=== PATIENT | male | born 1950 | race Caucasian/White ===

== ENCOUNTER 2017-10-11 09:52 | Inpatient (IN) | payer MEDICARE, OTHER ==
[2017-10-11] MEDS ORDERED: methylPREDNISolone SOD SUCCI 125 MG/2 ML VIAL IV STA (10:01)
[2017-10-11] MEDS: ALBUTEROL NEBULIZED 7.5 MG, IPRATROPIUM NEBULIZED 0.5 MG, SODIUM CHLORIDE 0.9% NEBULIZ ... INHALATION ONE ×6 (10:26→10:27)
--- NOTE | 2017-10-11 10:28 | ED ---
General Adult HPI - General Stated complaint: Weakness Time Seen by Provider: 10/11/17 09:55 Source: patient, RN notes reviewed Mode of arrival: EMS - History of Present Illness Initial comments: This is a 67-year-old male who presents emergency Department complaining that he 's been short of breath week and a little dizzy over the last couple of days. Patient states he has a Woodward catheter in place because he's had blood in his urine and he has an appointment to follow-up with Dr. Rowland in 2 days. Patient denies any chest pain or palpitations. Patient denies any fever chills or cough. Patient denies any abdominal pain patient denies any nausea vomiting diarrhea. Patient states he has COPD he does continue to smoke. Patient states he took a treatment before he came in. Patient states on 2 L of oxygen normally. Patient did not receive anything in the ambulance on the way in - Related Data Home Medications Medication Instructions Recorded Confirmed Albuterol Inhaler [Ventolin Hfa 2 puff INHALATION RT-Q6H PRN 10/11/17 10/11/17 Inhaler] Aspirin EC [Ecotrin Low Dose] 81 mg PO DAILY 10/11/17 10/11/17 Carvedilol [Coreg] 12.5 mg PO BID 10/11/17 10/11/17 Insulin Aspart [NovoLOG Flexpen] 5 units SQ AC-BRKFST 10/11/17 10/11/17 Insulin Aspart [NovoLOG Flexpen] 5 units SQ AC-LUNCH 10/11/17 10/11/17 Insulin Aspart [NovoLOG Flexpen] 8 units SQ AC-SUPPER 10/11/17 10/11/17 Insulin Detemir [Levemir Flextouch] 65 units SQ HS 10/11/17 10/11/17 Ipratropium-Albuterol Nebulize 3 ml INHALATION RT-QID 10/11/17 10/11/17 [Duoneb 0.5 mg-3 mg/3 ml Soln] Lisinopril 40 mg PO DAILY 10/11/17 10/11/17 Pravastatin Sodium [Pravachol] 20 mg PO HS 10/11/17 10/11/17 Sulfamethox-Tmp 800-160Mg [Bactrim 1 tab PO Q12HR 10/11/17 10/11/17 DS 800-160 mg] Theophylline 12 Hour [Gilberto-Dur] 300 mg PO BID 10/11/17 10/11/17 amLODIPine [Norvasc] 10 mg PO DAILY 10/11/17 10/11/17 Allergies Allergy/AdvReac Type Severity Reaction Status Date / Time No Known Allergies Allergy Unverified 10/11/17 10:08 Review of Systems ROS Statement: Those systems with pertinent positive or pertinent negative responses have been documented in the HPI. ROS Other: All systems not noted in ROS Statement are negative. Past Medical History Past Medical History: Heart Failure, COPD, Diabetes Mellitus History of Any Multi-Drug Resistant Organisms: None Reported Past Surgical History: Appendectomy, Cholecystectomy, Heart Catheterization Past Psychological History: No Psychological Hx Reported Smoking Status: Current some day smoker Past Alcohol Use History: None Reported Past Drug Use History: None Reported General Exam - General Exam Comments Initial Comments: GENERAL: Patient is well-developed and well-nourished. Patient is nontoxic and well- hydrated and is in mild distress. ENT: Neck is soft and supple. No significant lymphadenopathy is noted. Oropharynx is clear. Moist mucous membranes. Neck has full range of motion without eliciting any pain. EYES: The sclera were anicteric and conjunctiva were pink and moist. Extraocular movements were intact and pupils were equal round and reactive to light. Eyelids were unremarkable. PULMONARY: Patient has expiratory wheezing diffusely CARDIOVASCULAR: There is a regular rate and rhythm without any murmurs gallops or rubs. ABDOMEN: Patient has a nontender abdomen SKIN: Skin is clear with no lesions or rashes and otherwise unremarkable. NEUROLOGIC: Patient is alert and oriented x3. Cranial nerves II through XII are grossly intact. Motor and sensory are also intact. Normal speech, volume and content. Symmetrical smile. MUSCULOSKELETAL: Normal extremities with adequate strength and full range of motion. 1+ edema LYMPHATICS: No significant lymphadenopathy is noted PSYCHIATRIC: Normal psychiatric evaluation. Course Vital Signs 10/11/17 10/11/17 10/11/17 10:05 10:31 10:45 Temperature 97.8 F Pulse Rate 77 75 77 Respiratory 18 Rate Blood Pressure 122/57 O2 Sat by Pulse 99 Oximetry 10/11/17 10/11/17 11:04 11:30 Temperature Pulse Rate 76 77 Respiratory 18 Rate Blood Pressure 99/54 O2 Sat by Pulse 97 Oximetry Medical Decision Making - Medical Decision Making EKG shows a normal sinus rhythm at 73 bpm GA interval is 206 QRS is 88 QT interval 374 QTC is 412. Patient's EKG shows no ST segment elevation or depression or T wave abnormalities are noted. Chest x-ray shows no acute abnormality. I went back in to reevaluate the patient he states he still feels short of breath and when he gets up he still very lightheaded. Patient denies any chest pain. Patient states he feels unsafe going home. - Lab Data Result diagrams: 10/11/17 10:22 10/11/17 10:22 Lab Results 10/11/17 10/11/17 10/11/17 Range/Units 10:22 10:22 10:22 WBC 10.4 (3.8-10.6) k/uL RBC 3.16 L (4.30-5.90) m/uL Hgb 9.6 L (13.0-17.5) gm/dL Hct 29.4 L (39.0-53.0) % MCV 93.2 (80.0-100.0) fL MCH 30.4 (25.0-35.0) pg MCHC 32.6 (31.0-37.0) g/dL RDW 13.5 (11.5-15.5) % Plt Count 292 (150-450) k/uL Neutrophils % 75 % Lymphocytes % 14 % Monocytes % 7 % Eosinophils % 2 % Basophils % 0 % Neutrophils # 7.8 H (1.3-7.7) k/uL Lymphocytes # 1.4 (1.0-4.8) k/uL Monocytes # 0.8 (0-1.0) k/uL Eosinophils # 0.2 (0-0.7) k/uL Basophils # 0.1 (0-0.2) k/uL Hypochromasia Slight Poikilocytosis Slight PT (9.0-12.0) sec INR (<1.2) APTT (22.0-30.0) sec Sodium 137 (137-145) mmol/L Potassium 5.0 (3.5-5.1) mmol/L Chloride 100 (98-107) mmol/L Carbon Dioxide 28 (22-30) mmol/L Anion Gap 9 mmol/L BUN 13 (9-20) mg/dL Creatinine 1.25 (0.66-1.25) mg/dL Est GFR (CKD-EPI)AfAm 69 (>60 ml/min/1.73 sqM) Est GFR (CKD-EPI)NonAf 60 (>60 ml/min/1.73 sqM) Glucose 112 H (74-99) mg/dL Plasma Lactic Acid Keshawn (0.7-2.0) mmol/L Calcium 8.8 (8.4-10.2) mg/dL Magnesium 2.0 (1.6-2.3) mg/dL Total Bilirubin 0.2 (0.2-1.3) mg/dL AST 22 (17-59) U/L ALT 39 (21-72) U/L Alkaline Phosphatase 78 (38-126) U/L Total Creatine Kinase 142 (55-170) U/L CK-MB (CK-2) 1.4 (0.0-2.4) ng/mL CK-MB (CK-2) Rel Index 1.0 Troponin I <0.012 (0.000-0.034) ng/mL NT-Pro-B Natriuret Pep pg/mL Total Protein 5.6 L (6.3-8.2) g/dL Albumin 3.4 L (3.5-5.0) g/dL Urine Color Urine Appearance (Clear) Urine pH (5.0-8.0) Ur Specific [place] (1.001-1.035) Urine Protein (Negative) Urine Glucose (UA) (Negative) Urine Ketones (Negative) Urine Blood (Negative) Urine Nitrite (Negative) Urine Bilirubin (Negative) Urine Urobilinogen (<2.0) mg/dL Ur Leukocyte Esterase (Negative) Urine RBC (0-5) /hpf Ur Squamous Epith Cells (0-4) /hpf Urine Bacteria (None) /hpf Hyaline Casts (0-2) /lpf Urine Mucus (None) /hpf 10/11/17 10/11/17 10/11/17 Range/Units 10:22 10:22 10:22 WBC (3.8-10.6) k/uL RBC (4.30-5.90) m/uL Hgb (13.0-17.5) gm/dL Hct (39.0-53.0) % MCV (80.0-100.0) fL MCH (25.0-35.0) pg MCHC (31.0-37.0) g/dL RDW (11.5-15.5) % Plt Count (150-450) k/uL Neutrophils % % Lymphocytes % % Monocytes % % Eosinophils % % Basophils % % Neutrophils # (1.3-7.7) k/uL Lymphocytes # (1.0-4.8) k/uL Monocytes # (0-1.0) k/uL Eosinophils # (0-0.7) k/uL Basophils # (0-0.2) k/uL Hypochromasia Poikilocytosis PT 10.5 (9.0-12.0) sec INR 1.1 (<1.2) APTT 22.3 (22.0-30.0) sec Sodium (137-145) mmol/L Potassium (3.5-5.1) mmol/L Chloride (98-107) mmol/L Carbon Dioxide (22-30) mmol/L Anion Gap mmol/L BUN (9-20) mg/dL Creatinine (0.66-1.25) mg/dL Est GFR (CKD-EPI)AfAm (>60 ml/min/1.73 sqM) Est GFR (CKD-EPI)NonAf (>60 ml/min/1.73 sqM) Glucose (74-99) mg/dL Plasma Lactic Acid K[place]wn 1.1 (0.7-2.0) mmol/L Calcium (8.4-10.2) mg/dL Magnesium (1.6-2.3) mg/dL Total Bilirubin (0.2-1.3) mg/dL AST (17-59) U/L ALT (21-72) U/L Alkaline Phosphatase (38-126) U/L Total Creatine Kinase (55-170) U/L CK-MB (CK-2) (0.0-2.4) ng/mL CK-MB (CK-2) Rel Index Troponin I (0.000-0.034) ng/mL NT-Pro-B Natriuret Pep 45 pg/mL Total Protein (6.3-8.2) g/dL Albumin (3.5-5.0) g/dL Urine Color Urine Appearance (Clear) Urine pH (5.0-8.0) Ur Specific [place] (1.001-1.035) Urine Protein (Negative) Urine Glucose (UA) (Negative) Urine Ketones (Negative) Urine Blood (Negative) Urine Nitrite (Negative) Urine Bilirubin (Negative) Urine Urobilinogen (<2.0) mg/dL Ur Leukocyte Esterase (Negative) Urine RBC (0-5) /hpf Ur Squamous Epith Cells (0-4) /hpf Urine Bacteria (None) /hpf Hyaline Casts (0-2) /lpf Urine Mucus (None) /hpf 10/11/17 Range/Units 10:22 WBC (3.8-10.6) k/uL RBC (4.30-5.90) m/uL Hgb (13.0-17.5) gm/dL Hct (39.0-53.0) % MCV (80.0-100.0) fL MCH (25.0-35.0) pg MCHC (31.0-37.0) g/dL RDW (11.5-15.5) % Plt Count (150-450) k/uL Neutrophils % % Lymphocytes % % Monocytes % % Eosinophils % % Basophils % % Neutrophils # (1.3-7.7) k/uL Lymphocytes # (1.0-4.8) k/uL Monocytes # (0-1.0) k/uL Eosinophils # (0-0.7) k/uL Basophils # (0-0.2) k/uL Hypochromasia Poikilocytosis PT (9.0-12.0) sec INR (<1.2) APTT (22.0-30.0) sec Sodium (137-145) mmol/L Potassium (3.5-5.1) mmol/L Chloride (98-107) mmol/L Carbon Dioxide (22-30) mmol/L Anion Gap mmol/L BUN (9-20) mg/dL Creatinine (0.66-1.25) mg/dL Est GFR (CKD-EPI)AfAm (>60 ml/min/1.73 sqM) Est GFR (CKD-EPI)NonAf (>60 ml/min/1.73 sqM) Glucose (74-99) mg/dL Plasma Lactic Acid K[place]wn (0.7-2.0) mmol/L Calcium (8.4-10.2) mg/dL Magnesium (1.6-2.3) mg/dL Total Bilirubin (0.2-1.3) mg/dL AST (17-59) U/L ALT (21-72) U/L Alkaline Phosphatase (38-126) U/L Total Creatine Kinase (55-170) U/L CK-MB (CK-2) (0.0-2.4) ng/mL CK-MB (CK-2) Rel Index Troponin I (0.000-0.034) ng/mL NT-Pro-B Natriuret Pep pg/mL Total Protein (6.3-8.2) g/dL Albumin (3.5-5.0) g/dL Urine Color Red Urine Appearance Cloudy (Clear) Urine pH 5.5 (5.0-8.0) Ur Specific [place] 1.009 (1.001-1.035) Urine Protein 2+ H (Negative) Urine Glucose (UA) Negative (Negative) Urine Ketones Negative (Negative) Urine Blood Large H (Negative) Urine Nitrite Negative (Negative) Urine Bilirubin Negative (Negative) Urine Urobilinogen <2.0 (<2.0) mg/dL Ur Leukocyte Esterase Trace H (Negative) Urine RBC >182 H (0-5) /hpf Ur Squamous Epith Cells 1 (0-4) /hpf Urine Bacteria Rare H (None) /hpf Hyaline Casts 14 H (0-2) /lpf Urine Mucus Rare H (None) /hpf Disposition Clinical Impression: COPD exacerbation, Dizziness, Anemia Disposition: ADMITTED IP TO THIS HOSP Referrals: Khadijah Helm MD [Primary Care Provider] - 1-2 days Time of Disposition: 12:45
[2017-10-11 10:39] LABS: Basophils # (A) 0.1 k/uL (0-0.2); Basophils % (A) 0 %; Eosinophils # (A) 0.2 k/uL (0-0.7); Eosinophils % (A) 2 %; HCT 29.4 % (39.0-53.0); HGB 9.6 gm/dL (13.0-17.5); Hypochromasia Slight; Lymphocytes # (A) 1.4 k/uL (1.0-4.8); Lymphocytes % (A) 14 %; MCH 30.4 pg (25.0-35.0); MCHC 32.6 g/dL (31.0-37.0); MCV 93.2 fL (80.0-100.0); Monocytes # (A) 0.8 k/uL (0-1.0); Monocytes % (A) 7 %; Neutrophils # (A) 7.8 k/uL (1.3-7.7); Neutrophils % (A) 75 %; Platelet Count 292 k/uL (150-450); Poikilocytosis Slight; RBC 3.16 m/uL (4.30-5.90); RDW 13.5 % (11.5-15.5); WBC 10.4 k/uL (3.8-10.6)
[2017-10-11 10:43] LABS: INR 1.1 (<1.2); Partial Thromboplastin Time 22.3 sec (22.0-30.0); Prothrombin Time 10.5 sec (9.0-12.0)
[2017-10-11 10:47] LABS: Albumin 3.4 g/dL (3.5-5.0); Calcium 8.8 mg/dL (8.4-10.2); Total Bilirubin 0.2 mg/dL (0.2-1.3); Total Protein 5.6 g/dL (6.3-8.2)
[2017-10-11 10:57] LABS: Creatine Kinase 142 U/L (55-170)
[2017-10-11 11:10] LABS: Creatine Kinase MB 1.4 ng/mL (0.0-2.4); Troponin I <0.012 ng/mL (0.000-0.034)
--- NOTE | 2017-10-11 11:26 | XR ---
EXAMINATION TYPE: XR chest 2V DATE OF EXAM: 10/11/2017 COMPARISON: 12/24/2016 HISTORY: Weakness and dizziness TECHNIQUE: Frontal and lateral views of the chest are obtained. FINDINGS: There is no focal air space opacity, pleural effusion, or pneumothorax seen. The cardiac silhouette size is within normal limits. The osseous structures are intact. Moderate hiatal hernia is incidentally noted. Moderate multilevel degenerative changes of the thoracic spine are also seen. Pulmonary hyperinflation again may relate to underlying emphysema or degree of inspiration. IMPRESSION: No acute cardiopulmonary process.
[2017-10-11 12:02] LABS: Appearance,Urine Cloudy (Clear); Bacteria,Urine Rare /hpf; Bilirubin,Urine Negative (Negative); Blood,Urine Large (Negative); Color,Urine Red; Glucose,Urine (UA) Negative (Negative); Hyaline Casts,Urine 14 /lpf (0-2); Ketones,Urine Negative (Negative); Leukocyte Esterase,Urine Trace (Negative); Mucus,Urine Rare /hpf; Nitrite,Urine Negative (Negative); PH, Urine 5.5 (5.0-8.0); Protein,Urine 2+ (Negative); RBC,Urine >182 /hpf (0-5); Specific Gravity,Urine 1.009 (1.001-1.035); Squamous Epithelial Cell,Urine 1 /hpf (0-4); Urobilinogen,Urine <2.0 mg/dL (<2.0)
[2017-10-11] MEDS ORDERED: IPRATROPIUM-ALBUTEROL 3 ML NEB INHALATION PRN (12:45)
[2017-10-11 13:43] LABS: Glucose,Whole Blood 148 mg/dL (75-99)
--- NOTE | 2017-10-11 15:07 | P.HPIM ---
History of Present Illness Patient is a 67-year-old man with known history of advanced COPD used to smoke 40 cigarettes a day came in with comments of shortness of breath started about couple days ago. Patient was comparing of cough unable to bring up anything. Patient denied any fever chills or 6 did not show any pneumonic process. Patient is on Bactrim for chronic bronchitis although his kidney function is borderline at 1.2 and potassium is borderline at 5 because of which Bactrim was discontinued all the lisinopril is being continued patient was comparing of lightheadedness and bilateral pedal edema probably secondary to amlodipine which is being Discontinued patient had positive orthostatic vitals here the hospital. Patient denied any nausea vomiting diarrhea. Patient normally uses 2 L of oxygen patient does have significantly limited air entry into bilateral lung torres with expiratory wheezing patient is on systemic steroids, albuterol and ipratropium inhalational treatments which are being continued, I'm expecting patient will need hospitalization more than one night because of which patient will be made inpatient rather than observation. His pavilion cutter was consulted. Patient has a Woodward catheter, appears to have BPH symptoms patient was started on Flomax patient is supposed to follow with urology day after tomorrow. Patient has some RBCs in the urine although doesn' t appear to be infected. Patient received this Woodward catheter after his recent hospitalization in [facility] Review of Systems REVIEW OF SYSTEMS: CONSTITUTIONAL: No fever, no malaise, no fatigue. HEENT: No recent visual problems or hearing problems. Denied any sore throat. CARDIOVASCULAR: No chest pain, orthopnea, PND, no palpitations, no syncope. PULMONARY: As mentioned in HPI GASTROINTESTINAL: No diarrhea, no nausea, no vomiting, no abdominal pain. Normoactive bowel sounds. NEUROLOGICAL: No headaches, no weakness, no numbness. HEMATOLOGICAL: Denies any bleeding or petechiae. GENITOURINARY: Denies any burning micturition, frequency, or urgency. MUSCULOSKELETAL/RHEUMATOLOGICAL: Denies any joint pain, swelling, or any muscle pain. ENDOCRINE: Denies any polyuria or polydipsia. The rest of the 14-point review of systems is negative. Past Medical History Past Medical History: Heart Failure, COPD, Diabetes Mellitus, Hyperlipidemia, Hypertension Additional Past Medical History / Comment(s): Current IDC d/t hematuria unknown cause-was to f/u with Dr. Rowland in 2 days, home O2 at 2L/NC at HS and prn, IDDM type II, peripheral neuropathy bilateral hands and feet, lately constipated- last BM today but states he still feels he needs to go more. History of Any Multi-Drug Resistant Organisms: None Reported Past Surgical History: Heart Catheterization Additional Past Surgical History / Comment(s): Pt states about 1.5 years ago he had a cardiac atherectomy done at [facility] in [place]-he denies stenting. Smoking Status: Current every day smoker - Past Family History Father Family Medical History: Hypertension, Myocardial Infarction (SC) Additional Family Medical History / Comment(s): Father of a SC in his late 70's or early 80's. Mother Family Medical History: Cancer Additional Family Medical History / Comment(s): Mother of brain cancer. Medications and Allergies Home Medications Medication Instructions Recorded Confirmed Type Albuterol Inhaler [Ventolin Hfa 2 puff INHALATION RT-Q6H PRN 10/11/17 10/11/17 History Inhaler] Aspirin EC [Ecotrin Low Dose] 81 mg PO DAILY 10/11/17 10/11/17 History Carvedilol [Coreg] 12.5 mg PO BID 10/11/17 10/11/17 History Insulin Aspart [NovoLOG Flexpen] 5 units SQ AC-BRKFST 10/11/17 10/11/17 History Insulin Aspart [NovoLOG Flexpen] 5 units SQ AC-LUNCH 10/11/17 10/11/17 History Insulin Aspart [NovoLOG Flexpen] 8 units SQ AC-SUPPER 10/11/17 10/11/17 History Insulin Detemir [Levemir Flextouch] 65 units SQ HS 10/11/17 10/11/17 History Ipratropium-Albuterol Nebulize 3 ml INHALATION RT-QID 10/11/17 10/11/17 History [Duoneb 0.5 mg-3 mg/3 ml Soln] Lisinopril 40 mg PO DAILY 10/11/17 10/11/17 History Pravastatin Sodium [Pravachol] 20 mg PO HS 10/11/17 10/11/17 History Sulfamethox-Tmp 800-160Mg [Bactrim 1 tab PO Q12HR 10/11/17 10/11/17 History DS 800-160 mg] Theophylline 12 Hour [Gilberto-Dur] 300 mg PO BID 10/11/17 10/11/17 History amLODIPine [Norvasc] 10 mg PO DAILY 10/11/17 10/11/17 History Allergies Allergy/AdvReac Type Severity Reaction Status Date / Time No Known Allergies Allergy Unverified 10/11/17 10:08 Physical Exam Vitals: Vital Signs Temp Pulse Pulse Resp BP BP Pulse Ox 10/11/17 13:35 97.9 F 81 18 120/59 92 L 10/11/17 12:58 98.7 F 74 18 109/60 98 10/11/17 11:30 77 18 99/54 97 10/11/17 11:04 76 10/11/17 10:45 77 10/11/17 10:31 75 10/11/17 10:05 97.8 F 77 18 122/57 99 Intake and Output 10/11/17 10/11/17 10/11/17 06:59 14:59 22:59 Intake Total 200 Balance 200 Intake: Oral 200 Other: Voiding Method Indwelling Catheter Weight 96.3 kg PHYSICAL EXAMINATION: GENERAL: The patient is alert and oriented x3, not in any acute distress. Well developed, well nourished. HEENT: Pupils are round and equally reacting to light. EOMI. No scleral icterus. No conjunctival pallor. Normocephalic, atraumatic. No pharyngeal erythema. No thyromegaly. CARDIOVASCULAR: S1 and S2 present. No murmurs, rubs, or gallops. PULMONARY: Significant expiratory wheezing was appreciated decreased air entry into bilateral lung torres ABDOMEN: Soft, nontender, nondistended, normoactive bowel sounds. No palpable organomegaly. MUSCULOSKELETAL: No joint swelling or deformity. EXTREMITIES: No cyanosis, clubbing, mild pedal edema in bilateral lower extremities was appreciated NEUROLOGICAL: Gross neurological examination did not reveal any focal deficits. SKIN: No rashes. Results CBC & Chem 7: 10/11/17 10:22 10/11/17 10:22 Labs: Abnormal Lab Results - Last 24 Hours (Table) 10/11/17 10/11/17 10/11/17 Range/Units 10:22 10:22 10:22 RBC 3.16 L (4.30-5.90) m/uL Hgb 9.6 L (13.0-17.5) gm/dL Hct 29.4 L (39.0-53.0) % Neutrophils # 7.8 H (1.3-7.7) k/uL Glucose 112 H (74-99) mg/dL POC Glucose (mg/dL) (75-99) mg/dL Total Protein 5.6 L (6.3-8.2) g/dL Albumin 3.4 L (3.5-5.0) g/dL Urine Protein 2+ H (Negative) Urine Blood Large H (Negative) Ur Leukocyte Esterase Trace H (Negative) Urine RBC >182 H (0-5) /hpf Urine Bacteria Rare H (None) /hpf Hyaline Casts 14 H (0-2) /lpf Urine Mucus Rare H (None) /hpf 10/11/17 Range/Units 13:41 RBC (4.30-5.90) m/uL Hgb (13.0-17.5) gm/dL Hct (39.0-53.0) % Neutrophils # (1.3-7.7) k/uL Glucose (74-99) mg/dL POC Glucose (mg/dL) 148 H (75-99) mg/dL Total Protein (6.3-8.2) g/dL Albumin (3.5-5.0) g/dL Urine Protein (Negative) Urine Blood (Negative) Ur Leukocyte Esterase (Negative) Urine RBC (0-5) /hpf Urine Bacteria (None) /hpf Hyaline Casts (0-2) /lpf Urine Mucus (None) /hpf Thrombosis Risk Factor Assmnt - Choose All That Apply Any of the Below Risk Factors Present?: Yes Each Factor Represents 1 point: Abnormal pulmonary function (COPD), Obesity ( BMI >25), Serious lung disease incl. pneumonia (< 1month), Swollen legs (current ) Other Risk Factors: Yes Each Risk Factor Represents 2 Points: Age 61-74 years Other congenital or acquired thrombophilia - If yes, enter type in comment: No Thrombosis Risk Factor Assessment Total Risk Factor Score: 6 Thrombosis Risk Factor Assessment Level: High Risk Assessment and Plan Plan: -Acute on chronic hypercapnic respiratory failure: Secondary to COPD exacerbation, continue with the IV steroids inhalational treatments. Patient will be started on Doxil cycle and discontinue Bactrim for above-mentioned reasons. -Possible acute renal dysfunction: Secondary to Bactrim which was discontinued. -Hypertension patient is dizzy probably because of blood pressure medications amlodipine will be discontinued. -Bilateral pedal edema mostly ankle edema related to vasodilation from amlodipine -Type 2 diabetes mellitus with diabetic neuropathy and possibility of diabetic nephropathy with chronic kidney disease stage II: Patient will be continued on his home regimen along with sliding scale for systemic steroids. -Tracheobronchitis -Hyperlipidemia: Continue with the atorvastatin
[2017-10-11] MEDS: IPRATROPIUM-ALBUTEROL 3 ML NEB INHALATION SCH ×2 (16:40→21:14)
[2017-10-11 17:22] LABS: Glucose,Whole Blood 306 mg/dL (75-99)
[2017-10-11] MEDS: CARVEDILOL 12.5 MG TAB PO SCH (17:24)
[2017-10-11] MEDS: TAMSULOSIN 0.4 MG CAP.ER.24H PO SCH (17:36)
[2017-10-11] MEDS: INSULIN ASPART 100 UNIT/ML 1 ML 10 ML VIAL SQ SCH ×3 (17:36→20:58)
[2017-10-11] MEDS: methylPREDNISolone SOD SUCCI 125 MG/2 ML VIAL IV SCH ×2 (17:57→23:07)
[2017-10-11 20:54] LABS: Glucose,Whole Blood 315 mg/dL (75-99)
[2017-10-11] MEDS: FAMOTIDINE 20 MG TAB PO SCH (20:58)
[2017-10-11] MEDS: DOXYCYCLINE 50 MG CAP PO SCH (20:58)
[2017-10-11] MEDS: INSULIN DETEMIR 100 UNIT/ML 10 ML VIAL SQ SCH (20:58)
[2017-10-11] MEDS: PRAVASTATIN SODIUM 20 MG TAB PO SCH (20:58)
[2017-10-11 22:46] LABS: Hemoglobin A1C 6.9 % (4.0-6.0)
[2017-10-12] MEDS: methylPREDNISolone SOD SUCCI 125 MG/2 ML VIAL IV SCH ×4 (05:58→22:13)
[2017-10-12 06:56] LABS: Glucose,Whole Blood 198 mg/dL (75-99)
[2017-10-12] MEDS: IPRATROPIUM-ALBUTEROL 3 ML NEB INHALATION SCH ×4 (07:44→18:58)
[2017-10-12] MEDS: FAMOTIDINE 20 MG TAB PO SCH ×2 (08:09→22:12)
[2017-10-12] MEDS: THEOPHYLLINE 24 HOUR 300 MG CAP.ER.24H PO SCH (08:09)
[2017-10-12] MEDS: DOXYCYCLINE 50 MG CAP PO SCH ×2 (08:09→22:12)
[2017-10-12] MEDS: LISINOPRIL 20 MG TAB PO SCH (08:10)
[2017-10-12] MEDS: INSULIN ASPART 100 UNIT/ML 1 ML 10 ML VIAL SQ SCH ×7 (08:10→22:13)
[2017-10-12] MEDS: CARVEDILOL 12.5 MG TAB PO SCH ×2 (08:10→17:52)
[2017-10-12] MEDS: ASPIRIN 81 MG PO SCH (08:12)
[2017-10-12 12:17] LABS: Glucose,Whole Blood 170 mg/dL (75-99)
--- NOTE | 2017-10-12 12:49 | P.PN ---
Subjective 67-year-old gentleman was admitted for COPD exacerbation and dizziness dizziness improved patient is still wheezing significantly and he says it is his baseline. Patient all the saturating well on 3 L will cut on Augmentin to 2 L today. Patient may need 1 more day of monitoring. Patient still has a Woodward catheter. Patient's Woodward catheter will be discontinued and will be monitored for any urinary retention. Patient was started on Flomax as today. Constitutional: Denied any fatigue denied any fever. Cardio vascular: denied any chest pain, palpitations Gastrointestinal denied any nausea vomiting Pulmonary: As mentioned in interval history Neurologic denied any new focal deficits Objective - Vital Signs Vital signs: Vital Signs Temp 98 F 10/12/17 12:20 Pulse 82 10/12/17 12:20 Resp 20 10/12/17 12:20 BP 134/60 10/12/17 12:20 Pulse Ox 97 10/12/17 12:20 Intake & Output 10/11/17 10/12/17 10/12/17 18:59 06:59 18:59 Intake Total 200 370 240 Output Total 300 700 Balance 200 70 -460 Weight 96.3 kg Intake: IV 10 0.9 10 Oral 200 360 240 Output: Urine 300 700 Other: Voiding Method Indwelling Catheter Indwelling Catheter Indwelling Catheter - Exam GENERAL: The patient is alert and oriented x3, not in any acute distress. Well developed, well nourished. HEENT: Pupils are round and equally reacting to light. EOMI. No scleral icterus. No conjunctival pallor. Normocephalic, atraumatic. No pharyngeal erythema. No thyromegaly. CARDIOVASCULAR: S1 and S2 present. No murmurs, rubs, or gallops. PULMONARY: Significant expiratory wheezing was appreciated decreased air entry into bilateral lung torres, wheezing did improve compared to yesterday. ABDOMEN: Soft, nontender, nondistended, normoactive bowel sounds. No palpable organomegaly. MUSCULOSKELETAL: No joint swelling or deformity. EXTREMITIES: No cyanosis, clubbing, mild pedal edema in bilateral lower extremities was appreciated NEUROLOGICAL: Gross neurological examination did not reveal any focal deficits. SKIN: No rashes. - Labs CBC & Chem 7: 10/11/17 10:22 10/11/17 10:22 Labs: Abnormal Lab Results - Last 24 Hours (Table) 10/11/17 10/11/17 10/11/17 Range/Units 10:22 13:41 17:16 POC Glucose (mg/dL) 148 H 306 H (75-99) mg/dL Hemoglobin A1c 6.9 H (4.0-6.0) % 10/11/17 10/12/17 10/12/17 Range/Units 20:42 06:53 12:14 POC Glucose (mg/dL) 315 H 198 H 170 H (75-99) mg/dL Hemoglobin A1c (4.0-6.0) % Assessment and Plan Plan: -Acute on chronic hypercapnic respiratory failure: Secondary to COPD exacerbation, continue with the IV steroids inhalational treatments. Patient is on Doxy cycle and discontinued Bactrim due to poor renal function -Possible acute renal dysfunction: Secondary to Bactrim which was discontinued. -Hypertension patient is dizzy probably because of blood pressure medications amlodipine will be discontinued. His dizziness didn't improve -Bilateral pedal edema mostly ankle edema related to vasodilation from amlodipine -Type 2 diabetes mellitus with diabetic neuropathy and possibility of diabetic nephropathy with chronic kidney disease stage II: Patient will be continued on his home regimen along with sliding scale for systemic steroids. -Tracheobronchitis -Hyperlipidemia: Continue with the atorvastatin
--- NOTE | 2017-10-12 13:40 | P.CNPUL ---
History of Present Illness Consult date: 10/12/17 Requesting physician: Gio Kwan Reason for consult: dyspnea, cough, COPD, hypoxemia, other Chief complaint: Dyspnea, dizziness, cough with sputum production History of present illness: Alberto is a 67-year-old white male patient sees Dr. Staples for his history of severe COPD with chronic hypoxic respiratory failure, related to the emergency department on 10/11/2017 at 0952 with complaints of increasing shortness of breath, dizziness, cough with production of yellow sputum. He was recently hospitalized a few days ago at [facility] overnight for what he describes as urinary retention, hematuria. He had a Woodward catheter placed, and he has an appointment to follow up with Dr. Rowland this week. Patient denied any fever, or chills. He is a chronic smoker, down to 2-3 cigarettes a day, but carries 52 year smoking history of 2 packs a day. He is on a combination of Advair, Ventolin, and nebulizer treatments at home. He wears 2 L of oxygen at home. His chest x-ray showed no evidence of acute cardiopulmonary process. EKG showed normal sinus rhythm, with no acute ST or T- wave abnormality. Lab work showed WBC of 10.4, hemoglobin of 9.6, INR 1.1, electrolytes were within normal limits, BUN is 13, creatinine is 1.25. Troponin was negative 1, proBNP was 45. Urinalysis showed 2+ protein, large amount of blood, trace leuks, rare bacteria and mucus. Patient was started on antibiotics in the form of doxycycline, IV steroids, nebulized treatments, and admitted for further management. Review of Systems All systems: negative Constitutional: Denies chills, Denies fever Eyes: denies blurred vision, denies pain Ears, nose, mouth and throat: Denies headache, Denies sore throat Cardiovascular: Denies chest pain, Denies shortness of breath Respiratory: Reports congestion, Reports cough with sputum, Reports dyspnea, Reports home oxygen, Reports respiratory infections, Denies cough Gastrointestinal: Denies abdominal pain, Denies diarrhea, Denies nausea, Denies vomiting Musculoskeletal: Denies myalgias Integumentary: Denies pruritus, Denies rash Neurological: Denies numbness, Denies weakness Psychiatric: Denies anxiety, Denies depression Endocrine: Denies fatigue, Denies weight change Past Medical History Past Medical History: Heart Failure, COPD, Diabetes Mellitus, Hyperlipidemia, Hypertension Additional Past Medical History / Comment(s): Current IDC d/t hematuria unknown cause-was to f/u with Dr. Rowland in 2 days, home O2 at 2L/NC at HS and prn, IDDM type II, peripheral neuropathy bilateral hands and feet, lately constipated- last BM today but states he still feels he needs to go more. History of Any Multi-Drug Resistant Organisms: None Reported Past Surgical History: Heart Catheterization Additional Past Surgical History / Comment(s): Pt states about 1.5 years ago he had a cardiac atherectomy done at [facility] in [place]-he denies stenting. Smoking Status: Current every day smoker - Past Family History Father Family Medical History: Hypertension, Myocardial Infarction ([place]) Additional Family Medical History / Comment(s): Father of a IN in his late 70's or early 80's. Mother Family Medical History: Cancer Additional Family Medical History / Comment(s): Mother of brain cancer. Medications and Allergies Home Medications Medication Instructions Recorded Confirmed Type Albuterol Inhaler [Ventolin Hfa 2 puff INHALATION RT-Q6H PRN 10/11/17 10/11/17 History Inhaler] Aspirin EC [Ecotrin Low Dose] 81 mg PO DAILY 10/11/17 10/11/17 History Carvedilol [Coreg] 12.5 mg PO BID 10/11/17 10/11/17 History Insulin Aspart [NovoLOG Flexpen] 5 units SQ AC-BRKFST 10/11/17 10/11/17 History Insulin Aspart [NovoLOG Flexpen] 5 units SQ AC-LUNCH 10/11/17 10/11/17 History Insulin Aspart [NovoLOG Flexpen] 8 units SQ AC-SUPPER 10/11/17 10/11/17 History Insulin Detemir [Levemir Flextouch] 65 units SQ HS 10/11/17 10/11/17 History Ipratropium-Albuterol Nebulize 3 ml INHALATION RT-QID 10/11/17 10/11/17 History [Duoneb 0.5 mg-3 mg/3 ml Soln] Lisinopril 40 mg PO DAILY 10/11/17 10/11/17 History Pravastatin Sodium [Pravachol] 20 mg PO HS 10/11/17 10/11/17 History Sulfamethox-Tmp 800-160Mg [Bactrim 1 tab PO Q12HR 10/11/17 10/11/17 History DS 800-160 mg] Theophylline 12 Hour [Gilberto-Dur] 300 mg PO BID 10/11/17 10/11/17 History amLODIPine [Norvasc] 10 mg PO DAILY 10/11/17 10/11/17 History Allergies Allergy/AdvReac Type Severity Reaction Status Date / Time No Known Allergies Allergy Unverified 10/11/17 10:08 Physical Exam Vitals: Vital Signs Temp Pulse Pulse Resp BP Pulse Ox 10/12/17 12:20 98 F 82 20 134/60 97 10/12/17 12:00 82 20 10/12/17 11:34 78 10/12/17 11:25 74 10/12/17 08:00 98.3 F 71 18 110/58 93 L 10/12/17 07:58 80 10/12/17 07:46 76 95 10/12/17 04:00 82 16 10/12/17 00:00 82 16 10/11/17 23:36 98.2 F 82 16 125/56 94 L 10/11/17 21:30 76 10/11/17 21:16 76 97 10/11/17 20:00 82 18 10/11/17 16:50 84 10/11/17 16:40 84 10/11/17 15:52 98.3 F 82 18 97/57 97 10/11/17 13:35 97.9 F 81 18 120/59 92 L Intake and Output 10/11/17 10/12/17 10/12/17 22:59 06:59 14:59 Intake Total 360 10 240 Output Total 300 700 Balance 60 10 -460 Intake: IV 10 0.9 10 Oral 360 240 Output: Urine 300 700 Other: Voiding Method Indwelling Catheter Indwelling Catheter Indwelling Catheter GENERAL EXAM: Alert, 67-year-old white male, comfortable in no apparent distress. HEAD: Normocephalic/atraumatic. EYES: Normal reaction of pupils, equal size. Conjunctiva pink, sclera white. NOSE: Clear with pink turbinates. THROAT: No erythema or exudates. NECK: No masses, no JVD, no thyroid enlargement, no adenopathy. CHEST: No chest wall deformity. Symmetrical expansion. LUNGS: Equal air entry with diffuse wheezes, and bibasilar crackles CVS: Regular rate and rhythm, normal S1 and S2, no gallops, no murmurs, no rubs ABDOMEN: Soft, nontender. No hepatosplenomegaly, normal bowel sounds, no guarding or rigidity. EXTREMITIES: No clubbing, no edema, no cyanosis, 2+ pulses and upper and lower extremities. MUSCULOSKELETAL: Muscle strength and tone normal. SPINE: No scoliosis or deformity SKIN: No rashes CENTRAL NERVOUS SYSTEM: Alert and oriented -3. No focal deficits, tone is normal in all 4 extremities. PSYCHIATRIC: Alert and oriented -3. Appropriate affect. Intact judgment and insight. Results - Laboratory Findings CBC and BMP: 10/11/17 10:22 10/11/17 10:22 PT/INR, D-dimer PT 10.5 sec (9.0-12.0) 10/11/17 10:22 INR 1.1 (<1.2) 10/11/17 10:22 Abnormal lab findings: Abnormal Labs 10/11/17 10/11/17 10/11/17 10:22 10:22 10:22 RBC 3.16 L Hgb 9.6 L Hct 29.4 L Neutrophils # 7.8 H Glucose 112 H POC Glucose (mg/dL) Hemoglobin A1c Total Protein 5.6 L Albumin 3.4 L Urine Protein 2+ H Urine Blood Large H Ur Leukocyte Esterase Trace H Urine RBC >182 H Urine Bacteria Rare H Hyaline Casts 14 H Urine Mucus Rare H 10/11/17 10/11/17 10/11/17 10:22 13:41 17:16 RBC Hgb Hct Neutrophils # Glucose POC Glucose (mg/dL) 148 H 306 H Hemoglobin A1c 6.9 H Total Protein Albumin Urine Protein Urine Blood Ur Leukocyte Esterase Urine RBC Urine Bacteria Hyaline Casts Urine Mucus 10/11/17 10/12/17 10/12/17 20:42 06:53 12:14 RBC Hgb Hct Neutrophils # Glucose POC Glucose (mg/dL) 315 H 198 H 170 H Hemoglobin A1c Total Protein Albumin Urine Protein Urine Blood Ur Leukocyte Esterase Urine RBC Urine Bacteria Hyaline Casts Urine Mucus - Diagnostic Findings Chest x-ray: report reviewed Additional studies: Twelve-lead EKG reviewed Assessment and Plan Plan: Assessment: #1. Acute COPD exacerbation with tracheobronchitis #2. Chronic hypoxemic respiratory failure, secondary to severe COPD, with a baseline FEV1 of 40% of predicted, Gold stage III #3. Normocytic, normochromic anemia #4. Diabetes mellitus type 2 #5. Essential hypertension #6. Nicotine dependence, ongoing. Currently down to 2-3 cigarettes a day, carries 52 year smoking history of 2 packs a day #7. Urinary retention and hematuria, requiring placement of indwelling catheter. Patient is supposed to see urology in consultation this week #8. Hyperlipidemia #9. Peripheral neuropathy Plan: Continue doxycycline, continue DuoNeb, we will add Symbicort. Continue IV Solu- Medrol, will add Mucinex. We'll continue to follow. I performed a history & physical examination of the patient and discussed their management with my nurse practitioner, Erica Urbina. I reviewed the nurse practitioner's note and agree with the documented findings and plan of care. Lung sounds are positive for diffuse wheezes and bibasilar crackles at the lung bases. The findings and the impression was discussed with the patient. I attest to the documentation by the nurse practitioner. Time with Patient: Greater than 30
[2017-10-12 17:20] LABS: Glucose,Whole Blood 189 mg/dL (75-99)
[2017-10-12] MEDS: TAMSULOSIN 0.4 MG CAP.ER.24H PO SCH (18:00)
[2017-10-12] MEDS: SYMBICORT 160-4.5 MCG INHALER INHALATION SCH (18:58)
[2017-10-12 20:04] LABS: Glucose,Whole Blood 239 mg/dL (75-99)
[2017-10-12] MEDS: PRAVASTATIN SODIUM 20 MG TAB PO SCH (22:12)
[2017-10-12] MEDS: DOCUSATE 100 MG CAP PO SCH (22:12)
[2017-10-12] MEDS: INSULIN DETEMIR 100 UNIT/ML 10 ML VIAL SQ SCH (22:14)
[2017-10-13] MEDS: methylPREDNISolone SOD SUCCI 125 MG/2 ML VIAL IV SCH ×2 (05:56→12:30)
[2017-10-13 07:10] LABS: HCT 27.9 % (39.0-53.0); HGB 8.8 gm/dL (13.0-17.5); Hypochromasia Slight; MCH 29.7 pg (25.0-35.0); MCHC 31.5 g/dL (31.0-37.0); MCV 94.3 fL (80.0-100.0); Platelet Count 265 k/uL (150-450); Poikilocytosis Slight; RBC 2.96 m/uL (4.30-5.90); RDW 13.4 % (11.5-15.5); WBC 16.8 k/uL (3.8-10.6)
[2017-10-13 07:13] LABS: Glucose,Whole Blood 171 mg/dL (75-99)
[2017-10-13 07:21] LABS: Calcium 9.4 mg/dL (8.4-10.2); Potassium 5.2 mmol/L (3.5-5.1)
[2017-10-13] MEDS: INSULIN ASPART 100 UNIT/ML 1 ML 10 ML VIAL SQ SCH ×4 (07:36→12:31)
[2017-10-13] MEDS: CARVEDILOL 12.5 MG TAB PO SCH (07:38)
[2017-10-13] MEDS: FAMOTIDINE 20 MG TAB PO SCH (07:38)
[2017-10-13] MEDS: DOCUSATE 100 MG CAP PO SCH (07:38)
[2017-10-13] MEDS: ASPIRIN 81 MG PO SCH (07:38)
[2017-10-13] MEDS: DOXYCYCLINE 50 MG CAP PO SCH (07:38)
[2017-10-13] MEDS: LISINOPRIL 20 MG TAB PO SCH (07:39)
[2017-10-13] MEDS: THEOPHYLLINE 24 HOUR 300 MG CAP.ER.24H PO SCH (07:39)
[2017-10-13 07:40] VITALS: BP 111/67; RESP 20; TEMP 97.9
[2017-10-13] MEDS: IPRATROPIUM-ALBUTEROL 3 ML NEB INHALATION SCH ×2 (08:17→11:51)
[2017-10-13] MEDS: SYMBICORT 160-4.5 MCG INHALER INHALATION SCH (08:17)
[2017-10-13 11:11] LABS: Glucose,Whole Blood 176 mg/dL (75-99)
--- NOTE | 2017-10-13 11:30 | P.PN ---
Subjective Progress Note Date: 10/13/17 Principal diagnosis: Acute COPD exacerbation with tracheobronchitis Alberto is a 67-year-old white male patient sees Dr. Staples for his history of severe COPD with chronic hypoxic respiratory failure, related to the emergency department on 10/11/2017 at 0952 with complaints of increasing shortness of breath, dizziness, cough with production of yellow sputum. He was recently hospitalized a few days ago at [facility] overnight for what he describes as urinary retention, hematuria. He had a Woodward catheter placed, and he has an appointment to follow up with Dr. Rowland this week. Patient denied any fever, or chills. He is a chronic smoker, down to 2-3 cigarettes a day, but carries 52 year smoking history of 2 packs a day. He is on a combination of Advair, Ventolin, and nebulizer treatments at home. He wears 2 L of oxygen at home. His chest x-ray showed no evidence of acute cardiopulmonary process. EKG showed normal sinus rhythm, with no acute ST or T- wave abnormality. Lab work showed WBC of 10.4, hemoglobin of 9.6, INR 1.1, electrolytes were within normal limits, BUN is 13, creatinine is 1.25. Troponin was negative 1, proBNP was 45. Urinalysis showed 2+ protein, large amount of blood, trace leuks, rare bacteria and mucus. Patient was started on antibiotics in the form of doxycycline, IV steroids, nebulized treatments, and admitted for further management. On 10/13/2017 patient seen in follow-up on medical surgical floor. He reports feeling much better today, his breathing is easier, occasional coughing, no wheezing. Denies any dizziness today, denies any fever or chills. Lung sounds are positive for a few scattered rhonchi, no wheezes appreciated. Patient has been afebrile, currently on 3 L per nasal cannula with O2 sat at 94%. He has been ambulating around the room, tolerating it well. Today's lab work shows WBC of 16.8, hemoglobin is 8.8, sodium is 134, potassium is 5.2, BUN is 23, creatinine is 1.10. Patient's Woodward catheter has been discontinued, patient has been voiding. Is currently on Flomax or urinary retention. Patient has been treated with IV steroids, oral doxycycline, Symbicort, and DuoNeb. Objective - Vital Signs Vital signs: Vital Signs Temp 97.9 F 10/13/17 07:00 Pulse 80 10/13/17 08:34 Resp 20 10/13/17 07:00 BP 111/67 10/13/17 07:00 Pulse Ox 94 L 10/13/17 08:20 Intake & Output 10/12/17 10/13/17 10/13/17 18:59 06:59 18:59 Intake Total 240 Output Total 950 Balance -710 Weight 166.5 kg Intake: Oral 240 Output: Urine 950 Other: Voiding Method Toilet Toilet # Voids 2 - Exam GENERAL EXAM: Alert, 67-year-old white male, comfortable in no apparent distress. HEAD: Normocephalic/atraumatic. EYES: Normal reaction of pupils, equal size. Conjunctiva pink, sclera white. NOSE: Clear with pink turbinates. THROAT: No erythema or exudates. NECK: No masses, no JVD, no thyroid enlargement, no adenopathy. CHEST: No chest wall deformity. Symmetrical expansion. LUNGS: Equal air entry with with a few scattered rhonchi, no wheezes, no rales auscultated CVS: Regular rate and rhythm, normal S1 and S2, no gallops, no murmurs, no rubs ABDOMEN: Soft, nontender. No hepatosplenomegaly, normal bowel sounds, no guarding or rigidity. EXTREMITIES: No clubbing, no edema, no cyanosis, 2+ pulses and upper and lower extremities. MUSCULOSKELETAL: Muscle strength and tone normal. SPINE: No scoliosis or deformity SKIN: No rashes CENTRAL NERVOUS SYSTEM: Alert and oriented -3. No focal deficits, tone is normal in all 4 extremities. PSYCHIATRIC: Alert and oriented -3. Appropriate affect. Intact judgment and insight. - Labs CBC & Chem 7: 10/13/17 06:44 10/13/17 06:44 Labs: Abnormal Lab Results - Last 24 Hours (Table) 10/12/17 10/12/17 10/12/17 Range/Units 12:14 17:17 20:02 WBC (3.8-10.6) k/uL RBC (4.30-5.90) m/uL Hgb (13.0-17.5) gm/dL Hct (39.0-53.0) % Sodium (137-145) mmol/L Potassium (3.5-5.1) mmol/L BUN (9-20) mg/dL Glucose (74-99) mg/dL POC Glucose (mg/dL) 170 H 189 H 239 H (75-99) mg/dL 10/13/17 10/13/17 10/13/17 Range/Units 06:44 06:44 07:12 WBC 16.8 H (3.8-10.6) k/uL RBC 2.96 L (4.30-5.90) m/uL Hgb 8.8 L (13.0-17.5) gm/dL Hct 27.9 L (39.0-53.0) % Sodium 134 L (137-145) mmol/L Potassium 5.2 H (3.5-5.1) mmol/L BUN 23 H (9-20) mg/dL Glucose 148 H (74-99) mg/dL POC Glucose (mg/dL) 171 H (75-99) mg/dL 10/13/17 Range/Units 11:10 WBC (3.8-10.6) k/uL RBC (4.30-5.90) m/uL Hgb (13.0-17.5) gm/dL Hct (39.0-53.0) % Sodium (137-145) mmol/L Potassium (3.5-5.1) mmol/L BUN (9-20) mg/dL Glucose (74-99) mg/dL POC Glucose (mg/dL) 176 H (75-99) mg/dL Assessment and Plan Plan: Assessment: #1. Acute COPD exacerbation with tracheobronchitis #2. Chronic hypoxemic respiratory failure, secondary to severe COPD, with a baseline FEV1 of 40% of predicted, Gold stage III #3. Normocytic, normochromic anemia #4. Diabetes mellitus type 2 #5. Essential hypertension #6. Nicotine dependence, ongoing. Currently down to 2-3 cigarettes a day, carries 52 year smoking history of 2 packs a day #7. Urinary retention and hematuria, requiring placement of indwelling catheter. Patient is supposed to see urology in consultation this week #8. Hyperlipidemia #9. Peripheral neuropathy Plan: Patient reports significant improvement in terms of his dyspnea. Denies any fever or chills, denies any dizziness, lung sounds were negative for wheezing, there was some scattered rhonchi, has been ambulating about the room, tolerating activity well. From pulmonary standpoint patient is stable for discharge home today, he can finish 5 day course of doxycycline 100 mg twice daily, prednisone taper, Symbicort, and DuoNeb. Follow-up with Dr. Glover in the office in one week I performed a history & physical examination of the patient and discussed their management with my nurse practitioner, Erica Urbina. I reviewed the nurse practitioner's note and agree with the documented findings and plan of care. Lung sounds are positive for diffuse wheezes and bibasilar crackles at the lung bases. The findings and the impression was discussed with the patient. I attest to the documentation by the nurse practitioner. Time with Patient: Less than 30
[2017-10-13 12:06] VITALS: PULSE 78
--- NOTE | 2017-10-13 13:28 | P.DS ---
Providers Date of admission: 10/11/17 14:39 Attending physician: Nick Lance Consults: 10/11/17 14:35 Consult Physician Routine Consulting Provider: Michael Lehman Consult Reason/Comments: COPD exacerbation Do you want consulting provider notified?: Yes Primary care physician: Khadijah Helm [facility] Course: 67-year-old gentleman was admitted for COPD exacerbation and dizziness dizziness improved patient is still wheezing significantly and he says it is his baseline. Patient all the saturating well on 3 L will cut on Augmentin to 2 L today. Patient may need 1 more day of monitoring. Patient still has a Woodward catheter. Patient's Woodward catheter will be discontinued and will be monitored for any urinary retention. Patient was started on Flomax as today. 10/13/2017 Patient's respiratory status significantly improved patient doesn't have any wheezing today patient wanted to be discharged. His dizziness improved unfortunately his the potassium is 5.2 because of which I and cutting down his lisinopril to 20 mg and patient's blood pressure is on the low normal side. Asked to stop his lisinopril tomorrow. Patient will be given prescription for Flomax and patient will continue antibiotics for bronchitis Bactrim was discontinued because of poor renal function which improved and hyperkalemia.. Patient also takes Lasix at home which was not ordered here and once he starts taking Lasix it may help his hyperkalemia. PHYSICAL EXAMINATION: GENERAL: The patient is alert and oriented x3, not in any acute distress. Well developed, well nourished. HEENT: Pupils are round and equally reacting to light. EOMI. No scleral icterus. No conjunctival pallor. Normocephalic, atraumatic. No pharyngeal erythema. No thyromegaly. CARDIOVASCULAR: S1 and S2 present. No murmurs, rubs, or gallops. PULMONARY: Chest is clear to auscultation, no wheezing or crackles. ABDOMEN: Soft, nontender, nondistended, normoactive bowel sounds. No palpable organomegaly. MUSCULOSKELETAL: No joint swelling or deformity. EXTREMITIES: No cyanosis, clubbing, or pedal edema. NEUROLOGICAL: Gross neurological examination did not reveal any focal deficits. SKIN: No rashes. Assessment and Plan Plan: -Acute on chronic hypercapnic respiratory failure: Secondary to COPD exacerbation, -Possible acute renal dysfunction: Secondary to Bactrim which was discontinued. Improved now -Hypertension patient is dizzy probably because of blood pressure medications amlodipine will be discontinued. Lisinopril as mentioned above. -Bilateral pedal edema mostly ankle edema related to vasodilation from amlodipine -Type 2 diabetes mellitus with diabetic neuropathy and possibility of diabetic nephropathy with chronic kidney disease stage II: Patient will be continued on his home regimen along with sliding scale for systemic steroids. -Tracheobronchitis -Hyperlipidemia: Continue with the atorvastatin Plan - Discharge Summary Discharge Rx Participant: Yes New Discharge Prescriptions: New Budesonide-Formot 160-4.5 Mcg [Symbicort 160-4.5 Mcg Inhaler] 2 puff INHALATION BID 30 Days #1 inhaler Doxycycline [Vibramycin] 100 mg PO Q12HR 5 Days #10 capsule predniSONE 10 mg PO DAILY 9 Days #27 tab Tamsulosin [Flomax] 0.4 mg PO PC-SUPPER #30 cap.er.24h Continue Insulin Detemir [Levemir Flextouch] 65 units SQ HS Insulin Aspart [NovoLOG Flexpen] 5 units SQ AC-BRKFST Insulin Aspart [NovoLOG Flexpen] 5 units SQ AC-LUNCH Insulin Aspart [NovoLOG Flexpen] 8 units SQ AC-SUPPER Albuterol Inhaler [Ventolin Hfa Inhaler] 2 puff INHALATION RT-Q6H PRN PRN Reason: Shortness Of Breath Theophylline 12 Hour [Gilberto-Dur] 300 mg PO BID Pravastatin Sodium [Pravachol] 20 mg PO HS Carvedilol [Coreg] 12.5 mg PO BID Aspirin EC [Ecotrin Low Dose] 81 mg PO DAILY Ipratropium-Albuterol Nebulize [Duoneb 0.5 mg-3 mg/3 ml Soln] 3 ml INHALATION RT-QID Furosemide [Lasix] 1 tab PO DAILY Changed Lisinopril 20 mg PO DAILY #0 Discontinued amLODIPine [Norvasc] 10 mg PO DAILY Sulfamethox-Tmp 800-160Mg [Bactrim DS 800-160 mg] 1 tab PO Q12HR Discharge Medication List Albuterol Inhaler [Ventolin Hfa Inhaler] 2 puff INHALATION RT-Q6H PRN 10/11/17 [ History] Aspirin EC [Ecotrin Low Dose] 81 mg PO DAILY 10/11/17 [History] Carvedilol [Coreg] 12.5 mg PO BID 10/11/17 [History] Insulin Aspart [NovoLOG Flexpen] 5 units SQ AC-BRKFST 10/11/17 [History] Insulin Aspart [NovoLOG Flexpen] 5 units SQ AC-LUNCH 10/11/17 [History] Insulin Aspart [NovoLOG Flexpen] 8 units SQ AC-SUPPER 10/11/17 [History] Insulin Detemir [Levemir Flextouch] 65 units SQ HS 10/11/17 [History] Ipratropium-Albuterol Nebulize [Duoneb 0.5 mg-3 mg/3 ml Soln] 3 ml INHALATION RT -QID 10/11/17 [History] Pravastatin Sodium [Pravachol] 20 mg PO HS 10/11/17 [History] Theophylline 12 Hour [Gilberto-Dur] 300 mg PO BID 10/11/17 [History] Budesonide-Formot 160-4.5 Mcg [Symbicort 160-4.5 Mcg Inhaler] 2 puff INHALATION BID 30 Days #1 inhaler 10/13/17 [Rx] Doxycycline [Vibramycin] 100 mg PO Q12HR 5 Days #10 capsule 10/13/17 [Rx] Furosemide [Lasix] 1 tab PO DAILY 10/13/17 [History] Lisinopril 20 mg PO DAILY #0 10/13/17 [Rx] Tamsulosin [Flomax] 0.4 mg PO PC-SUPPER #30 cap.er.24h 10/13/17 [Rx] predniSONE 10 mg PO DAILY 9 Days #27 tab 10/13/17 [Rx] Follow up Appointment(s)/Referral(s): Pebbles Staples MD [STAFF PHYSICIAN] - 10/20/17 2:45 pm Thierry Rowland MD [STAFF PHYSICIAN] - 10/19/17 9:20 am Khadijah Helm MD [Primary Care Provider] - 1-2 days (Dr. Helm's office will contact you with follow-up date and time. ) [facility] Visiting Nurse, [NON-STAFF] - Ambulatory/Diagnostic Orders: Basic Metabolic Panel [LAB.AMB] Location: Determined By Patient Patient Instructions/Handouts: Doxycycline (By mouth), Prednisone (By mouth), Tamsulosin (By mouth), Budesonide/Formoterol (By breathing), Vertigo (DC), COPD (Chronic Obstructive Pulmonary Disease) (DC), Anemia (DC) Discharge Disposition: HOME WITH HOME HEALTH SERVICES
--- NOTE | 2017-10-13 13:39 | P.DS ---
Providers Date of admission: 10/11/17 14:39 Attending physician: Nick Lance Consults: 10/11/17 14:35 Consult Physician Routine Consulting Provider: Michael Lehman Consult Reason/Comments: COPD exacerbation Do you want consulting provider notified?: Yes Primary care physician: Khadijah Helm Hospital Course: Patient was admitted for Therapeutic paracentesis patient underwent paracentesis with removal of around 18 L of peritoneal fluid. Suspicion is low for peptic peritonitis but continued minimal tenderness in the abdomen because of which I'm going give her antibiotics for 5 days in the form of Ceftin 500 twice a day in spite of no clear-cut evidence of peritonitis unfortunately the peritoneal fluid was not sent for analysis. Patient is presently complaining of for minimal lightheadedness which I'm expecting to improve will be discharged later in the day and improves. Please refer to my dictation of H&P for further details of hospitalization and other medical problems and management Plan - Discharge Summary Discharge Rx Participant: Yes New Discharge Prescriptions: New Budesonide-Formot 160-4.5 Mcg [Symbicort 160-4.5 Mcg Inhaler] 2 puff INHALATION BID 30 Days #1 inhaler Doxycycline [Vibramycin] 100 mg PO Q12HR 5 Days #10 capsule predniSONE 10 mg PO DAILY 9 Days #27 tab Tamsulosin [Flomax] 0.4 mg PO PC-SUPPER #30 cap.er.24h Continue Insulin Detemir [Levemir Flextouch] 65 units SQ HS Insulin Aspart [NovoLOG Flexpen] 5 units SQ AC-BRKFST Insulin Aspart [NovoLOG Flexpen] 5 units SQ AC-LUNCH Insulin Aspart [NovoLOG Flexpen] 8 units SQ AC-SUPPER Albuterol Inhaler [Ventolin Hfa Inhaler] 2 puff INHALATION RT-Q6H PRN PRN Reason: Shortness Of Breath Theophylline 12 Hour [Gilberto-Dur] 300 mg PO BID Pravastatin Sodium [Pravachol] 20 mg PO HS Carvedilol [Coreg] 12.5 mg PO BID Aspirin EC [Ecotrin Low Dose] 81 mg PO DAILY Ipratropium-Albuterol Nebulize [Duoneb 0.5 mg-3 mg/3 ml Soln] 3 ml INHALATION RT-QID Furosemide [Lasix] 1 tab PO DAILY Changed Lisinopril 20 mg PO DAILY #0 Discontinued amLODIPine [Norvasc] 10 mg PO DAILY Sulfamethox-Tmp 800-160Mg [Bactrim DS 800-160 mg] 1 tab PO Q12HR Discharge Medication List Albuterol Inhaler [Ventolin Hfa Inhaler] 2 puff INHALATION RT-Q6H PRN 10/11/17 [ History] Aspirin EC [Ecotrin Low Dose] 81 mg PO DAILY 10/11/17 [History] Carvedilol [Coreg] 12.5 mg PO BID 10/11/17 [History] Insulin Aspart [NovoLOG Flexpen] 5 units SQ AC-BRKFST 10/11/17 [History] Insulin Aspart [NovoLOG Flexpen] 5 units SQ AC-LUNCH 10/11/17 [History] Insulin Aspart [NovoLOG Flexpen] 8 units SQ AC-SUPPER 10/11/17 [History] Insulin Detemir [Levemir Flextouch] 65 units SQ HS 10/11/17 [History] Ipratropium-Albuterol Nebulize [Duoneb 0.5 mg-3 mg/3 ml Soln] 3 ml INHALATION RT -QID 10/11/17 [History] Pravastatin Sodium [Pravachol] 20 mg PO HS 10/11/17 [History] Theophylline 12 Hour [Gilberto-Dur] 300 mg PO BID 10/11/17 [History] Budesonide-Formot 160-4.5 Mcg [Symbicort 160-4.5 Mcg Inhaler] 2 puff INHALATION BID 30 Days #1 inhaler 10/13/17 [Rx] Doxycycline [Vibramycin] 100 mg PO Q12HR 5 Days #10 capsule 10/13/17 [Rx] Furosemide [Lasix] 1 tab PO DAILY 10/13/17 [History] Lisinopril 20 mg PO DAILY #0 10/13/17 [Rx] Tamsulosin [Flomax] 0.4 mg PO PC-SUPPER #30 cap.er.24h 10/13/17 [Rx] predniSONE 10 mg PO DAILY 9 Days #27 tab 10/13/17 [Rx] Follow up Appointment(s)/Referral(s): Pebbles Staples MD [STAFF PHYSICIAN] - 10/20/17 2:45 pm Thierry Rowland MD [STAFF PHYSICIAN] - 10/19/17 9:20 am Khadijah Helm MD [Primary Care Provider] - 1-2 days (Dr. Helm's office will contact you with follow-up date and time. ) [facility] Visiting Nurse, [NON-STAFF] - Ambulatory/Diagnostic Orders: Basic Metabolic Panel [LAB.AMB] Location: Determined By Patient Patient Instructions/Handouts: Doxycycline (By mouth), Prednisone (By mouth), Tamsulosin (By mouth), Budesonide/Formoterol (By breathing), Vertigo (DC), COPD (Chronic Obstructive Pulmonary Disease) (DC), Anemia (DC) Discharge Disposition: HOME WITH HOME HEALTH SERVICES
== END 2017-10-13 14:40 | disposition home health service (06) | DRG 190 ==
LOC: EC 09:52 → 5MS5E 12:45 → 3OBS 13:03 → OBSVTOIN 14:39 → 5MS5E 10-12 11:55
PROVIDERS: ADMIT Hospitalist; ATTEND Hospitalist
PROC: 0W9G3ZZ Drainage of Peritoneal Cavity, Percutaneous Approach (ICD-10-PCS; principal; 2017-10-13)
DX: J44.1 Chronic obstructive pulmonary disease with (acute) exacerbation (principal); J96.22 Acute and chronic respiratory failure with hypercapnia; J96.21 Acute and chronic respiratory failure with hypoxia; E11.21 Type 2 diabetes mellitus with diabetic nephropathy; I13.0 Hypertensive heart and chronic kidney disease with heart failure and stage 1 through stage 4 chronic kidney disease, or unspecified chronic kidney disease; E11.22 Type 2 diabetes mellitus with diabetic chronic kidney disease; N18.2 Chronic kidney disease, stage 2 (mild); E78.5 Hyperlipidemia, unspecified; I50.9 Heart failure, unspecified; N40.1 Benign prostatic hyperplasia with lower urinary tract symptoms; R33.8 Other retention of urine; E87.5 Hyperkalemia; F17.210 Nicotine dependence, cigarettes, uncomplicated; E11.42 Type 2 diabetes mellitus with diabetic polyneuropathy; D64.9 Anemia, unspecified; R31.9 Hematuria, unspecified; Z90.49 Acquired absence of other specified parts of digestive tract; Z79.899 Other long term (current) drug therapy; Z79.4 Long term (current) use of insulin; Z99.81 Dependence on supplemental oxygen; Z79.82 Long term (current) use of aspirin; Z80.8 Family history of malignant neoplasm of other organs or systems; Z82.49 Family history of ischemic heart disease and other diseases of the circulatory system; Z90.89 Acquired absence of other organs
CPT/HCPCS: 36415; 71046; 80048; 80053; 81001; 82550; 82553; 83036; 83605; 83735; 83880; 84484; 85025; 85027; 85610; 85730; 93005; 94640; 94644; 94760; 96374; 99285

== ENCOUNTER → 2017-11-03 | Outpatient (CLI) | payer MEDICARE, OTHER ==
[2017-11-03 11:08] LABS: Basophils % (A) 1 %; Eosinophils # (A) 0.1 k/uL (0-0.7); Eosinophils % (A) 2 %; HCT 34.8 % (39.0-53.0); HGB 10.9 gm/dL (13.0-17.5); Hypochromasia Marked; Lymphocytes # (A) 2.2 k/uL (1.0-4.8); Lymphocytes % (A) 25 %; MCH 28.9 pg (25.0-35.0); MCHC 31.4 g/dL (31.0-37.0); MCV 92.2 fL (80.0-100.0); Mean Platelet Volume 7.7; Monocytes # (A) 0.6 k/uL (0-1.0); Monocytes % (A) 7 %; Neutrophils # (A) 5.6 k/uL (1.3-7.7); Neutrophils % (A) 64 %; Platelet Count 255 k/uL (150-450); Poikilocytosis Slight; RBC 3.78 m/uL (4.30-5.90); RDW 13.5 % (11.5-15.5); WBC 8.8 k/uL (3.8-10.6)
[2017-11-03 11:23] LABS: Anion Gap 11 mmol/L; Blood Urea Nitrogen 17 mg/dL (9-20); Calcium 9.4 mg/dL (8.4-10.2); Carbon Dioxide 30 mmol/L (22-30); Chloride 101 mmol/L (98-107); Glucose 108 mg/dL (74-99); Potassium 4.5 mmol/L (3.5-5.1); Sodium 142 mmol/L (137-145)
== END | disposition home or self-care (01) ==
LOC: LABPAT 10:11
PROVIDERS: ATTEND Urology
DX: Z01.812 Encounter for preprocedural laboratory examination (principal); C67.1 Malignant neoplasm of dome of bladder; E11.9 Type 2 diabetes mellitus without complications; I10 Essential (primary) hypertension
CPT/HCPCS: 36415; 80048; 85025

== ENCOUNTER 2017-11-07 10:00 | Day surgery (SDC) | payer MEDICARE, OTHER ==
[~2017-11-07 10:00] MED LIST: DEXAMETHASONE SOD PHOSPHATE 10 MG/ML 1 ML VIAL IV ONE; LACTATED RINGERS 1,000 ML IV SCH; LIDOCAINE 1% 20 ML VIAL (10MG/ML) FOR IV START INTRADERMA PRN; MORPHINE SULFATE 2 MG/ML SYRINGE IV PRN; ONDANSETRON 4 MG/2 ML VIAL IVP ONE; Pre Op ABX Message 1 EACH MISC MISCELLANE ONE
[2017-11-07] MEDS ORDERED: LIDOCAINE 1% 20 ML VIAL (10MG/ML) FOR IV START INTRADERMA ONE (11:39)
[2017-11-07] MEDS ORDERED: HYDROCORTISONE SUCCINATE 100 MG/2 ML VIAL IV ONE (11:56)
[2017-11-07 12:05] LABS: Glucose,Whole Blood 134 mg/dL (75-99)
[2017-11-07] MEDS ORDERED: MIDAZOLAM 2 MG/2 ML VIAL ONE (14:26)
[2017-11-07] MEDS ORDERED: PHENYLEPHRINE-0.9% NACL SYG 1 MG/10 ML SYRINGE ONE (14:26)
[2017-11-07] MEDS ORDERED: fentaNYL (PF) 50 MCG/ML 2 ML AMP ONE (14:26)
--- NOTE | 2017-11-07 15:35 | P.OP ---
Date of Procedure: 11/07/17 Preoperative Diagnosis: Bladder cancer Postoperative Diagnosis: Bladder cancer Procedure(s) Performed: Transurethral resection of bladder tumor Anesthesia: spinal Surgeon: Thierry Rowland Estimated Blood Loss (ml): 20 Pathology: other (#1 tumor dome of bladder #2 base of tumor) Condition: stable Disposition: PACU Indications for Procedure: The patient is a 67-year-old male with a history of gross hematuria who was discovered to have a 2.5 cm papillary tumor on the dome of the bladder consistent with transitional cell carcinoma via cystoscopy last week. Transurethral resection of the tumor is planned. Description of Procedure: The patient was taken the operating suite where adequate spinal anesthesia was instituted. The patient was placed in the dorsal lithotomy position with his legs suspended from padded Juan C stirrups. Sequential pneumatic stockings were applied to the lower legs. The penis and genitalia were prepped with Betadine soap, painted with Betadine solution and draped in sterile fashion. The 25- Canadian resectoscope sheath with obturator was passed through the urethra and into the bladder. The bladder was examined using the 30 lens. Both ureteral orifice ease were normal location and configuration and effluxed clear urine. On the dome of the bladder was a 2.5 cm papillary growth consistent with transitional cell carcinoma. The base of the tumor appeared to be no more than 1-1.5 cm in diameter. The tumor was resected down to the bladder wall using the continuous-flow Dudley resectoscope and loop cutting electrode. The tumor fragments were removed from the bladder using the helical evacuator and submitted as one specimen. Pneumatic Tube Fitter areas from the base of the tumor were then resected and submitted as a separate specimen. The base of the tumor was then thoroughly cauterized and at completion procedure hemostasis appeared excellent. The resectoscope was withdrawn. An 18-Canadian Woodward catheter was inserted and left to gravity drainage. The patient tolerated procedure well and left the operative room awake and in satisfactory condition. Blood loss was less than 20 mL. The patient will be discharged with his catheter which will remain in place for 48-72 hours. Further recommendations are dependent on the tissue analysis.
[2017-11-07 15:39] LABS: Glucose,Whole Blood 154 mg/dL (75-99)
[2017-11-07] MEDS ORDERED: INSULIN ASPART 100 UNIT/ML 1 ML 10 ML VIAL SQ SCH (17:30)
[2017-11-07] MEDS ORDERED: TAMSULOSIN 0.4 MG CAP.ER.24H PO SCH (18:30)
[2017-11-07] MEDS ORDERED: LACTATED RINGERS 1,000 ML IV SCH (18:30)
[2017-11-07 18:34] LABS: Glucose,Whole Blood 267 mg/dL (75-99)
[2017-11-07] MEDS ORDERED: INSULIN ASPART 100 UNIT/ML 1 ML 10 ML VIAL SQ ONE (18:50)
[2017-11-07] MEDS: IPRATROPIUM-ALBUTEROL 3 ML NEB INHALATION SCH ×2 (19:42→20:06)
[2017-11-07] MEDS: SYMBICORT 160-4.5 MCG INHALER INHALATION SCH (20:07)
[2017-11-07] MEDS ORDERED: PRAVASTATIN SODIUM 20 MG TAB PO SCH (21:00)
[2017-11-07] MEDS ORDERED: INSULIN DETEMIR 100 UNIT/ML 10 ML VIAL SQ SCH (21:00)
[2017-11-07] MEDS: CARVEDILOL 12.5 MG TAB PO SCH (22:41)
[2017-11-07] MEDS: DOXYCYCLINE 50 MG CAP PO SCH (22:41)
[2017-11-07] MEDS: THEOPHYLLINE 24 HOUR 300 MG CAP.ER.24H PO SCH (22:42)
[2017-11-07 23:11] VITALS: BMI 33.4
[2017-11-08 03:24] VITALS: RESP 16
[2017-11-08 07:22] VITALS: BP 132/63; PULSE 70; TEMP 97.4
[2017-11-08 07:25] LABS: Glucose,Whole Blood 136 mg/dL (75-99)
[2017-11-08] MEDS ORDERED: INSULIN ASPART 100 UNIT/ML 1 ML 10 ML VIAL SQ SCH ×2 (07:30→12:30)
[2017-11-08] MEDS: THEOPHYLLINE 24 HOUR 300 MG CAP.ER.24H PO SCH (07:37)
[2017-11-08] MEDS: DOXYCYCLINE 50 MG CAP PO SCH (07:37)
[2017-11-08] MEDS: CARVEDILOL 12.5 MG TAB PO SCH (07:37)
[2017-11-08] MEDS ORDERED: FUROSEMIDE 20 MG TAB PO SCH (09:00)
[2017-11-08] MEDS ORDERED: NON-FORMULARY DRUG (Fluticasone/Vilanterol [Breo Ellipta 200-25 Mcg Inh] 1 PUFF) INHALATION SCH (09:00)
[2017-11-08] MEDS ORDERED: LISINOPRIL 20 MG TAB PO SCH (09:00)
[2017-11-08] MEDS ORDERED: predniSONE 10 MG TAB PO SCH (09:00)
[2017-11-08] MEDS: SYMBICORT 160-4.5 MCG INHALER INHALATION SCH (10:01)
[2017-11-08] MEDS: IPRATROPIUM-ALBUTEROL 3 ML NEB INHALATION SCH (10:01)
== END 2017-11-08 10:18 | disposition home or self-care (01) ==
LOC: OR 10:00 → 3SUR 15:11 → OR 11-08 10:18
PROVIDERS: ATTEND Urology
DX: C67.1 Malignant neoplasm of dome of bladder (principal); J44.9 Chronic obstructive pulmonary disease, unspecified; E66.9 Obesity, unspecified; Z68.33 Body mass index [BMI] 33.0-33.9, adult; E11.9 Type 2 diabetes mellitus without complications; I11.0 Hypertensive heart disease with heart failure; I50.9 Heart failure, unspecified; E78.00 Pure hypercholesterolemia, unspecified; F17.210 Nicotine dependence, cigarettes, uncomplicated; Z79.2 Long term (current) use of antibiotics; Z79.82 Long term (current) use of aspirin; Z79.4 Long term (current) use of insulin; Z79.51 Long term (current) use of inhaled steroids; Z79.52 Long term (current) use of systemic steroids; Z79.899 Other long term (current) drug therapy; Z99.81 Dependence on supplemental oxygen
CPT/HCPCS: 94640; 88307; 52235; C2627; J2250; J1100; J1720; J2405; J3010; J2370; J7512

== ENCOUNTER → 2019-05-09 | Outpatient (CLI) | payer MEDICARE, OTHER ==
[2019-05-09 16:47] LABS: Basophils % (A) 0 %; Eosinophils # (A) 0.1 k/uL (0-0.7); Eosinophils % (A) 1 %; HCT 43.9 % (39.0-53.0); HGB 14.2 gm/dL (13.0-17.5); Lymphocytes # (A) 1.8 k/uL (1.0-4.8); Lymphocytes % (A) 19 %; MCH 32.4 pg (25.0-35.0); MCHC 32.3 g/dL (31.0-37.0); MCV 100.3 fL (80.0-100.0); Mean Platelet Volume 8.4; Monocytes # (A) 0.5 k/uL (0-1.0); Monocytes % (A) 6 %; Neutrophils # (A) 6.4 k/uL (1.3-7.7); Neutrophils % (A) 71 %; Platelet Count 157 k/uL (150-450); RBC 4.38 m/uL (4.30-5.90); RDW 13.3 % (11.5-15.5)
[2019-05-10 00:29] LABS: African American GFR (CKD) 89.2 (60.0-200.0); Anion Gap 8.1 mmol/L (4.00-12.00); Calcium 9.1 mg/dL (8.7-10.3); Carbon Dioxide 34.9 mmol/L (21.6-31.8); Potassium 4.2 mmol/L (3.5-5.5)
== END | disposition home or self-care (01) ==
LOC: LABWHC1 15:08
PROVIDERS: ATTEND Urology
DX: Z01.818 Encounter for other preprocedural examination (principal); I10 Essential (primary) hypertension; C67.9 Malignant neoplasm of bladder, unspecified; Z01.812 Encounter for preprocedural laboratory examination
CPT/HCPCS: 36415; 80048; 85025; 93005

== ENCOUNTER 2019-05-16 08:12 | Day surgery (SDC) | payer MEDICARE, OTHER ==
[2019-05-14 11:37] VITALS: BMI 34.2
--- NOTE | 2019-05-15 17:40 | P.GSHP ---
History of Present Illness H&P Date: 05/15/19 Chief Complaint: Bladder cancer The patient is a 68-year-old male who was originally diagnosed with bladder cancer in 10/2017 following an evaluation for hematuria. The tumor was grade 1 stage TI. He did not return for follow-up cystoscopy. He developed gross hematuria in early 04/2019. I performed cystoscopy on 05/09/2019 and at that time a 1.5-2 cm tumor was noted in the region of the left trigone. A 5 mm tumor was also noted on the right lateral wall. He is admitted at this time for the purpose of transurethral resection of bladder tumors. - Constitutional Constitutional: Reports fatigue, Denies weight loss - Cardiovascular Cardiovascular: Reports decreased exercise tolerance, Reports dyspnea on exertion, Reports high blood pressure, Reports shortness of breath, Denies chest pain, Denies palpitations, Denies syncope - Respiratory Respiratory: Reports wheezing, Denies congestion - Gastrointestinal Gastrointestinal: Denies abdominal pain - Genitourinary (Male) Genitourinary: Reports as per HPI Past Medical History Past Medical History: Asthma, COPD, Diabetes Mellitus, Hyperlipidemia, Hypertension, Pneumonia Additional Past Medical History / Comment(s): home O2 at 3 L/NC continuous, peripheral neuropathy bilateral hands and feet, irregular heart beat, blood in urine, dry skin on feet History of Any Multi-Drug Resistant Organisms: None Reported Past Surgical History: Heart Catheterization Additional Past Surgical History / Comment(s): raman cataracts, TUR bladder tumor 10/2017 Past Anesthesia/Blood Transfusion Reactions: No Reported Reaction Smoking Status: Current every day smoker - Past Family History Father Family Medical History: Hypertension, Myocardial Infarction ([place]) Additional Family Medical History / Comment(s): Father of a [place] in his late 70's or early 80's. Mother Family Medical History: Cancer Additional Family Medical History / Comment(s): . Medications and Allergies Home Medications Medication Instructions Recorded Confirmed Type Aspirin EC [Ecotrin Low Dose] 81 mg PO DAILY 10/11/17 05/14/19 History Carvedilol [Coreg] 12.5 mg PO BID 10/11/17 05/14/19 History Insulin Aspart [NovoLOG Flexpen] 5 units SQ AC-BRKFST 10/11/17 05/14/19 History Insulin Aspart [NovoLOG Flexpen] 5 units SQ AC-LUNCH 10/11/17 05/14/19 History Insulin Aspart [NovoLOG Flexpen] 8 units SQ AC-SUPPER 10/11/17 05/14/19 History Insulin Detemir [Levemir Flextouch] 65 units SQ HS 10/11/17 05/14/19 History Ipratropium-Albuterol Nebulize 3 ml INHALATION QID 10/11/17 05/14/19 History [Duoneb 0.5 mg-3 mg/3 ml Soln] Pravastatin Sodium [Pravachol] 20 mg PO HS 10/11/17 05/14/19 History Theophylline 12 Hour [Gilberto-Dur] 300 mg PO BID 10/11/17 05/14/19 History Budesonide-Formot 160-4.5 Mcg 2 puff INHALATION BID 30 Days #1 10/13/17 05/14/19 Rx [Symbicort 160-4.5 Mcg Inhaler] inhaler Furosemide [Lasix] 20 mg PO QAM 10/13/17 05/14/19 History Fluticasone/Vilanterol [Breo 1 inhalation INHALATION HS 05/14/19 05/14/19 History Ellipta 200-25 Mcg INH] Lisinopril 40 mg PO DAILY 05/14/19 05/14/19 History Multivitamins, Thera [Multivitamin 1 tab PO DAILY 05/14/19 05/14/19 History (formulary)] Tamsulosin [Flomax] 0.4 mg PO HS 05/14/19 05/14/19 History Allergies Allergy/AdvReac Type Severity Reaction Status Date / Time No Known Allergies Allergy Unverified 05/14/19 11:15 Surgical - Exam - General well developed, well nourished, chronically ill, obese - ENT no hearing loss - Neck no masses, no lymphadectomy - Respiratory normal expansion, other (Scattered wheezing) - Cardiovascular Rhythm: regular Abnormal Heart Sounds: no systolic murmur, no diastolic murmur - Abdomen Abdomen: soft, non tender, no organomegaly - Genitourinary normal penis with no external lesions, testicles non-tender - Psychiatric oriented to time, speech is normal, memory intact Assessment and Plan (1) Bladder cancer Narrative/Plan: The patient will undergo transurethral resection of his bladder tumors under either general or spinal anesthesia. He is aware of his increased risk for anesthesia due to his severe COPD. He is also or the risks which include bleeding, infection and recurrence of his bladder cancer. Status: Acute Code(s): C67.9 - MALIGNANT NEOPLASM OF BLADDER, UNSPECIFIED SNOMED Code(s): 874261614
[~2019-05-16 08:12] MED LIST changes: +HYDROmorphone 0.5 MG/0.5 ML SYRINGE IVP PRN; +MIDAZOLAM 2 MG/2 ML VIAL IV PRN; -MORPHINE SULFATE 2 MG/ML SYRINGE IV PRN; -Pre Op ABX Message 1 EACH MISC MISCELLANE ONE; +SCOPOLAMINE 1.5MG/72HR PATCH TRANSDERM ONE
[2019-05-16] MEDS ORDERED: LACTATED RINGERS 1,000 ML IV ONE (08:41)
[2019-05-16 08:51] LABS: Glucose,Whole Blood 140 mg/dL (75-99)
[2019-05-16] MEDS ORDERED: diphenhydrAMINE 50 MG/ML 1 ML VIAL ONE (10:08)
[2019-05-16] MEDS ORDERED: MIDAZOLAM 2 MG/2 ML VIAL ONE (10:08)
--- NOTE | 2019-05-16 12:00 | P.OP ---
Date of Procedure: 05/16/19 Preoperative Diagnosis: Recurrent bladder cancer Postoperative Diagnosis: Recurrent bladder cancer Procedure(s) Performed: Transurethral resection of bladder tumors Anesthesia: spinal Surgeon: Thierry Rowland Estimated Blood Loss (ml): 60 Pathology: other (Fragments of bladder tumor) Condition: stable Disposition: PACU Indications for Procedure: The patient is a 68-year-old male who was discovered to have bladder cancer one year ago. He did not return for follow-up cystoscopy until he began experiencing gross hematuria approximately one month ago. Cystoscopy identified several bladder tumor recurrences. Transurethral resection of the tumors is planned. Description of Procedure: The patient was taken to the operating suite where adequate spinal anesthesia was instituted. He was placed in the dorsal lithotomy position with his legs suspended from padded Juan C stirrups. Pneumatic compression stockings were applied to the lower legs. The genitalia was prepped with Betadine solution and draped in a sterile fashion. The penile and prostatic urethra traversed under direct vision using the 25-Chinese resectoscope sheath, visual obturator and 30 lens. The anterior urethra was unremarkable. The prostatic urethra showed evidence of elongation and effacement secondary to BPH but there was no evidence of urothelial tumor present. The bladder was examined. Ureteral orifices were normal location and configuration and effluxed clear urine. On the right posterior bladder wall was a 1 cm papillary growth. On the dome and posterior wall was a group of confluent tumors measuring approximately 2.5 x 6 cm in size. The tumors were resected down to the underlying muscle using the continuous- flow Dudley resectoscope and loop cutting electrode. All visible tumors were removed. Tumor fragments were removed from the bladder using the Michael evacuator. After ensuring adequate hemostasis the resectoscope was withdrawn. An 18-Chinese Woodward catheter was inserted and left to gravity drainage. The patient tolerated the procedure well and left the operative room awake and in satisfactory condition. Blood loss was less than 60 mL. Patient's catheter will remain in place for 5 or 6 days prior to removal.
[2019-05-16 12:08] VITALS: TEMP 97.5
[2019-05-16 12:15] LABS: Glucose,Whole Blood 179 mg/dL (75-99)
[2019-05-16 14:09] VITALS: RESP 20
[2019-05-16 15:41] VITALS: BP 136/80; PULSE 77
== END 2019-05-16 15:51 | disposition home or self-care (01) ==
LOC: OR 08:12
PROVIDERS: ATTEND Urology
DX: C67.4 Malignant neoplasm of posterior wall of bladder (principal); C67.1 Malignant neoplasm of dome of bladder; N40.0 Benign prostatic hyperplasia without lower urinary tract symptoms; J44.9 Chronic obstructive pulmonary disease, unspecified; E78.5 Hyperlipidemia, unspecified; I10 Essential (primary) hypertension; I49.9 Cardiac arrhythmia, unspecified; L98.8 Other specified disorders of the skin and subcutaneous tissue; E11.42 Type 2 diabetes mellitus with diabetic polyneuropathy; F17.210 Nicotine dependence, cigarettes, uncomplicated; Z87.01 Personal history of pneumonia (recurrent); Z99.81 Dependence on supplemental oxygen; Z79.82 Long term (current) use of aspirin; Z79.4 Long term (current) use of insulin; Z79.899 Other long term (current) drug therapy; Z79.51 Long term (current) use of inhaled steroids; Z98.42 Cataract extraction status, left eye; Z98.41 Cataract extraction status, right eye; Z98.890 Other specified postprocedural states; Z82.49 Family history of ischemic heart disease and other diseases of the circulatory system; Z80.9 Family history of malignant neoplasm, unspecified
CPT/HCPCS: 52240; 88307; J2250; J1200; J1100; J0690; J2405

== ENCOUNTER → 2020-09-10 | Outpatient (CLI) | payer MEDICARE, OTHER ==
[2020-09-10 12:02] LABS: Basophils % (A) 1 %; Eosinophils # (A) 0.2 k/uL (0-0.7); Eosinophils % (A) 2 %; HCT 35.1 % (39.0-53.0); HGB 10.8 gm/dL (13.0-17.5); Hypochromasia Slight; Lymphocytes % (A) 26 %; MCH 29.2 pg (25.0-35.0); MCHC 30.8 g/dL (31.0-37.0); MCV 94.9 fL (80.0-100.0); Mean Platelet Volume 8.6; Monocytes # (A) 0.6 k/uL (0-1.0); Monocytes % (A) 8 %; Neutrophils # (A) 4.6 k/uL (1.3-7.7); Neutrophils % (A) 61 %; Platelet Count 229 k/uL (150-450); RDW 14.9 % (11.5-15.5); WBC 7.6 k/uL (3.8-10.6)
== END | disposition home or self-care (01) ==
LOC: LABPAT 10:52
PROVIDERS: ATTEND Urology
DX: Z01.818 Encounter for other preprocedural examination (principal); C67.9 Malignant neoplasm of bladder, unspecified; E11.9 Type 2 diabetes mellitus without complications
CPT/HCPCS: 36415; 80048; 85025

== ENCOUNTER 2020-09-18 13:07 | Day surgery (SDC) | payer MEDICARE, OTHER ==
[2020-09-12 10:38] VITALS: BMI 34.2
[~2020-09-18 13:07] MED LIST changes: -DEXAMETHASONE SOD PHOSPHATE 10 MG/ML 1 ML VIAL IV ONE; +DEXAMETHASONE SOD PHOSPHATE 4 MG/ML 1 ML VIAL IV ONE; -LACTATED RINGERS 1,000 ML IV SCH; +LIDOCAINE 1% (10MG/ML) FOR IV START INTRADERMA PRN; -LIDOCAINE 1% 20 ML VIAL (10MG/ML) FOR IV START INTRADERMA PRN; -MIDAZOLAM 2 MG/2 ML VIAL IV PRN; -SCOPOLAMINE 1.5MG/72HR PATCH TRANSDERM ONE
[2020-09-18] MEDS: LACTATED RINGERS 1,000 ML IV SCH (13:52)
[2020-09-18 13:54] LABS: Glucose,Whole Blood 86 mg/dL (75-99)
--- NOTE | 2020-09-18 14:59 | P.HPIHPCON ---
History of Present Illness H&P Date: 09/18/20 Chief Complaint: bladder cancer 70 -year-old male with history of T1 high-grade bladder cancer. Status post TURBT. He also underwent induction BCG. Surveillance cystoscopy post BCG showed evidence of recurrence. I discussed with him given the bladder cancer recurrence I recommend we proceed with the TURBT. Discussed with him also will evaluate the upper tract via retrograde pyelogram. Discussed with him the risks which include includes but not limited to bleeding, infection, bladder perforation. I also discussed with him given his multiple comorbidities he is at increased risk of complication. He understood all the risk and agreed to proceed with TURBT, and bilateral retrograde pyelogram Consent for Procedure: I have explained the operation/procedure to the patient, including the risks, benefits, side effects, alternative therapies (including not receiving the proposed treatment or service), the likelihood of the patient achieving his/her goals, and potential recuperation problems for the procedure/sedation/analgesia, as well as any blood products, if indicated. I also explained to the patient the risks, benefits and side effects of the alternatives, as well as the risks related to not receiving the proposed procedure, care, treatment, or services. Past Medical History Past Medical History: Asthma, COPD, Diabetes Mellitus, Hyperlipidemia, Hypertension, Osteoarthritis (OA), Pneumonia Additional Past Medical History / Comment(s): home O2 at 3 L/NC continuous, peripheral neuropathy bilateral hands and feet, irregular heart beat, blood in urine, History of Any Multi-Drug Resistant Organisms: None Reported Past Surgical History: Heart Catheterization Additional Past Surgical History / Comment(s): raman cataracts, TUR bladder tumor 10/2017 Past Anesthesia/Blood Transfusion Reactions: No Reported Reaction Smoking Status: Former smoker - Past Family History Father Family Medical History: Hypertension, Myocardial Infarction ([place]) Additional Family Medical History / Comment(s): Father of a [place] in his late 70's or early 80's. Mother Family Medical History: Cancer Additional Family Medical History / Comment(s): . Medications and Allergies Home Medications Medication Instructions Recorded Confirmed Type Aspirin EC [Ecotrin Low Dose] 81 mg PO DAILY 10/11/17 09/18/20 History Carvedilol [Coreg] 12.5 mg PO BID 10/11/17 09/18/20 History Insulin Aspart [NovoLOG Flexpen] 5 units SQ AC-BRKFST 10/11/17 09/18/20 History Insulin Aspart [NovoLOG Flexpen] 8 units SQ AC-LUNCH 10/11/17 09/18/20 History Insulin Aspart [NovoLOG Flexpen] 8 units SQ AC-SUPPER 10/11/17 09/18/20 History Insulin Detemir [Levemir Flextouch] 65 units SQ HS 10/11/17 09/18/20 History Ipratropium-Albuterol Nebulize 3 ml INHALATION QID 10/11/17 09/18/20 History [Duoneb 0.5 mg-3 mg/3 ml Soln] Pravastatin Sodium [Pravachol] 20 mg PO HS 10/11/17 09/18/20 History Theophylline 12 Hour [Gilberto-Dur] 300 mg PO BID 10/11/17 09/18/20 History Budesonide-Formot 160-4.5 Mcg 2 puff INHALATION BID 30 Days #1 10/13/17 09/18/20 Rx [Symbicort 160-4.5 Mcg Inhaler] inhaler Furosemide [Lasix] 20 mg PO QAM 10/13/17 09/18/20 History Fluticasone/Vilanterol [Breo 1 inhalation INHALATION DAILY 05/14/19 09/18/20 History Ellipta 200-25 Mcg INH] Multivitamins, Thera [Multivitamin 1 tab PO DAILY 05/14/19 09/18/20 History (formulary)] Tamsulosin [Flomax] 0.4 mg PO HS 05/14/19 09/18/20 History lisinopriL 40 mg PO DAILY 05/14/19 09/18/20 History Albuterol Sulfate [Albuterol 2 puff PO Q6H PRN 09/12/20 09/18/20 History Sulfate Hfa] Potassium Chloride [Klor-Con 10] 10 meq PO DAILY 09/12/20 09/18/20 History Allergies Allergy/AdvReac Type Severity Reaction Status Date / Time No Known Allergies Allergy Unverified 09/18/20 13:47 Surgical - Exam Vital Signs Temp Pulse Resp BP Pulse Ox 97.6 F 80 18 150/67 97 09/18/20 13:45 09/18/20 13:45 09/18/20 13:45 09/18/20 13:45 09/18/20 13:45
[2020-09-18] MEDS ORDERED: Acetaminophen-Codeine 300-30mg TAB PO PRN (16:28)
[2020-09-18] MEDS ORDERED: ALBUTEROL HFA INHALER INHALATION PRN (16:30)
[2020-09-18] MEDS ORDERED: SODIUM CHLORIDE 0.9% 1,000 ML IV SCH (16:30)
[2020-09-18] MEDS ORDERED: LIDOCAINE 1% INJ 10MG/ML (20 ML MDV) ONE (16:35)
[2020-09-18] MEDS ORDERED: MORPHINE SULFATE (PF) 0.3 MG/0.3 ML SYR ONE (16:35)
[2020-09-18] MEDS ORDERED: PROPOFOL 10 MG/ML 20 ML VIAL IV ONE (16:35)
[2020-09-18] MEDS ORDERED: IOHEXOL 350 MG/ML 50 ML in EMPTY BAG 1 BAG IRRIGATION ONE (17:04)
--- NOTE | 2020-09-18 17:55 | P.OP ---
Date of Procedure: 09/18/20 Preoperative Diagnosis: Bladder tumor Postoperative Diagnosis: Same Procedure(s) Performed: Cystoscopy, TURBT (medium), bilateral retrograde pyelograms Implants: None Anesthesia: spinal Surgeon: Adalberto Andres Estimated Blood Loss (ml): 10 Pathology: other (bladder tumor) Condition: stable Disposition: PACU Indications for Procedure: 70 -year-old male with history of T1 high-grade bladder cancer. Status post TURBT. He also underwent induction BCG. Surveillance cystoscopy post BCG showed evidence of recurrence. I discussed with him given the bladder cancer recurrence I recommend we proceed with the TURBT. Discussed with him also will evaluate the upper tract via retrograde pyelogram. Discussed with him the risks which include includes but not limited to bleeding, infection, bladder perforation. I also discussed with him given his multiple comorbidities he is at increased risk of complication. He understood all the risk and agreed to proceed with TURBT, and bilateral retrograde pyelogram Operative Findings: Recurrence along the posterior bladder wall measured 3 cm, additional satellite lesion a long the right lateral wall measured approximately 1 cm, and additional lesion at the dome measured approximately 1 cm. Description of Procedure: Patient was brought to the operating room, spinal anesthesia was induced. He was prepped and draped in sterile fashion a placed in dorsal lithotomy position. Cystoscopy fitted with a 22-Dominican sheath was inserted per urethra, the right ureteral orifice was visualized noted to be patulous. I Was able to intubate the right ureteral orifice with an open-ended catheter, but of note there was J hooking of the ureter. A wire was advanced through the catheter and the catheter was advanced over the wire. Retrograde pyelogram showed dilation along the distal ureter but the remaining ureter was normal caliber, there was no evidence of hydronephrosis. Additionally there was no filling defect appreciated along the course of the ureter or the collecting system. Of note the proximal ureter was also torturous. Delayed images was obtained which showed adequate drainage of contrast on the right. Attention was then carried to the left side which was intubated with a open-ended catheter, there was also J hooking along the left side thus a sensor wire was advanced through the catheter to allow the catheter to be advanced over the area of J hooking, retrograde Polygram was performed which showed dilation of the distal ureter but the remaining of the ureter was of normal caliber. Of note there was mild left- sided hydronephrosis, but no filling defects was appreciated. Delayed images were obtained which showed adequate drainage of contrast on the left. At this time the cystoscope was withdrawn and a resectoscope fitted with a 25-Dominican sheath was inserted per urethra, there was 3 tumors visualized, one along the posterior bladder wall that measured approximately 3 cm that was resected down to muscle. An additional satellite lesions along the right lateral wall and the dome that was also resected down, the area of resection was thoroughly fulgurated. Tumor specimen was removed. Repeat cystoscopy showed no additional tumors or evidence of bleeding. The cystoscope was withdrawn and a 20-Dominican catheter was inserted per urethra with return of clear urine. The patient tolerated the procedure well was taken to PACU in stable condition
[2020-09-18] MEDS ORDERED: ALBUTEROL NEBULIZED 2.5 MG/3 ML INHALATION PRN (18:46)
[2020-09-18] MEDS: IPRATROPIUM-ALBUTEROL 3 ML NEB INHALATION SCH ×2 (19:50)
[2020-09-18] MEDS: SYMBICORT 160-4.5 MCG INHALER INHALATION SCH (19:56)
[2020-09-18] MEDS: carvediloL 12.5 MG TAB PO SCH (20:58)
[2020-09-18] MEDS: THEOPHYLLINE 24 HOUR 300 MG CAP.ER.24H PO SCH (20:58)
[2020-09-18] MEDS ORDERED: PRAVASTATIN SODIUM 20 MG TAB PO SCH (21:00)
[2020-09-18] MEDS ORDERED: TAMSULOSIN 0.4 MG CAP.ER.24H PO SCH (21:00)
[2020-09-18] MEDS ORDERED: INSULIN DETEMIR (LEVEMIR) 100 UNIT/ML SYR SQ SCH (21:00)
[2020-09-18 21:06] LABS: Glucose,Whole Blood 243 mg/dL (75-99)
[2020-09-19] MEDS: HEPARIN SODIUM,PORCINE 5,000 UNIT/ML 1 ML VIAL SQ SCH ×2 (00:37→07:36)
[2020-09-19] MEDS: LACTATED RINGERS 1,000 ML IV SCH (06:27)
[2020-09-19 06:59] LABS: Glucose,Whole Blood 155 mg/dL (75-99)
--- NOTE | 2020-09-19 07:18 | FL ---
Fluoroscopy History: Cystoscopy Cysto with Dr. Andres. 1 min 26 sec fluoro time. 1 image scanned.
[2020-09-19] MEDS ORDERED: INSULIN ASPART (NovoLOG) 100 UNIT/ML VIAL SQ SCH (07:30)
[2020-09-19] MEDS: carvediloL 12.5 MG TAB PO SCH (07:37)
[2020-09-19] MEDS: THEOPHYLLINE 24 HOUR 300 MG CAP.ER.24H PO SCH (07:37)
[2020-09-19 07:49] VITALS: BP 139/64; RESP 18; TEMP 98
[2020-09-19] MEDS: IPRATROPIUM-ALBUTEROL 3 ML NEB INHALATION SCH (08:13)
[2020-09-19] MEDS: SYMBICORT 160-4.5 MCG INHALER INHALATION SCH (08:14)
[2020-09-19 08:16] VITALS: PULSE 78
[2020-09-19] MEDS ORDERED: lisinopriL 20 MG TAB PO SCH (09:00)
[2020-09-19] MEDS ORDERED: POTASSIUM CHLORIDE ER 10 MEQ TAB.ER.PRT PO SCH (09:00)
[2020-09-19] MEDS ORDERED: [UNRECOGNIZED DRUG - OTHER] INHALATION SCH (09:00)
[2020-09-19] MEDS ORDERED: FUROSEMIDE 20 MG TAB PO SCH (09:00)
== END 2020-09-19 10:26 ==
LOC: OR 13:07 → 4SSUR 17:57 → OR 09-19 10:26
PROVIDERS: ATTEND Urology
DX: C67.4 Malignant neoplasm of posterior wall of bladder (principal); N30.20 Other chronic cystitis without hematuria; J44.9 Chronic obstructive pulmonary disease, unspecified; E78.5 Hyperlipidemia, unspecified; I10 Essential (primary) hypertension; E11.42 Type 2 diabetes mellitus with diabetic polyneuropathy; M19.90 Unspecified osteoarthritis, unspecified site; Z87.01 Personal history of pneumonia (recurrent); Z87.898 Personal history of other specified conditions; Z99.81 Dependence on supplemental oxygen; Z98.890 Other specified postprocedural states; Z98.42 Cataract extraction status, left eye; Z98.41 Cataract extraction status, right eye; Z87.891 Personal history of nicotine dependence; Z85.51 Personal history of malignant neoplasm of bladder; Z82.49 Family history of ischemic heart disease and other diseases of the circulatory system; Z80.9 Family history of malignant neoplasm, unspecified; Z79.82 Long term (current) use of aspirin; Z79.4 Long term (current) use of insulin; Z79.51 Long term (current) use of inhaled steroids; Z79.899 Other long term (current) drug therapy
CPT/HCPCS: 52235; 94640 ×4; 93005; 88307; C1758; C1769; J1644; J1100; J0690 ×2; J2405; J2001; J2274; J2704; Q9967

== ENCOUNTER → 2021-06-29 | Outpatient (CLI) | payer MEDICARE, OTHER ==
[2021-06-29 12:10] LABS: Basophils # (A) 0.1 k/uL (0-0.2); Basophils % (A) 1 %; Eosinophils # (A) 0.3 k/uL (0-0.7); Eosinophils % (A) 3 %; HGB 13.5 gm/dL (13.0-17.5); Lymphocytes # (A) 2.3 k/uL (1.0-4.8); Lymphocytes % (A) 20 %; MCH 31.9 pg (25.0-35.0); MCHC 32.1 g/dL (31.0-37.0); MCV 99.4 fL (80.0-100.0); Mean Platelet Volume 9.2; Monocytes # (A) 0.6 k/uL (0-1.0); Monocytes % (A) 6 %; Neutrophils # (A) 7.7 k/uL (1.3-7.7); Neutrophils % (A) 69 %; Platelet Count 200 k/uL (150-450); RBC 4.23 m/uL (4.30-5.90); RDW 13.7 % (11.5-15.5); WBC 11.2 k/uL (3.8-10.6)
[2021-06-29 12:20] LABS: Calcium 9.1 mg/dL (8.4-10.2); Potassium 4.3 mmol/L (3.5-5.1)
[2021-06-29 13:17] LABS: Appearance,Urine Cloudy (Clear); Bilirubin,Urine Negative (Negative); Blood,Urine Large (Negative); Color,Urine Yellow; Glucose,Urine (UA) Negative (Negative); Ketones,Urine Negative (Negative); Leukocyte Esterase,Urine Moderate (Negative); Nitrite,Urine Negative (Negative); Protein,Urine 2+ (Negative); RBC,Urine >182 /hpf (0-5); Specific Gravity,Urine 1.017 (1.001-1.035); Squamous Epithelial Cell,Urine <1 /hpf (0-4); Urobilinogen,Urine <2.0 mg/dL (<2.0); WBC,Urine 176 /hpf (0-5)
== END | disposition home or self-care (01) ==
LOC: LABPAT 10:16
PROVIDERS: ATTEND Urology
DX: Z01.812 Encounter for preprocedural laboratory examination (principal); C67.9 Malignant neoplasm of bladder, unspecified
CPT/HCPCS: 36415; 80048; 81001; 85025; 87086

== ENCOUNTER 2021-07-06 06:05 | Day surgery (SDC) | payer MEDICARE, OTHER ==
--- NOTE | 2021-07-01 08:47 | P.HPIHPCON ---
History of Present Illness H&P Date: 07/01/21 70 -year-old male with history of T1 high-grade bladder cancer. Status post TURBT. Has developed multiple recurrence. He also underwent induction BCGX2. Surveillance cystoscopy showed recurrence along the bladder dome. He is poor surgical candidate for cystectomy. I discussed with him given the bladder cancer recurrence I recommend we proceeding with the TURBT. . Discussed with him the risks which include includes but not limited to bleeding, infection, bladder perforation. I also discussed with him given his multiple comorbidities he is at increased risk of complication. He understood all the risk and agreed to proceed with TURBT Consent for Procedure: I have explained the operation/procedure to the patient, including the risks, benefits, side effects, alternative therapies (including not receiving the proposed treatment or service), the likelihood of the patient achieving his/her goals, and potential recuperation problems for the procedure/sedation/analgesia, as well as any blood products, if indicated. I also explained to the patient the risks, benefits and side effects of the alternatives, as well as the risks related to not receiving the proposed procedure, care, treatment, or services. Past Medical History Past Medical History: Asthma, COPD, Diabetes Mellitus, Hyperlipidemia, Hypertension, Pneumonia Additional Past Medical History / Comment(s): home O2 at 3 L/NC continuous, peripheral neuropathy bilateral hands and feet, irregular heart beat, blood in urine, dry skin on feet History of Any Multi-Drug Resistant Organisms: None Reported Past Surgical History: Heart Catheterization Additional Past Surgical History / Comment(s): raman cataracts, TUR bladder tumor 10/2017 Past Anesthesia/Blood Transfusion Reactions: No Reported Reaction Past Alcohol Use History: None Reported Additional Past Alcohol Use History / Comment(s): Pt started smoking age 18, 1/2 ppd smoker. - Past Family History Mother Family Medical History: Cancer Additional Family Medical History / Comment(s): . Medications and Allergies Home Medications Medication Instructions Recorded Confirmed Type Aspirin EC [Ecotrin Low Dose] 81 mg PO DAILY 10/11/17 09/18/20 History Carvedilol [Coreg] 12.5 mg PO BID 10/11/17 09/18/20 History Insulin Aspart [NovoLOG Flexpen] 5 units SQ AC-BRKFST 10/11/17 09/18/20 History Insulin Aspart [NovoLOG Flexpen] 8 units SQ AC-LUNCH 10/11/17 09/18/20 History Insulin Aspart [NovoLOG Flexpen] 8 units SQ AC-SUPPER 10/11/17 09/18/20 History Insulin Detemir [Levemir Flextouch 65 units SQ HS 10/11/17 09/18/20 History Pen] Ipratropium-Albuterol Nebulize 3 ml INHALATION QID 10/11/17 09/18/20 History [Duoneb 0.5 mg-3 mg/3 ml Soln] Pravastatin Sodium [Pravachol] 20 mg PO HS 10/11/17 09/18/20 History Theophylline 12 Hour [Gilberto-Dur] 300 mg PO BID 10/11/17 09/18/20 History Budesonide-Formot 160-4.5 Mcg 2 puff INHALATION BID 30 Days #1 10/13/17 09/18/20 Rx [Symbicort 160-4.5 Mcg Inhaler] inhaler Furosemide [Lasix] 20 mg PO QAM 10/13/17 09/18/20 History Fluticasone/Vilanterol [Breo 1 inhalation INHALATION DAILY 05/14/19 09/18/20 History Ellipta 200-25 Mcg INH] Multivitamins, Thera [Multivitamin 1 tab PO DAILY 05/14/19 09/18/20 History (formulary)] Tamsulosin [Flomax] 0.4 mg PO HS 05/14/19 09/18/20 History lisinopriL 40 mg PO DAILY 05/14/19 09/18/20 History Albuterol Sulfate [Albuterol 2 puff PO Q6H PRN 09/12/20 09/18/20 History Sulfate Hfa] Potassium Chloride [Klor-Con 10] 10 meq PO DAILY 09/12/20 09/18/20 History Allergies Allergy/AdvReac Type Severity Reaction Status Date / Time No Known Allergies Allergy Unverified 09/18/20 13:47 Surgical - Exam - General no distress, no pain - Eyes PERRL, normal ocular movement - ENT normal nares, normal mucosa - Respiratory normal expansion, normal respiratory effort - Abdomen Abdomen: soft, non tender - Psychiatric oriented to time, oriented to person, oriented to place Assessment and Plan Assessment: 70 yo hx of recurrent Bladder cancer, cystoscopy showed recurrence along the dome -OR for TURBT
[2021-07-01 14:49] VITALS: BMI 30.4
[2021-07-06] MEDS ORDERED: DEXTROSE 50% SYRINGE 50 ML IVP ONE (07:11)
[2021-07-06] MEDS ORDERED: HYDROmorphone 0.5 MG/0.5 ML SYRINGE IVP PRN (07:11)
[2021-07-06] MEDS ORDERED: LIDOCAINE 1% (10MG/ML) FOR IV START INTRADERMA PRN (07:11)
[2021-07-06] MEDS ORDERED: LACTATED RINGERS 1,000 ML IV SCH (07:11)
[2021-07-06] MEDS ORDERED: MIDAZOLAM 2 MG/2 ML VIAL IV PRN (07:11)
[2021-07-06] MEDS ORDERED: DEXAMETHASONE SOD PHOSPHATE 4 MG/ML 1 ML VIAL IV ONE (07:11)
[2021-07-06] MEDS ORDERED: ONDANSETRON 4 MG/2 ML VIAL IVP ONE (07:11)
[2021-07-06] MEDS ORDERED: ONDANSETRON 4 MG/2 ML VIAL ONE (07:14)
[2021-07-06 07:24] LABS: Glucose,Whole Blood 64 mg/dL (75-99)
[2021-07-06 07:27] LABS: Glucose,Whole Blood 186 mg/dL (75-99)
[2021-07-06] MEDS ORDERED: ePHEDrine 50 MG/ML 1 ML AMP ONE (07:39)
[2021-07-06] MEDS ORDERED: KETAMINE 10 MG/ML 20 ML VIAL ONE (07:39)
[2021-07-06] MEDS ORDERED: .fentaNYL (PF) 50 MCG/ML 2 ML AMP ONE (07:39)
[2021-07-06] MEDS ORDERED: MIDAZOLAM 2 MG/2 ML VIAL ONE (07:39)
[2021-07-06] MEDS ORDERED: PROPOFOL 10 MG/ML 20 ML VIAL IV ONE (07:39)
[2021-07-06] MEDS ORDERED: PHENYLEPHRINE-0.9% NACL SYG 1,000 MCG/10 ML SYRINGE ONE (07:39)
[2021-07-06] MEDS ORDERED: LACTATED RINGERS 1,000 ML IV ONE ×2 (09:21)
[2021-07-06 09:32] VITALS: TEMP 97.4
[2021-07-06 09:39] LABS: Glucose,Whole Blood 115 mg/dL (75-99)
--- NOTE | 2021-07-06 09:52 | P.OP ---
Date of Procedure: 07/06/21 Preoperative Diagnosis: Bladder cancer, scrotal abscess Postoperative Diagnosis: Same Procedure(s) Performed: TURBT (large), incision of drainage of scrotal abscess Anesthesia: GETA, spinal Surgeon: Adalberto Andres Estimated Blood Loss (ml): 20 Pathology: other (Bladder tumor, scrotal abscess) Condition: stable Disposition: PACU Indications for Procedure: 70 -year-old male with history of T1 high-grade bladder cancer. Status post TURBT. Has developed multiple recurrence. He also underwent induction BCGX2. Surveillance cystoscopy showed recurrence along the bladder dome. He is poor surgical candidate for cystectomy. I discussed with him given the bladder cancer recurrence I recommend we proceeding with the TURBT. . Discussed with him the risks which include includes but not limited to bleeding, infection, bladder perforation. Of note he also had a left-sided scrotal abscess, that was partially draining. Discussed with him the option of doing a incision and drainage of the abscess, he agreed to proceed Operative Findings: Large tumor involving the bladder dome, and the left lateral wall, tumor measured approximately 8 cm, an additional 1 cm remote tumor along the posterior bladder wall. Scrotal abscess along the left-sided scrotal wall Description of Procedure: Patient was brought to the operating room, spinal anesthesia was induced. He was prepped and draped in sterile fashion and placed in dorsal lithotomy position. Resectoscope fitted with a 25-Yi sheath was inserted per urethra. Tumor was seen along the posterior/left lateral bladder wall, tumor measured approximately 8 cm, there was an additional tumor along the posterior bladder wall that measured approximately 1 cm. Using the bipolar resectoscope the tumor was resected down to muscle, the area of resection was thoroughly fulgurated. Tumor chips were irrigated out. Repeat cystoscopy showed no additional tumors or evidence of bleeding. There was no evidence of bladder perforation, neither ureteral orifice was involved in the resection. At this time the resectoscope was removed, and a 20-Yi Woodward was placed with return of clear urine. Attention was then carried to the scrotal abscess, the scrotal abscess was further opened using a hemostat, all loculation were broken up using the hemostat. The abscess tracked superiorly approximately 4 cm. Wound culture was obtained. At this time a counter incision was made through the upper tracking. A Rossburg was placed through the counter incision and through the abscess cavity. The Rossburg was sutured using 2-0 silk. Packing was placed into the scrotal abscess wound. The patient was awakened from anesthesia and taken recovery in stable condition
[2021-07-06 11:21] VITALS: RESP 20
[2021-07-06 11:44] VITALS: BP 125/72; PULSE 93
== END 2021-07-06 12:45 | disposition home or self-care (01) ==
LOC: OR 06:05
PROVIDERS: ATTEND Urology
DX: C67.9 Malignant neoplasm of bladder, unspecified (principal); N49.2 Inflammatory disorders of scrotum; J44.9 Chronic obstructive pulmonary disease, unspecified; E11.9 Type 2 diabetes mellitus without complications; E78.5 Hyperlipidemia, unspecified; I10 Essential (primary) hypertension; Z87.01 Personal history of pneumonia (recurrent); Z99.81 Dependence on supplemental oxygen; E11.42 Type 2 diabetes mellitus with diabetic polyneuropathy; Z98.42 Cataract extraction status, left eye; Z98.41 Cataract extraction status, right eye; Z98.890 Other specified postprocedural states; F17.210 Nicotine dependence, cigarettes, uncomplicated; Z80.9 Family history of malignant neoplasm, unspecified; Z79.82 Long term (current) use of aspirin; Z79.4 Long term (current) use of insulin; Z79.51 Long term (current) use of inhaled steroids; Z79.899 Other long term (current) drug therapy
CPT/HCPCS: 88307; 87070; 87205; 87075; 52240; 55899; J2250; J1100; J0690; J2405; J3010; J2370; J2704

== ENCOUNTER 2022-06-07 05:48 | Day surgery (SDC) | payer MEDICARE, OTHER ==
[2022-06-01 15:51] VITALS: BMI 26.6
--- NOTE | 2022-06-06 12:33 | P.HPIHPCON ---
History of Present Illness H&P Date: 06/06/22 Chief Complaint: Bladder Cancer This is a 71 yo male with hx of HGT1 bladder cancer, had multiple recurrences, failed BCG therapy. on oxygen at baseline not candidate for cystectomy. Was recently admitted to the [facility] and [place] for renal failure and bilateral hydronephrosis on 04/11/22, underwent bilateral nephrostomy tube placement at [place]. CT also showed evidence of bladder cancer recurrence. Discussed with him next step would be to proceed with cystoscopy and TURBT risk of bleeding and infection was discussed with him. discussed also risk from anesthesia. discussed will also perform bilateral RP at the same setting and if there is no evidence obstruction we will remove his PCN. Consent for Procedure: I have explained the operation/procedure to the patient, including the risks, benefits, side effects, alternative therapies (including not receiving the proposed treatment or service), the likelihood of the patient achieving his/her goals, and potential recuperation problems for the procedure/sedation/analgesia, as well as any blood products, if indicated. I also explained to the patient the risks, benefits and side effects of the alternatives, as well as the risks related to not receiving the proposed procedure, care, treatment, or services. Past Medical History Past Medical History: Asthma, Cancer, COPD, Diabetes Mellitus, Hyperlipidemia, Hypertension, Pneumonia Additional Past Medical History / Comment(s): Oxygen 3 L/NC prn., peripheral neuropathy hands & feet., states bladder cancer with surgery x9 (no chemo or radiation tx.)., states currently has nephrostomy tubes in his back ., uses walker and electric wheelchair. History of Any Multi-Drug Resistant Organisms: None Reported Past Surgical History: Heart Catheterization Additional Past Surgical History / Comment(s): raman cataracts, TUR bladder tumor x9. Past Anesthesia/Blood Transfusion Reactions: No Reported Reaction Additional Past Anesthesia/Blood Transfusion Reaction / Comment(s): states he was weak after surgery and fell when he got home. Past Psychological History: No Psychological Hx Reported Additional Psychological History / Comment(s): . Smoking Status: Current every day smoker Past Alcohol Use History: None Reported Additional Past Alcohol Use History / Comment(s): smokes 1/4 ppd., started smoking age 18 Past Drug Use History: None Reported - Past Family History Mother Family Medical History: Cancer Additional Family Medical History / Comment(s): . Medications and Allergies Home Medications Medication Instructions Recorded Confirmed Type Aspirin EC [Ecotrin Low Dose] 81 mg PO DAILY 10/11/17 06/01/22 History Insulin Aspart [NovoLOG Flexpen] 5 units SQ AC-BRKFST 10/11/17 06/01/22 History Insulin Aspart [NovoLOG Flexpen] 8 units SQ AC-LUNCH 10/11/17 06/01/22 History Insulin Aspart [NovoLOG Flexpen] 8 units SQ AC-SUPPER 10/11/17 06/01/22 History Insulin Detemir [Levemir Flextouch 30 units SQ BID 10/11/17 06/01/22 History Pen] Pravastatin Sodium [Pravachol] 20 mg PO HS 10/11/17 06/01/22 History carvediloL [Coreg] 12.5 mg PO BID-W/MEALS 10/11/17 06/01/22 History Tamsulosin [Flomax] 0.4 mg PO DAILY 05/14/19 06/01/22 History Albuterol Sulfate [Albuterol 2 puff PO Q4HR PRN 09/12/20 06/01/22 History Sulfate Hfa] Famotidine [Pepcid] 20 mg PO HS 06/01/22 06/01/22 History Fluticasone Propion/Salmeterol 1 puff INHALATION BID 06/01/22 06/01/22 History [Advair 500-50 Diskus] Allergies Allergy/AdvReac Type Severity Reaction Status Date / Time No Known Allergies Allergy Verified 06/01/22 14:35 Surgical - Exam - General no distress - Abdomen Abdomen: soft, non tender - Psychiatric oriented to time, oriented to person, oriented to place Assessment and Plan Assessment: OR for TURBT, bilateral RP, possible nephrostomy tube removal
[~2022-06-07 05:48] MED LIST changes: -DEXAMETHASONE SOD PHOSPHATE 4 MG/ML 1 ML VIAL IV ONE; +GENTAMICIN 120 MG in SODIUM CHLORIDE 0.9% 100 ML IVPB PRN; -HYDROmorphone 0.5 MG/0.5 ML SYRINGE IVP PRN; -LIDOCAINE 1% (10MG/ML) FOR IV START INTRADERMA PRN; -ONDANSETRON 4 MG/2 ML VIAL IVP ONE
--- NOTE | 2022-06-07 06:41 | XR ---
EXAMINATION TYPE: XR KUB DATE OF EXAM: 06/07/2022 6:19 AM CLINICAL HISTORY: History of bladder cancer. Pre-existing percutaneous catheters. TECHNIQUE: Single supine KUB image of the abdomen is obtained. COMPARISON: None. FINDINGS: There are percutaneous nephrostomy catheters bilaterally which continue as bilateral ureter stents terminating in the pelvis. Overall nonobstructive bowel gas pattern. Left pelvic vascular calcification and few tiny pelvic phle boliths are incidentally noted. Osseous structures are intact. IMPRESSION: As above.
[2022-06-07] MEDS ORDERED: DEXAMETHASONE SOD PHOSPHATE 4 MG/ML 1 ML VIAL IV ONE (06:42)
[2022-06-07] MEDS ORDERED: HYDROmorphone 0.5 MG/0.5 ML SYRINGE IVP PRN (06:42)
[2022-06-07] MEDS ORDERED: ONDANSETRON 4 MG/2 ML VIAL IVP ONE (06:42)
[2022-06-07 07:16] LABS: Glucose,Whole Blood 207 mg/dL (70-110)
[2022-06-07] MEDS: LACTATED RINGERS 1,000 ML IV SCH ×2 (07:18→11:21)
[2022-06-07] MEDS ORDERED: PHENYLEPHRINE-0.9% NACL SYG 1,000 MCG/10 ML SYRINGE ONE (07:25)
[2022-06-07] MEDS ORDERED: fentaNYL (PF) 50 MCG/ML 2 ML AMP ONE (07:25)
[2022-06-07] MEDS ORDERED: ePHEDrine 50 MG/ML 1 ML VIAL ONE (07:25)
[2022-06-07] MEDS ORDERED: NEOSTIGMINE 1 MG/ML 10 ML VIAL ONE (07:25)
[2022-06-07] MEDS ORDERED: LIDOCAINE 2% INJ 20 MG/ML (2 ML VIAL) ONE (07:25)
[2022-06-07] MEDS ORDERED: GLYCOPYRROLATE 0.2 MG/ML 2 ML VIAL ONE (07:25)
[2022-06-07] MEDS ORDERED: MIDAZOLAM 2 MG/2 ML VIAL ONE (07:25)
[2022-06-07] MEDS ORDERED: PROPOFOL 10 MG/ML 20 ML VIAL IV ONE (07:25)
[2022-06-07] MEDS ORDERED: HYDROmorphone (PF) 1 MG/ML ONE (07:25)
[2022-06-07] MEDS ORDERED: SUCCINYLCHOLINE CHLORIDE 200 MG/10 ML VIAL IV ONE (07:25)
[2022-06-07] MEDS ORDERED: LACTATED RINGERS 1,000 ML IV ONE (08:10)
[2022-06-07 08:13] LABS: Basophils # (A) 0.1 k/uL (0-0.2); Basophils % (A) 0 %; Eosinophils # (A) 0.5 k/uL (0-0.7); Eosinophils % (A) 4 %; HGB 9.2 gm/dL (13.0-17.5); Hypochromasia Moderate; Lymphocytes # (A) 1.6 k/uL (1.0-4.8); Lymphocytes % (A) 14 %; MCH 29.9 pg (25.0-35.0); MCHC 31.6 g/dL (31.0-37.0); MCV 94.6 fL (80.0-100.0); Mean Platelet Volume 8.6; Monocytes # (A) 0.5 k/uL (0-1.0); Monocytes % (A) 4 %; Neutrophils # (A) 8.8 k/uL (1.3-7.7); Neutrophils % (A) 76 %; Platelet Count 358 k/uL (150-450); RBC 3.07 m/uL (4.30-5.90); RDW 14.7 % (11.5-15.5); WBC 11.7 k/uL (3.8-10.6)
[2022-06-07 08:15] LABS: Albumin 3.3 g/dL (3.5-5.0); Calcium 8.4 mg/dL (8.4-10.2); Total Bilirubin 0.4 mg/dL (0.2-1.3); Total Protein 5.7 g/dL (6.3-8.2)
[2022-06-07 10:49] VITALS: TEMP 96.7
--- NOTE | 2022-06-07 10:51 | P.OP ---
Date of Procedure: 06/07/22 Preoperative Diagnosis: Bladder cancer Postoperative Diagnosis: Same Implants: TURBT(large) Anesthesia: OSCAR Surgeon: Adalberto Andres Estimated Blood Loss (ml): 150 Pathology: other (bladder mass) Condition: stable Disposition: PACU Indications for Procedure: This is a 71 yo male with hx of HGT1 bladder cancer, had multiple recurrences, failed BCG therapy. on oxygen at baseline not candidate for cystectomy. Was recently admitted to the [facility] and [place] for renal failure and bilateral hydronephrosis on 04/11/22, underwent bilateral nephrostomy tube placement at [facility]. CT also showed evidence of bladder cancer recurrence. Discussed with him next step would be to proceed with cystoscopy and TURBT risk of bleeding and infection was discussed with him. discussed also risk from anesthesia. discussed will also perform bilateral RP at the same setting and if there is no evidence obstruction we will remove his PCN. Operative Findings: papillary Tumor involving the entire bladder with the exception of the posterior bladder wall area and the entire bladder was covered by a papillary tumor that extended into the bladder neck, total area of tumor resection was greater than 20 cm Description of Procedure: Patient brought to the operating room, general anesthesia was induced. He was prepped and draped in sterile fashion and placed in dorsal lithotomy position. Resectoscope fitted with a 25-Chinese sheath was inserted per urethra, cystoscopy was performed which showed quite an extensive papillary tumor that involved the entire bladder with the exception of the posterior bladder wall. Additionally the tumor did extend into the bladder neck. Both stents were visualized protrouding from the ureteral orifices.. At this time using the bipolar resectoscope the tumor was resected down, I started initially at the trigone carried my resection along the left and the right lateral wall. Of note the tumor was hypervascular. And tumor was resected down to muscle. The area of resection was thoroughly fulgurated. At this time more than 2 hours have been spent resecting, and visualization was slightly limited secondary to bleeding. At this time decision was made to hold off on resecting the tumor along the dome and the anterior bladder wall. At this time attention was carried to fulguration all areas of bleeding along the resected surface was fulgurated. This point adequate visualization was obtained. At this time decision was made to hold off on any additional resection. A 22-Chinese hematuria catheter was placed and irrigated to clear. The balloon was inflated to 20 mL. At this point the patient was awakened from anesthesia and taken to recovery in stable condition. I will plan on going to resect the remaining tumor in 3-4 weeks. Nephrostomy tubes and stent was left in place for now until the resection was complete
[2022-06-07 12:08] VITALS: RESP 20
[2022-06-07 12:34] VITALS: BP 157/67; PULSE 84
--- NOTE | 2022-06-07 14:25 | FL ---
EXAMINATION TYPE: FL guidance operating room DATE OF EXAM: 06/07/2022 FLUOROSCOPY Fluoroscopy time of 5 seconds was used during bladder tumor removal, urologic procedure. 6 image/s d ocument/s the procedure.
== END 2022-06-07 13:41 | disposition home health service (06) ==
LOC: OR 05:48
PROVIDERS: ATTEND Urology
DX: C67.9 Malignant neoplasm of bladder, unspecified (principal); J44.9 Chronic obstructive pulmonary disease, unspecified; E78.5 Hyperlipidemia, unspecified; I10 Essential (primary) hypertension; J18.9 Pneumonia, unspecified organism; E11.42 Type 2 diabetes mellitus with diabetic polyneuropathy; F17.210 Nicotine dependence, cigarettes, uncomplicated; Z98.890 Other specified postprocedural states; Z98.41 Cataract extraction status, right eye; Z98.42 Cataract extraction status, left eye; Z95.5 Presence of coronary angioplasty implant and graft; Z79.899 Other long term (current) drug therapy; Z79.51 Long term (current) use of inhaled steroids
CPT/HCPCS: 80053; 85025; 74018; 52240; J1100; J0690; J2405; J1580

== ENCOUNTER 2022-08-10 09:42 | Inpatient (IN) | payer MEDICARE, OTHER ==
[2022-08-05 15:59] VITALS: BMI 26.9
[~2022-08-10 09:42] MED LIST changes: +DEXAMETHASONE SOD PHOSPHATE 4 MG/ML 1 ML VIAL IV ONE; +HYDROmorphone 0.5 MG/0.5 ML SYRINGE IVP PRN; +LIDOCAINE 1% (10MG/ML) FOR IV START INTRADERMA PRN; +MIDAZOLAM 2 MG/2 ML VIAL IV PRN; +ONDANSETRON 4 MG/2 ML VIAL IVP ONE
--- NOTE | 2022-08-10 10:20 | XR ---
EXAMINATION TYPE: XR KUB DATE OF EXAM: 08/10/2022 COMPARISON: KUB 06/07/2022 HISTORY: C 67.1 bladder cancer TECHNIQUE: Supine KUB of the abdomen was obtained with the radiographs. FINDINGS/IMPRESSION: Nonobstructive bowel gas pattern. Percutaneous nephrostomy catheters bilaterally which continues as b ilateral ureteral stents terminating in the pelvis. Multilevel degenerative changes visualized spine. Vascular sclerosis.
[2022-08-10 11:53] LABS: Glucose,Whole Blood 154 mg/dL (70-110)
[2022-08-10] MEDS: LACTATED RINGERS 1,000 ML IV SCH ×3 (11:53→20:46)
[2022-08-10] MEDS ORDERED: ONDANSETRON 4 MG/2 ML VIAL ONE (11:56)
[2022-08-10 12:03] LABS: Basophils # (A) 0.1 k/uL (0-0.2); Basophils % (A) 1 %; Eosinophils # (A) 0.3 k/uL (0-0.7); Eosinophils % (A) 4 %; HCT 29.1 % (39.0-53.0); HGB 9.2 gm/dL (13.0-17.5); Lymphocytes # (A) 1.4 k/uL (1.0-4.8); Lymphocytes % (A) 16 %; MCH 29.9 pg (25.0-35.0); MCHC 31.5 g/dL (31.0-37.0); MCV 94.7 fL (80.0-100.0); Mean Platelet Volume 8.9; Monocytes # (A) 0.5 k/uL (0-1.0); Monocytes % (A) 5 %; Neutrophils # (A) 6.7 k/uL (1.3-7.7); Neutrophils % (A) 72 %; Platelet Count 375 k/uL (150-450); RBC 3.07 m/uL (4.30-5.90); RDW 15.2 % (11.5-15.5); WBC 9.3 k/uL (3.8-10.6)
[2022-08-10 12:16] LABS: Albumin 3.6 g/dL (3.5-5.0); Calcium 8.8 mg/dL (8.4-10.2); Potassium 4.8 mmol/L (3.5-5.1); Total Bilirubin 0.3 mg/dL (0.2-1.3); Total Protein 6.1 g/dL (6.3-8.2)
[2022-08-10] MEDS ORDERED: SUCCINYLCHOLINE CHLORIDE 200 MG/10 ML VIAL IV ONE (14:04)
[2022-08-10] MEDS ORDERED: PROPOFOL 10 MG/ML 20 ML VIAL IV ONE (14:04)
[2022-08-10] MEDS ORDERED: ROCURONIUM 10 MG/ML (5 ML VIAL) IV ONE (14:04)
[2022-08-10] MEDS ORDERED: MIDAZOLAM 2 MG/2 ML VIAL ONE (14:04)
[2022-08-10] MEDS ORDERED: GLYCOPYRROLATE 0.2 MG/ML 2 ML VIAL ONE (14:04)
[2022-08-10] MEDS ORDERED: NEOSTIGMINE 1 MG/ML 10 ML VIAL ONE (14:04)
[2022-08-10] MEDS ORDERED: PHENYLEPHRINE-0.9% NACL SYG 1,000 MCG/10 ML SYRINGE ONE (14:04)
[2022-08-10] MEDS ORDERED: fentaNYL (PF) 50 MCG/ML 2 ML AMP ONE (14:04)
[2022-08-10] MEDS ORDERED: LACTATED RINGERS 1,000 ML IV ONE (16:36)
--- NOTE | 2022-08-10 16:41 | P.OP ---
Date of Procedure: 08/10/22 Preoperative Diagnosis: Bladder cancer Postoperative Diagnosis: Same Procedure(s) Performed: TURBT (large ), bilateral nephrostomy tube removal Anesthesia: TANKA Surgeon: Adalberto Andres Estimated Blood Loss (ml): 200 Pathology: other (Bladder tumor) Condition: stable Disposition: PACU Indications for Procedure: This is a 71 yo male with hx of HGT1 bladder cancer, had multiple recurrences, failed BCG therapy. on oxygen at baseline not candidate for cystectomy. Underwent TURBT on 06/07/2022, there was significant amount of tumor within the bladder, and a complete resection could not be performed. He presents today for a second stage TURBT. He had a recent admiton to the [facility] and [place] for renal failure and bilateral hydronephrosis on 04/11/22, underwent bilateral nephrostomy tube placement at [place]. CT also showed evidence of bladder cancer recurrence. risk of bleeding and infection was discussed with him. discussed also risk from anesthesia. He currently has bilateral nephrostomy tubes and stents. Discussed the possibility of removing the nephrostomy tube at the time of TURBT Operative Findings: Large papillary tumor involving the entire bilateral lateral reyez, dome anterior bladder neck, and multiple satellite tumors throughout the posterior bladder wall. The total area of resection was greater than 15 cm Description of Procedure: Patient brought to the operating room, general anesthesia was induced. He was prepped and draped so fashion a placement dorsal lithotomy position. Resectoscope fitted with 25-Indian sheath was inserted per urethra, cystoscopy was performed which showed Large papillary tumor involving the entire bilateral lateral reyez, dome anterior bladder neck, and multiple satellite tumors throughout the posterior bladder wall. Using the bipolar resectoscope the tumor was resected down to muscle. The area of resection was thoroughly fulgurated. Of note there was significant amount of tumor burden as the total area of resection measured greater than 15 cm. There was a lesion along the anterior bladder wall that I was not able to resect with the loop. At this time I switched to the button and I was able to vaporize tumor using the button. Repeat cystoscopy showed no evidence of bleeding, or evidence of bladder perforation, all the tumor specimen was irrigated out. At this time attention was carried to the bilateral nephrostomy tubes which were both removed, dressing was applied to the nephrostomy tube site. A 22-Indian Woodward was placed with return of clear urine. Patient tolerated procedure well was taken to recovery in stable condition
[2022-08-10] MEDS ORDERED: HYDROcodone/APAP 5-325MG 1 EACH TAB PO PRN (17:23)
[2022-08-10 18:10] LABS: Glucose,Whole Blood 137 mg/dL (70-110)
[2022-08-10 20:19] LABS: Glucose,Whole Blood 140 mg/dL (70-110)
[2022-08-10] MEDS: SYMBICORT 160-4.5 MCG INHALER INHALATION SCH (20:45)
[2022-08-10] MEDS: TAMSULOSIN 0.4 MG CAP.ER.24H PO SCH (20:47)
[2022-08-10] MEDS: THEOPHYLLINE 24 HOUR 300 MG CAP.ER.24H PO SCH (20:47)
[2022-08-10] MEDS: carvediloL 12.5 MG TAB PO SCH (20:47)
[2022-08-10] MEDS: INSULIN DETEMIR (LEVEMIR) 100 UNIT/ML SYR SQ SCH (20:48)
[2022-08-11 02:04] LABS: Glucose,Whole Blood 180 mg/dL (70-110)
[2022-08-11 06:07] LABS: Glucose,Whole Blood 108 mg/dL (70-110)
[2022-08-11] MEDS: carvediloL 12.5 MG TAB PO SCH ×2 (07:31→17:35)
[2022-08-11] MEDS: LACTATED RINGERS 1,000 ML IV SCH ×4 (08:08→21:43)
[2022-08-11] MEDS: SYMBICORT 160-4.5 MCG INHALER INHALATION SCH ×2 (08:31→19:36)
[2022-08-11] MEDS: INSULIN ASPART (NovoLOG) 100 UNIT/ML VIAL SQ SCH ×3 (08:38→17:12)
[2022-08-11] MEDS: INSULIN DETEMIR (LEVEMIR) 100 UNIT/ML SYR SQ SCH ×2 (08:38→21:43)
[2022-08-11] MEDS: PRAVASTATIN SODIUM 20 MG TAB PO SCH (08:39)
[2022-08-11] MEDS: POTASSIUM CHLORIDE ER 10 MEQ TAB.ER.PRT PO SCH (08:39)
[2022-08-11] MEDS: ACETAMINOPHEN TAB 500 MG TAB PO PRN (08:39)
[2022-08-11] MEDS ORDERED: NON FORMULARY DRUG (Insulin Glargine,Hum.Rec.Anlog [Lantus Solostar Pen] 100 UNIT/ML Insul SQ SCH (09:00)
--- NOTE | 2022-08-11 09:44 | P.PN ---
Subjective Progress Note Date: 08/11/22 Principal diagnosis: Bladder cancer This is a 71 yo male with hx of HGT1 bladder cancer, had multiple recurrences, failed BCG therapy. on oxygen at baseline not candidate for cystectomy. Underwent TURBT on 06/07/2022, there was significant amount of tumor within the bladder, and a complete resection could not be performed. He presented 08/10/22 for a second stage TURBT and bilateral nephrostomy tube removal. He had a recent admission to the [facility] and [place] for renal failure and bilateral hydronephrosis on 04/11/22, underwent bilateral nephrostomy tube placement at [place]. CT also showed evidence of bladder cancer recurrence. A large papillary tumor involving the entire bilateral lateral reyez, dome anterior bladder neck, and multiple satellite tumors throughout the posterior bladder wall. The total area of resection was greater than 15 cm. A 22-Kyrgyz Woodward catheter was placed. Patient tolerated the procedure well and was taken to the recovery room in stable condition. Objective - Vital Signs Vital signs: Vital Signs Temp 101.7 F H 08/11/22 07:20 Pulse 83 08/11/22 07:20 Resp 19 08/11/22 07:20 BP 113/66 08/11/22 07:20 Pulse Ox 83 L 08/11/22 07:20 FiO2 Intake & Output 08/10/22 08/11/22 08/11/22 18:59 06:59 18:59 Intake Total 1853 Output Total 300 200 Balance 1553 -200 Weight 74.5 kg 74.5 kg Intake: IV 1853 Output: Urine 100 200 Estimated Blood Loss 200 Other: Voiding Method Indwelling Catheter - Exam General: Well developed, well nourished. No acute distress. Chronically ill appearing HEENT: Head is atraumatic, normocephalic. Lungs: Respirations even and nonlabored. On 2 L nasal cannula Abdomen/GI: Soft. No guarding, rigidity, or abdominal tenderness. : Woodward catheter in place draining dark red urine. Skin: Warm and dry Neurologic: Awake, alert and oriented times 3. CN II-XII grossly intact. No focal deficits. Psychiatric: Appropriate mood and affect. - Labs CBC & Chem 7: 08/10/22 11:53 08/10/22 11:53 Labs: Abnormal Lab Results - Last 24 Hours (Table) 08/10/22 08/10/2223 Range/Units 11:52 11:53 11:53 RBC 3.07 L (4.30-5.90) m/uL Hgb 9.2 L (13.0-17.5) gm/dL Hct 29.1 L (39.0-53.0) % Chloride 111 H (98-107) mmol/L BUN 31 H (9-20) mg/dL Creatinine 2.46 H (0.66-1.25) mg/dL Glucose 144 H (74-99) mg/dL POC Glucose (mg/dL) 154 H (70-110) mg/dL AST 16 L (17-59) U/L Total Protein 6.1 L (6.3-8.2) g/dL 08/10/22 08/10/22 08/11/22 Range/Units 18:07 20:17 02:02 RBC (4.30-5.90) m/uL Hgb (13.0-17.5) gm/dL Hct (39.0-53.0) % Chloride (98-107) mmol/L BUN (9-20) mg/dL Creatinine (0.66-1.25) mg/dL Glucose (74-99) mg/dL POC Glucose (mg/dL) 137 H 140 H 180 H (70-110) mg/dL AST (17-59) U/L Total Protein (6.3-8.2) g/dL Assessment and Plan Assessment: The patient is resting in bed. He is able to tolerate a regular diet. He denies any pain. His Woodward catheter is draining dark red urine. He is afebrile this morning with a temperature of 101.7F. He is hemodynamically stable. He is on 2 L O2. (1) Bladder cancer Current Visit: Yes Status: Acute Code(s): C67.9 - MALIGNANT NEOPLASM OF BLADDER, UNSPECIFIED SNOMED Code(s): 887901866 Plan: - Increase IVF to 100 mL per hour - Keep Woodward catheter in place - Continue Flomax - Continue current pain regimen - Incentive spirometer every one hour while awake - Increase activity - Start Zosyn Anticipate discharge in the next 24-48 hours Impression and plan of care have been directed as dictated by the signing physician. Wilma Malin nurse practitioner acting as scribe for signing physician. Wilma Malin [facility] Palliative Care/Urology Spectralink [phone] Email: [email or web address] I have personally seen and examined the patient, reviewed the documentation and agree with the assessment and plan as written. Number of minutes spent on the visit: 20. Krishna Loco MD
[2022-08-11 11:42] LABS: Glucose,Whole Blood 68 mg/dL (70-110)
[2022-08-11 11:56] LABS: Glucose,Whole Blood 82 mg/dL (70-110)
[2022-08-11] MEDS: PIPERACILLIN-TAZOBACTAM 3.375 GM in SODIUM CHLORIDE 0.9% 100 ML IVPB SCH ×2 (13:03→17:35)
[2022-08-11 16:47] LABS: Glucose,Whole Blood 82 mg/dL (70-110)
[2022-08-11 20:40] LABS: Glucose,Whole Blood 87 mg/dL (70-110)
[2022-08-11] MEDS: THEOPHYLLINE 24 HOUR 300 MG CAP.ER.24H PO SCH (21:42)
[2022-08-11] MEDS: TAMSULOSIN 0.4 MG CAP.ER.24H PO SCH (21:42)
[2022-08-12 01:53] LABS: Glucose,Whole Blood 91 mg/dL (70-110)
[2022-08-12] MEDS: PIPERACILLIN-TAZOBACTAM 3.375 GM in SODIUM CHLORIDE 0.9% 100 ML IVPB SCH ×3 (05:04→20:46)
[2022-08-12 06:07] LABS: Glucose,Whole Blood 130 mg/dL (70-110)
[2022-08-12] MEDS: ALBUTEROL NEBULIZED 2.5 MG/3 ML INHALATION PRN ×3 (08:11→19:37)
[2022-08-12] MEDS: SYMBICORT 160-4.5 MCG INHALER INHALATION SCH ×2 (08:11→19:37)
[2022-08-12] MEDS: INSULIN ASPART (NovoLOG) 100 UNIT/ML VIAL SQ SCH ×3 (09:31→17:08)
[2022-08-12] MEDS: POTASSIUM CHLORIDE ER 10 MEQ TAB.ER.PRT PO SCH (09:31)
[2022-08-12] MEDS: PRAVASTATIN SODIUM 20 MG TAB PO SCH (09:31)
[2022-08-12] MEDS: INSULIN DETEMIR (LEVEMIR) 100 UNIT/ML SYR SQ SCH ×2 (09:31→21:42)
[2022-08-12] MEDS: carvediloL 12.5 MG TAB PO SCH ×2 (09:32→17:08)
[2022-08-12] MEDS: LACTATED RINGERS 1,000 ML IV SCH ×3 (09:33→14:39)
[2022-08-12] MEDS: ACETAMINOPHEN TAB 500 MG TAB PO PRN ×2 (10:03→21:40)
[2022-08-12 11:24] LABS: Glucose,Whole Blood 155 mg/dL (70-110)
--- NOTE | 2022-08-12 12:55 | P.PN ---
Subjective Progress Note Date: 08/12/22 Principal diagnosis: Bladder cancer This is a 71 yo male with hx of HGT1 bladder cancer, had multiple recurrences, failed BCG therapy. On oxygen at baseline not candidate for cystectomy. Underwent TURBT on 06/07/2022, there was significant amount of tumor within the bladder, and a complete resection could not be performed. He presented 08/10/22 for a second stage TURBT and bilateral nephrostomy tube removal. He had a recent admission to the [facility] and [place] for renal failure and bilateral hydronephrosis on 04/11/22, underwent bilateral nephrostomy tube placement at [place]. CT also showed evidence of bladder cancer recurrence. A large papillary tumor involving the entire bilateral lateral reyez, dome anterior bladder neck, and multiple satellite tumors throughout the posterior bladder wall. The total area of resection was greater than 15 cm. A 22-Macedonian Woodward catheter was placed. Patient tolerated the procedure well and was taken to the recovery room in stable condition. Objective - Vital Signs Vital signs: Vital Signs Temp 98.0 F 08/12/22 07:05 Pulse 80 08/12/22 11:59 Resp 17 08/12/22 07:05 BP 117/67 08/12/22 07:05 Pulse Ox 95 08/12/22 08:14 FiO2 Intake & Output 08/11/22 08/12/22 08/12/22 18:59 06:59 18:59 Intake Total 1168 Output Total 325 Balance 1168 -325 Intake: Intake, IV Titration 650 Amount Lactated Ringers 1,000 ml 300 @ 100 mls/hr IV .Q10H ALEX Rx#:[id number] Lactated Ringers 1,000 ml 150 @ 75 mls/hr IV .[id number] ALXE Rx#:[id number] Piperacillin-Tazobactam 3 200 .375 gm In Sodium Chloride 0.9% 100 ml @ 25 mls/hr IVPB Q8HR ALEX Rx# :[id number] Oral 518 Output: Urine 325 Other: Voiding Method Indwelling Catheter Indwelling Catheter Indwelling Catheter - Exam General: Well developed, well nourished. No acute distress. Chronically ill appearing HEENT: Head is atraumatic, normocephalic. Lungs: Respirations even and nonlabored. On 2 L nasal cannula Abdomen/GI: Soft. No guarding, rigidity, or abdominal tenderness. : Woodward catheter in place blood tinged urine. Skin: Warm and dry Neurologic: Awake, alert and oriented times 3. CN II-XII grossly intact. No focal deficits. Psychiatric: Appropriate mood and affect. - Labs CBC & Chem 7: 08/10/22 11:53 08/10/22 11:53 Labs: Abnormal Lab Results - Last 24 Hours (Table) 08/12/22 08/12/22 Range/Units 06:04 11:23 POC Glucose (mg/dL) 130 H 155 H (70-110) mg/dL Assessment and Plan Assessment: The patient got up to the chair for the first time this morning. And has been ambulating around in his room. Per nursing staff there has been quite a bit of serosanguineous drainage from old nephrostomy tube sites. The patient has bilateral ureteral stents which should drain the kidneys adequately. The drainage should resolve spontaneously. The patient reports some back pain/stiffness from being in the bed. The patient's Woodward catheter is draining blood tinged urine, much operational assistant than yesterday. The patient has been afebrile today. He remains on 2 L O2 via nasal cannula, but states he wears O2 at home. (1) Bladder cancer Current Visit: Yes Status: Acute Code(s): C67.9 - MALIGNANT NEOPLASM OF BLADDER, UNSPECIFIED SNOMED Code(s): 861699432 Plan: - Monitor drainage from old nephrostomy tube sites - Continue IVF - Keep Woodward catheter in place - Continue Flomax - Continue current pain regimen - Incentive spirometer every one hour while awake - Increase activity - Continue Zosyn Anticipate discharge in the next 24-48 hours Impression and plan of care have been directed as dictated by the signing physician. Wilma Malin nurse practitioner acting as scribe for signing physician. Wilma Malin [facility] Palliative Care/Urology Spectralink [id number] Email: [email or web address] I have personally seen and examined the patient, reviewed the documentation and agree with the assessment and plan as written. Number of minutes spent on the visit: 20. Krishna Loco MD
[2022-08-12 16:18] LABS: Glucose,Whole Blood 112 mg/dL (70-110)
[2022-08-12 20:30] LABS: Glucose,Whole Blood 141 mg/dL (70-110)
[2022-08-12] MEDS: TAMSULOSIN 0.4 MG CAP.ER.24H PO SCH (21:42)
[2022-08-12] MEDS: THEOPHYLLINE 24 HOUR 300 MG CAP.ER.24H PO SCH (21:42)
[2022-08-13] MEDS: LACTATED RINGERS 1,000 ML IV SCH ×2 (00:14→12:03)
[2022-08-13] MEDS: PIPERACILLIN-TAZOBACTAM 3.375 GM in SODIUM CHLORIDE 0.9% 100 ML IVPB SCH ×2 (03:19→12:02)
[2022-08-13] MEDS ORDERED: DEXTROSE 50% SYRINGE 50 ML IVP ONE (06:22)
[2022-08-13 06:23] LABS: Glucose,Whole Blood 38 mg/dL (70-110)
[2022-08-13] MEDS ORDERED: DEXTROSE 50% SYRINGE 50 ML IVP STA (06:23)
[2022-08-13] MEDS: INSULIN ASPART (NovoLOG) 100 UNIT/ML VIAL SQ SCH ×2 (06:32→12:01)
[2022-08-13 06:37] LABS: Glucose,Whole Blood 182 mg/dL (70-110)
[2022-08-13] MEDS: POTASSIUM CHLORIDE ER 10 MEQ TAB.ER.PRT PO SCH (07:29)
[2022-08-13] MEDS: carvediloL 12.5 MG TAB PO SCH (07:29)
[2022-08-13] MEDS: PRAVASTATIN SODIUM 20 MG TAB PO SCH (07:29)
[2022-08-13] MEDS: SYMBICORT 160-4.5 MCG INHALER INHALATION SCH (08:06)
[2022-08-13] MEDS: ALBUTEROL NEBULIZED 2.5 MG/3 ML INHALATION PRN ×2 (08:06→11:50)
[2022-08-13 08:09] VITALS: TEMP 97.9
--- NOTE | 2022-08-13 10:11 | P.PN ---
Subjective Progress Note Date: 08/13/22 Principal diagnosis: Bladder cancer This is a 71 yo male with hx of HGT1 bladder cancer, had multiple recurrences, failed BCG therapy. On oxygen at baseline not candidate for cystectomy. Underwent TURBT on 06/07/2022, there was significant amount of tumor within the bladder, and a complete resection could not be performed. He presented 08/10/22 for a second stage TURBT and bilateral nephrostomy tube removal. He had a recent admission to the [facility] and [place] for renal failure and bilateral hydronephrosis on 04/11/22, underwent bilateral nephrostomy tube placement at [place]. CT also showed evidence of bladder cancer recurrence. A large papillary tumor involving the entire bilateral lateral reyez, dome anterior bladder neck, and multiple satellite tumors throughout the posterior bladder wall. The total area of resection was greater than 15 cm. A 22-Portuguese Woodward catheter was placed. Patient tolerated the procedure well and was taken to the recovery room in stable condition. 08/12 The patient got up to the chair for the first time this morning. And has been ambulating around in his room. Per nursing staff there has been quite a bit of serosanguineous drainage from old nephrostomy tube sites. The patient has bilateral ureteral stents which should drain the kidneys adequately. The drainage should resolve spontaneously. The patient reports some back pa in/stiffness from being in the bed. The patient's Woodward catheter is draining blood tinged urine, much timekeeper than yesterday. The patient has been afebrile today. He remains on 2 L O2 via nasal cannula, but states he wears O2 at home. Objective - Vital Signs Vital signs: Vital Signs Temp 97.9 F 08/13/22 06:50 Pulse 68 08/13/22 08:24 Resp 16 08/13/22 06:50 BP 100/62 08/13/22 06:50 Pulse Ox 98 08/13/22 08:07 FiO2 Intake & Output 08/12/22 08/13/22 08/13/22 18:59 06:59 18:59 Output Total 250 250 Balance -250 -250 Output: Urine 250 250 Other: Voiding Method Indwelling Catheter Indwelling Catheter # Bowel Movements 1 - Labs CBC & Chem 7: 08/10/22 11:53 08/10/22 11:53 Labs: Abnormal Lab Results - Last 24 Hours (Table) 08/12/22 08/12/22 08/12/22 Range/Units 11:23 16:17 20:28 POC Glucose (mg/dL) 155 H 112 H 141 H (70-110) mg/dL 08/13/22 08/13/22 Range/Units 06:17 06:35 POC Glucose (mg/dL) 38 L 182 H (70-110) mg/dL Assessment and Plan Assessment: The patient's blood sugar dropped to 38 this morning and 1 amp D50 was given. Repeat blood sugar was 182. Dr. Sierra consulted for medical management. Per nursing staff the old nephrostomy tube sites are still draining serosanguineous fluid. The patient required four dressing changes overnight. The patient's Woodward catheter is draining blood-tinged urine. He is afebrile today and his vital signs are stable. He denies any pain. He is stable for discharge from a urological standpoint. Awaiting medicines recommendations regarding patient's hypoglycemia. The patient is to be discharged home with his Woodward catheter in place. The patient was instructed to follow-up with Dr. Andres and our office in 1 week for Woodward catheter removal and voiding trial. (1) Bladder cancer Current Visit: Yes Status: Acute Code(s): C67.9 - MALIGNANT NEOPLASM OF BL ADDER, UNSPECIFIED SNOMED Code(s): 122189055 Plan: - Monitor drainage from old nephrostomy tube sites - Discontinue IV - Keep Woodward catheter in place, it'll be removed in our office during follow-up visit - Continue Flomax - Continue current pain regimen - Incentive spirometer every one hour while awake - Increase activity - Continue Zosyn - discharge home on Keflex for 5 days Anticipate discharge in the next 24-48 hours Impression and plan of care have been directed as dictated by the signing physician. Wilma Malin nurse practitioner acting as scribe for signing physician. Wilma Malin [facility]- Palliative Care/Urology Spectralink [id number] Email: [email or web address] I have personally seen and examined the patient, reviewed the documentation and agree with the assessment and plan as written. Number of minutes spent on the visit: 15. Krishna Loco MD
[2022-08-13] MEDS: INSULIN DETEMIR (LEVEMIR) 100 UNIT/ML SYR SQ SCH (10:18)
[2022-08-13 11:07] LABS: Glucose,Whole Blood 217 mg/dL (70-110)
[2022-08-13] MEDS ORDERED: INSULIN ASPART (NovoLOG) 100 UNIT/ML VIAL SQ SCH ×2 (12:30→17:30)
--- NOTE | 2022-08-13 12:49 | P.DS ---
Providers Date of admission: 08/12/22 07:44 Expected date of discharge: 08/13/22 Attending physician: Adalberto Andres MD Consults: 08/13/22 07:41 Consult Physician Routine Consulting Provider: Manan Sierra Consult Reason/Comments: medical management Do you want consulting provider notified?: Yes Primary care physician: Khadijah Helm - Discharge Diagnosis(es) (1) Bladder cancer Current Visit: Yes Status: Acute Hospital Course: This is a 71 yo male with hx of HGT1 bladder cancer, had multiple recurrences, failed BCG therapy. On oxygen at baseline not candidate for cystectomy. Underwent TURBT on 06/07/2022, there was significant amount of tumor within the bladder, and a complete resection could not be performed. He presented 08/10/22 for a second stage TURBT and bilateral nephrostomy tube removal. [facility] [place] for renal failure and bilateral hy dronephrosis on 04/11/22, underwent bilateral nephrostomy tube placement at [place]. CT also showed evidence of bladder cancer recurrence. A large papillary tumor involving the entire bilateral lateral reyez, dome anterior bladder neck, and multiple satellite tumors throughout the posterior bladder wall. The total area of resection was greater than 15 cm. A 22-Malagasy Woodward catheter was placed. Patient tolerated the procedure well and was taken to the recovery room in stable condition. POD #1 Per nursing staff there has been quite a bit of serosanguineous drainage from old nephrostomy tube sites. The patient has bilateral ureteral stents which should drain the kidneys adequately. The drainage should resolve spontaneously. The patient reports some back pain/stiffness from being in the bed. The patient's Woodward catheter is draining blood tinged urine, much manager in training than yesterday. The patient has been febrile today and was started on Zosyn. He remains on 2 L O2 via nasal cannula, but states he wears O2 at home. POD#2 The patient's blood sugar dropped to 38 this morning and 1 amp D50 was given. Repeat blood sugar was 182. Dr. Sierra consulted for medical management. He adjusted the patient's insulin dosage accordingly. Per nursing staff the old nephrostomy tube sites are still draining serosanguineous fluid. The patient required four dressing changes overnight. The patient's Woodward catheter is draining blood-tinged urine. He is afebrile today and his vital signs are stable. He denies any pain. The patient will be discharged home with his Woodward catheter in place. He will continue Keflex 250mg TID for 4 days. The patient was instructed to follow-up with Dr. Andres and our office in 1 week for Woodward catheter removal and voiding trial. Impression and plan of care have been directed as dictated by the signing physician. Wilma Malin nurse practitioner acting as scribe for signing physician. Wilma Malin [facility] Palliative Care/Urology Spectralink [id number] Email: [email or web address] I have personally seen and examined the patient, reviewed the documentation and agree with the assessment and plan as written. Krishna Lcoo MD Plan - Discharge Summary Discharge Rx Participant: Yes New Discharge Prescriptions: New INSULIN ASPART (NovoLOG) [NovoLOG (formulary)] 5 unit SQ AC-LUNCH each Cephalexin [Keflex] 250 mg PO Q8HR 5 Days #15 capsule Insulin Detemir (Levemir) [Levemir] 25 unit SQ BID@0700,2100 each INSULIN ASPART (NovoLOG) [NovoLOG (formulary)] 5 unit SQ AC-SUPPER each INSULIN ASPART (NovoLOG) [NovoLOG (formulary)] 5 unit SQ AC-BRKFST each Continue Pravastatin Sodium [Pravachol] 20 mg PO DAILY carvediloL [Coreg] 12.5 mg PO BID Tamsulosin [Flomax] 0.4 mg PO HS Albuterol Sulfate [Albuterol Sulfate Hfa] 2 puff PO Q4HR PRN PRN Reason: Shortness Of Breath Or Wheezing Fluticasone Propion/Salmeterol [Advair 500-50 Diskus] 1 puff INHALATION BID Theophylline Anhydrous [Theophylline ER] 300 mg PO BID Potassium Chloride [K-Tab ER] 10 meq PO DAILY Discontinued Insulin Detemir [Levemir Flextouch Pen] 30 units SQ BID Insulin Aspart [NovoLOG Flexpen] 5 units SQ AC-BRKFST Insulin Aspart [NovoLOG Flexpen] 8 units SQ AC-LUNCH Insulin Aspart [NovoLOG Flexpen] 8 units SQ AC-SUPPER Insulin Glargine,Hum.rec.anlog [Lantus Solostar Pen] 24 units SQ DAILY Discharge Medication List Pravastatin Sodium [Pravachol] 20 mg PO DAILY 10/11/17 [History] carvediloL [Coreg] 12.5 mg PO BID 10/11/17 [History] Tamsulosin [Flomax] 0.4 mg PO HS 05/14/19 [History] Albuterol Sulfate [Albuterol Sulfate Hfa] 2 puff PO Q4HR PRN 09/12/20 [History] Fluticasone Propion/Salmeterol [Advair 500-50 Diskus] 1 puff INHALATION BID 06/01/22 [History] Potassium Chloride [K-Tab ER] 10 meq PO DAILY 07/15/22 [History] Theophylline Anhydrous [Theophylline ER] 300 mg PO BID 07/15/22 [History] Cephalexin [Keflex] 250 mg PO Q8HR 5 Days #15 capsule 08/13/22 [Rx] INSULIN ASPART (NovoLOG) [NovoLOG (formulary)] 5 unit SQ AC-BRKFST each 08/13/22 [Rx] INSULIN ASPART (NovoLOG) [NovoLOG (formulary)] 5 unit SQ AC-LUNCH each 08/13/22 [Rx] INSULIN ASPART (NovoLOG) [NovoLOG (formulary)] 5 unit SQ AC-SUPPER each 08/13/22 [Rx] Insulin Detemir (Levemir) [Levemir] 25 unit SQ BID@0700,2100 each 08/13/22 [Rx] Follow up Appointment(s)/Referral(s): Adalberto Andres MD [STAFF PHYSICIAN] - 08/25/22 10:20 am () Khadijah Helm MD [Primary Care Provider] - 08/18/22 1:00 pm [facility] Visiting Nurse, [NON-STAFF] - 1 Week Patient Instructions/Handouts: Cephalexin (By mouth), Woodward Catheter Placement and Care (DC), Urinary Leg Bag (GEN), Transurethral Resection of Bladder Tumors (DC) Activity/Diet/Wound Care/Special Instructions: - You make take Tylenol or Mortin for pain/discomfort - No heavy lifting, straining, or strenuous activity - You may shower, no tub baths - You may change the dressings on your back as needed - Follow-up in 1 week for catheter removal, your catheter will be removed in the office Discharge Disposition: HOME SELF-CARE
[2022-08-13] MEDS ORDERED: INSULIN DETEMIR (LEVEMIR) 100 UNIT/ML SYR SQ SCH (13:00)
[2022-08-13 16:10] VITALS: BP 157/61; PULSE 96; RESP 18
[2022-08-13 16:38] LABS: Glucose,Whole Blood 176 mg/dL (70-110)
--- NOTE | 2022-08-13 17:10 | P.CONS ---
History of Present Illness - Reason for Consult Consult date: 08/13/22 Medical management Requesting physician: Adalberto Andres - Chief Complaint Tired - History of Present Illness This is a 72-year-old patient, follows with Dr. Helm. Chronic stable medical conditions include COPD, hypertension, hyperlipidemia, peripheral neuropathy, does use her walker/electric wheelchair. hx of HGT1 bladder cancer, had multiple recurrences, failed BCG therapy. on oxygen at baseline not candidate for cystectomy. Underwent TURBT on 06/07/2022, there was significant amount of tumor within the bladder, and a complete resection could not be performed. He presents for a second stage TURBT. He had a recent admiton to the [facility] and [place] for renal failure and bilateral hydronephrosis on 04/11/22, underwent bilateral nephrostomy tube placement at [place]. CT also showed evidence of bladder cancer recurrence. hsd bilateral nephrostomy tubes and stents. During surgery yesterday: Was found to large papular tumor involving the entire bilateral lateral reyez domed anterior bladder neck and multiple satellite tumors throughout the posterior bladder wall. Both nephrostomy tubes are removed. Patient has a Woodward catheter. I was asked for medical management was best he to evaluate patient's insulin. It seems patient is taking both Levemir and Lantus at home. Patient does have a chronic cough. Does smoke about a cigarette a day. Oral intake fair. He'll be discharged home with a Woodward catheter. Review of systems: GEN.: Tired EYES: None HEENT: None NECK: None RESPIRATORY: Cough some shortness of breath CARDIOVASCULAR: None GASTROINTESTINAL: None GENITOURINARY: Woodward catheter MUSCULOSKELETAL: None LYMPHATICS: None HEMATOLOGICAL: None PSYCHIATRY: None NEUROLOGICAL: Does use a walker Physical examination: VITAL SIGNS: 97.9, 53, 16, 100/62, 92% on 2 L GENERAL: BMI 25, laying in bed awake tired. EYES: Pupils equal. Conjunctiva normal. HEENT: External appearance of nose and ears normal, oral cavity grossly normal. NECK: JVD not raised; masses not palpable. HEART: First and second heart sounds are normal; no edema. LUNGS: Respiratory rate increased increased breath sound minimal wheezing. ABDOMEN: Soft, nontender, liver spleen not palpable, no masses palpable. Woodward catheter PSYCH: Alert and oriented x3; mood and affect normal. MUSCULOSKELETAL:No Clubbing/cyanosis;muscles-grossly intact. OA NEUROLOGICAL: Cranial nerves grossly intact; no facial asymmetry, power and sensation grossly intact. LYMPHATICS: No lymph nodes palpable in the axilla and neck INVESTIGATIONS, reviewed in the clinical context: Accu-Cheks today: 38, 182, 217 Blood work on 08/10/2022: White count 9.3 hemoglobin 9.2 platelets 375 potassium 4.8 BUN 31 and creatinine 2.46 Assessment and plan: -Urinary bladder and recurrent papillary tumor. Underwent surgical resection of the tumor and removal of nephrostomy tube. -Diabetes mellitus type II, chronically on insulin Discontinue Lantus. Cutback Levemir to 25 units subcu twice a day. Also cutback NovoLog to 5 units with meals. Other medications to continue -COPD Continue Advair, albuterol when necessary, theophylline -Hyperlipidemia Pravachol -Essential hypertension Coreg Patient insulin adjusted. Discussed with the patient had the nurse. Patient to follow-up with his family doctor upon discharge. Thank you Past Medical History Past Medical History: Asthma, Cancer, COPD, Diabetes Mellitus, Hyperlipidemia, Hypertension, Pneumonia Additional Past Medical History / Comment(s): Oxygen 3 L/NC prn., peripheral neuropathy hands & feet., bladder cancer with surgery x10 (no chemo or radiation tx.)., currently has nephrostomy tubes in his back ., hx renal failure with hydronephrosis., uses walker ,cane & electric wheelchair., states hospitalized at [facility] in May for Covid & kidney infection and received 1 pint of blood. History of Any Multi-Drug Resistant Organisms: None Reported Past Surgical History: Bladder Surgery, Heart Catheterization Additional Past Surgical History / Comment(s): raman cataracts, TUR bladder tumor x 10., heart cath at [facility] on [place] (october 2015) Past Anesthesia/Blood Transfusion Reactions: No Reported Reaction Additional Past Anesthesia/Blood Transfusion Reaction / Comm: states he was weak after surgery and fell when he got home. Past Psychological History: No Psychological Hx Reported Additional Psychological History / Comment(s): . Smoking Status: Current every day smoker Past Alcohol Use History: Rare Additional Past Alcohol Use History / Comment(s): currently smoking 2-3 cigarett es/day., started smoking age 18 Past Drug Use History: None Reported - Past Family History Mother Family Medical History: Cancer Additional Family Medical History / Comment(s): . Medications and Allergies Home Medications Medication Instructions Recorded Confirmed Type Pravastatin Sodium [Pravachol] 20 mg PO DAILY 10/11/17 08/05/22 History carvediloL [Coreg] 12.5 mg PO BID 10/11/17 08/05/22 History Tamsulosin [Flomax] 0.4 mg PO HS 05/14/19 08/05/22 History Albuterol Sulfate [Albuterol 2 puff PO Q4HR PRN 09/12/20 08/10/22 History Sulfate Hfa] Fluticasone Propion/Salmeterol 1 puff INHALATION BID 06/01/22 08/10/22 History [Advair 500-50 Diskus] Potassium Chloride [K-Tab ER] 10 meq PO DAILY 07/15/22 08/10/22 History Theophylline Anhydrous 300 mg PO BID 07/15/22 08/05/22 History [Theophylline ER] Cephalexin [Keflex] 250 mg PO Q8HR 5 Days #15 capsule 08/13/22 Rx INSULIN ASPART (NovoLOG) [NovoLOG 5 unit SQ AC-BRKFST each 08/13/22 Rx (formulary)] INSULIN ASPART (NovoLOG) [NovoLOG 5 unit SQ AC-LUNCH each 08/13/22 Rx (formulary)] INSULIN ASPART (NovoLOG) [NovoLOG 5 unit SQ AC-SUPPER each 08/13/22 Rx (formulary)] Insulin Detemir (Levemir) [Levemir] 25 unit SQ BID@0700,2100 each 08/13/22 Rx Allergies Allergy/AdvReac Type Severity Reaction Status Date / Time No Known Allergies Allergy Verified 08/10/22 11:45 Physical Exam Vitals: Vital Signs Temp Pulse Pulse Resp BP Pulse Ox 08/13/22 14:00 97.9 F 96 18 157/61 95 08/13/22 12:00 78 08/13/22 11:51 75 98 08/13/22 08:24 68 08/13/22 08:07 60 98 08/13/22 06:50 97.9 F 53 L 16 100/62 92 L 08/13/22 06:31 22 99/56 94 L 08/13/22 02:00 98.3 F 70 16 97/57 97 08/12/22 22:43 18 01/19/23 20:25 17 08/12/22 19:59 98.1 F 77 18 126/68 08/12/22 19:49 72 08/12/22 19:39 70 Intake and Output 08/13/22 08/13/22 08/13/22 06:59 14:59 22:59 Output Total 250 400 Balance -250 -400 Output: Urine 250 400 Uretheral (Woodward) 400 Other: Voiding Method Indwelling Catheter # Bowel Movements 1 Results CBC & Chem 7: 08/10/22 11:53 08/10/22 11:53 Labs: Abnormal Lab Results - Last 24 Hours (Table) 08/12/22 08/13/22 08/13/22 Range/Units 20:28 06:17 06:35 POC Glucose (mg/dL) 141 H 38 L 182 H (70-110) mg/dL 08/13/22 08/13/22 Range/Units 11:05 16:36 POC Glucose (mg/dL) 217 H 176 H (70-110) mg/dL
== END 2022-08-13 16:58 | disposition home or self-care (01) | DRG 670 ==
LOC: OR 09:42 → 4SSUR 16:42 → OR 08-12 07:44 → 4SSUR 08-12 07:44
PROVIDERS: ADMIT Urology; ATTEND Urology
PROC: 0TBB8ZZ Excision of Bladder, Via Natural or Artificial Opening Endoscopic (ICD-10-PCS; principal; 2022-08-10 12:45)
PROC: 0TP5X0Z Removal of Drainage Device from Kidney, External Approach (ICD-10-PCS; 2022-08-10 12:45)
DX: C67.8 Malignant neoplasm of overlapping sites of bladder (principal); E11.649 Type 2 diabetes mellitus with hypoglycemia without coma; E11.42 Type 2 diabetes mellitus with diabetic polyneuropathy; J44.9 Chronic obstructive pulmonary disease, unspecified; I10 Essential (primary) hypertension; M54.9 Dorsalgia, unspecified; E78.5 Hyperlipidemia, unspecified; R31.9 Hematuria, unspecified; F17.210 Nicotine dependence, cigarettes, uncomplicated; Z96.0 Presence of urogenital implants; Z20.822 Contact with and (suspected) exposure to COVID-19; Z79.899 Other long term (current) drug therapy; Z79.4 Long term (current) use of insulin; Z79.51 Long term (current) use of inhaled steroids; Z87.448 Personal history of other diseases of urinary system; Z28.311 Partially vaccinated for COVID-19
CPT/HCPCS: 74018; 80053; 85025; 88307; 94640; 94760

== ENCOUNTER 2022-09-24 13:43 | Inpatient (IN) | payer MEDICARE, OTHER ==
[2022-09-24] MEDS ORDERED: SODIUM CHLORIDE 0.9% 1,000 ML IV STA ×2 (14:04→15:17)
[2022-09-24] MEDS ORDERED: IPRATROPIUM-ALBUTEROL 3 ML NEB INHALATION STA (14:04)
[2022-09-24] MEDS ORDERED: methylPREDNISolone SOD SUCCI 125 MG/2 ML VIAL IV STA (14:04)
[2022-09-24] MEDS ORDERED: MAGNESIUM SULFATE-D5W PMX 1 GM in DEXTROSE/WATER 1 100ML.BAG IVPB STA (14:04)
[2022-09-24] MEDS ORDERED: LORazepam 2 MG/ML INJ IV STA (14:23)
--- NOTE | 2022-09-24 15:04 | XR ---
EXAMINATION TYPE: XR chest 1V portable DATE OF EXAM: 09/24/2022 Comparison: 09/14/2022 Clinical History: 72-year-old male with cough Findings: Heart borderline in size. There is similar mild patchy density in the right lower lung. No pleural ef fusion. Impression: Similar borderline heart size. Ongoing patchy right lower lung atelectasis versus infiltrate.
[2022-09-24] MEDS ORDERED: PNEUMONIA PROTOCOL UTILIZED 1 EACH MISC PO PRN (15:16)
[2022-09-24] MEDS ORDERED: AZITHROMYCIN 500 MG in SODIUM CHLORIDE 0.9% 250 ML IVPB STA (15:16)
[2022-09-24] MEDS ORDERED: PIPERACILLIN-TAZOBACTAM 3.375 GM in SODIUM CHLORIDE 0.9% 100 ML IVPB STA (15:16)
[2022-09-24 15:27] LABS: Basophils # (A) 0.1 k/uL (0-0.2); Basophils % (A) 0 %; Eosinophils # (A) 0.1 k/uL (0-0.7); Eosinophils % (A) 1 %; HCT 27.7 % (39.0-53.0); HGB 8.7 gm/dL (13.0-17.5); Lymphocytes # (A) 0.4 k/uL (1.0-4.8); Lymphocytes % (A) 3 %; MCHC 31.3 g/dL (31.0-37.0); MCV 89.6 fL (80.0-100.0); Monocytes # (A) 0.2 k/uL (0-1.0); Monocytes % (A) 2 %; Neutrophils # (A) 12.4 k/uL (1.3-7.7); Neutrophils % (A) 93 %; Platelet Count 219 k/uL (150-450); RBC 3.09 m/uL (4.30-5.90); RDW 15.6 % (11.5-15.5); WBC 13.3 k/uL (3.8-10.6)
[2022-09-24 15:30] LABS: VBG PH 7.36 (7.31-7.41)
[2022-09-24 15:58] LABS: INR 1.1 (<1.2); Partial Thromboplastin Time 22.1 sec (22.0-30.0); Prothrombin Time 11.2 sec (9.0-12.0)
[2022-09-24 16:03] LABS: Albumin 2.4 g/dL (3.5-5.0); Calcium 7.2 mg/dL (8.4-10.2); Total Bilirubin 0.3 mg/dL (0.2-1.3); Total Protein 4.9 g/dL (6.3-8.2)
[2022-09-24] MEDS ORDERED: INSULIN REGULAR 100 UNIT/ML VIAL (IV) IV ONE (16:36)
[2022-09-24] MEDS ORDERED: SODIUM BICARB 8.4% 50 ML SYR (1 MEQ/ML) IV ONE (16:36)
[2022-09-24] MEDS ORDERED: DEXTROSE 50% SYRINGE 50 ML IVP ONE (16:36)
[2022-09-24] MEDS ORDERED: ALBUTEROL NEB (CONC) 2.5 MG/0.5 ML INHALATION ONE (16:36)
--- NOTE | 2022-09-24 16:42 | ED ---
General Adult HPI - General Chief complaint: Shortness of Breath Stated complaint: sob Time Seen by Provider: 09/24/22 13:49 Source: patient, EMS, RN notes reviewed, old records reviewed Mode of arrival: EMS Limitations: no limitations, physical limitation - History of Present Illness Initial comments: Patient is a 72-year-old male with past medical history remarkable for COPD on oxygen 3L Nasal cannula, asthma, diabetes, hypertension who presents emergency Department complaining of worsening shortness breath. States it has been ongoing for the last few days. Was recently admitted for pneumonia and a UTI last month. Was discharged to his nursing facility and was sent from there today for further evaluation for NORMA. Has increased work of breathing. States he has been havin a mildly productive cough. Denies fevers. Denies chest pain. Denies worsening lower extremity swelling. Denies any abdominal pain, nausea, vomiting, diarrhea. No other acute complaints at this time. Presents over concern for his shortness of breath. He also has a history of bladder cancer. - Related Data Home Medications Medication Instructions Recorded Confirmed Pravastatin Sodium [Pravachol] 20 mg PO HS 10/11/17 09/24/22 carvediloL [Coreg] 12.5 mg PO BID 10/11/17 09/24/22 Tamsulosin [Flomax] 0.4 mg PO HS 05/14/19 09/24/22 Albuterol Sulfate [Albuterol 2 puff PO RT-Q4H PRN 09/12/20 09/24/22 Sulfate Hfa] Theophylline Anhydrous 300 mg PO BID 07/15/22 09/24/22 [Theophylline ER] Ammonium Lactate Lotion 1 applic TOPICAL BID PRN 09/02/22 09/24/22 [Lac-Hydrin 12% Lotion] Ketoconazole 2% Cream [Nizoral 2%] 1 applic TOPICAL DAILY PRN 09/02/22 09/24/22 Ondansetron [Zofran] 4 mg PO Q8HR PRN 09/02/22 09/24/22 Fluticasone Propion/Salmeterol 1 puff INHALATION RT-BID 09/24/22 09/24/22 [Advair 500-50 Diskus] Insulin Glargine,Hum.rec.anlog 20 units SQ HS 09/24/22 09/24/22 [Lantus Solostar Pen] Insulin Lispro [humaLOG Kwikpen] 5 unit SQ AC-TID 09/24/22 09/24/22 Loperamide [Imodium] 2 mg PO Q6H PRN 09/24/22 09/24/22 Pantoprazole Sodium [Protonix] 40 mg PO BID 09/24/22 09/24/22 Pyridoxine HCl (Vitamin B6) 100 mg PO DAILY 09/24/22 09/24/22 [Vitamin B-6] Tiotropium 2.5 Mcg/Puff [Spiriva 2 puff INHALATION RT-DAILY PRN 09/24/22 09/24/22 Respimat 2.5 Mcg] Previous Rx's Medication Instructions Recorded polyethylene glycoL 3350 [Miralax] 17 gm PO DAILY PRN packet 09/15/22 Allergies Allergy/AdvReac Type Severity Reaction Status Date / Time No Known Allergies Allergy Verified 09/24/22 14:13 Review of Systems ROS Statement: Those systems with pertinent positive or pertinent negative responses have been documented in the HPI. Review of Systems: CONST: Denies fever EYES: Denies blurry vision ENT: Denies nasal congestion C/V: Denies Chest pain RESP: Endorses shortness of breath GI: Denies abdominal pain : Denies dysuria SKIN: Denies rash. MSK: Denies joint pain. NEURO: Denies headache ROS Other: All systems not noted in ROS Statement are negative. Past Medical History Past Medical History: Asthma, Cancer, COPD, Diabetes Mellitus, Hyperlipidemia, Hypertension, Pneumonia Additional Past Medical History / Comment(s): Oxygen 3 L/NC prn., peripheral neuropathy hands & feet., bladder cancer with surgery x10 (no chemo or radiation tx.)., currently has nephrostomy tubes in his back ., hx renal failure with hydronephrosis., uses walker ,cane & electric wheelchair., states hospitalized at [facility] in May for Covid & kidney infection and received 1 pint of blood. History of Any Multi-Drug Resistant Organisms: VRE Date of last positivie culture/infection: 09/02/22 MDRO Source:: Urine Past Surgical History: Bladder Surgery, Heart Catheterization Additional Past Surgical History / Comment(s): raman cataracts, TUR bladder tumor x 10., heart cath at [facility] on [place] (october 2015) Past Anesthesia/Blood Transfusion Reactions: No Reported Reaction Additional Past Anesthesia/Blood Transfusion Reaction / Comment(s): states he was weak after surgery and fell when he got home. Past Psychological History: No Psychological Hx Reported Smoking Status: Current every day smoker Past Alcohol Use History: Rare Past Drug Use History: None Reported - Past Family History Mother Family Medical History: Cancer Additional Family Medical History / Comment(s): . General Exam - General Exam Comments Initial Comments: General: Appears in respiratory distress. Has increased work of breathing but no hypoxia. HEAD: Normal with no signs of head trauma. EYES: PERRLA, EOMI, conjunctiva normal, no discharge. ENT: Hearing grossly intact, normal oropharynx. Dry oral mucous membranes. RESPIRATORY: Reduced breath sounds bilaterally with end expiratory wheezing. Appears to be COPD. Increased work of breathing but minimal hypoxia. C/V: Tachycardia with a regular rhythm. S1 and S2 auscultated. Peripheral pulses 2+ and intact throughout. No peripheral edema. ABD: Abd is soft, nontender, nondistended EXT: Normal range of motion, no obvious deformity SKIN: No rashes or lesions observed on exposed skin. NEURO: Alert and oriented 4. No focal deficits. Limitations: no limitations, physical limitation Course Vital Signs 09/24/22 09/24/22 09/24/22 13:48 14:15 14:23 Temperature 98.7 F Pulse Rate 130 H 120 H Respiratory 28 H Rate Blood Pressure 155/88 O2 Sat by Pulse 96 Oximetry Fraction of 40 Inspired Oxygen (FIO2) 09/24/22 09/24/22 09/24/22 14:32 16:04 16:21 Temperature Pulse Rate 129 H 113 H Respiratory 20 Rate Blood Pressure 123/77 O2 Sat by Pulse 98 Oximetry Fraction of 40 Inspired Oxygen (FIO2) 09/24/22 09/24/22 09/24/22 18:31 18:42 19:16 Temperature 98.8 F Pulse Rate 89 87 84 Respiratory 20 Rate Blood Pressure 105/68 O2 Sat by Pulse 100 Oximetry Fraction of Inspired Oxygen (FIO2) Procedures - [place] Protocol (Time Out) Nurse: Lilian Bryson Medical Decision Making - Medical Decision Making Was pt. sent in by a medical professional or institution (, PA, CODE OFFICIAL, urgent care, hospital, or skilled nursing...) When possible be specific @ -Sent in from [facility] Did you speak to anyone other than the patient for history (EMS, parent, family, police, friend...)? What history was obtained from this source @ -No Did you review nursing and triage notes (agree or disagree)? Why? @ -I reviewed and agree with nursing and triage notes Were old charts reviewed (outside hosp., previous admission, EMS record, old EKG, old radiological studies, urgent care reports/EKG's, skilled nursing records)? Report findings @ -Yes, old charts, EKG reviewed from August 2021 Differential Diagnosis (chest pain, altered mental status, abdominal pain women, abdominal pain men, vaginal bleeding, weakness, fever, dyspnea, syncope, headache, dizziness, GI bleed, back pain, seizure, CVA, palpatations, mental health, musculoskeletal)? @ -Differential Dyspnea: Coronary syndrome, arrhythmia, tamponade, asthma, COPD, pulmonary embolism, pneu monia, pneumothorax, pulmonary effusion, anaphylaxis, diabetic ketoacidosis, flailed chest, pulmonary contusion, diaphragmatic rupture, anemia, neuromuscular, this is not meant to be an all-inclusive list. EKG interpreted by me (3pts min.). @ -As above X-rays interpreted by me (1pt min.). @ -Chest x-ray shows Patient does have infiltrates located in the right lower lung, with his productive cough concerning for pneumonia CT interpreted by me (1pt min.). @ -None done U/S interpreted by me (1pt. min.). @ -None done What testing was considered but not performed or refused? (CT, X-rays, U/S, labs)? Why? @ -None What meds were considered but not given or refused? Why? @ -None Did you discuss the management of the patient with other professionals ( professionals i.e. , PA, CODE OFFICIAL, lab, RT, psych nurse, social media assistant, paraffin machine operator, teacher, aoc director combat plans officer, window caser)? Give summary @ -I discussed the case with Dr. Sierra who accepted the patient. I discussed the case with on-call covering nephrology Dr. Ny who was overall in agreement with the plan for the hyperkalemia cocktail. Requested a total of 3 A of bicarb to be given and patient be started on a bicarb drip at 100 mL an hour for his maintenance fluids. This was changed. We will recheck out to nephrology with repeat labs at 1999. I spoke with Dr. Mckeon regarding the patient, who agreed that the patient is stable for stepdown at this time. Does not meet ICU criteria at this time. Was smoking cessation discussed for >3mins.? @ -No Was critical care preformed (if so, how long)? @ -Yes, 35 minutes. Were there social determinants of health that impacted care today? How? (Homelessness, low income, unemployed, alcoholism, drug addiction, transportation, low edu. Level, literacy, decrease access to med. care, snf, rehab)? @ -No Was there de-escalation of care discussed even if they declined (Discuss DNR or withdrawal of care, Hospice)? DNR status @ -Patient's skilled nursing paperwork states that the patient is DO NOT RESUSCITATE. I did discuss this with the patient to confirm and he did confirm that he is DNR/DNI. What co-morbidities impacted this encounter? (DM, HTN, Smoking, COPD, CAD, Cancer, CVA, ARF, Chemo, Hep., AIDS, mental health diagnosis, sleep apnea, morbid obesity)? @ -COPD, bladder cancer, CK D Was patient admitted / discharged? Hospital course, mention meds given and route, prescriptions, significant lab abnormalities, going to OR and other pertinent info. @ -Based on the patient's presentation and physical exam, he presents in respiratory distress. He is not hypoxic at this time but due to the increased work of breathing, as well as his endings and physical exam of COPD with the reduced breath sounds bilaterally and wheezing, he was placed on BiPAP. Patient did improve on BiPAP on arrival. He was symptomatically treated with a progress, IV steroids, IV magnesium. We will obtain cardio pulmonary workup. This includes chest x-ray. Vital signs otherwise are within acceptable limits except for the tachycardia. Patient does clinically appear dehydrated, and he will be given IV fluid boluses. EKG shows no signs of acute ischemia. Possibly peaked T waves. Laboratory studies are remarkable for chronic anemia with a hemoglobin of 8.7. Mild leukocytosis of 13.3. Patient is hyperkalemic to 7.0. Patient appears to have acute renal failure on CK D with BUN of 94 and creatinine of 8.44. BNP is elevated to 5800. Troponin is indeterminate. Patient is negative for Covid, flu, RSV. D-dimer was found to be elevated at 18 but I do believe this is likely secondary to underlying pneumonia, renal failure, dehydration and his underlying processes, not a PE as on exam he fits a copd exacerbation/pneumonia. We will obtain ultrasounds of bilateral lower extremities. We'll also order a VQ scan. I do not believe that we need to empirically start the patient on an IV heparin drip at this time, as clinically he appears to be a COPD exacerbation with pneumonia as well as acute renal failure. We began empirically treating the patient for pneumonia with IV azithromycin as well as Zosyn. Patient was given a hyperkalemia cocktail including locale, IV calcium gluconate, IV dextrose, insulin, IV bicarbonate. Following multiple fluid boluses, patient's tachycardia is improving and is currently 108. Vital signs remained within acceptable limits otherwise. He is saturating well on BiPAP in no acute respiratory distress. Woodward catheter was placed and there was output of bloody urine. I did speak with on-call nephrology, Dr. Ny who provided additional recommendations including additional amps of bicarbonate and bicarb drip. Requested repeat labs, which were ordered for 8 PM. Told nursing to notify on- call nephrology of the results. I discussed with the patient his results. He understands he has a COPD exacerbation, pneumonia, as well as what appears to be acute renal failure. Patient remains a DO NOT RESUSCITATE after our discussion. He'll be admitted to the hospital. He was in agreement with this plan. Dr. Sierra accepted the patient. I discussed the elevated d-dimer with both Dr. Sierra and Dr. Jeffries. We were only agreement, that the patient's presentation appears likely secondary to COPD and pneumonia. I have low suspicion for PE at this time. Venous duplexes were negative for DVT. I will order an echo for the patient, however we will hold off on V/Q scanning and CT angiogram scanning of the chest is we agree it is unlikely that it is a PE. Undiagnosed new problem with uncertain prognosis? @ -No Drug Therapy requiring intensive monitoring for toxicity (Heparin, Nitro, Insulin, Cardizem)? @ -No Were any procedures done? @ -No Diagnosis/symptom? @ -Acute renal failure Acute, or Chronic, or Acute on Chronic? @ -Acute Uncomplicated (without systemic symptoms) or Complicated (systemic symptoms)? @ -complicated Side effects of treatment? @ -none Exacerbation, Progression, or Severe Exacerbation] @ -no Poses a threat to life or bodily function? @ -Yes, can result in significant morbidity and mortality including . Diagnosis/symptom? @ -COPD exacerbation, respiratory failure requiring BiPAP Acute, or Chronic, or Acute on Chronic? @ -Acute Uncomplicated (without systemic symptoms) or Complicated (systemic symptoms)? @ -Complicated Side effects of treatment? @ -none Exacerbation, Progression, or Severe Exacerbation] @ -Exacerbation Poses a threat to life or bodily function? @ -Yes, can result in significant morbidity and mortality. Diagnosis/symptom? @ -Hyperkalemia Acute, or Chronic, or Acute on Chronic? @ -Acute Uncomplicated (without systemic symptoms) or Complicated (systemic symptoms)? @ -Complicated Side effects of treatment? @ -none Exacerbation, Progression, or Severe Exacerbation] @ -no Poses a threat to life or bodily function? @ -Yes, can result in significant morbidity and mortality including arrhythm ias. Diagnosis/symptom? @ -Pneumonia Acute, or Chronic, or Acute on Chronic? @ -Acute Uncomplicated (without systemic symptoms) or Complicated (systemic symptoms)? @ -Complicated Side effects of treatment? @ -none Exacerbation, Progression, or Severe Exacerbation] @ -no Poses a threat to life or bodily function? @ -Yes, if untreated can result in significant morbidity and mortality. Diagnosis/symptom? @ -Anemia Acute, or Chronic, or Acute on Chronic? @ -Chronic Uncomplicated (without systemic symptoms) or Complicated (systemic symptoms)? @ -Uncomplicated Side effects of treatment? @ -none Exacerbation, Progression, or Severe Exacerbation] @ -no Poses a threat to life or bodily function? @ -no - Lab Data Result diagrams: 09/24/22 14:40 09/24/22 14:40 Lab Results 09/24/22 09/24/22 09/24/22 Range/Units 14:12 14:22 14:40 WBC (3.8-10.6) k/uL RBC (4.30-5.90) m/uL Hgb (13.0-17.5) gm/dL Hct (39.0-53.0) % MCV (80.0-100.0) fL MCH (25.0-35.0) pg MCHC (31.0-37.0) g/dL RDW (11.5-15.5) % Plt Count (150-450) k/uL MPV Neutrophils % % Lymphocytes % % Monocytes % % Eosinophils % % Basophils % % Neutrophils # (1.3-7.7) k/uL Lymphocytes # (1.0-4.8) k/uL Monocytes # (0-1.0) k/uL Eosinophils # (0-0.7) k/uL Basophils # (0-0.2) k/uL PT (9.0-12.0) sec INR (<1.2) APTT (22.0-30.0) sec D-Dimer (<0.60) mg/L FEU VBG pH (7.31-7.41) VBG pCO2 (37-51) mmHg VBG HCO3 (24-28) mmol/L Sodium (137-145) mmol/L Potassium (3.5-5.1) mmol/L Chloride (98-107) mmol/L Carbon Dioxide (22-30) mmol/L Anion Gap mmol/L BUN (9-20) mg/dL Creatinine (0.66-1.25) mg/dL Est GFR (CKD-EPI)AfAm (>60 ml/min/1.73 sqM) Est GFR (CKD-EPI)NonAf (>60 ml/min/1.73 sqM) Glucose (74-99) mg/dL Plasma Lactic Acid Keshawn 0.8 (0.7-2.0) mmol/L Calcium (8.4-10.2) mg/dL Magnesium (1.6-2.3) mg/dL Total Bilirubin (0.2-1.3) mg/dL AST (17-59) U/L ALT (4-49) U/L Alkaline Phosphatase (38-126) U/L Troponin I 0.020 (0.000-0.034) ng/mL NT-Pro-B Natriuret Pep pg/mL Total Protein (6.3-8.2) g/dL Albumin (3.5-5.0) g/dL Urine Color Urine Appearance (Clear) Urine pH (5.0-8.0) Ur Specific [place] (1.001-1.035) Urine Protein (Negative) Urine Glucose (UA) (Negative) Urine Ketones (Negative) Urine Blood (Negative) Urine Nitrite (Negative) Urine Bilirubin (Negative) Urine Urobilinogen (<2.0) mg/dL Ur Leukocyte Esterase (Negative) Urine RBC (0-5) /hpf Urine WBC (0-5) /hpf Urine WBC Clumps (None) /hpf Influenza Type A (PCR) Not Detected (Not Detectd) Influenza Type B (PCR) Not Detected (Not Detectd) RSV (PCR) Not Detected (Not Detectd) SARS-CoV-2 (PCR) Not Detected (Not Detectd) 09/24/22 09/24/22 09/24/22 Range/Units 14:40 14:40 14:40 WBC 13.3 H (3.8-10.6) k/uL RBC 3.09 L (4.30-5.90) m/uL Hgb 8.7 L (13.0-17.5) gm/dL Hct 27.7 L (39.0-53.0) % MCV 89.6 (80.0-100.0) fL MCH 28.0 (25.0-35.0) pg MCHC 31.3 (31.0-37.0) g/dL RDW 15.6 H (11.5-15.5) % Plt Count 219 (150-450) k/uL MPV 9.0 Neutrophils % 93 % Lymphocytes % 3 % Monocytes % 2 % Eosinophils % 1 % Basophils % 0 % Neutrophils # 12.4 H (1.3-7.7) k/uL Lymphocytes # 0.4 L (1.0-4.8) k/uL Monocytes # 0.2 (0-1.0) k/uL Eosinophils # 0.1 (0-0.7) k/uL Basophils # 0.1 (0-0.2) k/uL PT (9.0-12.0) sec INR (<1.2) APTT (22.0-30.0) sec D-Dimer (<0.60) mg/L FEU VBG pH (7.31-7.41) VBG pCO2 (37-51) mmHg VBG HCO3 (24-28) mmol/L Sodium 131 L (137-145) mmol/L Potassium 7.0 H* (3.5-5.1) mmol/L Chloride 101 (98-107) mmol/L Carbon Dioxide 17 L (22-30) mmol/L Anion Gap 13 mmol/L BUN 94 H (9-20) mg/dL Creatinine 8.44 H* (0.66-1.25) mg/dL Est GFR (CKD-EPI)AfAm 7 (>60 ml/min/1.73 sqM) Est GFR (CKD-EPI)NonAf 6 (>60 ml/min/1.73 sqM) Glucose 95 (74-99) mg/dL Plasma Lactic Acid Keshawn (0.7-2.0) mmol/L Calcium 7.2 L (8.4-10.2) mg/dL Magnesium 2.0 (1.6-2.3) mg/dL Total Bilirubin 0.3 (0.2-1.3) mg/dL AST 21 (17-59) U/L ALT 19 (4-49) U/L Alkaline Phosphatase 87 (38-126) U/L Troponin I (0.000-0.034) ng/mL NT-Pro-B Natriuret Pep 5850 pg/mL Total Protein 4.9 L (6.3-8.2) g/dL Albumin 2.4 L (3.5-5.0) g/dL Urine Color Urine Appearance (Clear) Urine pH (5.0-8.0) Ur Specific [place] (1.001-1.035) Urine Protein (Negative) Urine Glucose (UA) (Negative) Urine Ketones (Negative) Urine Blood (Negative) Urine Nitrite (Negative) Urine Bilirubin (Negative) Urine Urobilinogen (<2.0) mg/dL Ur Leukocyte Esterase (Negative) Urine RBC (0-5) /hpf Urine WBC (0-5) /hpf Urine WBC Clumps (None) /hpf Influenza Type A (PCR) (Not Detectd) Influenza Type B (PCR) (Not Detectd) RSV (PCR) (Not Detectd) SARS-CoV-2 (PCR) (Not Detectd) 09/24/22 09/24/22 09/24/22 Range/Units 14:46 14:56 17:00 WBC (3.8-10.6) k/uL RBC (4.30-5.90) m/uL Hgb (13.0-17.5) gm/dL Hct (39.0-53.0) % MCV (80.0-100.0) fL MCH (25.0-35.0) pg MCHC (31.0-37.0) g/dL RDW (11.5-15.5) % Plt Count (150-450) k/uL MPV Neutrophils % % Lymphocytes % % Monocytes % % Eosinophils % % Basophils % % Neutrophils # (1.3-7.7) k/uL Lymphocytes # (1.0-4.8) k/uL Monocytes # (0-1.0) k/uL Eosinophils # (0-0.7) k/uL Basophils # (0-0.2) k/uL PT 11.2 (9.0-12.0) sec INR 1.1 (<1.2) APTT 22.1 (22.0-30.0) sec D-Dimer 18.36 H (<0.60) mg/L FEU VBG pH 7.36 (7.31-7.41) VBG pCO2 30 L (37-51) mmHg VBG HCO3 16 L (24-28) mmol/L Sodium (137-145) mmol/L Potassium (3.5-5.1) mmol/L Chloride (98-107) mmol/L Carbon Dioxide (22-30) mmol/L Anion Gap mmol/L BUN (9-20) mg/dL Creatinine (0.66-1.25) mg/dL Est GFR (CKD-EPI)AfAm (>60 ml/min/1.73 sqM) Est GFR (CKD-EPI)NonAf (>60 ml/min/1.73 sqM) Glucose (74-99) mg/dL Plasma Lactic Acid Keshawn (0.7-2.0) mmol/L Calcium (8.4-10.2) mg/dL Magnesium (1.6-2.3) mg/dL Total Bilirubin (0.2-1.3) mg/dL AST (17-59) U/L ALT (4-49) U/L Alkaline Phosphatase (38-126) U/L Troponin I (0.000-0.034) ng/mL NT-Pro-B Natriuret Pep pg/mL Total Protein (6.3-8.2) g/dL Albumin (3.5-5.0) g/dL Urine Color Red Urine Appearance Turbid (Clear) Urine pH 7.5 (5.0-8.0) Ur Specific [place] 1.013 (1.001-1.035) Urine Protein 2+ H (Negative) Urine Glucose (UA) Negative (Negative) Urine Ketones Negative (Negative) Urine Blood Large H (Negative) Urine Nitrite Negative (Negative) Urine Bilirubin Negative (Negative) Urine Urobilinogen <2.0 (<2.0) mg/dL Ur Leukocyte Esterase Large H (Negative) Urine RBC >182 H (0-5) /hpf Urine WBC >182 H (0-5) /hpf Urine WBC Clumps Many H (None) /hpf Influenza Type A (PCR) (Not Detectd) Influenza Type B (PCR) (Not Detectd) RSV (PCR) (Not Detectd) SARS-CoV-2 (PCR) (Not Detectd) - EKG Data -: EKG Interpreted by Me EKG Comments: 12-lead Electrocardiogram Interpretation Note EKG was reviewed and interpreted by myself. 12-lead ECG performed at 1349 is interpreted by me as revealing sinus tachycardia at a rate of 129 beats per minute. Borderline axis. NM interval is 148 ms, QRS duration is 93 ms, QTc is 356 ms.. There were no ST or T wave abnormalities to suggest myocardial ischemia or injury. R wave progression across the precordium was satisfactory. By my interpretation this EKG is non-diagnostic for acute ischemia. When compared with EKG from 09/13/2022, no significant change. Critical Care Time Critical Care Time: Yes Total Critical Care Time: 35 Critical Care Time: Upon my evaluation, this patient had a high probability of imminent or life- threatening deterioration due to hyperkalemia, pneumonia, respiratory distress on BiPAP, acute renal failure, which required my direct attention, intervention, and personal management. I have personally provided 35 minutes of critical care time exclusive of time sp ent on separately billable procedures. Time includes review of laboratory data, radiology results, discussion with consultants, and monitoring for potential decompensation. Interventions were performed as documented in my note. Disposition Clinical Impression: Acute renal failure, Pneumonia, COPD (chronic obstructive pulmonary disease), Hyperkalemia, Respiratory failure, Anemia Disposition: ADMITTED IP TO THIS HOSP Condition: Serious Is patient prescribed a controlled substance at d/c from ED?: No Time of Disposition: 17:00
[2022-09-24] MEDS ORDERED: CALCIUM GLUCONATE IN NACL 1 GM in SALINE 1 100ML.BAG IVPB ONE (17:00)
[2022-09-24] MEDS ORDERED: SODIUM ZIRCONIUM CYCLOSILICATE 10 GM PACKET PO ONE (17:00)
[2022-09-24] MEDS ORDERED: NALOXONE 0.4 MG/ML 1 ML VIAL IV PRN (17:11)
[2022-09-24] MEDS ORDERED: SODIUM CHLORIDE 0.9% 1,000 ML IV SCH (17:15)
[2022-09-24] MEDS ORDERED: SODIUM BICARB 8.4% 50 ML SYR (1 MEQ/ML) IV STA ×2 (17:37)
[2022-09-24 17:50] LABS: Appearance,Urine Turbid (Clear); Bilirubin,Urine Negative (Negative); Blood,Urine Large (Negative); Color,Urine Red; Glucose,Urine (UA) Negative (Negative); Ketones,Urine Negative (Negative); Leukocyte Esterase,Urine Large (Negative); Nitrite,Urine Negative (Negative); PH, Urine 7.5 (5.0-8.0); Protein,Urine 2+ (Negative); RBC,Urine >182 /hpf (0-5); Urobilinogen,Urine <2.0 mg/dL (<2.0); WBC,Urine >182 /hpf (0-5)
[2022-09-24 17:51] LABS: Specific Gravity,Urine 1.013 (1.001-1.035)
--- NOTE | 2022-09-24 18:02 | US ---
EXAMINATION TYPE: US venous doppler duplex LE BI DATE OF EXAM: 09/24/2022 4:03 PM COMPARISON: NONE CLINICAL HISTORY: elvated dimer, eval for PE. elevated d dimer SIDE PERFORMED: Bilateral TECHNIQUE: The lower extremity deep venous system is examined utilizing real time linear array sonog wilfrid with graded compression, doppler sonography and color-flow sonography. VESSELS IMAGED: Common Femoral Vein Deep Femoral Vein Greater Saphenous Vein * Femoral Vein Popliteal Vein Small Saphenous Vein * Proximal Calf Veins (* superficial vessels) Right Leg: Negative for DVT Left Leg: Negative for DVT IMPRESSION: No evidence of deep vein thrombosis in both legs.
[2022-09-24] MEDS: DEXTROSE 5% IN WATER 1,000 ML with SODIUM BICARB (1 MEQ/ML) 150 ML IV SCH (18:31)
[2022-09-24] MEDS: ALBUTEROL HFA INHALER INHALATION SCH ×2 (19:24→23:45)
[2022-09-24] MEDS ORDERED: ALBUTEROL HFA INHALER INHALATION PRN (19:40)
[2022-09-24] MEDS ORDERED: LOPERAMIDE 2 MG CAP PO PRN (19:40)
[2022-09-24] MEDS ORDERED: NON FORMULARY DRUG (Tiotropium 2.5 Mcg/Puff 10 PUFF Each) INHALATION PRN (19:40)
[2022-09-24] MEDS ORDERED: CLOTRIMAZOLE 1% CREAM 30 GM TUBE TOPICAL PRN (19:40)
[2022-09-24] MEDS ORDERED: IPRATROPIUM-ALBUTEROL 3 ML NEB INHALATION SCH (20:00)
[2022-09-24] MEDS: SYMBICORT 160-4.5 MCG INHALER INHALATION SCH (20:10)
[2022-09-24 20:18] LABS: Potassium 6.7 mmol/L (3.5-5.1)
[2022-09-24 20:38] LABS: Glucose,Whole Blood 162 mg/dL (70-110)
[2022-09-24 21:37] LABS: Glucose,Whole Blood 175 mg/dL (70-110)
[2022-09-24] MEDS ORDERED: LIDOCAINE 2% (PF) 20 MG/ML 5 ML VIAL ONE ×2 (22:01→22:15)
[2022-09-24] MEDS ORDERED: HEPARIN SODIUM 1,000 UN/ML (10ML VL) MISCELLANE ONE (22:39)
[2022-09-24] MEDS ORDERED: LIDOCAINE 2% INJ 20 MG/ML (20 ML MDV) SQ STA (22:44)
[2022-09-24] MEDS ORDERED: LIDOCAINE 2% INJ 20 MG/ML (10 ML MDV) SQ ONE (22:44)
[2022-09-24] MEDS: carvediloL 12.5 MG TAB PO SCH (23:57)
[2022-09-24] MEDS: PRAVASTATIN SODIUM 20 MG TAB PO SCH (23:58)
[2022-09-24] MEDS: INSULIN DETEMIR (LEVEMIR) 100 UNIT/ML SYR SQ SCH (23:58)
[2022-09-24] MEDS: PANTOPRAZOLE 40 MG TABLET PO SCH (23:58)
[2022-09-24] MEDS: TAMSULOSIN 0.4 MG CAP.ER.24H PO SCH (23:58)
[2022-09-24] MEDS: THEOPHYLLINE 24 HOUR 300 MG CAP.ER.24H PO SCH (23:59)
--- NOTE | 2022-09-25 00:25 | CONS ---
CONSULTATION HISTORY OF PRESENT ILLNESS: This is a 72-year-old gentleman. I was called in for urgent dialysis catheter placement. The patient has hyperkalemia, respiratory distress syndrome, acute chronic renal failure. MEDICAL HISTORY: The patient has history of COPD, on oxygen at home. The patient also has diabetes, hypertension, history of bladder cancer. SURGICAL HISTORY: The patient has history of bladder surgery and heart catheterization in the past. PHYSICAL EXAMINATION: GENERAL: On examination, the patient was seen in the intensive care unit. NECK: Supple. CHEST: Has few crackles at lung bases. ABDOMEN: Soft, nontender. EXTREMITIES: Femorals are 2+ bilateral. PLAN: Placement of the dialysis catheter. Risks and complications discussed. MMODL / IJN: [id number] /
--- NOTE | 2022-09-25 01:27 | OP ---
OPERATIVE REPORT DATE OF SERVICE : PREOPERATIVE DIAGNOSES: Acute chronic renal failure, hyperkalemia. POSTOPERATIVE DIAGNOSES: Acute chronic renal failure, hyperkalemia. PROCEDURE PERFORMED: Ultrasound-guided dialysis catheter placed in right femoral approach. DESCRIPTION OF PROCEDURE: The patient was seen in the intensive care unit. Right groin was prepped and draped appropriately in usual sterile manner. 1% lidocaine had been infiltrated. Ultrasound- guided micropuncture introduced to right femoral vein. Micropuncture guidewire was passed and 4-Kinyarwanda dilator was advanced on the top of the guidewire. After that, we passed a regular guidewire and dilator was advanced on top of the guidewire. Then, dialysis catheter was placed on the top of the guidewire, flushed with heparin saline and hep-locked, secured with 3-0 nylon. The patient tolerated the procedure well. JENNIFER / JOANNAN: [id number] /
[2022-09-25] MEDS: PIPERACILLIN-TAZOBACTAM 3.375 GM in SODIUM CHLORIDE 0.9% 100 ML IVPB SCH ×3 (02:50→22:40)
[2022-09-25] MEDS: methylPREDNISolone SOD SUCCI 40 MG/ML 1 ML VIAL IV SCH ×3 (02:50→23:54)
[2022-09-25] MEDS: HEPARIN SODIUM,PORCINE/PF 5,000 UNIT/0.5 ML SYRINGE SQ SCH ×4 (03:01→23:54)
[2022-09-25 04:18] LABS: Basophils % (A) 0 %; Eosinophils % (A) 0 %; HCT 25.8 % (39.0-53.0); Hypochromasia Slight; Lymphocytes # (A) 0.3 k/uL (1.0-4.8); Lymphocytes % (A) 3 %; MCH 28.4 pg (25.0-35.0); MCHC 31.1 g/dL (31.0-37.0); MCV 91.6 fL (80.0-100.0); Mean Platelet Volume 9.4; Monocytes # (A) 0.1 k/uL (0-1.0); Monocytes % (A) 1 %; Neutrophils # (A) 9.4 k/uL (1.3-7.7); Neutrophils % (A) 95 %; Platelet Count 160 k/uL (150-450); RBC 2.82 m/uL (4.30-5.90); RDW 15.5 % (11.5-15.5); WBC 9.9 k/uL (3.8-10.6)
[2022-09-25] MEDS: ALBUTEROL HFA INHALER INHALATION SCH ×5 (04:19→19:41)
[2022-09-25] MEDS: DEXTROSE 5% IN WATER 1,000 ML with SODIUM BICARB (1 MEQ/ML) 150 ML IV SCH ×2 (04:35→16:33)
[2022-09-25 04:42] LABS: Calcium 7.3 mg/dL (8.4-10.2); Potassium 5.3 mmol/L (3.5-5.1)
[2022-09-25 06:58] LABS: Glucose,Whole Blood 211 mg/dL (70-110)
[2022-09-25] MEDS: INSULIN ASPART (NovoLOG) 100 UNIT/ML VIAL SQ SCH ×3 (07:02→16:33)
[2022-09-25] MEDS: PANTOPRAZOLE 40 MG TABLET PO SCH ×2 (07:02→16:34)
[2022-09-25] MEDS: carvediloL 12.5 MG TAB PO SCH ×2 (07:37→16:33)
[2022-09-25] MEDS: TIOTROPIUM 2.5 MCG INHALER INHALATION SCH (08:31)
[2022-09-25] MEDS: SYMBICORT 160-4.5 MCG INHALER INHALATION SCH ×2 (08:31→19:42)
[2022-09-25] MEDS: PYRIDOXINE 50 MG TAB PO SCH (08:44)
[2022-09-25 09:33] LABS: Hepatitis B Surface Antigen Nonreactive (Nonreactive)
--- NOTE | 2022-09-25 12:23 | P.CNPUL ---
History of Present Illness Consult date: 09/25/22 Requesting physician: Manan Sierra Reason for consult: other Chief complaint: Acute renal failure, hyperkalemia. History of present illness: Pulmonary consult dated 09/25/2022. 73-year-old male who is seen today in the intensive care unit. He is in room 266. He has history of chronic hypoxemic respiratory failure secondary to COPD, on home O2 at 3 L, asthma, diabetes, and hypertension. He apparently presented to the emergency department complaining of shortness of breath. It has been going on for a couple days prior to admission. He apparently was recently admitted with a diagnosis of pneumonia and UTI. I was called by the ad trafficker on-call, who asked me whether or not we could move the patient to the intensive care unit, so that one of the vascular surgeons could come in and put a dialysis catheter in this patient, for emergent dialysis. The patient had acute kidney injury, and hyperkalemia. I did agree, and the vascular surgeon did come in and put the catheter in, and the patient did have dialysis yesterday, and 5 L of fluid was removed. The potassium is come down nicely. Currently, he is on 2 L of oxygen. He is getting a sodium bicarbonate drip with 3 ampules of sodium bicarbonate and D5W at 100 mL an hour. The patient's also getting saline at KVO. Today's laboratory includes a white count of 9.9, hemoglobin 8, hematocrit 25.8, and a platelet count of 160,000. Sodium 134, potassium 5.3 down from 6.7 chloride 100, CO2 22, anion gap normal, BUN 68, and creatinine 6.34. Troponin was 0.021. Chest x-ray shows mild cardiomegaly, with a patchy infiltrate or atelectasis at the right lung base. Bilateral lower extremity venous Dopplers were negative. Review of Systems REVIEW OF SYSTEMS: CONSTITUTIONAL: [Negative.] NEUROLOGIC: [ Negative.] HEENT: [ Negative.] CARDIAC: [Negative.] PULMONARY: Shortness of breath. GI: [Negative.] : [Negative.] RHEUMATOLOGIC: [ Negative.] IMMUNOLOGIC: [ Negative.] ENDOCRINE: [Negative. ] DERMATOLOGIC: [Negative.] Past Medical History Past Medical History: Asthma, Cancer, COPD, Diabetes Mellitus, Hyperlipidemia, Hypertension, Pneumonia Additional Past Medical History / Comment(s): Oxygen 3 L/NC prn., peripheral neuropathy hands & feet., bladder cancer with surgery x10 (no chemo or radiation tx.)., currently has nephrostomy tubes in his back ., hx renal failure with hydronephrosis., uses walker ,cane & electric wheelchair., states hospitalized at [facility] in May for Covid & kidney infection and received 1 pint of blood. History of Any Multi-Drug Resistant Organisms: VRE Date of last positivie culture/infection: 09/02/22 MDRO Source:: Urine Past Surgical History: Bladder Surgery, Heart Catheterization Additional Past Surgical History / Comment(s): raman cataracts, TUR bladder tumor x 10., heart cath at [facility] on [place] (october 2015) Past Anesthesia/Blood Transfusion Reactions: No Reported Reaction Additional Past Anesthesia/Blood Transfusion Reaction / Comment(s): states he was weak after surgery and fell when he got home. Past Psychological History: No Psychological Hx Reported Additional Psychological History / Comment(s): . Smoking Status: Current every day smoker Past Alcohol Use History: Rare Additional Past Alcohol Use History / Comment(s): reports he has not smoked in 4 years. Past Drug Use History: None Reported - Past Family History Mother Family Medical History: Cancer Additional Family Medical History / Comment(s): . Medications and Allergies Home Medications Medication Instructions Recorded Confirmed Type Pravastatin Sodium [Pravachol] 20 mg PO HS 10/11/17 09/24/22 History carvediloL [Coreg] 12.5 mg PO BID 10/11/17 09/24/22 History Tamsulosin [Flomax] 0.4 mg PO HS 05/14/19 09/24/22 History Albuterol Sulfate [Albuterol 2 puff PO RT-Q4H PRN 09/12/20 09/24/22 History Sulfate Hfa] Theophylline Anhydrous 300 mg PO BID 07/15/22 09/24/22 History [Theophylline ER] Ammonium Lactate Lotion 1 applic TOPICAL BID PRN 09/02/22 09/24/22 History [Lac-Hydrin 12% Lotion] Ketoconazole 2% Cream [Nizoral 2%] 1 applic TOPICAL DAILY PRN 09/02/22 09/24/22 History Ondansetron [Zofran] 4 mg PO Q8HR PRN 09/02/22 09/24/22 History polyethylene glycoL 3350 [Miralax] 17 gm PO DAILY PRN packet 09/15/22 09/24/22 Rx Fluticasone Propion/Salmeterol 1 puff INHALATION RT-BID 09/24/22 09/24/22 History [Advair 500-50 Diskus] Insulin Glargine,Hum.rec.anlog 20 units SQ HS 09/24/22 09/24/22 History [Lantus Solostar Pen] Insulin Lispro [humaLOG Kwikpen] 5 unit SQ AC-TID 09/24/22 09/24/22 History Loperamide [Imodium] 2 mg PO Q6H PRN 09/24/22 09/24/22 History Pantoprazole Sodium [Protonix] 40 mg PO BID 09/24/22 09/24/22 History Pyridoxine HCl (Vitamin B6) 100 mg PO DAILY 09/24/22 09/24/22 History [Vitamin B-6] Tiotropium 2.5 Mcg/Puff [Spiriva 2 puff INHALATION RT-DAILY PRN 09/24/22 09/24/22 History Respimat 2.5 Mcg] Allergies Allergy/AdvReac Type Severity Reaction Status Date / Time No Known Allergies Allergy Verified 09/24/22 14:13 Physical Exam Osteopathic Statement: *. No significant issues noted on an osteopathic structural exam other than those noted in the History and Physical/Consult. Vitals: Vital Signs Temp Pulse Pulse Resp BP BP Pulse Ox 09/25/22 07:08 77 15 155/81 92 L 09/25/22 06:52 64 16 107/66 99 09/25/22 04:26 97.7 F 70 12 152/75 97 09/25/22 04:18 09/25/22 03:01 97.7 F 68 14 110/69 98 09/25/22 02:25 97.0 F L 75 13 114/69 09/24/22 23:43 09/24/22 21:22 76 18 93/57 99 09/24/22 20:30 97.9 F 77 18 115/61 99 09/24/22 20:13 98.6 F 72 20 108/96 99 09/24/22 19:24 09/24/22 19:16 98.8 F 84 20 105/68 100 09/24/22 18:42 87 09/24/22 18:31 89 09/24/22 16:21 113 H 20 123/77 98 09/24/22 16:04 09/24/22 14:32 129 H 09/24/22 14:23 120 H 09/24/22 14:15 09/24/22 13:48 98.7 F 130 H 28 H 155/88 96 FiO2 09/25/22 07:08 09/25/22 06:52 09/25/22 04:26 40 09/25/22 04:18 40 09/25/22 03:01 40 09/25/22 02:25 09/24/22 23:43 40 09/24/22 21:22 40 09/24/22 20:30 40 09/24/22 20:13 09/24/22 19:24 40 09/24/22 19:16 09/24/22 18:42 09/24/22 18:31 09/24/22 16:21 09/24/22 16:04 40 09/24/22 14:32 09/24/22 14:23 09/24/22 14:15 40 09/24/22 13:48 Intake and Output 09/24/22 09/25/22 09/25/22 22:59 06:59 14:59 Intake Total 1300 Output Total 530 Balance 770 Intake: IV 800 Dextrose 5% in Water 1, 800 000 ml @ 100 mls/hr IV . [id number] ALEX with Sodium Bicarb (1 Meq/ml) 150 ml Rx#:[id number] Hemodialysis 500 Output: Urine 30 Hemodialysis 500 Other: Voiding Method Indwelling Catheter Indwelling Catheter Weight 82.2 kg 82.2 kg No acute distress, oriented 3. Currently on 2 L of oxygen. HEENT examination is grossly unremarkable. Neck supple. Full range of motion. No adenopathy thyromegaly or neck vein distention. Cardiovascular examination reveals regular rhythm rate. S1-S2 normal. No S3 or S4. No discernible murmur noted. Heart rate 77 bpm. Lungs reveal mostly clear breath sounds. Mild scattered rhonchi. No wheezes. No crackles. 2 L saturation is 97%. Abdomen soft bowel sounds are heard. No masses or tenderness. Extremities are intact. No cyanosis clubbing or edema. Skin is without rash or lesion. Neurologic examination is brief but nonfocal. Results - Laboratory Findings CBC and BMP: 09/25/22 03:44 09/25/22 03:44 PT/INR, D-dimer PT 11.2 sec (9.0-12.0) 09/24/22 14:46 INR 1.1 (<1.2) 09/24/22 14:46 D-Dimer 18.36 mg/L FEU (<0.60) H 09/24/22 14:46 Abnormal lab findings: Abnormal Labs 09/24/22 09/24/22 09/24/22 14:40 14:40 14:46 WBC 13.3 H RBC 3.09 L Hgb 8.7 L Hct 27.7 L RDW 15.6 H Neutrophils # 12.4 H Lymphocytes # 0.4 L D-Dimer 18.36 H VBG pCO2 VBG HCO3 Sodium 131 L Potassium 7.0 H* Carbon Dioxide 17 L BUN 94 H Creatinine 8.44 H* Glucose POC Glucose (mg/dL) Calcium 7.2 L Total Protein 4.9 L Albumin 2.4 L Urine Protein Urine Blood Ur Leukocyte Esterase Urine RBC Urine WBC Urine WBC Clumps 09/24/22 09/24/22 09/24/22 14:56 17:00 19:45 WBC RBC Hgb Hct RDW Neutrophils # Lymphocytes # D-Dimer VBG pCO2 30 L VBG HCO3 16 L Sodium 133 L Potassium 6.7 H* Carbon Dioxide 21 L BUN 97 H Creatinine 7.88 H* Glucose 149 H POC Glucose (mg/dL) Calcium 7.0 L Total Protein Albumin Urine Protein 2+ H Urine Blood Large H Ur Leukocyte Esterase Large H Urine RBC >182 H Urine WBC >182 H Urine WBC Clumps Many H 09/24/22 09/24/22 09/25/22 20:36 21:36 03:44 WBC RBC 2.82 L Hgb 8.0 L Hct 25.8 L RDW Neutrophils # 9.4 H Lymphocytes # 0.3 L D-Dimer VBG pCO2 VBG HCO3 Sodium Potassium Carbon Dioxide BUN Creatinine Glucose POC Glucose (mg/dL) 162 H 175 H Calcium Total Protein Albumin Urine Protein Urine Blood Ur Leukocyte Esterase Urine RBC Urine WBC Urine WBC Clumps 09/25/22 09/25/22 03:44 06:57 WBC RBC Hgb Hct RDW Neutrophils # Lymphocytes # D-Dimer VBG pCO2 VBG HCO3 Sodium 134 L Potassium 5.3 H Carbon Dioxide BUN 68 H Creatinine 6.34 H Glucose 165 H POC Glucose (mg/dL) 211 H Calcium 7.3 L Total Protein Albumin Urine Protein Urine Blood Ur Leukocyte Esterase Urine RBC Urine WBC Urine WBC Clumps - Diagnostic Findings Chest x-ray: image reviewed U/S of Legs: image reviewed Assessment and Plan Assessment: Acute renal failure, with hyperkalemia, status post emergent dialysis. History of hypertension. History of hyperlipidemia. History of COPD secondary to ongoing tobacco use with nicotine addiction. History of diabetes mellitus. History of pneumonia. Chronic hypoxemic respiratory failure, on home O2 at 3 L. History of bladder cancer. Plan: Plan dated 09/25/2022. The patient is a DO NOT RESUSCITATE patient. The patient did have hemodialysis yesterday, emergently, and will probably have it again today. Currently, he's on 2 L. He's getting a sodium bicarbonate drip, with 3 ampules in D5W at 100 mL an hour. One half a liter was removed yesterday. We will continue to follow the patient and make recommendations along the way. Labs, x-rays, and medications are reviewed. Time with Patient: Greater than 30
[2022-09-25 12:38] LABS: Glucose,Whole Blood 318 mg/dL (70-110)
--- NOTE | 2022-09-25 14:18 | P.HPIM ---
History of Present Illness H&P Date: 09/25/22 Chief Complaint: Short of breath his is a 72-year-old patient, follows with Dr.S Helm. Chronic stable medical conditions include COPD, hypertension, hyperlipidemia, peripheral neuropathy, does use walker/electric wheelchair. hx of HGT1 bladder cancer, had multiple recurrences, failed BCG therapy. on oxygen 3 L, not candidate for cystectomy. Underwent TURBT on 06/07/2022, there was significant amount of tumor within the bladder, and a complete resection could not be performed. Presented for a second stage TURBT. admit to the hospital and [facility] for renal failure and bilateral hydronephrosis on 04/11/22, underwent bilateral nephrostomy tube placement at [place]. CT also showed evidence of bladder cancer recurrence. hsd bilateral nephrostomy tubes and stents. 08/10/2022: Was found to large papular tumor involving the entire bilateral lateral reyez domed anterior bladder neck and multiple satellite tumors throughout the posterior bladder wall. Both nephrostomy tubes are removed. Discharged with Woodward catheter. Patient then readmitted to the hospital on September 02 and was discharged on September 09. Computed tomography scan showed abnormal placement of nephrostomy tubes. Patient was taken to the OR by Dr. Guerra from urology and bilateral ureter double-J stents were replaced. Unit come back for enterococcus. discharged on daptomycin Patient now presents increased shortness of breath. No cough. Appetite is good. No fever no chills. Patient continued to smoke about a pack a day. Living with his girlfriend. Tired rundown. Home oxygen 3 L. Renal function from a creatinine of 3.02 up to 8.44. Hyperkalemic. Last night dialysis cathet er was placed by Dr. Gallegos. Hemodialysis was done yesterday evening and 5 L was removed. Sodium bicarbonate drip. Review of systems: GEN.: Tired EYES: None HEENT: None NECK: None RESPIRATORY: Short of breath CARDIOVASCULAR: None GASTROINTESTINAL: None GENITOURINARY: None MUSCULOSKELETAL: Joint pains LYMPHATICS: None HEMATOLOGICAL: None PSYCHIATRY: None NEUROLOGICAL: Use a walker wheelchair Past medical history to include: COPD, hypertension, hyperlipidemia, peripheral neuropathy, bladder cancer Social history: Long-standing smoker , currently 1 pack a day. girlfriend at home. Does use a electric wheelchair and a walker. Physical examination: VITAL SIGNS: 97.4, 86, 12, 1 23 x 73, 96% on 3 L GENERAL: Reclining, comfortable EYES: Pupils equal. Conjunctiva pale HEENT: External appearance of nose and ears normal, oral cavity grossly normal. NECK: JVD not raised; masses not palpable. HEART: First and second heart sounds are normal; no edema. LUNGS: Respiratory rate increased, decreased breath sounds ABDOMEN: Soft, nontender, liver spleen not palpable, no masses palpable. Woodward catheter PSYCH: Answering questions appropriately MUSCULOSKELETAL:No Clubbing/cyanosis;muscles-grossly intact. OA LYMPHATICS: No lymph nodes palpable neck NEUROLOGICAL: Cranial nerves grossly intact. Poor sensation grossly intact. INVESTIGATIONS, reviewed in the clinical context: Penis Doppler: Negative for DVT bilateral Chest x-ray film personally reviewed by me-hyperinflated. Right basilar infiltrate EKG tracing personally reviewed by me-sinus tachycardia. Nonspecific T-wave c hanges. 09/25/2022: White count 9.9 hemoglobin 8 platelets 160L5 0.3 BUN 68 creatinine 6.34 09/24/2022: White count 13.3 hemoglobin 8.7 platelets 219 potassium 7 BUN 94 creatinine 8.44 Previous labs 09/15/2022: Potassium 4.4 BUN 34 creatinine 3.02 Assessment and plan: -Acute severe COPD exacerbation in a current smoker Until it 2 puffs every 4. [DuoNeb short ] Symbicort. IV Solu-Medrol. T heophylline -Right lower lobe pneumonia. Suspect gram-negative organism. IV Zosyn -Acute hypoxic respiratory failure from pneumonia COPD exacerbation on presentation Initially requiring BiPAP. Now down to 3 L -Chronic hypoxic respiratory failure from underlying COPD 3 dose of oxygen at home -Bilateral double-J stent ureter -Severe hyperkalemia secondary to renal failure Insulin, bicarbonate, Ventolin, renal diet. Nephrology consulted -Acute severe kidney injury, obstructive ureter patient has bilateral J stent ureter.- recent manipulation. aggressive recurrent bladder tumor Consultation urology, nephrology -Urinary bladder and recurrent papillary tumor.: Recurrent Has had repeated bladder tumor resection. Urology consulted -Diabetes mellitus type II, chronically on insulin, Levemir 20 units subcu bedtime Follow Accu-Chek -Hyperlipidemia Pravachol -Essential hypertension Coreg -Chronic nicotine dependence, cigarette smoker Nicotine patch 21 -DO NOT RESUSCITATE Past Medical History Past Medical History: Asthma, Cancer, COPD, Diabetes Mellitus, Hyperlipidemia, Hypertension, Pneumonia Additional Past Medical History / Comment(s): Oxygen 3 L/NC prn., peripheral neuropathy hands & feet., bladder cancer with surgery x10 (no chemo or radiation tx.)., currently has nephrostomy tubes in his back ., hx renal failure with hydronephrosis., uses walker ,cane & electric wheelchair., states hospitalized at [facility] in May for Covid & kidney infection and received 1 pint of blood. History of Any Multi-Drug Resistant Organisms: VRE Date of last positivie culture/infection: 09/02/22 MDRO Source:: Urine Past Surgical History: Bladder Surgery, Heart Catheterization Additional Past Surgical History / Comment(s): raman cataracts, TUR bladder tumor x 10., heart cath at [facility] on [place] (october 2015) Past Anesthesia/Blood Transfusion Reactions: No Reported Reaction Additional Past Anesthesia/Blood Transfusion Reaction / Comment(s): states he was weak after surgery and fell when he got home. Past Psychological History: No Psychological Hx Reported Additional Psychological History / Comment(s): . Smoking Status: Current every day smoker Past Alcohol Use History: Rare Additional Past Alcohol Use History / Comment(s): reports he has not smoked in 4 years. Past Drug Use History: None Reported - Past Family History Mother Family Medical History: Cancer Additional Family Medical History / Comment(s): . Medications and Allergies Home Medications Medication Instructions Recorded Confirmed Type Pravastatin Sodium [Pravachol] 20 mg PO HS 10/11/17 09/24/22 History carvediloL [Coreg] 12.5 mg PO BID 10/11/17 09/24/22 History Tamsulosin [Flomax] 0.4 mg PO HS 05/14/19 09/24/22 History Albuterol Sulfate [Albuterol 2 puff PO RT-Q4H PRN 09/12/20 09/24/22 History Sulfate Hfa] Theophylline Anhydrous 300 mg PO BID 07/15/22 09/24/22 History [Theophylline ER] Ammonium Lactate Lotion 1 applic TOPICAL BID PRN 09/02/22 09/24/22 History [Lac-Hydrin 12% Lotion] Ketoconazole 2% Cream [Nizoral 2%] 1 applic TOPICAL DAILY PRN 09/02/22 09/24/22 History Ondansetron [Zofran] 4 mg PO Q8HR PRN 09/02/22 09/24/22 History polyethylene glycoL 3350 [Miralax] 17 gm PO DAILY PRN packet 09/15/22 09/24/22 Rx Fluticasone Propion/Salmeterol 1 puff INHALATION RT-BID 09/24/22 09/24/22 History [Advair 500-50 Diskus] Insulin Glargine,Hum.rec.anlog 20 units SQ HS 09/24/22 09/24/22 History [Lantus Solostar Pen] Insulin Lispro [humaLOG Kwikpen] 5 unit SQ AC-TID 09/24/22 09/24/22 History Loperamide [Imodium] 2 mg PO Q6H PRN 09/24/22 09/24/22 History Pantoprazole Sodium [Protonix] 40 mg PO BID 09/24/22 09/24/22 History Pyridoxine HCl (Vitamin B6) 100 mg PO DAILY 09/24/22 09/24/22 History [Vitamin B-6] Tiotropium 2.5 Mcg/Puff [Spiriva 2 puff INHALATION RT-DAILY PRN 09/24/22 3 History Respimat 2.5 Mcg] Allergies Allergy/AdvReac Type Severity Reaction Status Date / Time No Known Allergies Allergy Verified 09/24/22 14:13 Physical Exam Vitals: Vital Signs Temp Pulse Pulse Resp BP BP Pulse Ox 09/25/22 07:08 77 15 155/81 92 L 09/25/22 06:52 64 16 107/66 99 09/25/22 04:26 97.7 F 70 12 152/75 97 09/25/22 04:18 09/25/22 03:01 97.7 F 68 14 110/69 98 09/25/22 02:25 97.0 F L 75 13 114/69 09/24/22 23:43 09/24/22 21:22 76 18 93/57 99 09/24/22 20:30 97.9 F 77 18 115/61 99 09/24/22 20:13 98.6 F 72 20 108/96 99 09/24/22 19:24 09/24/22 19:16 98.8 F 84 20 105/68 100 09/24/22 18:42 87 09/24/22 18:31 89 09/24/22 16:21 113 H 20 123/77 98 09/24/22 16:04 09/24/22 14:32 129 H 09/24/22 14:23 120 H 09/24/22 14:15 09/24/22 13:48 98.7 F 130 H 28 H 155/88 96 FiO2 09/25/22 07:08 09/25/22 06:52 09/25/22 04:26 40 09/25/22 04:18 40 09/25/22 03:01 40 09/25/22 02:25 09/24/22 23:43 40 09/24/22 21:22 40 09/24/22 20:30 40 09/24/22 20:13 09/24/22 19:24 40 09/24/22 19:16 09/24/22 18:42 09/24/22 18:31 09/24/22 16:21 09/24/22 16:04 40 09/24/22 14:32 09/24/22 14:23 09/24/22 14:15 40 09/24/22 13:48 Intake and Output 09/24/22 09/25/22 09/25/22 22:59 06:59 14:59 Intake Total 1300 Output Total 530 Balance 770 Intake: IV 800 Dextrose 5% in Water 1, 800 000 ml @ 100 mls/hr IV . [id number] ALEX with Sodium Bicarb (1 Meq/ml) 150 ml Rx#:[id number] Hemodialysis 500 Output: Urine 30 Hemodialysis 500 Other: Voiding Method Indwelling Catheter Indwelling Catheter Weight 82.2 kg 82.2 kg Results CBC & Chem 7: 09/25/22 03:44 09/25/22 03:44 Labs: Abnormal Lab Results - Last 24 Hours (Table) 09/24/22 09/24/22 09/24/22 Range/Units 14:40 14:40 14:46 WBC 13.3 H (3.8-10.6) k/uL RBC 3.09 L (4.30-5.90) m/uL Hgb 8.7 L (13.0-17.5) gm/dL Hct 27.7 L (39.0-53.0) % RDW 15.6 H (11.5-15.5) % Neutrophils # 12.4 H (1.3-7.7) k/uL Lymphocytes # 0.4 L (1.0-4.8) k/uL D-Dimer 18.36 H (<0.60) mg/L FEU VBG pCO2 (37-51) mmHg VBG HCO3 (24-28) mmol/L Sodium 131 L (137-145) mmol/L Potassium 7.0 H* (3.5-5.1) mmol/L Carbon Dioxide 17 L (22-30) mmol/L BUN 94 H (9-20) mg/dL Creatinine 8.44 H* (0.66-1.25) mg/dL Glucose (74-99) mg/dL POC Glucose (mg/dL) (70-110) mg/dL Calcium 7.2 L (8.4-10.2) mg/dL Total Protein 4.9 L (6.3-8.2) g/dL Albumin 2.4 L (3.5-5.0) g/dL Urine Protein (Negative) Urine Blood (Negative) Ur Leukocyte Esterase (Negative) Urine RBC (0-5) /hpf Urine WBC (0-5) /hpf Urine WBC Clumps (None) /hpf 09/24/22 09/24/22 09/24/22 Range/Units 14:56 17:00 19:45 WBC (3.8-10.6) k/uL RBC (4.30-5.90) m/uL Hgb (13.0-17.5) gm/dL Hct (39.0-53.0) % RDW (11.5-15.5) % Neutrophils # (1.3-7.7) k/uL Lymphocytes # (1.0-4.8) k/uL D-Dimer (<0.60) mg/L FEU VBG pCO2 30 L (37-51) mmHg VBG HCO3 16 L (24-28) mmol/L Sodium 133 L (137-145) mmol/L Potassium 6.7 H* (3.5-5.1) mmol/L Carbon Dioxide 21 L (22-30) mmol/L BUN 97 H (9-20) mg/dL Creatinine 7.88 H* (0.66-1.25) mg/dL Glucose 149 H (74-99) mg/dL POC Glucose (mg/dL) (70-110) mg/dL Calcium 7.0 L (8.4-10.2) mg/dL Total Protein (6.3-8.2) g/dL Albumin (3.5-5.0) g/dL Urine Protein 2+ H (Negative) Urine Blood Large H (Negative) Ur Leukocyte Esterase Large H (Negative) Urine RBC >182 H (0-5) /hpf Urine WBC >182 H (0-5) /hpf Urine WBC Clumps Many H (None) /hpf 09/24/22 09/24/22 09/25/22 Range/Units 20:36 21:36 03:44 WBC (3.8-10.6) k/uL RBC 2.82 L (4.30-5.90) m/uL Hgb 8.0 L (13.0-17.5) gm/dL Hct 25.8 L (39.0-53.0) % RDW (11.5-15.5) % Neutrophils # 9.4 H (1.3-7.7) k/uL Lymphocytes # 0.3 L (1.0-4.8) k/uL D-Dimer (<0.60) mg/L FEU VBG pCO2 (37-51) mmHg VBG HCO3 (24-28) mmol/L Sodium (137-145) mmol/L Potassium (3.5-5.1) mmol/L Carbon Dioxide (22-30) mmol/L BUN (9-20) mg/dL Creatinine (0.66-1.25) mg/dL Glucose (74-99) mg/dL POC Glucose (mg/dL) 162 H 175 H (70-110) mg/dL Calcium (8.4-10.2) mg/dL Total Protein (6.3-8.2) g/dL Albumin (3.5-5.0) g/dL Urine Protein (Negative) Urine Blood (Negative) Ur Leukocyte Esterase (Negative) Urine RBC (0-5) /hpf Urine WBC (0-5) /hpf Urine WBC Clumps (None) /hpf 09/25/22 09/25/22 Range/Units 03:44 06:57 WBC (3.8-10.6) k/uL RBC (4.30-5.90) m/uL Hgb (13.0-17.5) gm/dL Hct (39.0-53.0) % RDW (11.5-15.5) % Neutrophils # (1.3-7.7) k/uL Lymphocytes # (1.0-4.8) k/uL D-Dimer (<0.60) mg/L FEU VBG pCO2 (37-51) mmHg VBG HCO3 (24-28) mmol/L Sodium 134 L (137-145) mmol/L Potassium 5.3 H (3.5-5.1) mmol/L Carbon Dioxide (22-30) mmol/L BUN 68 H (9-20) mg/dL Creatinine 6.34 H (0.66-1.25) mg/dL Glucose 165 H (74-99) mg/dL POC Glucose (mg/dL) 211 H (70-110) mg/dL Calcium 7.3 L (8.4-10.2) mg/dL Total Protein (6.3-8.2) g/dL Albumin (3.5-5.0) g/dL Urine Protein (Negative) Urine Blood (Negative) Ur Leukocyte Esterase (Negative) Urine RBC (0-5) /hpf Urine WBC (0-5) /hpf Urine WBC Clumps (None) /hpf Microbiology - Last 24 Hours (Table) 09/24/22 17:00 Urine Culture - Preliminary Urine,Catheterized Thrombosis Risk Factor Assmnt - Choose All That Apply Each Factor Represents 1 point: Abnormal pulmonary function (COPD) Each Risk Factor Represents 2 Points: Age 61-74 years Thrombosis Risk Factor Assessment Total Risk Factor Score: 3 Thrombosis Risk Factor Assessment Level: Moderate Risk
--- NOTE | 2022-09-25 14:57 | P.NPCON ---
History of Present Illness - Reason for Consult Consult date: 09/25/22 acute renal failure, hyperkalemia - Chief Complaint Shortness of breath - History of Present Illness 82-year-old gentleman with history of bladder cancer, multiple Currence S status post BCG therapy, underwent TURBT on 06/07/2022. He was recently admitted to [facility] for bilateral hydronephrosis from urinary retention. He underwent bilateral nephrostomy tubes and stents and his nephrostomy tubes were removed prior to discharge. 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 On admission serum creatinine was 8.4 with a potassium of 7.0. Woodward catheter was placed, no urine output. He was treated medically, repeat potassium was 6.7. He was also lethargic, emergent dialysis was done last night. No documented hypotensive episodes. Review of Systems Constitutional: Reports as per HPI Past Medical History Past Medical History: Asthma, Cancer, COPD, Diabetes Mellitus, Hyperlipidemia, Hypertension, Pneumonia Additional Past Medical History / Comment(s): Oxygen 3 L/NC prn., peripheral neuropathy hands & feet., bladder cancer with surgery x10 (no chemo or radiation tx.)., currently has nephrostomy tubes in his back ., hx renal failure with hydronephrosis., uses walker ,cane & electric wheelchair., states hospitalized at [facility] in May for Covid & kidney infection and received 1 pint of blood. History of Any Multi-Drug Resistant Organisms: VRE Date of last positivie culture/infection: 09/02/22 MDRO Source:: Urine Past Surgical History: Bladder Surgery, Heart Catheterization Additional Past Surgical History / Comment(s): raman cataracts, TUR bladder tumor x 10., heart cath at [facility] on [place] (october 2015) Past Anesthesia/Blood Transfusion Reactions: No Reported Reaction Additional Past Anesthesia/Blood Transfusion Reaction / Comment(s): states he was weak after surgery and fell when he got home. Past Psychological History: No Psychological Hx Reported Additional Psychological History / Comment(s): . Smoking Status: Current every day smoker Past Alcohol Use History: Rare Additional Past Alcohol Use History / Comment(s): reports he has not smoked in 4 years. Past Drug Use History: None Reported - Past Family History Mother Family Medical History: Cancer Additional Family Medical History / Comment(s): . Medications and Allergies Home Medications Medication Instructions Recorded Confirmed Type Pravastatin Sodium [Pravachol] 20 mg PO HS 10/11/17 09/24/22 History carvediloL [Coreg] 12.5 mg PO BID 10/11/17 09/24/22 History Tamsulosin [Flomax] 0.4 mg PO HS 05/14/19 09/24/22 History Albuterol Sulfate [Albuterol 2 puff PO RT-Q4H PRN 09/12/20 09/24/22 History Sulfate Hfa] Theophylline Anhydrous 300 mg PO BID 07/15/22 09/24/22 History [Theophylline ER] Ammonium Lactate Lotion 1 applic TOPICAL BID PRN 09/02/22 09/24/22 History [Lac-Hydrin 12% Lotion] Ketoconazole 2% Cream [Nizoral 2%] 1 applic TOPICAL DAILY PRN 09/02/22 09/24/22 History Ondansetron [Zofran] 4 mg PO Q8HR PRN 09/02/22 09/24/22 History polyethylene glycoL 3350 [Miralax] 17 gm PO DAILY PRN packet 09/15/22 09/24/22 Rx Fluticasone Propion/Salmeterol 1 puff INHALATION RT-BID 09/24/22 09/24/22 History [Advair 500-50 Diskus] Insulin Glargine,Hum.rec.anlog 20 units SQ HS 09/24/22 09/24/22 History [Lantus Solostar Pen] Insulin Lispro [humaLOG Kwikpen] 5 unit SQ AC-TID 09/24/22 09/24/22 History Loperamide [Imodium] 2 mg PO Q6H PRN 09/24/22 09/24/22 History Pantoprazole Sodium [Protonix] 40 mg PO BID 09/24/22 09/24/22 History Pyridoxine HCl (Vitamin B6) 100 mg PO DAILY 09/24/22 09/24/22 History [Vitamin B-6] Tiotropium 2.5 Mcg/Puff [Spiriva 2 puff INHALATION RT-DAILY PRN 09/24/22 09/24/22 History Respimat 2.5 Mcg] Allergies Allergy/AdvReac Type Severity Reaction Status Date / Time No Known Allergies Allergy Verified 09/24/22 14:13 Physical Exam Vitals: Vital Signs Temp Pulse Pulse Pulse Resp BP BP 09/25/22 13:32 82 14 118/56 09/25/22 10:00 72 14 130/64 09/25/22 08:00 97.4 F L 86 12 123/73 09/25/22 07:08 77 15 155/81 09/25/22 06:52 64 16 107/66 09/25/22 04:26 97.7 F 70 12 152/75 09/25/22 04:18 09/25/22 03:01 97.7 F 68 14 110/69 09/25/22 02:25 97.0 F L 75 13 114/69 09/24/22 23:43 09/24/22 21:22 76 18 93/57 09/24/22 20:30 97.9 F 77 18 115/61 09/24/22 20:13 98.6 F 72 20 108/96 09/24/22 19:24 09/24/22 19:16 98.8 F 84 20 105/68 09/24/22 18:42 87 09/24/22 18:31 89 09/24/22 16:21 113 H 20 123/77 09/24/22 16:04 Pulse Ox FiO2 09/25/22 13:32 92 L 09/25/22 10:00 96 09/25/22 08:00 96 09/25/22 07:08 92 L 09/25/22 06:52 99 09/25/22 04:26 97 40 09/25/22 04:18 40 09/25/22 03:01 98 40 09/25/22 02:25 09/24/22 23:43 40 09/24/22 21:22 99 40 09/24/22 20:30 99 40 09/24/22 20:13 99 09/24/22 19:24 40 09/24/22 19:16 100 09/24/22 18:42 09/24/22 18:31 09/24/22 16:21 98 09/24/22 16:04 40 Intake and Output 09/24/22 09/25/22 09/25/22 22:59 06:59 14:59 Intake Total 1300 Output Total 530 Balance 770 Intake: IV 800 Dextrose 5% in Water 1, 800 000 ml @ 100 mls/hr IV . [id number] ALEX with Sodium Bicarb (1 Meq/ml) 150 ml Rx#:[id number] Hemodialysis 500 Output: Urine 30 Hemodialysis 500 Other: Voiding Method Indwelling Catheter Indwelling Catheter Indwelling Catheter Weight 82.2 kg 82.2 kg No acute distress S1-S2 heard Lungs clear Woodward No edema Results - Lab Results Most recent lab results Calcium 7.3 mg/dL (8.4-10.2) L 09/25/22 03:44 Magnesium 2.0 mg/dL (1.6-2.3) 09/24/22 14:40 09/25/22 03:44 09/25/22 03:44 Assessment and Plan Assessment: #1 acute kidney injury suspect obstructive uropathy with bladder cancer. -Baseline creatinine 3.2 MG per DL. -Urine analysis hematuria with pyuria. #2 CK D stage IV secondary to obstructive uropathy with bladder cancer #3 bladder cancer recurrence status post BCG and TURBT #4 hyperkalemia secondary to acute kidney injury/obstruction #5 metabolic acidosis Plan: #1 emergent hemodialysis yesterday for hyperkalemia. Plan again today. #2 check renal ultrasound for hydronephrosis. #3 urology input. #4 daily renal labs.
[2022-09-25] MEDS ORDERED: AZITHROMYCIN 500 MG in SODIUM CHLORIDE 0.9% 250 ML IVPB SCH (16:00)
[2022-09-25 16:22] LABS: Glucose,Whole Blood 260 mg/dL (70-110)
[2022-09-25] MEDS ORDERED: ANIDULAFUNGIN 200 MG in SODIUM CHLORIDE 0.9% 200 ML IVPB ONE (19:30)
--- NOTE | 2022-09-25 20:05 | US ---
EXAMINATION TYPE: US renals and bladder DATE OF EXAM: 09/25/2022 COMPARISON: NONE CLINICAL HISTORY: hydronephrosis. assess known hydro, patient had stents redone EXAM MEASUREMENTS: Right Kidney: 13.4 x 5.4 x 6.0 cm Left Kidney: 11.8 x 5.1 x 6.3 cm Right Kidney: Large in size, severe hydronephrosis seen Left Kidney: Severe hydronephrosis seen Bladder: not distended IMPRESSION: There is bilateral severe hydronephrosis. No evidence of solid renal mass. Renal cortex has fairly no rmal echogenicity and thickness. Urinary bladder not well evaluated. Urinary bladder empty during the exam.
[2022-09-25] MEDS: PRAVASTATIN SODIUM 20 MG TAB PO SCH (20:47)
[2022-09-25] MEDS: TAMSULOSIN 0.4 MG CAP.ER.24H PO SCH (20:47)
[2022-09-25] MEDS: INSULIN DETEMIR (LEVEMIR) 100 UNIT/ML SYR SQ SCH (20:47)
[2022-09-25 20:50] LABS: Glucose,Whole Blood 285 mg/dL (70-110)
[2022-09-25] MEDS: THEOPHYLLINE 24 HOUR 300 MG CAP.ER.24H PO SCH (22:32)
[2022-09-26] MEDS: ALBUTEROL HFA INHALER INHALATION SCH ×7 (00:30→23:51)
[2022-09-26 05:39] LABS: Glucose,Whole Blood 264 mg/dL (70-110)
[2022-09-26] MEDS: DEXTROSE 5% IN WATER 1,000 ML with SODIUM BICARB (1 MEQ/ML) 150 ML IV SCH (05:39)
[2022-09-26] MEDS: PANTOPRAZOLE 40 MG TABLET PO SCH ×2 (05:40→17:06)
[2022-09-26] MEDS: INSULIN ASPART (NovoLOG) 100 UNIT/ML VIAL SQ SCH ×4 (05:40→21:22)
[2022-09-26] MEDS: carvediloL 12.5 MG TAB PO SCH ×2 (05:40→17:06)
[2022-09-26] MEDS: TIOTROPIUM 2.5 MCG INHALER INHALATION SCH (08:00)
[2022-09-26] MEDS: SYMBICORT 160-4.5 MCG INHALER INHALATION SCH ×2 (08:00→20:13)
[2022-09-26] MEDS: methylPREDNISolone SOD SUCCI 40 MG/ML 1 ML VIAL IV SCH ×2 (08:07→21:17)
[2022-09-26] MEDS: HEPARIN SODIUM,PORCINE/PF 5,000 UNIT/0.5 ML SYRINGE SQ SCH ×2 (08:07→17:05)
[2022-09-26] MEDS: PYRIDOXINE 50 MG TAB PO SCH (08:07)
[2022-09-26] MEDS: PIPERACILLIN-TAZOBACTAM 3.375 GM in SODIUM CHLORIDE 0.9% 100 ML IVPB SCH ×2 (08:08→21:20)
[2022-09-26 08:59] LABS: African American GFR (CKD) 11.7 (60.0-200.0); Anion Gap 9.7 mmol/L (10.00-18.00); BUN/Creat Ratio 9.24 Ratio (12.00-20.00); Blood Urea Nitrogen 48.5 mg/dL (9.0-27.0); C Reactive Protein 9.6 mg/dL (0.00-0.80); Carbon Dioxide 27.7 mmol/L (20.0-27.5); Non-African American GFR(CKD) 10.1 (60.0-200.0); Potassium 5.1 mmol/L (3.5-5.5)
--- NOTE | 2022-09-26 10:06 | P.GSCN ---
History of Present Illness Consult date: 09/26/22 History of present illness: 72-year-old gentleman whom we are asked to see for hydronephrosis, bladder cancer. The patient is known to our service for recurrent significant grade 3T1 bladder cancer. Volumes of these cancers has been significant. He has had resection by . He had bilateral nephrostomy tubes placed at [facility] with antegrade stents. He ended up in [facility] about 3 weeks ago and renal failure. These antegrade stents were misplaced and thus I exchanged them to the bladder. All better and done well however he presented to the hospital with shortness of breath with progression of his renal failure. He has been on dialysis. We are asked see the patient yesterday. He had an ultrasound showing bilateral hydronephrosis. No other tests have been done. His urinalysis was quite inflamed. Cultures pending. His creatinine is 6.5. Awake alert and oriented. He is denying pain. Review of Systems All systems: negative - Constitutional Denies fever, Denies weight loss - EENT Eyes: denies blurred vision Ears, nose, mouth and throat: Denies dysphagia - Cardiovascular Denies chest pain, Denies shortness of breath - Respiratory Denies cough, Denies 7 - Gastrointestinal Reports as per HPI - Genitourinary Denies dysuria, Denies hematuria - Integumentary Denies rash, Denies unusual bruising - Neurological Denies headaches, Denies syncope - Hematologic/Lymphatic Denies easy bleeding, Denies easy bruising Past Medical History Past Medical History: Asthma, Cancer, COPD, Diabetes Mellitus, Hyperlipidemia, Hypertension, Pneumonia Additional Past Medical History / Comment(s): Oxygen 3 L/NC prn., peripheral neuropathy hands & feet., bladder cancer with surgery x10 (no chemo or radiation tx.)., currently has nephrostomy tubes in his back ., hx renal failure with hydronephrosis., uses walker ,cane & electric wheelchair., states hospitalized at [facility] in May for Covid & kidney infection and received 1 pint of blood. History of Any Multi-Drug Resistant Organisms: VRE Year Discovered:: 09/02/22 MDRO Source:: Urine Past Surgical History: Bladder Surgery, Heart Catheterization Additional Past Surgical History / Comment(s): raman cataracts, TUR bladder tumor x 10., heart cath at [facility] on [place] (october 2015) Past Anesthesia/Blood Transfusion Reactions: No Reported Reaction Additional Past Anesthesia/Blood Transfusion Reaction / Comm: states he was weak after surgery and fell when he got home. Past Psychological History: No Psychological Hx Reported Additional Psychological History / Comment(s): . Smoking Status: Current every day smoker Past Alcohol Use History: Rare Additional Past Alcohol Use History / Comment(s): reports he has not smoked in 4 years. Past Drug Use History: None Reported - Past Family History Mother Family Medical History: Cancer Additional Family Medical History / Comment(s): . Medications and Allergies Home Medications Medication Instructions Recorded Confirmed Type Pravastatin Sodium [Pravachol] 20 mg PO HS 10/11/17 09/24/22 History carvediloL [Coreg] 12.5 mg PO BID 10/11/17 09/24/22 History Tamsulosin [Flomax] 0.4 mg PO HS 05/14/19 09/24/22 History Albuterol Sulfate [Albuterol 2 puff PO RT-Q4H PRN 09/12/20 09/24/22 History Sulfate Hfa] Theophylline Anhydrous 300 mg PO BID 07/15/22 09/24/22 History [Theophylline ER] Ammonium Lactate Lotion 1 applic TOPICAL BID PRN 09/02/22 09/24/22 History [Lac-Hydrin 12% Lotion] Ketoconazole 2% Cream [Nizoral 2%] 1 applic TOPICAL DAILY PRN 09/02/22 09/24/22 History Ondansetron [Zofran] 4 mg PO Q8HR PRN 09/02/22 09/24/22 History polyethylene glycoL 3350 [Miralax] 17 gm PO DAILY PRN packet 09/15/22 09/24/22 Rx Fluticasone Propion/Salmeterol 1 puff INHALATION RT-BID 09/24/22 09/24/22 History [Advair 500-50 Diskus] Insulin Glargine,Hum.rec.anlog 20 units SQ HS 09/24/22 09/24/22 History [Lantus Solostar Pen] Insulin Lispro [humaLOG Kwikpen] 5 unit SQ AC-TID 09/24/22 09/24/22 History Loperamide [Imodium] 2 mg PO Q6H PRN 09/24/22 09/24/22 History Pantoprazole Sodium [Protonix] 40 mg PO BID 09/24/22 09/24/22 History Pyridoxine HCl (Vitamin B6) 100 mg PO DAILY 09/24/22 09/24/22 History [Vitamin B-6] Tiotropium 2.5 Mcg/Puff [Spiriva 2 puff INHALATION RT-DAILY PRN 09/24/22 09/24/22 History Respimat 2.5 Mcg] Allergies Allergy/AdvReac Type Severity Reaction Status Date / Time No Known Allergies Allergy Verified 09/24/22 14:13 Surgical - Exam Vital Signs Temp Pulse Resp BP Pulse Ox 98.7 F 130 H 28 H 155/88 96 09/24/22 13:48 09/24/22 13:48 09/24/22 13:48 09/24/22 13:48 09/24/22 13:48 - General well developed, no distress - Eyes PERRL - ENT no hearing loss - Genitourinary Indwelling catheter with clear urine Results - Labs 09/25/22 03:44 09/26/22 06:35 Abnormal Lab Results - Last 24 Hours (Table) 09/25/22 09/25/22 09/25/22 Range/Units 12:37 16:20 20:48 Carbon Dioxide (20.0-27.5) mmol/L Anion Gap (10.00-18.00) mmol/L BUN (9.0-27.0) mg/dL Creatinine (0.6-1.5) mg/dL Est GFR (CKD-EPI)AfAm (60.0-200.0) Est GFR (CKD-EPI)NonAf (60.0-200.0) BUN/Creatinine Ratio (12.00-20.00) Ratio Glucose (70-110) mg/dL POC Glucose (mg/dL) 318 H 260 H 285 H (70-110) mg/dL Calcium (8.7-10.3) mg/dL C-Reactive Protein (0.00-0.80) mg/dL 09/26/22 09/26/22 Range/Units 05:34 06:35 Carbon Dioxide 27.7 H (20.0-27.5) mmol/L Anion Gap 9.70 L (10.00-18.00) mmol/L BUN 48.5 H (9.0-27.0) mg/dL Creatinine 5.3 H (0.6-1.5) mg/dL Est GFR (CKD-EPI)AfAm 11.7 L (60.0-200.0) Est GFR (CKD-EPI)NonAf 10.1 L (60.0-200.0) BUN/Creatinine Ratio 9.24 L (12.00-20.00) Ratio Glucose 229 H (70-110) mg/dL POC Glucose (mg/dL) 264 H (70-110) mg/dL Calcium 7.0 L (8.7-10.3) mg/dL C-Reactive Protein 9.60 H (0.00-0.80) mg/dL Microbiology - Last 24 Hours (Table) 09/24/22 16:00 Blood Culture Gram Stain - Preliminary Blood Yeast species 09/24/22 16:00 Blood Culture Gram Stain - Preliminary Blood Yeast species 09/24/22 16:15 Blood Culture - Final Blood 09/24/22 16:00 Blood Culture - Final Blood Diabetes panel 09/26/22 Range/Units 06:35 Sodium 136 (135-145) mmol/L Potassium 5.1 (3.5-5.5) mmol/L Chloride 99 (96-109) mmol/L Carbon Dioxide 27.7 H (20.0-27.5) mmol/L BUN 48.5 H (9.0-27.0) mg/dL Creatinine 5.3 H (0.6-1.5) mg/dL Glucose 229 H (70-110) mg/dL Calcium 7.0 L (8.7-10.3) mg/dL Calcium panel 09/26/22 Range/Units 06:35 Calcium 7.0 L (8.7-10.3) mg/dL Pituitary panel 09/26/22 Range/Units 06:35 Sodium 136 (135-145) mmol/L Potassium 5.1 (3.5-5.5) mmol/L Chloride 99 (96-109) mmol/L Carbon Dioxide 27.7 H (20.0-27.5) mmol/L BUN 48.5 H (9.0-27.0) mg/dL Creatinine 5.3 H (0.6-1.5) mg/dL Glucose 229 H (70-110) mg/dL Calcium 7.0 L (8.7-10.3) mg/dL Adrenal panel 09/26/22 Range/Units 06:35 Sodium 136 (135-145) mmol/L Potassium 5.1 (3.5-5.5) mmol/L Chloride 99 (96-109) mmol/L Carbon Dioxide 27.7 H (20.0-27.5) mmol/L BUN 48.5 H (9.0-27.0) mg/dL Creatinine 5.3 H (0.6-1.5) mg/dL Glucose 229 H (70-110) mg/dL Calcium 7.0 L (8.7-10.3) mg/dL - Imaging US - kidney/bladder: report reviewed, image reviewed Assessment and Plan Assessment: Impression: Acute on chronic renal failure. Bilateral hydronephrosis chronic versus acute. Persistent bladder cancer. Multiple medical illnesses. Recommendations: As per the consult note and stents exchanged through weeks ago. Assuming they're in correct place it would be unlikely that they'll be obstructed however clinically they would need to be exchanged to clarify that situation. Obtain a computed tomography scan to make sure there is no other obvious extrarenal cause for the hydronephrosis and renal failure. Time with Patient: Greater than 30
[2022-09-26 10:23] LABS: Basophils # (A) 0.01 X 10*3/uL (0.00-0.10); Basophils % (A) 0.1 %; Eosinophils # (A) 0.02 X 10*3/uL (0.04-0.35); Eosinophils % (A) 0.2 %; HCT 22.7 % (39.6-50.0); HGB 6.8 g/dL (13.0-17.0); Immature Grans, Automated 1.4 %; Lymphocytes # (A) 0.61 X 10*3/uL (0.90-5.00); MCH 27.3 pg (27.0-32.0); MCV 91.2 fL (80.0-97.0); Mean Platelet Volume 11.9 fL (9.5-12.2); Monocytes # (A) 0.39 X 10*3/uL (0.20-1.00); Monocytes % (A) 3.2 %; NRBC Per 100 WBC 0 /100 WBCS (0.0-0.0); Neutrophils # (A) 11.01 X 10*3/uL (1.80-7.70); Neutrophils % (A) 90.1 %; Platelet Count 128 X 10*3/uL (140-440); RBC 2.49 X 10*6/uL (4.40-5.60); RDW 16.3 % (11.5-14.5); WBC 12.21 X 10*3/uL (4.50-10.00)
[2022-09-26 10:24] LABS: Hypochromasia (M) 2+; Schistocytes 1+
--- NOTE | 2022-09-26 11:34 | CT ---
EXAMINATION TYPE: CT abdomen pelvis wo con CT DLP: 770.6 mGycm, Automated exposure control for dose reduction was used. DATE OF EXAM: 09/26/2022 10:33 AM COMPARISON: CT 09/12/2022 CLINICAL INDICATION:Male, 72 years old with history of hydronephrosis; TECHNIQUE: Axial CT of the abdomen and pelvis. Sagittal and coronal reformats were created on a [employer] workstation. Contrast used: None Oral contrast used: without Oral Contrast FINDINGS: LOWER CHEST: Small bilateral pleural effusions. Mild cardiomegaly. Trace pericardial effusion. ABDOMEN LIVER: Unremarkable GALLBLADDER AND BILE DUCTS: Unremarkable. PANCREAS: Unremarkable. SPLEEN: Unremarkable. ADRENAL GLANDS: Unremarkable. KIDNEYS AND URETERS: Bilateral ureteral stents with proximal and distal tips in appropriate position. There remains dilation of both collecting systems. No renal calculi visualized. PELVIS BLADDER: Nondistended with Woodward catheter in place. REPRODUCTIVE: Unremarkable. ABDOMEN & PELVIS STOMACH AND BOWEL: No evidence of bowel obstruction. The appendix demonstrates multiple appendicolit hs some of which are tubular in shape measuring up to 17 mm. Scattered colonic diverticulosis. PERITONEUM/RETROPERITONEUM: No evidence of pneumoperitoneum or free fluid. VASCULATURE: No evidence of aortic aneurysm. Right femoral central venous catheter with tip in the co mmon iliac vein on the right. MUSCULOSKELETAL: No acute osseous abnormalities LYMPH NODES: No gross evidence for lymphadenopathy. SOFT TISSUE/ABDOMINAL WALL: Large suspected fluid collection in the back similar to prior. Fat-contai michelle left inguinal hernia. IMPRESSION: 1. Bilateral ureteral stents with tips in appropriate position. There is persistent moderate hydrone phrosis bilaterally. Dilation is similar to prior. Could represent prominent pelvocaliectasis. 2. Normal appendix with multiple appendicoliths. 3. Posterior back fluid collection unchanged from prior. Correlate with ultrasound. 4. Scattered colonic diverticulosis. 5. Appropriate placement of right femoral central venous catheter. 6. Cardiomegaly with bilateral small pleural effusions and trace pericardial effusion correlate for congestive heart failure.
[2022-09-26 11:47] LABS: Glucose,Whole Blood 208 mg/dL (70-110)
--- NOTE | 2022-09-26 12:31 | P.PN ---
Progress Note - Text Progress Note Date: 09/26/22 The patient has arf/crf with bilateral hydro. Stents were changed 3 weeks ago. He has aggressive bladder cancer[dr ahuja] and apparently needs a cystectomy which he is not a candidate for. His creatinine ast hospitalization was 2-3 now it is > 6. He has required dialysis. It is unlikely the catheters are obstructed but I will exchange them tomorrow in the remote change it may reverse his arf on crf. this has been discussed with Dr Sierra
--- NOTE | 2022-09-26 14:22 | P.PN ---
Progress Note - Text Progress Note Date: 09/26/22 Chief Complaint: Short of breath his is a 72-year-old patient, follows with Dr.S Helm. Chronic stable medical conditions include COPD, hypertension, hyperlipidemia, peripheral neuropathy, does use walker/electric wheelchair. hx of HGT1 bladder cancer, had multiple recurrences, failed BCG therapy. on oxygen 3 L, not candidate for cystectomy. Underwent TURBT on 06/07/2022, there was significant amount of tumor within the bladder, and a complete resection could not be performed. Presented for a second stage TURBT. admit to the hospital and [place] for renal failure and bilateral hydronephrosis on 04/11/22, underwent bilateral nephrostomy tube placement at [place]. CT also showed evidence of bladder cancer recurrence. hsd bilateral nephrostomy tubes and stents. 08/10/2022: Was found to large papular tumor involving the entire bilateral lateral reyez domed anterior bladder neck and multiple satellite tumors throughout the posterior bladder wall. Both nephrostomy tubes are removed. Discharged with Woodward catheter. Patient then readmitted to the [facility] on September 02 and was discharged on September 09. Computed tomography scan showed abnormal placement of nephrostomy tubes. Patient was taken to the OR by Dr. Guerra from urology and bilateral ureter double-J stents were replaced. Unit come back for enterococcus. discharged on daptomycin Patient now presents increased shortness of breath. No cough. Appetite is good. No fever no chills. Patient continued to smoke about a pack a day. Living with his girlfriend. Tired rundown. Home oxygen 3 L. Renal function from a creatinine of 3.02 up to 8.44. Hyperkalemic. Last night dialysis c atheter was placed by Dr. Gallegos. Hemodialysis was done yesterday evening and 5 L was removed. Sodium bicarbonate drip. 09/26/2022: In bed. Short of breath. Tolerating diet. Discussed with Dr. Arriaza from urology. Concern for obstruction of double-J stents. He'll probably replace the same tomorrow. Last shift patient put out 180 mL of urine. Hemoglobin 6.8. Transfuse blood. Active Medications Albuterol Sulfate (Albuterol Hfa Inhaler) 2 puff INHALATION RT-Q4H ALEX Last Admin: 09/26/22 11:36 Dose: 2 puff Budesonide/Formoterol Fumarate (Symbicort 160-4.5 Mcg Inhaler) 2 puff INHALATION RT-BID [facility] Last Admin: 09/26/22 08:00 Dose: 2 puff Carvedilol (Carvedilol 12.5 Mg Tab) 12.5 mg PO AC-BID [facility] Last Admin: 09/26/22 05:40 Dose: 12.5 mg Clotrimazole (Clotrimazole 1% Cream 30 Gm Tube) 1 applic TOPICAL DAILY PRN PRN Reason: FEET Heparin Sodium (Porcine) (Heparin Sodium,Porcine/Pf 5,000 Unit/0.5 Ml Syringe) 5,000 unit SQ Q8HR [facility] Last Admin: 09/26/22 08:07 Dose: 5,000 unit Sodium Bicarbonate 150 ml/ (Dextrose/Water) 1,150 mls @ 100 mls/hr IV .[id number] [facility] Last Admin: 09/26/22 05:39 Dose: 100 mls/hr Piperacillin Sod/Tazobactam (Sod 3.375 gm/ Sodium Chloride) 100 mls @ 25 mls/hr IVPB Q12HR [facility]; Protocol Stop: 09/29/22 00:01 Last Admin: 09/26/22 08:08 Dose: 25 mls/hr Anidulafungin 100 mg/ Sodium (Chloride) 130 mls @ 84 mls/hr IVPB DAILY@2000 [facility]; Protocol Insulin Aspart (Insulin Aspart (Novolog) 100 Unit/Ml Vial) 5 unit SQ AC-TID [facility] Last Admin: 09/26/22 12:50 Dose: 5 unit Insulin Detemir (Insulin Detemir (Levemir) 100 Unit/Ml Syr) 20 unit SQ HS [facility] Last Admin: 09/25/22 20:47 Dose: 20 unit Loperamide HCl (Loperamide 2 Mg Cap) 2 mg PO Q6H PRN PRN Reason: Loose Stool Methylprednisolone Sodium Succinate (Methylprednisolone Sod Succi 40 Mg/Ml 1 Ml Vial) 40 mg IV Q12HR [facility] Last Admin: 09/26/22 08:07 Dose: 40 mg Miscellaneous Information (Pneumonia Protocol Utilized 1 Each Misc) 1 each PO ONCE PRN PRN Reason: Per Protocol Naloxone HCl (Naloxone 0.4 Mg/Ml 1 Ml Vial) 0.2 mg IV Q2M PRN PRN Reason: Opioid Reversal Pantoprazole Sodium (Pantoprazole 40 Mg Tablet) 40 mg PO AC-BID [facility] Last Admin: 09/26/22 05:40 Dose: 40 mg Pravastatin Sodium (Pravastatin Sodium 20 Mg Tab) 20 mg PO [facility] Last Admin: 09/25/22 20:47 Dose: 20 mg Pyridoxine HCl (Pyridoxine 50 Mg Tab) 100 mg PO DAILY [facility] Last Admin: 09/26/22 08:07 Dose: 100 mg Tamsulosin HCl (Tamsulosin 0.4 Mg Cap.Er.24h) 0.4 mg PO [facility] Last Admin: 09/25/22 20:47 Dose: 0.4 mg Theophylline (Theophylline 24 Hour 300 Mg Cap.Er.24h) 600 mg PO [facility] Last Admin: 09/25/22 22:32 Dose: Not Given Tiotropium [place] (Tiotropium 2.5 Mcg Inhaler) 2 puff INHALATION RT-DAILY [facility] Last Admin: 09/26/22 08:00 Dose: 2 puff Past medical history to include: COPD, hypertension, hyperlipidemia, peripheral neuropathy, bladder cancer Social history: Long-standing smoker , currently 1 pack a day. girlfriend at home. Does use a electric wheelchair and a walker. Physical examination: VITAL SIGNS: 97.5, 67, 17, 1 28 x 63, 99% on 3 L GENERAL: Reclining, comfortable EYES: Pupils equal. Conjunctiva pale HEENT: External appearance of nose and ears normal, oral cavity grossly normal. NECK: JVD not raised; masses not palpable. HEART: First and second heart sounds are normal; no edema. LUNGS: Respiratory rate increased, decreased breath sounds ABDOMEN: Soft, nontender, liver spleen not palpable, no masses palpable. Woodward catheter PSYCH: Answering questions appropriately MUSCULOSKELETAL:No Clubbing/cyanosis;muscles-grossly intact. OA . INVESTIGATIONS, reviewed in the clinical context: CT abdomen pelvis: Bilaterally after stents with tips in appropriate position. Persistent moderate hydronephrosis bilaterally. Scattered colonic diverticulosis. Cardiomegaly 09/26/2022: White count 12.2 hemoglobin 6.8 platelets 128 potassium 5.1 BUN 48.5 creatinine 5.3 CRP 9.6 Penis Doppler: Negative for DVT bilateral Chest x-ray film personally reviewed by me-hyperinflated. Right basilar infiltrate EKG tracing personally reviewed by me-sinus tachycardia. Nonspecific T-wave changes. 09/25/2022: White count 9.9 hemoglobin 8 platelets 160L5 0.3 BUN 68 creatinine 6.34 09/24/2022: White count 13.3 hemoglobin 8.7 platelets 219 potassium 7 BUN 94 creatinine 8.44 Previous labs 09/15/2022: Potassium 4.4 BUN 34 creatinine 3.02 Assessment and plan: -Acute severe COPD exacerbation in a current smoker Proventil 2 puffs every 4. [DuoNeb short ] Symbicort. IV Solu-Medrol 40 mg every 12. Theophylline 600 mg daily at bedtime -Right lower lobe pneumonia. Suspect gram-negative organism. IV Zosyn -Acute hypoxic respiratory failure from pneumonia COPD exacerbation on presentation Initially requiring BiPAP. Now down to 3 L -Chronic hypoxic respiratory failure from underlying COPD 3 dose of oxygen at home -Bilateral double-J stent ureter -Severe hyperkalemia secondary to renal failure: Better Insulin, bicarbonate, Ventolin, renal diet. Follow with nephrology -Acute severe kidney injury, obstructive ureter patient has bilateral J stent ureter.- recent manipulation. aggressive recurrent bladder tumor Possible replacement of bilateral J stent. -Normocytic anemia, likely from anemia of chronic disease, symptomatic, tired Transfuse 1 unit PRBC -Urinary bladder and recurrent papillary tumor.: Recurrent Has had repeated bladder tumor resection. Follow with urology -Diabetes mellitus type II, chronically on insulin, Levemir 20 units subcu bedtime Follow Accu-Chek -Hyperlipidemia Pravachol -Essential hypertension Coreg -Chronic nicotine dependence, cigarette smoker Nicotine patch 21 -DO NOT RESUSCITATE Continue hemodialysis. 4 bilateral double-J ureteral stent replacement tomorro w. Transfuse 1 unit of blood. Discussed with patient. Dr. Arriaza
--- NOTE | 2022-09-26 15:07 | P.PN ---
Subjective Progress Note Date: 09/26/22 Follow-up for acute kidney injury. Had dialysis [id number] on Tuesday and Tuesday. Still minimal urine output. No nausea vomiting or diarrhea. Objective - Vital Signs Vital signs: Vital Signs Temp 97.5 F L 09/26/22 08:00 Pulse 67 09/26/22 08:00 Resp 17 09/26/22 08:00 BP 128/63 09/26/22 08:00 Pulse Ox 99 09/26/22 08:00 FiO2 40 09/25/22 04:26 Intake & Output 09/25/22 09/26/22 09/26/22 18:59 06:59 18:59 Intake Total 1200 Output Total 2340 140 Balance -1140 -140 Intake: IV 900 Dextrose 5% in Water 1, 900 000 ml @ 100 mls/hr IV . [id number] ALEX with Sodium Bicarb (1 Meq/ml) 150 ml Rx#:[id number] Hemodialysis 300 Output: Urine 40 140 Hemodialysis 2300 Other: Voiding Method Indwelling Catheter Indwelling Catheter Indwelling Catheter - Exam No acute distress S1-S2 heard Decreased breath sounds Abdomen soft No edema - Labs CBC & Chem 7: 09/26/22 06:35 09/26/22 06:35 Labs: Abnormal Lab Results - Last 24 Hours (Table) 09/25/22 09/25/22 09/26/22 Range/Units 16:20 20:48 05:34 WBC (4.50-10.00) X 10*3/uL RBC (4.40-5.60) X 10*6/uL Hgb (13.0-17.0) g/dL Hct (39.6-50.0) % MCHC (32.0-37.0) g/dL RDW (11.5-14.5) % Plt Count (140-440) X 10*3/uL Plt Count Comment Immature Gran # (0.00-0.04) X 10*3/uL Neutrophils # (1.80-7.70) X 10*3/uL Lymphocytes # (0.90-5.00) X 10*3/uL Eosinophils # (0.04-0.35) X 10*3/uL Carbon Dioxide (20.0-27.5) mmol/L Anion Gap (10.00-18.00) mmol/L BUN (9.0-27.0) mg/dL Creatinine (0.6-1.5) mg/dL Est GFR (CKD-EPI)AfAm (60.0-200.0) Est GFR (CKD-EPI)NonAf (60.0-200.0) BUN/Creatinine Ratio (12.00-20.00) Ratio Glucose (70-110) mg/dL POC Glucose (mg/dL) 260 H 285 H 264 H (70-110) mg/dL Calcium (8.7-10.3) mg/dL C-Reactive Protein (0.00-0.80) mg/dL Crossmatch 09/26/22 09/26/22 09/26/22 Range/Units 06:35 06:35 11:42 WBC 12.21 H (4.50-10.00) X 10*3/uL RBC 2.49 L (4.40-5.60) X 10*6/uL Hgb 6.8 L* (13.0-17.0) g/dL Hct 22.7 L (39.6-50.0) % MCHC 30.0 L (32.0-37.0) g/dL RDW 16.3 H (11.5-14.5) % Plt Count 128 L (140-440) X 10*3/uL Plt Count Comment DECREASED A Immature Gran # 0.17 H (0.00-0.04) X 10*3/uL Neutrophils # 11.01 H (1.80-7.70) X 10*3/uL Lymphocytes # 0.61 L (0.90-5.00) X 10*3/uL Eosinophils # 0.02 L (0.04-0.35) X 10*3/uL Carbon Dioxide 27.7 H (20.0-27.5) mmol/L Anion Gap 9.70 L (10.00-18.00) mmol/L BUN 48.5 H (9.0-27.0) mg/dL Creatinine 5.3 H (0.6-1.5) mg/dL Est GFR (CKD-EPI)AfAm 11.7 L (60.0-200.0) Est GFR (CKD-EPI)NonAf 10.1 L (60.0-200.0) BUN/Creatinine Ratio 9.24 L (12.00-20.00) Ratio Glucose 229 H (70-110) mg/dL POC Glucose (mg/dL) (70-110) mg/dL Calcium 7.0 L (8.7-10.3) mg/dL C-Reactive Protein 9.60 H (0.00-0.80) mg/dL Crossmatch See Detail 09/26/22 Range/Units 11:46 WBC (4.50-10.00) X 10*3/uL RBC (4.40-5.60) X 10*6/uL Hgb (13.0-17.0) g/dL Hct (39.6-50.0) % MCHC (32.0-37.0) g/dL RDW (11.5-14.5) % Plt Count (140-440) X 10*3/uL Plt Count Comment Immature Gran # (0.00-0.04) X 10*3/uL Neutrophils # (1.80-7.70) X 10*3/uL Lymphocytes # (0.90-5.00) X 10*3/uL Eosinophils # (0.04-0.35) X 10*3/uL Carbon Dioxide (20.0-27.5) mmol/L Anion Gap (10.00-18.00) mmol/L BUN (9.0-27.0) mg/dL Creatinine (0.6-1.5) mg/dL Est GFR (CKD-EPI)AfAm (60.0-200.0) Est GFR (CKD-EPI)NonAf (60.0-200.0) BUN/Creatinine Ratio (12.00-20.00) Ratio Glucose (70-110) mg/dL POC Glucose (mg/dL) 208 H (70-110) mg/dL Calcium (8.7-10.3) mg/dL C-Reactive Protein (0.00-0.80) mg/dL Crossmatch Microbiology - Last 24 Hours (Table) 09/24/22 17:00 Urine Culture - Final Urine,Catheterized 09/24/22 16:00 Blood Culture Gram Stain - Preliminary Blood Yeast species 09/24/22 16:00 Blood Culture Gram Stain - Preliminary Blood Yeast species 09/24/22 16:15 Blood Culture - Final Blood 09/24/22 16:00 Blood Culture - Final Blood Assessment and Plan Assessment: #1 acute kidney injury suspect obstructive uropathy with bladder cancer. -Baseline creatinine 3.2 MG per DL. -Urine analysis hematuria with pyuria. 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 #2 hemodialysis yesterday, next treatment on Tuesday. #[address] abdomen consistent with hydronephrosis. #3 urology input appreciated, planning for stent exchange tomorrow. #4 daily renal labs.
[2022-09-26 16:52] LABS: Glucose,Whole Blood 379 mg/dL (70-110)
[2022-09-26 20:43] LABS: Glucose,Whole Blood 434 mg/dL (70-110)
--- NOTE | 2022-09-26 20:56 | P.CONS ---
History of Present Illness - Reason for Consult Consult date: 09/26/22 Positive blood culture Requesting physician: Manan Sierra - Chief Complaint Increasing shortness of breath x few days - History of Present Illness Patient is a 72-year male with a past medical history significant for bladder cancer in this patient also have a history of COPD diabetes mellitus hypertension hyperlipidemia pneumonia patient recently admitted to [facility] urinary retention in this patient who did have bilateral nephrostomy tube placed and antegrade stents patient was subsequently admitted to this hospital noticed to have misplacement of those antegrade stents which was exchanged at this facility patient also have a VRE urinary tract infection at that point patient did get a midline and was advised a 10-day course of daptomycin on discharge which apparently the patient has completed patient has not been brought back to [facility] ER for evaluation of difficulty breathing apparently has been getting worse for the last day or 2 patient did have mild cough no significant purulent sputum or chest pain patient denies having any nausea no vomiting no abdominal pain or any diarrhea on presentation to the hospital patient was afebrile and no fever has been recorded subsequently patient did not have significant hypoxemia however currently on ventilator nasal cannula. White count 13.3 with left shift, patient was noted to have significant elevated BUN and creatinine, liver enzymes are normal urine has been positive influenza RSV and COVID testing was negative patient did have a emergent dialysis catheter placement and the patient has been dialyzed patient blood cultures coming back with a yeast patient is that has prompted this infectious disease consultation patient was started on Eraxis last evening pend ing evaluation this morning. On today's evaluation that is 09/26/2022, the patient denies having any fever or any chills patient is breathing slightly comfortably today denies having any chest pain no significant cough or sputum production some nausea but no vomiting no abdominal pain or any diarrhea Review of Systems Positive point has been mentioned in the HPI rest of the systems are negative Past Medical History Past Medical History: Asthma, Cancer, COPD, Diabetes Mellitus, Hyperlipidemia, Hypertension, Pneumonia Additional Past Medical History / Comment(s): Oxygen 3 L/NC prn., peripheral neuropathy hands & feet., bladder cancer with surgery x10 (no chemo or radiation tx.)., currently has nephrostomy tubes in his back ., hx renal failure with hydronephrosis., uses walker ,cane & electric wheelchair., states hospitalized at [facility] in May for Covid & kidney infection and received 1 pint of blood. History of Any Multi-Drug Resistant Organisms: VRE Year Discovered:: 09/02/22 MDRO Source:: Urine Past Surgical History: Bladder Surgery, Heart Catheterization Additional Past Surgical History / Comment(s): raman cataracts, TUR bladder tumor x 10., heart cath at [facility] on [place] (october 2015) Past Anesthesia/Blood Transfusion Reactions: No Reported Reaction Additional Past Anesthesia/Blood Transfusion Reaction / Comm: states he was weak after surgery and fell when he got home. Past Psychological History: No Psychological Hx Reported Additional Psychological History / Comment(s): . Smoking Status: Current every day smoker Past Alcohol Use History: Rare Additional Past Alcohol Use History / Comment(s): reports he has not smoked in 4 years. Past Drug Use History: None Reported - Past Family History Mother Family Medical History: Cancer Additional Family Medical History / Comment(s): . Medications and Allergies Home Medications Medication Instructions Recorded Confirmed Type Pravastatin Sodium [Pravachol] 20 mg PO HS 10/11/17 09/24/22 History carvediloL [Coreg] 12.5 mg PO BID 10/11/17 09/24/22 History Tamsulosin [Flomax] 0.4 mg PO HS 05/14/19 09/24/22 History Albuterol Sulfate [Albuterol 2 puff PO RT-Q4H PRN 09/12/20 09/24/22 History Sulfate Hfa] Theophylline Anhydrous 300 mg PO BID 07/15/22 09/24/22 History [Theophylline ER] Ammonium Lactate Lotion 1 applic TOPICAL BID PRN 09/02/22 09/24/22 History [Lac-Hydrin 12% Lotion] Ketoconazole 2% Cream [Nizoral 2%] 1 applic TOPICAL DAILY PRN 09/02/22 09/24/22 History Ondansetron [Zofran] 4 mg PO Q8HR PRN 09/02/22 09/24/22 History polyethylene glycoL 3350 [Miralax] 17 gm PO DAILY PRN packet 09/15/22 09/24/22 Rx Fluticasone Propion/Salmeterol 1 puff INHALATION RT-BID 09/24/22 09/24/22 History [Advair 500-50 Diskus] Insulin Glargine,Hum.rec.anlog 20 units SQ HS 09/24/22 09/24/22 History [Lantus Solostar Pen] Insulin Lispro [humaLOG Kwikpen] 5 unit SQ AC-TID 09/24/22 09/24/22 History Loperamide [Imodium] 2 mg PO Q6H PRN 09/24/22 09/24/22 History Pantoprazole Sodium [Protonix] 40 mg PO BID 09/24/22 09/24/22 History Pyridoxine HCl (Vitamin B6) 100 mg PO DAILY 09/24/22 09/24/22 History [Vitamin B-6] Tiotropium 2.5 Mcg/Puff [Spiriva 2 puff INHALATION RT-DAILY PRN 09/24/22 09/24/22 History Respimat 2.5 Mcg] Allergies Allergy/AdvReac Type Severity Reaction Status Date / Time No Known Allergies Allergy Verified 09/24/22 14:13 Physical Exam Vitals: Vital Signs Temp Pulse Pulse Resp BP BP Pulse Ox 09/26/22 08:00 97.5 F L 67 17 128/63 99 09/26/22 05:39 70 149/77 09/26/22 02:00 97.3 F L 75 18 106/61 95 09/25/22 21:35 72 17 09/25/22 20:07 97.3 F L 72 17 120/70 99 09/25/22 18:06 97.7 F 78 18 128/72 09/25/22 18:02 75 12 128/72 96 09/25/22 13:32 82 14 118/56 92 L 09/25/22 10:00 72 14 130/64 96 Intake and Output 09/25/22 09/26/22 09/26/22 22:59 06:59 14:59 Intake Total 1200 Output Total 2380 100 Balance -1180 -100 Intake: IV 900 Dextrose 5% in Water 1, 900 000 ml @ 100 mls/hr IV . [id number] ALEX with Sodium Bicarb (1 Meq/ml) 150 ml Rx#:[id number] Hemodialysis 300 Output: Urine 80 100 Hemodialysis 2300 Other: Voiding Method Indwelling Catheter Indwelling Catheter GENERAL DESCRIPTION: Elderly male lying in bed, no distress. No tachypnea or accessory muscle of respiration use. HEENT: Shows Pallor , no scleral icterus. Oral mucous membrane is dry. No pharyngeal erythema or thrush NECK: Trachea central, no thyromegaly. LUNGS: Unlabored breathing. Decreased breath sound at the base. No wheeze or crackle. HEART: S1, S2, regular rate and rhythm. No loud murmur ABDOMEN: Soft, no tenderness , guarding or rigidity, no organomegaly EXTREMITIES: No edema of feet. SKIN: No rash, no masses palpable. NEUROLOGICAL: The patient is awake, alert, oriented x3, mood and affect normal. Results CBC & Chem 7: 09/27/22 08:00 09/29/22 08:18 Labs: Abnormal Lab Results - Last 24 Hours (Table) 09/25/22 09/25/22 09/25/22 Range/Units 12:37 16:20 20:48 Carbon Dioxide (20.0-27.5) mmol/L Anion Gap (10.00-18.00) mmol/L BUN (9.0-27.0) mg/dL Creatinine (0.6-1.5) mg/dL Est GFR (CKD-EPI)AfAm (60.0-200.0) Est GFR (CKD-EPI)NonAf (60.0-200.0) BUN/Creatinine Ratio (12.00-20.00) Ratio Glucose (70-110) mg/dL POC Glucose (mg/dL) 318 H 260 H 285 H (70-110) mg/dL Calcium (8.7-10.3) mg/dL C-Reactive Protein (0.00-0.80) mg/dL 09/26/22 09/26/22 Range/Units 05:34 06:35 Carbon Dioxide 27.7 H (20.0-27.5) mmol/L Anion Gap 9.70 L (10.00-18.00) mmol/L BUN 48.5 H (9.0-27.0) mg/dL Creatinine 5.3 H (0.6-1.5) mg/dL Est GFR (CKD-EPI)AfAm 11.7 L (60.0-200.0) Est GFR (CKD-EPI)NonAf 10.1 L (60.0-200.0) BUN/Creatinine Ratio 9.24 L (12.00-20.00) Ratio Glucose 229 H (70-110) mg/dL POC Glucose (mg/dL) 264 H (70-110) mg/dL Calcium 7.0 L (8.7-10.3) mg/dL C-Reactive Protein 9.60 H (0.00-0.80) mg/dL Microbiology - Last 24 Hours (Table) 09/24/22 16:00 Blood Culture Gram Stain - Preliminary Blood Yeast species 09/24/22 16:00 Blood Culture Gram Stain - Preliminary Blood Yeast species 09/24/22 16:15 Blood Culture - Final Blood 09/24/22 16:00 Blood Culture - Final Blood Assessment and Plan (1) Candidemia Current Visit: Yes Status: Acute Code(s): B37.7 - CANDIDAL SEPSIS SNOMED Code(s): 311759256 Plan: 1patient with a positive blood culture with yeast source is likely complicated UTI in this patient who did have history of bladder cancer bilateral hydronephrosis requiring nephrostomy tube which has been discontinued recent antegrade ureteral stent which were replaced on last admission at that point the patient did have a VRE UTI for which the patient has completed daptomycin therapy. 2blood culture has been repeated to document clearance of his fungemia 3we will follow results of the CT abdominal pelvis and check inflammatory mar kers 4patient to continue with Eraxis Family at the bedside questions were answered We will follow on clinical condition and cultures to further adjust medication if needed Thank you for this consultation we will follow the patient along with you Time with Patient: Greater than 30
[2022-09-26] MEDS ORDERED: INSULIN ASPART (NovoLOG) 100 UNIT/ML VIAL SQ ONE (20:59)
[2022-09-26] MEDS: THEOPHYLLINE 24 HOUR 300 MG CAP.ER.24H PO SCH (21:00)
[2022-09-26] MEDS: INSULIN DETEMIR (LEVEMIR) 100 UNIT/ML SYR SQ SCH (21:17)
[2022-09-26] MEDS: PRAVASTATIN SODIUM 20 MG TAB PO SCH (21:18)
[2022-09-26] MEDS: TAMSULOSIN 0.4 MG CAP.ER.24H PO SCH (21:18)
[2022-09-26] MEDS: ANIDULAFUNGIN 100 MG in SODIUM CHLORIDE 0.9% 100 ML IVPB SCH (21:25)
[2022-09-27] MEDS: HEPARIN SODIUM,PORCINE/PF 5,000 UNIT/0.5 ML SYRINGE SQ SCH ×4 (00:07→23:39)
[2022-09-27] MEDS: DEXTROSE 5% IN WATER 1,000 ML with SODIUM BICARB (1 MEQ/ML) 150 ML IV SCH ×2 (01:00→09:56)
[2022-09-27] MEDS: carvediloL 12.5 MG TAB PO SCH ×2 (04:23→17:12)
[2022-09-27] MEDS: PANTOPRAZOLE 40 MG TABLET PO SCH ×2 (04:23→17:13)
[2022-09-27] MEDS: ALBUTEROL HFA INHALER INHALATION SCH ×6 (04:54→23:55)
[2022-09-27 06:03] LABS: Glucose,Whole Blood 193 mg/dL (70-110)
[2022-09-27 08:13] LABS: Basophils % (A) 0 %; Eosinophils # (A) 0.2 k/uL (0-0.7); Eosinophils % (A) 1 %; HCT 29.9 % (39.0-53.0); HGB 9.2 gm/dL (13.0-17.5); Hypochromasia Slight; Lymphocytes # (A) 0.5 k/uL (1.0-4.8); Lymphocytes % (A) 4 %; MCH 28.5 pg (25.0-35.0); MCHC 30.8 g/dL (31.0-37.0); MCV 92.5 fL (80.0-100.0); Mean Platelet Volume 10.2; Monocytes # (A) 0.3 k/uL (0-1.0); Monocytes % (A) 3 %; Neutrophils # (A) 11.5 k/uL (1.3-7.7); Neutrophils % (A) 91 %; Platelet Count 127 k/uL (150-450); RBC 3.23 m/uL (4.30-5.90); RDW 15.5 % (11.5-15.5); WBC 12.7 k/uL (3.8-10.6)
[2022-09-27 08:55] LABS: African American GFR (CKD) 12 (>60 ml/min/1.73 sqM); Anion Gap 8 mmol/L; Blood Urea Nitrogen 65 mg/dL (9-20); Calcium 6.6 mg/dL (8.4-10.2); Carbon Dioxide 28 mmol/L (22-30); Chloride 97 mmol/L (98-107); Glucose 157 mg/dL (74-99); Non-African American GFR(CKD) 10 (>60 ml/min/1.73 sqM); Potassium 5.6 mmol/L (3.5-5.1); Sodium 133 mmol/L (137-145)
[2022-09-27] MEDS: SYMBICORT 160-4.5 MCG INHALER INHALATION SCH ×2 (09:08→20:28)
[2022-09-27] MEDS: TIOTROPIUM 2.5 MCG INHALER INHALATION SCH (09:08)
[2022-09-27] MEDS ORDERED: SODIUM POLYSTYRENE SULFONATE 15 GM/60 ML BOTTLE PO STA (09:14)
[2022-09-27 09:39] LABS: Hepatitis B Surface AB- Quant 3.5 mIU/mL; Hepatitis B Surface Antibody Nonreactive (Nonreactive)
[2022-09-27] MEDS: INSULIN ASPART (NovoLOG) 100 UNIT/ML VIAL SQ SCH ×7 (10:09→21:49)
[2022-09-27] MEDS: PIPERACILLIN-TAZOBACTAM 3.375 GM in SODIUM CHLORIDE 0.9% 100 ML IVPB SCH ×2 (10:10→21:59)
[2022-09-27] MEDS: methylPREDNISolone SOD SUCCI 40 MG/ML 1 ML VIAL IV SCH ×2 (10:10→21:49)
[2022-09-27] MEDS ORDERED: MIDAZOLAM 2 MG/2 ML VIAL ONE (11:09)
[2022-09-27] MEDS ORDERED: PROPOFOL 10 MG/ML 20 ML VIAL IV ONE (11:09)
[2022-09-27] MEDS ORDERED: KETAMINE 10 MG/ML 20 ML VIAL ONE (11:09)
[2022-09-27] MEDS ORDERED: IV FLUID CONTINUATION 1,000 ML IV ONE (11:14)
[2022-09-27] MEDS ORDERED: SODIUM CHLORIDE 0.9% 1,000 ML IV ONE (11:15)
--- NOTE | 2022-09-27 11:36 | P.PN ---
Subjective Progress Note Date: 09/27/22 Principal diagnosis: Candidemia Patient is a 72-year old male with a past medical history significant for bladder cancer in this patient also have a history of COPD diabetes mellitus hypertension hyperlipidemia, did have a aggressive that her cancer with bilateral hydronephrosis requiring nephrostomy tubes and symptoms although subsequently removed and did have a antegrade ureteral stents which were exchanged at this facility on 09/03/2022 patient presented to hospital with worsening kidney function and also have a positive blood culture with yeast. On today's evaluation that is 09/27/2022, the patient denies having any fever or any chills, the patient is currently breathing comfortably on 3 L nasal cannula denies any chest pain or cough no abdominal pain no diarrhea Objective - Vital Signs Vital signs: Vital Signs Temp 99.1 F 09/27/22 07:11 Pulse 84 09/27/22 07:11 Resp 16 09/27/22 07:11 BP 152/94 09/27/22 07:11 Pulse Ox 97 09/27/22 09:08 FiO2 40 09/27/22 04:52 Intake & Output 09/26/22 09/27/22 09/27/22 18:59 06:59 18:59 Intake Total 282 Output Total 150 Balance 132 Weight 88.5 kg Intake: Blood Product 282 Rc Pheresis 2 As3 Unit 282 [id number] Output: Urine 150 Other: Voiding Method Indwelling Catheter Indwelling Catheter Indwelling Catheter - Exam GENERAL DESCRIPTION: An elderly male lying in bed in no distress RESPIRATORY SYSTEM: Unlabored breathing , decreased breath sounds at bases HEART: S1 S2 regular rate and rhythm , ABDOMEN: Soft , no tenderness EXTREMITIES: No edema feet - Labs CBC & Chem 7: 09/27/22 08:00 09/27/22 08:00 Labs: Abnormal Lab Results - Last 24 Hours (Table) 09/26/22 09/26/22 09/26/22 Range/Units 06:35 11:42 11:46 WBC 12.21 H (4.50-10.00) X 10*3/uL RBC 2.49 L (4.40-5.60) X 10*6/uL Hgb 6.8 L* (13.0-17.0) g/dL Hct 22.7 L (39.6-50.0) % MCHC 30.0 L (32.0-37.0) g/dL RDW 16.3 H (11.5-14.5) % Plt Count 128 L (140-440) X 10*3/uL Plt Count Comment DECREASED A Immature Gran # 0.17 H (0.00-0.04) X 10*3/uL Neutrophils # 11.01 H (1.80-7.70) X 10*3/uL Lymphocytes # 0.61 L (0.90-5.00) X 10*3/uL Eosinophils # 0.02 L (0.04-0.35) X 10*3/uL Sodium (137-145) mmol/L Potassium (3.5-5.1) mmol/L Chloride (98-107) mmol/L BUN (9-20) mg/dL Creatinine (0.66-1.25) mg/dL Glucose (74-99) mg/dL POC Glucose (mg/dL) 208 H (70-110) mg/dL Calcium (8.4-10.2) mg/dL Crossmatch See Detail 09/26/22 09/26/22 09/27/22 Range/Units 16:51 20:40 06:01 WBC (4.50-10.00) X 10*3/uL RBC (4.40-5.60) X 10*6/uL Hgb (13.0-17.0) g/dL Hct (39.6-50.0) % MCHC (32.0-37.0) g/dL RDW (11.5-14.5) % Plt Count (140-440) X 10*3/uL Plt Count Comment Immature Gran # (0.00-0.04) X 10*3/uL Neutrophils # (1.80-7.70) X 10*3/uL Lymphocytes # (0.90-5.00) X 10*3/uL Eosinophils # (0.04-0.35) X 10*3/uL Sodium (137-145) mmol/L Potassium (3.5-5.1) mmol/L Chloride (98-107) mmol/L BUN (9-20) mg/dL Creatinine (0.66-1.25) mg/dL Glucose (74-99) mg/dL POC Glucose (mg/dL) 379 H 434 H 193 H (70-110) mg/dL Calcium (8.4-10.2) mg/dL Crossmatch 09/27/22 09/27/22 Range/Units 08:00 08:00 WBC 12.7 H (4.50-10.00) X 10*3/uL RBC 3.23 L (4.40-5.60) X 10*6/uL Hgb 9.2 L (13.0-17.0) g/dL Hct 29.9 L (39.6-50.0) % MCHC 30.8 L (32.0-37.0) g/dL RDW (11.5-14.5) % Plt Count 127 L (140-440) X 10*3/uL Plt Count Comment Immature Gran # (0.00-0.04) X 10*3/uL Neutrophils # 11.5 H (1.80-7.70) X 10*3/uL Lymphocytes # 0.5 L (0.90-5.00) X 10*3/uL Eosinophils # (0.04-0.35) X 10*3/uL Sodium 133 L (137-145) mmol/L Potassium 5.6 H (3.5-5.1) mmol/L Chloride 97 L (98-107) mmol/L BUN 65 H (9-20) mg/dL Creatinine 5.25 H (0.66-1.25) mg/dL Glucose 157 H (74-99) mg/dL POC Glucose (mg/dL) (70-110) mg/dL Calcium 6.6 L (8.4-10.2) mg/dL Crossmatch Microbiology - Last 24 Hours (Table) 09/26/22 06:35 Blood Culture - Preliminary Blood No Growth after 24 hours 09/24/22 17:00 Urine Culture - Final Urine,Catheterized Assessment and Plan (1) Candidemia Current Visit: Yes Status: Acute Code(s): B37.7 - CANDIDAL SEPSIS SNOMED Code(s): 858260877 (2) UTI (urinary tract infection) Current Visit: No Status: Acute Code(s): N39.0 - URINARY TRACT INFECTION, SITE NOT SPECIFIED SNOMED Code(s): 21287533 Plan: 1patient with a positive blood culture with yeast source is likely complicated UTI in this patient who did have history of bladder cancer bilateral h ydronephrosis requiring nephrostomy tube which has been discontinued recent antegrade ureteral stent which were replaced on last admission at that point the patient did have a VRE UTI for which the patient has completed daptomycin therapy. 2blood culture has been repeated to document clearance of his fungemia 3patient is scheduled for exchange of the ureteral stent this morning per urology 4patient to continue with Eraxis and monitor his clinical course closely Time with Patient: Less than 30
--- NOTE | 2022-09-27 11:51 | P.PN ---
Subjective Patient is seen in follow-up for acute kidney injury on chronic disease. Started on hemodialysis 09/24/2022. Scheduled for ureteral stent exchanges today. Also scheduled to undergo dialysis today. Denies chest pain or shortness of breath. Has a Woodward catheter. Vital signs are stable. General: No acute distress. HEENT: Head exam is unremarkable. LUNGS: No rhonchi or wheezes. HEART: Rate and Rhythm are regular. ABDOMEN: Nontender and no distention. EXTREMITITES: No edema. Objective - Vital Signs Vital signs: Vital Signs Temp 97.9 F 09/27/22 11:00 Pulse 83 09/27/22 11:00 Resp 16 09/27/22 11:00 BP 146/73 09/27/22 11:00 Pulse Ox 98 09/27/22 11:00 FiO2 40 09/27/22 04:52 Intake & Output 09/26/22 09/27/22 09/27/22 18:59 06:59 18:59 Intake Total 282 0 Output Total 150 Balance 132 0 Weight 88.5 kg Intake: IV 0 Blood Product 282 Rc Pheresis 2 As3 Unit 282 [id number] Output: Urine 150 Other: Voiding Method Indwelling Catheter Indwelling Catheter Indwelling Catheter - Labs CBC & Chem 7: 09/27/22 08:00 09/27/22 08:00 Labs: Abnormal Lab Results - Last 24 Hours (Table) 09/26/22 09/26/22 09/26/22 Range/Units 11:42 11:46 16:51 WBC (3.8-10.6) k/uL RBC (4.30-5.90) m/uL Hgb (13.0-17.5) gm/dL Hct (39.0-53.0) % MCHC (31.0-37.0) g/dL Plt Count (150-450) k/uL Neutrophils # (1.3-7.7) k/uL Lymphocytes # (1.0-4.8) k/uL Sodium (137-145) mmol/L Potassium (3.5-5.1) mmol/L Chloride (98-107) mmol/L BUN (9-20) mg/dL Creatinine (0.66-1.25) mg/dL Glucose (74-99) mg/dL POC Glucose (mg/dL) 208 H 379 H (70-110) mg/dL Calcium (8.4-10.2) mg/dL Crossmatch See Detail 09/26/22 09/27/22 09/27/22 Range/Units 20:40 06:01 08:00 WBC 12.7 H (3.8-10.6) k/uL RBC 3.23 L (4.30-5.90) m/uL Hgb 9.2 L (13.0-17.5) gm/dL Hct 29.9 L (39.0-53.0) % MCHC 30.8 L (31.0-37.0) g/dL Plt Count 127 L (150-450) k/uL Neutrophils # 11.5 H (1.3-7.7) k/uL Lymphocytes # 0.5 L (1.0-4.8) k/uL Sodium (137-145) mmol/L Potassium (3.5-5.1) mmol/L Chloride (98-107) mmol/L BUN (9-20) mg/dL Creatinine (0.66-1.25) mg/dL Glucose (74-99) mg/dL POC Glucose (mg/dL) 434 H 193 H (70-110) mg/dL Calcium (8.4-10.2) mg/dL Crossmatch 09/27/22 Range/Units 08:00 WBC (3.8-10.6) k/uL RBC (4.30-5.90) m/uL Hgb (13.0-17.5) gm/dL Hct (39.0-53.0) % MCHC (31.0-37.0) g/dL Plt Count (150-450) k/uL Neutrophils # (1.3-7.7) k/uL Lymphocytes # (1.0-4.8) k/uL Sodium 133 L (137-145) mmol/L Potassium 5.6 H (3.5-5.1) mmol/L Chloride 97 L (98-107) mmol/L BUN 65 H (9-20) mg/dL Creatinine 5.25 H (0.66-1.25) mg/dL Glucose 157 H (74-99) mg/dL POC Glucose (mg/dL) (70-110) mg/dL Calcium 6.6 L (8.4-10.2) mg/dL Crossmatch Microbiology - Last 24 Hours (Table) 09/26/22 06:35 Blood Culture - Preliminary Blood No Growth after 24 hours 09/24/22 17:00 Urine Culture - Final Urine,Catheterized Assessment and Plan Plan: Assessment: 1. Acute kidney injury secondary to ATN secondary to severe sepsis and obstructive uropathy. Creatinine 8.4 on admission. Started on hemodialysis 10/21/2022. 2. Chronic kidney disease stage IV with baseline creatinine near 3. 3. Hyperkalemia secondary to acute kidney injury and metabolic acidosis. 4. Fungemia maintained on antifungal. 5. Metabolic acidosis secondary to acute kidney injury. Improved with bicarbonate drip. 6. Acute blood loss anemia status post blood transfusion this admission. No active bleeding. Improved. 7. History of bladder cancer. Plan: Hemodialysis today. Scheduled for ureteral stent exchange today. Monitor for renal function improvement post urologic intervention. Avoid nephrotoxins. Add Aranesp. Continue to monitor renal function and urine output. Change bicarb drip to normal saline.
--- NOTE | 2022-09-27 12:13 | FL ---
Intraoperative/procedural fluoroscopic services were provided. Total fluoroscopy time is 30 seconds w ith a total of 2 submitted images to PACS. Please see the operative/procedural note for further detai ls. DAP: 4.2
--- NOTE | 2022-09-27 12:17 | P.OP ---
Date of Procedure: 09/27/22 Preoperative Diagnosis: Bilateral hydronephrosis secondary to advanced bladder cancer, acute and chronic renal failure Postoperative Diagnosis: Same Procedure(s) Performed: Cystoscopy with exchange of bilateral double-J catheters, 7 x 26 Anesthesia: MAC Surgeon: Pavel Castaneda Estimated Blood Loss (ml): 25 Pathology: none sent Condition: stable Disposition: PACU Indications for Procedure: Patient is 72. He has advanced bladder cancer with bilateral ureteral obstruction. He had stents exchanged 3-4 weeks ago. His creatinine that time was 2-3 range. He comes in and renal failure and has required dialysis. Computed tomography scan identifies persistent hydronephrosis. Lengthy discussion with the medical management team and nephrology and we decided to exchange the stents to see if that will make any difference in his renal insufficiency. Description of Procedure: Patient is brought to the operating suite. He is given IV sedation. He is prepped and draped sterilely after removing the Woodward catheter. Cystoscopy Foroblique lens 2-Norwegian sheath identifies a normal anterior urethra. The prostate shows minimal obstruction. The bladder reyez very edematous, there is multiple tumor throughout. Both stents are identified. There is tumor emanating from both ureteral orifices. The right double-J catheters grasped and pulled to the urethral meatus. Unfortunately due to poor visualization from all the edema and tumor I pulled the catheter to far orifice. I then a slower the right trigone and identify the ureteral orifice and advanced an 035 wire up into the kidney and over the wires passed a 7 x 26 double-J catheter that coils in the renal pelvis and the bladder. I do the same on the left side again it is difficult to identify the ureteral orifice. The stent falls out of the orifice of. With some search I'm able to identify the orifice and intubated with an 035 wire into the kidney. Over the wires passed a 7 x 26 double-J catheter that coils in the bladder. The cystoscope was removed. A Woodward cath was replaced a There is passed easily up into each stent. I question whether they are obstructed based on the that. We'll see how he does with the larger stents a. I discussed with the patient's brother and friend the seriousness and advanced nature of this disease with an unresectable bladder cancer bilateral hydronephrosis and renal failure. The question is this does not help him well he need to go on hospice.
[2022-09-27 12:30] LABS: Glucose,Whole Blood 110 mg/dL (70-110)
[2022-09-27] MEDS: SODIUM CHLORIDE 0.9% 1,000 ML IV SCH (13:23)
[2022-09-27] MEDS: PYRIDOXINE 50 MG TAB PO SCH (13:23)
[2022-09-27] MEDS ORDERED: DARBEPOETIN ALFA 40 MCG/0.4 ML SYRINGE SQ SCH (14:00)
[2022-09-27 16:45] LABS: Glucose,Whole Blood 253 mg/dL (70-110)
--- NOTE | 2022-09-27 17:23 | P.PN ---
Progress Note - Text Progress Note Date: 09/27/22 Chief Complaint: Short of breath his is a 72-year-old patient, follows with Dr.S Helm. Chronic stable medical conditions include COPD, hypertension, hyperlipidemia, peripheral neuropathy, does use walker/electric wheelchair. hx of HGT1 bladder cancer, had multiple recurrences, failed BCG therapy. on oxygen 3 L, not candidate for cystectomy. Underwent TURBT on 06/07/2022, there was significant amount of tumor within the bladder, and a complete resection could not be performed. Presented for a second stage TURBT. admit to the hospital and [facility] for renal failure and bilateral hydronephrosis on 04/11/22, underwent bilateral nephrostomy tube placement at [facility]. CT also showed evidence of bladder cancer recurrence. hsd bilateral nephrostomy tubes and stents. 08/10/2022: Was found to large papular tumor involving the entire bilateral lateral reyez domed anterior bladder neck and multiple satellite tumors throughout the posterior bladder wall. Both nephrostomy tubes are removed. Discharged with Woodward catheter. [facility] discharged on September 09. Computed tomography scan showed abnormal placement of nephrostomy tubes. Patient was taken to the OR by Dr. Guerra from urology and bilateral ureter double-J stents were replaced. Unit come back for enterococcus. discharged on daptomycin Patient now presents increased shortness of breath. No cough. Appetite is good. No fever no chills. Patient continued to smoke about a pack a day. Living with his girlfriend. Tired rundown. Home oxygen 3 L. Renal function from a creatinine of 3.02 up to 8.44. Hyperkalemic. Last night dialysis c atheter was placed by Dr. Gallegos. Hemodialysis was done yesterday evening and 5 L was removed. Sodium bicarbonate drip. 09/26/2022: In bed. Short of breath. Tolerating diet. Discussed with Dr. Arriaza from urology. Concern for obstruction of double-J stents. He'll probably replace the same tomorrow. Last shift patient put out 180 mL of urine. Hemoglobin 6.8. Transfuse blood. 09/27/2022: Patient had bilateral double-J stent replaced today by Dr. Arriaza. Significant tumor burden encountered in the bladder. Discussed with the patient and this brother the bedside. Prognosis guarded. We'll see how urine output goes. Getting dialysis. Discussed the etiology about possibility of nephrostomy tube as the double-J stent placed today was also slowly but surely block after tubes. The nephrostomy tube may be palliative. I do not think patient is a good compliant candidate for dialysis. Discussed with Dr. Ny. Breathing a bit better. Active Medications Albuterol Sulfate (Albuterol Hfa Inhaler) 2 puff INHALATION RT-Q4H [facility] Last Admin: 09/27/22 15:51 Dose: 2 puff Budesonide/Formoterol Fumarate (Symbicort 160-4.5 Mcg Inhaler) 2 puff INHALATION RT-BID [facility] Last Admin: 09/27/22 09:08 Dose: Not Given Carvedilol (Carvedilol 12.5 Mg Tab) 12.5 mg PO AC-BID [facility] Last Admin: 09/27/22 17:12 Dose: 12.5 mg Clotrimazole (Clotrimazole 1% Cream 30 Gm Tube) 1 applic TOPICAL DAILY PRN PRN Reason: FEET Darbepoetin Brandon (Darbepoetin Brandon 40 Mcg/0.4 Ml Syringe) 40 mcg SQ Q7D [facility] Last Admin: 09/27/22 15:14 Dose: 40 mcg Heparin Sodium (Porcine) (Heparin Sodium,Porcine/Pf 5,000 Unit/0.5 Ml Syringe) 5,000 unit SQ Q8HR [facility] Last Admin: 09/27/22 17:12 Dose: 5,000 unit Piperacillin Sod/Tazobactam (Sod 3.375 gm/ Sodium Chloride) 100 mls @ 25 mls/hr IVPB Q12HR [facility]; Protocol Stop: 09/29/22 00:01 Last Admin: 09/27/22 10:10 Dose: 25 mls/hr Anidulafungin 100 mg/ Sodium (Chloride) 130 mls @ 84 mls/hr IVPB DAILY@2000 [facility]; Protocol Last Admin: 09/26/22 21:25 Dose: 84 mls/hr Sodium Chloride (Saline 0.9%) 1,000 mls @ 75 mls/hr IV .[id number] [facility] Last Admin: 09/27/22 13:23 Dose: 75 mls/hr Insulin Aspart (Insulin Aspart (Novolog) 100 Unit/Ml Vial) 5 unit SQ AC-TID [facility] Last Admin: 09/27/22 17:12 Dose: 5 unit Insulin Aspart (Insulin Aspart (Novolog) 100 Unit/Ml Vial) 0 unit SQ [facility]; Protocol Last Admin: 09/27/22 17:13 Dose: 6 unit Insulin Detemir (Insulin Detemir (Levemir) 100 Unit/Ml Syr) 20 unit SQ [facility] Last Admin: 09/26/22 21:17 Dose: 20 unit Loperamide HCl (Loperamide 2 Mg Cap) 2 mg PO Q6H PRN PRN Reason: Loose Stool Methylprednisolone Sodium Succinate (Methylprednisolone Sod Succi 40 Mg/Ml 1 Ml Vial) 40 mg IV Q12HR [facility] Last Admin: 09/27/22 10:10 Dose: 40 mg Miscellaneous Information (Pneumonia Protocol Utilized 1 Each Misc) 1 each PO ONCE PRN PRN Reason: Per Protocol Naloxone HCl (Naloxone 0.4 Mg/Ml 1 Ml Vial) 0.2 mg IV Q2M PRN PRN Reason: Opioid Reversal Pantoprazole Sodium (Pantoprazole 40 Mg Tablet) 40 mg PO AC-BID [facility] Last Admin: 09/27/22 17:13 Dose: 40 mg Pravastatin Sodium (Pravastatin Sodium 20 Mg Tab) 20 mg PO [facility] Last Admin: 09/26/22 21:18 Dose: 20 mg Pyridoxine HCl (Pyridoxine 50 Mg Tab) 100 mg PO DAILY [facility] Last Admin: 09/27/22 13:23 Dose: 100 mg Tamsulosin HCl (Tamsulosin 0.4 Mg Cap.Er.24h) 0.4 mg PO [facility] Last Admin: 09/26/22 21:18 Dose: 0.4 mg Theophylline (Theophylline 24 Hour 300 Mg Cap.Er.24h) 600 mg PO [facility] Last Admin: 09/26/22 21:00 Dose: 600 mg Tiotropium Fence (Tiotropium 2.5 Mcg Inhaler) 2 puff INHALATION RT-DAILY [facility] Last Admin: 09/27/22 09:08 Dose: Not Given Past medical history to include: COPD, hypertension, hyperlipidemia, peripheral neuropathy, bladder cancer Social history: Long-standing smoker , currently 1 pack a day. girlfriend at home. Does use a electric wheelchair and a walker. Physical examination: VITAL SIGNS: 98.3, 82, 17, 10 7 x 70, 99% room air GENERAL: Reclining, comfortable EYES: Pupils equal. Conjunctiva pale HEENT: External appearance of nose and ears normal, oral cavity grossly normal. NECK: JVD not raised; masses not palpable. HEART: First and second heart sounds are normal; no edema. LUNGS: Respiratory rate increased, decreased breath sounds ABDOMEN: Soft, nontender, liver spleen not palpable, no masses palpable. Woodward catheter PSYCH: Answering questions appropriately MUSCULOSKELETAL:No Clubbing/cyanosis;muscles-grossly intact. OA . INVESTIGATIONS, reviewed in the clinical context: 05/30/2023: White count 12.7 hemoglobin 9.2 White count 127 potassium 5.6 BUN [address] abdomen pelvis: Bilaterally after stents with tips in appropriate position. Persistent moderate hydronephrosis bilaterally. Scattered colonic diverticulosis. Cardiomegaly 09/26/2022: White count 12.2 hemoglobin 6.8 platelets 128 potassium 5.1 BUN 48.5 creatinine 5.3 CRP 9.6 Penis Doppler: Negative for DVT bilateral Chest x-ray film personally reviewed by me-hyperinflated. Right basilar infiltrate EKG tracing personally reviewed by me-sinus tachycardia. Nonspecific T-wave changes. 09/25/2022: White count 9.9 hemoglobin 8 platelets 160L5 0.3 BUN 68 creatinine 6.34 09/24/2022: White count 13.3 hemoglobin 8.7 platelets 219 potassium 7 BUN 94 creatinine 8.44 Previous labs 09/15/2022: Potassium 4.4 BUN 34 creatinine 3.02 Assessment and plan: -Acute severe COPD exacerbation in a current smoker Proventil 2 puffs every 4. [DuoNeb short ] Symbicort. IV Solu-Medrol 40 mg every 12. Theophylline 600 mg daily at bedtime -Right lower lobe pneumonia. Suspect gram-negative organism. IV Zosyn -Acute hypoxic respiratory failure from pneumonia COPD exacerbation on presentation Initially requiring BiPAP. Now down to 3 L -Chronic hypoxic respiratory failure from underlying COPD 3 l oxygen at home -Bilateral double-J stent ureter, replaced today 09/27/[address] Arriaza -Severe hyperkalemia secondary to renal failure: Better Insulin, bicarbonate, Ventolin, renal diet. Follow with nephrology -Acute severe kidney injury, obstructive ureter patient has bilateral J stent ureter.- recent manipulation. aggressive recurrent bladder tumor Placed bilateral J stent. Dr. Arriaza 09/27/2022. -Normocytic anemia, likely from anemia of chronic disease, symptomatic, tired Received 1 unit PRBC -Urinary bladder and recurrent papillary tumor.: Recurrent progressive Increased bladder tumor burden seen on cystoscopy today. -Diabetes mellitus type II, chronically on insulin, Levemir 20 units subcu bedtime Follow Accu-Chek -Hyperlipidemia Pravachol -Essential hypertension Coreg -Chronic nicotine dependence, cigarette smoker Nicotine patch 21 -DO NOT RESUSCITATE hemodialysis. rePlaced double-J ureteral stent today. Guarded prognosis discussed with the patient, his brother, Dr. Ny. Would consider palliative nephrostomy tube. After discussing with urology. Increase tumor burden in the bladder.
[2022-09-27 20:08] LABS: Glucose,Whole Blood 152 mg/dL (70-110)
[2022-09-27] MEDS: ANIDULAFUNGIN 100 MG in SODIUM CHLORIDE 0.9% 100 ML IVPB SCH (21:48)
[2022-09-27] MEDS: PRAVASTATIN SODIUM 20 MG TAB PO SCH (21:49)
[2022-09-27] MEDS: INSULIN DETEMIR (LEVEMIR) 100 UNIT/ML SYR SQ SCH (21:49)
[2022-09-27] MEDS: TAMSULOSIN 0.4 MG CAP.ER.24H PO SCH (21:49)
[2022-09-27] MEDS: THEOPHYLLINE 24 HOUR 300 MG CAP.ER.24H PO SCH (21:59)
[2022-09-28] MEDS: SODIUM CHLORIDE 0.9% 1,000 ML IV SCH ×2 (01:06→16:38)
[2022-09-28] MEDS: ALBUTEROL HFA INHALER INHALATION SCH ×5 (05:07→20:11)
[2022-09-28 06:19] LABS: Glucose,Whole Blood 199 mg/dL (70-110)
[2022-09-28] MEDS: PANTOPRAZOLE 40 MG TABLET PO SCH ×2 (06:44→17:42)
[2022-09-28] MEDS: INSULIN ASPART (NovoLOG) 100 UNIT/ML VIAL SQ SCH ×7 (06:44→21:34)
--- NOTE | 2022-09-28 07:33 | P.PN ---
Subjective Progress Note Date: 09/28/22 post op bilateral stent change and hydronephrosis. Objective - Vital Signs Vital signs: Vital Signs Temp 97.9 F 09/28/22 02:00 Pulse 70 09/28/22 02:00 Resp 18 09/28/22 02:00 BP 114/64 09/28/22 02:00 Pulse Ox 94 L 09/28/22 02:00 FiO2 40 09/27/22 04:52 Intake & Output 09/27/22 09/28/22 09/28/22 18:59 06:59 18:59 Intake Total 1650 Output Total 1505 750 Balance 145 -750 Weight 88.5 kg 83 kg Intake: IV 900 Dextrose 5% in Water 1, 800 000 ml @ 100 mls/hr IV . [id number] ALEX with Sodium Bicarb (1 Meq/ml) 150 ml Rx#:[id number] Intake, IV Titration 250 Amount Piperacillin-Tazobactam 3 100 .375 gm In Sodium Chloride 0.9% 100 ml @ 25 mls/hr IVPB Q12HR [facility] Rx #:[id number] Sodium Chloride 0.9% 1, 150 000 ml @ 75 mls/hr IV . [id number] ALEX Rx#:[id number] Hemodialysis 500 Output: Urine 750 Hemodialysis 1500 Estimated Blood Loss 5 Other: Voiding Method Indwelling Catheter Indwelling Catheter - Labs CBC & Chem 7: 09/27/22 08:00 09/27/22 08:00 Labs: Abnormal Lab Results - Last 24 Hours (Table) 09/27/22 09/27/22 09/27/22 Range/Units 08:00 08:00 16:44 WBC 12.7 H (3.8-10.6) k/uL RBC 3.23 L (4.30-5.90) m/uL Hgb 9.2 L (13.0-17.5) gm/dL Hct 29.9 L (39.0-53.0) % MCHC 30.8 L (31.0-37.0) g/dL Plt Count 127 L (150-450) k/uL Neutrophils # 11.5 H (1.3-7.7) k/uL Lymphocytes # 0.5 L (1.0-4.8) k/uL Sodium 133 L (137-145) mmol/L Potassium 5.6 H (3.5-5.1) mmol/L Chloride 97 L (98-107) mmol/L BUN 65 H (9-20) mg/dL Creatinine 5.25 H (0.66-1.25) mg/dL Glucose 157 H (74-99) mg/dL POC Glucose (mg/dL) 253 H (70-110) mg/dL Calcium 6.6 L (8.4-10.2) mg/dL 09/27/22 09/28/22 Range/Units 20:06 06:16 WBC (3.8-10.6) k/uL RBC (4.30-5.90) m/uL Hgb (13.0-17.5) gm/dL Hct (39.0-53.0) % MCHC (31.0-37.0) g/dL Plt Count (150-450) k/uL Neutrophils # (1.3-7.7) k/uL Lymphocytes # (1.0-4.8) k/uL Sodium (137-145) mmol/L Potassium (3.5-5.1) mmol/L Chloride (98-107) mmol/L BUN (9-20) mg/dL Creatinine (0.66-1.25) mg/dL Glucose (74-99) mg/dL POC Glucose (mg/dL) 152 H 199 H (70-110) mg/dL Calcium (8.4-10.2) mg/dL Microbiology - Last 24 Hours (Table) 09/26/22 06:35 Blood Culture Gram Stain - Preliminary Blood 09/24/22 16:00 Blood Culture Gram Stain - Final Blood Yeast species Blood Culture - Final Rhonda guilliermondii 09/24/22 16:00 Blood Culture Gram Stain - Final Blood Yeast species Blood Culture - Final Rhonda guilliermondii 09/26/22 06:35 Blood Culture - Final Blood Assessment and Plan Assessment: Impression: Cysto with exchange of bilateral cath. Urine bloody due to manipulation plus alot of persistent ca bladder. Plan: We will see if the cath change affects his creatinine.
[2022-09-28] MEDS: methylPREDNISolone SOD SUCCI 40 MG/ML 1 ML VIAL IV SCH ×2 (08:21→21:35)
[2022-09-28] MEDS: PYRIDOXINE 50 MG TAB PO SCH (08:21)
[2022-09-28] MEDS: HEPARIN SODIUM,PORCINE/PF 5,000 UNIT/0.5 ML SYRINGE SQ SCH ×3 (08:21→23:26)
[2022-09-28] MEDS: carvediloL 12.5 MG TAB PO SCH ×2 (08:21→17:42)
[2022-09-28] MEDS: PIPERACILLIN-TAZOBACTAM 3.375 GM in SODIUM CHLORIDE 0.9% 100 ML IVPB SCH ×2 (08:23→21:35)
[2022-09-28] MEDS: TIOTROPIUM 2.5 MCG INHALER INHALATION SCH (09:06)
[2022-09-28] MEDS: SYMBICORT 160-4.5 MCG INHALER INHALATION SCH ×2 (09:06→20:12)
--- NOTE | 2022-09-28 09:55 | P.PN ---
Subjective Patient is seen in follow-up for acute kidney injury on chronic kidney disease. Started on hemodialysis 09/24/2022. S/p ureteral stent exchanges 09/27/2022. Last dialysis yesterday. Denies chest pain or shortness of breath. Has a Woodward catheter. Vital signs are stable. General: No acute distress. HEENT: Head exam is unremarkable. LUNGS: No rhonchi or wheezes. HEART: Rate and Rhythm are regular. ABDOMEN: Nontender and no distention. EXTREMITITES: No edema. Objective - Vital Signs Vital signs: Vital Signs Temp 97.5 F L 09/28/22 07:02 Pulse 59 L 09/28/22 07:02 Resp 18 09/28/22 07:02 BP 152/76 09/28/22 07:02 Pulse Ox 94 L 09/28/22 09:07 FiO2 40 09/27/22 04:52 Intake & Output 09/27/22 09/28/22 09/28/22 18:59 06:59 18:59 Intake Total 1650 Output Total 1505 750 Balance 145 -750 Weight 88.5 kg 83 kg Intake: IV 900 Dextrose 5% in Water 1, 800 000 ml @ 100 mls/hr IV . [id number] ALEX with Sodium Bicarb (1 Meq/ml) 150 ml Rx#:[id number] Intake, IV Titration 250 Amount Piperacillin-Tazobactam 3 100 .375 gm In Sodium Chloride 0.9% 100 ml @ 25 mls/hr IVPB Q12HR [facility] Rx #:[id number] Sodium Chloride 0.9% 1, 150 000 ml @ 75 mls/hr IV . [id number] [facility] Rx#:[id number] Hemodialysis 500 Output: Urine 750 Hemodialysis 1500 Estimated Blood Loss 5 Other: Voiding Method Indwelling Catheter Indwelling Catheter - Labs CBC & Chem 7: 09/27/22 08:00 09/27/22 08:00 Labs: Abnormal Lab Results - Last 24 Hours (Table) 09/27/22 09/27/22 09/28/22 Range/Units 16:44 20:06 06:16 POC Glucose (mg/dL) 253 H 152 H 199 H (70-110) mg/dL Microbiology - Last 24 Hours (Table) 09/26/22 06:35 Blood Culture Gram Stain - Preliminary Blood 09/24/22 16:00 Blood Culture Gram Stain - Final Blood Yeast species Blood Culture - Final Rhonda guilliermondii 09/24/22 16:00 Blood Culture Gram Stain - Final Blood Yeast species Blood Culture - Final Rhonda guilliermondii 09/26/22 06:35 Blood Culture - Final Blood Assessment and Plan Plan: Assessment: 1. Acute kidney injury secondary to ATN secondary to severe sepsis and obstructive uropathy. Creatinine 8.4 on admission. Started on hemodialysis 09/24/2022. Has right femoral catheter. Status post bilateral ureteral stent exchange on 09/27/2022. 2. Chronic kidney disease stage IV with baseline creatinine near 3. 3. Hyperkalemia secondary to acute kidney injury and metabolic acidosis. Improved postdialysis. 4. Fungemia maintained on antifungal. 5. Metabolic acidosis secondary to acute kidney injury. Improved with bicarbonate drip and dialysis. 6. Acute blood loss anemia status post blood transfusion this admission. No active bleeding. Improved. On Aranesp. 7. History of bladder cancer. Plan: Hemodialysis tomorrow. Monitor for renal function improvement post urologic intervention. Avoid nephrotoxins. Continue to monitor renal function and urine output. Maintain normal saline. Also discussed consideration for nephrostomy tubes with primary team yesterday.
[2022-09-28 11:36] LABS: Glucose,Whole Blood 330 mg/dL (70-110)
--- NOTE | 2022-09-28 12:39 | P.PN ---
Subjective Progress Note Date: 09/28/22 Principal diagnosis: Candidemia Patient is a 72-year old male with a past medical history significant for bladder cancer in this patient also have a history of COPD diabetes mellitus hypertension hyperlipidemia, did have a aggressive that her cancer with bilateral hydronephrosis requiring nephrostomy tubes and symptoms although subsequently removed and did have a antegrade ureteral stents which were exchanged at this facility on 09/03/2022 patient presented to hospital with worsening kidney function and also have a positive blood culture with yeast. Patient did have cystoscopy and exchange of bilateral ureteral catheter on 09/27/2022 On today's evaluation that is 09/28/2022, the patient remains to be afebrile, the patient is breathing comfortably on 3 L nasal cannula, the patient denies any chest pain or cough no abdominal pain no diarrhea Objective - Vital Signs Vital signs: Vital Signs Temp 97.5 F L 09/28/22 07:02 Pulse 59 L 09/28/22 07:02 Resp 18 09/28/22 07:02 BP 152/76 09/28/22 07:02 Pulse Ox 94 L 09/28/22 09:07 FiO2 40 09/27/22 04:52 Intake & Output 09/27/22 09/28/22 09/28/22 18:59 06:59 18:59 Intake Total 1650 Output Total 1505 750 Balance 145 -750 Weight 88.5 kg 83 kg Intake: IV 900 Dextrose 5% in Water 1, 800 000 ml @ 100 mls/hr IV . [id number] ALEX with Sodium Bicarb (1 Meq/ml) 150 ml Rx#:[id number] Intake, IV Titration 250 Amount Piperacillin-Tazobactam 3 100 .375 gm In Sodium Chloride 0.9% 100 ml @ 25 mls/hr IVPB Q12HR [facility]LEX Rx #:[id number] Sodium Chloride 0.9% 1, 150 000 ml @ 75 mls/hr IV . [id number] [facility] Rx#:[id number] Hemodialysis 500 Output: Urine 750 Hemodialysis 1500 Estimated Blood Loss 5 Other: Voiding Method Indwelling Catheter Indwelling Catheter - Exam GENERAL DESCRIPTION: An elderly male lying in bed in no distress RESPIRATORY SYSTEM: Unlabored breathing , decreased breath sounds at bases HEART: S1 S2 regular rate and rhythm , ABDOMEN: Soft , no tenderness EXTREMITIES: No edema feet - Labs CBC & Chem 7: 09/27/22 08:00 09/27/22 08:00 Labs: Abnormal Lab Results - Last 24 Hours (Table) 09/27/22 09/27/22 09/28/22 Range/Units 16:44 20:06 06:16 POC Glucose (mg/dL) 253 H 152 H 199 H (70-110) mg/dL 09/28/22 Range/Units 11:35 POC Glucose (mg/dL) 330 H (70-110) mg/dL Microbiology - Last 24 Hours (Table) 09/26/22 06:35 Blood Culture Gram Stain - Preliminary Blood 09/24/22 16:00 Blood Culture Gram Stain - Final Blood Yeast species Blood Culture - Final Rhonda guilliermondii 09/24/22 16:00 Blood Culture Gram Stain - Final Blood Yeast species Blood Culture - Final Rhonda guilliermondii 09/26/22 06:35 Blood Culture - Final Blood Assessment and Plan (1) Candidemia Current Visit: Yes Status: Acute Code(s): B37.7 - CANDIDAL SEPSIS SNOMED Code(s): 402879716 (2) UTI (urinary tract infection) Current Visit: No Status: Acute Code(s): N39.0 - URINARY TRACT INFECTION, SITE NOT SPECIFIED SNOMED Code(s): 03544416 Plan: 1patient with a positive blood culture with yeast source is likely complicated UTI in this patient who did have history of bladder cancer bilateral hydronephrosis requiring nephrostomy tube which has been discontinued recent an tegrade ureteral stent which were replaced on last admission at that point the patient did have a VRE UTI for which the patient has completed daptomycin therapy. 2blood culture , repeated on 09/26/2022 are positive as well. Repeat blood cultures today as well as tomorrow to document clearance of bacteremia 3patient is status post exchange of the ureteral stent completed on 09/27/2022 4patient to continue with Eraxis and monitor his clinical course closely Time with Patient: Less than 30
[2022-09-28 17:07] LABS: Glucose,Whole Blood 436 mg/dL (70-110)
[2022-09-28 17:57] LABS: Anion Gap 10.6 mmol/L (10.00-18.00); BUN/Creat Ratio 9.48 Ratio (12.00-20.00); Blood Urea Nitrogen 45.5 mg/dL (9.0-27.0); Calcium 7.2 mg/dL (8.7-10.3); Carbon Dioxide 29.2 mmol/L (20.0-27.5); Magnesium 1.8 mg/dL (1.5-2.4); Non-African American GFR(CKD) 11.2 (60.0-200.0); Potassium 5.2 mmol/L (3.5-5.5)
[2022-09-28] MEDS ORDERED: INSULIN ASPART (NovoLOG) 100 UNIT/ML VIAL SQ ONE (18:27)
[2022-09-28 20:24] LABS: Glucose,Whole Blood 466 mg/dL (70-110)
[2022-09-28] MEDS: INSULIN DETEMIR (LEVEMIR) 100 UNIT/ML SYR SQ SCH (21:34)
[2022-09-28] MEDS: ANIDULAFUNGIN 100 MG in SODIUM CHLORIDE 0.9% 100 ML IVPB SCH (21:34)
[2022-09-28] MEDS: THEOPHYLLINE 24 HOUR 300 MG CAP.ER.24H PO SCH (21:35)
[2022-09-28] MEDS: PRAVASTATIN SODIUM 20 MG TAB PO SCH (21:35)
[2022-09-28] MEDS: TAMSULOSIN 0.4 MG CAP.ER.24H PO SCH (21:35)
--- NOTE | 2022-09-28 22:54 | P.PN ---
Progress Note - Text Progress Note Date: 09/28/22 Chief Complaint: Short of breath his is a 72-year-old patient, follows with Dr.S Helm. Chronic stable medical conditions include COPD, hypertension, hyperlipidemia, peripheral neuropathy, does use walker/electric wheelchair. hx of HGT1 bladder cancer, had multiple recurrences, failed BCG therapy. on oxygen 3 L, not candidate for cystectomy. Underwent TURBT on 06/07/2022, there was significant amount of tumor within the bladder, and a complete resection could not be performed. Presented for a second stage TURBT. admit to the hospital and [place] for renal failure and bilateral hydronephrosis on 04/11/22, underwent bilateral nephrostomy tube placement at [facility]. CT also showed evidence of bladder cancer recurrence. hsd bilateral nephrostomy tubes and stents. 08/10/2022: Was found to large papular tumor involving the entire bilateral lateral reyez domed anterior bladder neck and multiple satellite tumors throughout the posterior bladder wall. Both nephrostomy tubes are removed. Discharged with Woodward catheter. Patient then readmitted to the [facility] on September 02 and was discharged on September 09. Computed tomography scan showed abnormal placement of nephrostomy tubes. Patient was taken to the OR by Dr. Guerra from urology and bilateral ureter double-J stents were replaced. Unit come back for enterococcus. discharged on daptomycin Patient now presents increased shortness of breath. No cough. Appetite is good. No fever no chills. Patient continued to smoke about a pack a day. Living with his girlfriend. Tired rundown. Home oxygen 3 L. Renal function from a creatinine of 3.02 up to 8.44. Hyperkalemic. Last night dialysis c atheter was placed by Dr. Gallegos. Hemodialysis was done yesterday evening and 5 L was removed. Sodium bicarbonate drip. 09/26/2022: In bed. Short of breath. Tolerating diet. Discussed with Dr. Arriaza from urology. Concern for obstruction of double-J stents. He'll probably replace the same tomorrow. Last shift patient put out 180 mL of urine. Hemoglobin 6.8. Transfuse blood. 09/27/2022: Patient had bilateral double-J stent replaced today by Dr. Arriaza. Significant tumor burden encountered in the bladder. Discussed with the patient and this brother the bedside. Prognosis guarded. We'll see how urine output goes. Getting dialysis. Discussed the etiology about possibility of nephrostomy tube as the double-J stent placed today was also slowly but surely block after tubes. The nephrostomy tube may be palliative. I do not think patient is a good compliant candidate for dialysis. Discussed with Dr. Ny. Breathing a bit better. 09/28/2022: Bloody urine catheter. Some shortness of breath. Eating fair. Blood cultures positive for Rhonda. IV antifungal. Active Medications Albuterol Sulfate (Albuterol Hfa Inhaler) 2 puff INHALATION RT-Q4H [facility] Last Admin: 09/28/22 20:11 Dose: 2 puff Budesonide/Formoterol Fumarate (Symbicort 160-4.5 Mcg Inhaler) 2 puff INHALATION RT-BID [facility] Last Admin: 09/28/22 20:12 Dose: 2 puff Carvedilol (Carvedilol 12.5 Mg Tab) 12.5 mg PO AC-BID [facility] Last Admin: 09/28/22 17:42 Dose: 12.5 mg Clotrimazole (Clotrimazole 1% Cream 30 Gm Tube) 1 applic TOPICAL DAILY PRN PRN Reason: FEET Darbepoetin Brandon (Darbepoetin Brandon 40 Mcg/0.4 Ml Syringe) 40 mcg SQ Q7D [facility] Last Admin: 09/27/22 15:14 Dose: 40 mcg Heparin Sodium (Porcine) (Heparin Sodium,Porcine/Pf 5,000 Unit/0.5 Ml Syringe) 5,000 unit SQ Q8HR [facility] Last Admin: 09/28/22 16:37 Dose: 5,000 unit Piperacillin Sod/Tazobactam (Sod 3.375 gm/ Sodium Chloride) 100 mls @ 25 mls/hr IVPB Q12HR [facility]; Protocol Stop: 09/29/22 00:01 Last Admin: 09/28/22 21:35 Dose: 25 mls/hr Anidulafungin 100 mg/ Sodium (Chloride) 130 mls @ 84 mls/hr IVPB DAILY@2000 [facility]; Protocol Last Admin: 09/28/22 21:34 Dose: 84 mls/hr Sodium Chloride (Saline 0.9%) 1,000 mls @ 75 mls/hr IV .[id number] [facility] Last Admin: 09/28/22 16:38 Dose: 75 mls/hr Insulin Aspart (Insulin Aspart (Novolog) 100 Unit/Ml Vial) 5 unit SQ AC-TID [facility] Last Admin: 09/28/22 17:24 Dose: 5 unit Insulin Aspart (Insulin Aspart (Novolog) 100 Unit/Ml Vial) 0 unit SQ ACHS [facility]; Protocol Last Admin: 09/28/22 21:34 Dose: 12 unit Insulin Detemir (Insulin Detemir (Levemir) 100 Unit/Ml Syr) 20 unit SQ [facility] Last Admin: 09/28/22 21:34 Dose: 20 unit Loperamide HCl (Loperamide 2 Mg Cap) 2 mg PO Q6H PRN PRN Reason: Loose Stool Methylprednisolone Sodium Succinate (Methylprednisolone Sod Succi 40 Mg/Ml 1 Ml Vial) 40 mg IV Q12HR [facility] Last Admin: 09/28/22 21:35 Dose: 40 mg Miscellaneous Information (Pneumonia Protocol Utilized 1 Each Misc) 1 each PO ONCE PRN PRN Reason: Per Protocol Naloxone HCl (Naloxone 0.4 Mg/Ml 1 Ml Vial) 0.2 mg IV Q2M PRN PRN Reason: Opioid Reversal Pantoprazole Sodium (Pantoprazole 40 Mg Tablet) 40 mg PO AC-BID [facility] Last Admin: 09/28/22 17:42 Dose: 40 mg Pravastatin Sodium (Pravastatin Sodium 20 Mg Tab) 20 mg PO [facility] Last Admin: 09/28/22 21:35 Dose: 20 mg Pyridoxine HCl (Pyridoxine 50 Mg Tab) 100 mg PO DAILY [facility] Last Admin: 09/28/22 08:21 Dose: 100 mg Tamsulosin HCl (Tamsulosin 0.4 Mg Cap.Er.24h) 0.4 mg PO [facility] Last Admin: 09/28/22 21:35 Dose: 0.4 mg Theophylline (Theophylline 24 Hour 300 Mg Cap.Er.24h) 600 mg PO [facility] Last Admin: 09/28/22 21:35 Dose: 600 mg Tiotropium Orient (Tiotropium 2.5 Mcg Inhaler) 2 puff INHALATION RT-DAILY [facility] Last Admin: 09/28/22 09:06 Dose: 2 puff Past medical history to include: COPD, hypertension, hyperlipidemia, peripheral neuropathy, bladder cancer Social history: Long-standing smoker , currently 1 pack a day. girlfriend at home. Does use a electric wheelchair and a walker. Physical examination: VITAL SIGNS: 97.1, 94, 18, 116 and 85, 96% 2 L GENERAL: Reclining, comfortable EYES: Pupils equal. Conjunctiva pale HEENT: External appearance of nose and ears normal, oral cavity grossly normal. NECK: JVD not raised; masses not palpable. HEART: First and second heart sounds are normal; no edema. LUNGS: Respiratory rate increased, decreased breath sounds ABDOMEN: Soft, nontender, liver spleen not palpable, no masses palpable. Woodward catheter PSYCH: Answering questions appropriately MUSCULOSKELETAL:No Clubbing/cyanosis;muscles-grossly intact. OA . INVESTIGATIONS, reviewed in the clinical context: Line 09/28/2022: Potassium 5.2 BUN 45.5 creatinine 4.8 Blood cultures [September 24, September 26] Rhonda,isaki 09/27/2022: White count 12.7 hemoglobin 9.2 White count 127 potassium 5.6 BUN [address] abdomen pelvis: Bilaterally after stents with tips in appropriate position. Persistent moderate hydronephrosis bilaterally. Scattered colonic diverticulosis. Cardiomegaly 09/26/2022: White count 12.2 hemoglobin 6.8 platelets 128 potassium 5.1 BUN 48.5 creatinine 5.3 CRP 9.6 Penis Doppler: Negative for DVT bilateral Chest x-ray film personally reviewed by me-hyperinflated. Right basilar infiltrate EKG tracing personally reviewed by me-sinus tachycardia. Nonspecific T-wave changes. 09/25/2022: White count 9.9 hemoglobin 8 platelets 160L5 0.3 BUN 68 creatinine 6.34 09/24/2022: White count 13.3 hemoglobin 8.7 platelets 219 potassium 7 BUN 94 creatinine 8.44 Previous labs 09/15/2022: Potassium 4.4 BUN 34 creatinine 3.02 Assessment and plan: -Acute severe COPD exacerbation in a current smoker Proventil 2 puffs every 4. [DuoNeb short ] Symbicort. IV Solu-Medrol 40 mg every 12. Theophylline 600 mg daily at bedtime -Right lower lobe pneumonia. Suspect gram-negative organism. IV Zosyn -Sepsis and blood cultures positive forCandidaisaki IVAnidulafungin started September 26 -Acute hypoxic respiratory failure from pneumonia COPD exacerbation on presentation Initially requiring BiPAP. Now down to 3 L -Chronic hypoxic respiratory failure from underlying COPD 3 l oxygen at home -Bilateral double-J stent ureter, replaced 09/27/[address] Arriaza -Severe hyperkalemia secondary to renal failure: Better Insulin, bicarbonate, Ventolin, renal diet. Follow with nephrology -Acute severe kidney injury, obstructive ureter patient has bilateral J stent ureter.- recent manipulation. aggressive recurrent bladder tumor Placed bilateral J stent. Dr. Arriaza 09/27/2022. -Normocytic anemia, likely from anemia of chronic disease, symptomatic, tired Received 1 unit PRBC -Urinary bladder and recurrent papillary tumor.: Recurrent progressive Increased bladder tumor burden seen on cystoscopy today. -Diabetes mellitus type II, chronically on insulin, Levemir 20 units subcu bedtime Follow Accu-Chek -Hyperlipidemia Pravachol -Essential hypertension Coreg -Chronic nicotine dependence, cigarette smoker Nicotine patch 21 -DO NOT RESUSCITATE hemodialysis. IV antifungal.. Continue other medications. Prognosis not good. IV Zosyn. Changed to oral prednisone
[2022-09-29] MEDS: ALBUTEROL HFA INHALER INHALATION SCH ×7 (00:46→23:39)
[2022-09-29] MEDS: SODIUM CHLORIDE 0.9% 1,000 ML IV SCH ×2 (04:28→11:02)
[2022-09-29 06:12] LABS: Glucose,Whole Blood 350 mg/dL (70-110)
[2022-09-29] MEDS: INSULIN ASPART (NovoLOG) 100 UNIT/ML VIAL SQ SCH ×7 (06:33→20:44)
[2022-09-29] MEDS: PANTOPRAZOLE 40 MG TABLET PO SCH ×2 (06:34→16:57)
[2022-09-29] MEDS: SYMBICORT 160-4.5 MCG INHALER INHALATION SCH ×2 (08:26→21:12)
[2022-09-29] MEDS: TIOTROPIUM 2.5 MCG INHALER INHALATION SCH (08:26)
[2022-09-29] MEDS: HEPARIN SODIUM,PORCINE/PF 5,000 UNIT/0.5 ML SYRINGE SQ SCH ×3 (08:41→23:02)
[2022-09-29] MEDS: predniSONE 20 MG TAB PO SCH (08:41)
--- NOTE | 2022-09-29 10:17 | P.PN ---
Subjective Progress Note Date: 09/29/22 The patient is a 72-year-old gentleman whom we are asked to see for hydronephrosis, bladder cancer. The patient is known to our service for recurrent significant grade 3T1 bladder cancer. Volumes of these cancers has been significant. He has had resection by . He had bilateral nephrostomy tubes placed at [facility] with antegrade stents. He ended up in [facility] about 3 weeks ago and renal failure. These antegrade stents were misplaced and thus I exchanged them to the bladder. All better and done well however he presented to the hospital with shortness of fabio ath with progression of his renal failure. He has been on dialysis. We are asked see the patient yesterday. He had an ultrasound showing bilateral hydronephrosis. No other tests have been done. His urinalysis was quite inflamed. Cultures pending. His creatinine is 6.5. Awake alert and oriented. He is denying pain. 3 The patient's stents were exchanged three weeks ago. Assuming they're in correct place it would be unlikely that they'll be obstructed however clinically they would need to be exchanged to clarify that situation. Obtain a computed tomography scan to make sure there is no other obvious extrarenal cause for the hydronephrosis and renal failure. Creatinine 5.3 3 The patient underwent a cystoscopy with exchange of bilateral double-J catheters, [address] Castaneda and tolerated the procedure well. Creatine 5.25 09/28 Urine bloody due to manipulation plus a lot of persistent ca bladder. We will see if the cath change affects his creatinine. Creatinine 4.8 Objective - Vital Signs Vital signs: Vital Signs Temp 97.8 F 09/29/22 07:15 Pulse 68 09/29/22 07:15 Resp 18 09/29/22 07:15 BP 160/88 09/29/22 07:15 Pulse Ox 97 09/29/22 08:27 FiO2 40 09/27/22 04:52 Intake & Output 09/28/22 09/29/22 09/29/22 18:59 06:59 18:59 Output Total 500 Balance -500 Weight 87 kg Output: Urine 500 Other: Voiding Method Indwelling Catheter Indwelling Catheter Indwelling Catheter # Voids 600 # Bowel Movements 1 - Exam General: Well developed, well nourished. No acute distress. Chronically ill appearing HEENT: Head is atraumatic, normocephalic. Lungs: Respirations even and nonlabored. 2L NC Abdomen/GI: Soft. No guarding, rigidity, or abdominal tenderness. : No suprapubic tenderness. Bishop catheter draining light red urine Skin: Warm and dry Neurologic: Alert and oriented 3, CN II-XII grossly intact. No focal deficits. Psychiatric: Appropriate mood and affect. - Labs CBC & Chem 7: 09/27/22 08:00 09/29/22 08:18 Labs: Abnormal Lab Results - Last 24 Hours (Table) 09/28/22 09/28/22 09/28/22 Range/Units 07:37 11:35 17:06 Carbon Dioxide 29.2 H (20.0-27.5) mmol/L BUN 45.5 H (9.0-27.0) mg/dL Creatinine 4.8 H (0.6-1.5) mg/dL Est GFR (CKD-EPI)AfAm 13.0 L (60.0-200.0) Est GFR (CKD-EPI)NonAf 11.2 L (60.0-200.0) BUN/Creatinine Ratio 9.48 L (12.00-20.00) Ratio Glucose 181 H (70-110) mg/dL POC Glucose (mg/dL) 330 H 436 H (70-110) mg/dL Calcium 7.2 L (8.7-10.3) mg/dL 09/28/22 09/29/22 Range/Units 20:22 06:10 Carbon Dioxide (20.0-27.5) mmol/L BUN (9.0-27.0) mg/dL Creatinine (0.6-1.5) mg/dL Est GFR (CKD-EPI)AfAm (60.0-200.0) Est GFR (CKD-EPI)NonAf (60.0-200.0) BUN/Creatinine Ratio (12.00-20.00) Ratio Glucose (70-110) mg/dL POC Glucose (mg/dL) 466 H 350 H (70-110) mg/dL Calcium (8.7-10.3) mg/dL Microbiology - Last 24 Hours (Table) 09/26/22 06:35 Blood Culture Gram Stain - Preliminary Blood Blood Culture - Preliminary Rhonda guilliermondii Assessment and Plan Assessment: The patient is lying in bed getting ready to start dialysis. He is afebrile and his vitals are stable. He denies any pain. Todays' labs pending. (1) Hydronephrosis Current Visit: No Status: Acute Code(s): N13.30 - UNSPECIFIED HYDRONEPHROSIS SNOMED Code(s): 20357471 Plan: - Monitor creatinine - Continue Flomax Impression and plan of care have been directed as dictated by the signing physician. Wilma Malin nurse practitioner acting as scribe for signing alena Malin [facility] [place] [id number] Email: [email or web address] the patient has been examined and reviewed by me. I concur with the above mentioned note, Pavel Castaneda MD
[2022-09-29] MEDS: carvediloL 12.5 MG TAB PO SCH ×2 (10:59→16:57)
--- NOTE | 2022-09-29 11:11 | P.PN ---
Subjective Patient is seen in follow-up for acute kidney injury on chronic kidney disease. Started on hemodialysis 09/24/2022. S/p ureteral stent exchanges 09/27/2022. Denies chest pain or shortness of breath. Has a Woodward catheter. Scheduled for dialysis today. Vital signs are stable. General: No acute distress. HEENT: Head exam is unremarkable. LUNGS: No rhonchi or wheezes. HEART: Rate and Rhythm are regular. ABDOMEN: Nontender and no distention. EXTREMITITES: No edema. Objective - Vital Signs Vital signs: Vital Signs Temp 97.8 F 09/29/22 07:15 Pulse 68 09/29/22 07:15 Resp 18 09/29/22 07:15 BP 160/88 09/29/22 07:15 Pulse Ox 97 09/29/22 08:27 FiO2 40 09/27/22 04:52 Intake & Output 09/28/22 09/29/22 09/29/22 18:59 06:59 18:59 Output Total 500 Balance -500 Weight 87 kg Output: Urine 500 Other: Voiding Method Indwelling Catheter Indwelling Catheter Indwelling Catheter # Voids 600 # Bowel Movements 1 - Labs CBC & Chem 7: 09/27/22 08:00 09/28/22 07:37 Labs: Abnormal Lab Results - Last 24 Hours (Table) 09/28/22 09/28/22 09/28/22 Range/Units 07:37 11:35 17:06 Carbon Dioxide 29.2 H (20.0-27.5) mmol/L BUN 45.5 H (9.0-27.0) mg/dL Creatinine 4.8 H (0.6-1.5) mg/dL Est GFR (CKD-EPI)AfAm 13.0 L (60.0-200.0) Est GFR (CKD-EPI)NonAf 11.2 L (60.0-200.0) BUN/Creatinine Ratio 9.48 L (12.00-20.00) Ratio Glucose 181 H (70-110) mg/dL POC Glucose (mg/dL) 330 H 436 H (70-110) mg/dL Calcium 7.2 L (8.7-10.3) mg/dL 09/28/22 09/29/22 Range/Units 20:22 06:10 Carbon Dioxide (20.0-27.5) mmol/L BUN (9.0-27.0) mg/dL Creatinine (0.6-1.5) mg/dL Est GFR (CKD-EPI)AfAm (60.0-200.0) Est GFR (CKD-EPI)NonAf (60.0-200.0) BUN/Creatinine Ratio (12.00-20.00) Ratio Glucose (70-110) mg/dL POC Glucose (mg/dL) 466 H 350 H (70-110) mg/dL Calcium (8.7-10.3) mg/dL Microbiology - Last 24 Hours (Table) 09/26/22 06:35 Blood Culture Gram Stain - Preliminary Blood Blood Culture - Preliminary Rhonda guilliermondii Assessment and Plan Plan: Assessment: 1. Acute kidney injury secondary to ATN secondary to severe sepsis and obstructive uropathy. Creatinine 8.4 on admission. Started on hemodialysis 09/24/2022. Has right femoral catheter. Status post bilateral ureteral stent exchange on 09/27/2022. 2. Chronic kidney disease stage IV with baseline creatinine near 3. 3. Hyperkalemia secondary to acute kidney injury and metabolic acidosis. Improved postdialysis. 4. Fungemia maintained on antifungal. 5. Metabolic acidosis secondary to acute kidney injury. Improved with bicarbonate drip and dialysis. 6. Acute blood loss anemia status post blood transfusion this admission. No active bleeding. Improved. On Aranesp. 7. History of bladder cancer. Plan: Hemodialysis today. Monitor for renal function improvement post urologic intervention. Avoid nephrotoxins. Continue to monitor renal function and urine output. Maintain normal saline - decreased rate to 50 mL an hour. Will need permacath prior to discharge if dialysis to be continued upon discharge. Check phosphorus level.
[2022-09-29 11:12] LABS: Glucose,Whole Blood 285 mg/dL (70-110)
[2022-09-29] MEDS: PYRIDOXINE 50 MG TAB PO SCH (12:47)
[2022-09-29 14:45] LABS: BUN/Creat Ratio 11.52 Ratio (12.00-20.00); Blood Urea Nitrogen 52.2 mg/dL (9.0-27.0); Calcium 7.1 mg/dL (8.7-10.3); Carbon Dioxide 24.6 mmol/L (20.0-27.5); Magnesium 1.7 mg/dL (1.5-2.4); Non-African American GFR(CKD) 12.1 (60.0-200.0); Potassium 4.7 mmol/L (3.5-5.5)
--- NOTE | 2022-09-29 16:02 | P.PN ---
Progress Note - Text Progress Note Date: 09/29/22 Chief Complaint: Short of breath his is a 72-year-old patient, follows with Dr.S Helm. Chronic stable medical conditions include COPD, hypertension, hyperlipidemia, peripheral neuropathy, does use walker/electric wheelchair. hx of HGT1 bladder cancer, had multiple recurrences, failed BCG therapy. on oxygen 3 L, not candidate for cystectomy. Underwent TURBT on 06/07/2022, there was significant amount of tumor within the bladder, and a complete resection could not be performed. Presented for a second stage TURBT. admit to the hospital and [place] for renal failure and bilateral hydronephrosis on 04/11/22, underwent bilateral nephrostomy tube placement at [facility]. CT also showed evidence of bladder cancer recurrence. hsd bilateral nephrostomy tubes and stents. 08/10/2022: Was found to large papular tumor involving the entire bilateral lateral reyez domed anterior bladder neck and multiple satellite tumors throughout the posterior bladder wall. Both nephrostomy tubes are removed. Discharged with Woodward catheter. Patient then readmitted to the [facility] on September 02 and was discharged on September 09. Computed tomography scan showed abnormal placement of nephrostomy tubes. Patient was taken to the OR by Dr. Guerra from urology and bilateral ureter double-J stents were replaced. Unit come back for enterococcus. discharged on daptomycin Patient now presents increased shortness of breath. No cough. Appetite is good. No fever no chills. Patient continued to smoke about a pack a day. Living with his girlfriend. Tired rundown. Home oxygen 3 L. Renal function from a creatinine of 3.02 up to 8.44. Hyperkalemic. Last night dialysis c atheter was placed by Dr. Gallegos. Hemodialysis was done yesterday evening and 5 L was removed. Sodium bicarbonate drip. 09/26/2022: In bed. Short of breath. Tolerating diet. Discussed with Dr. Arriaza from urology. Concern for obstruction of double-J stents. He'll probably replace the same tomorrow. Last shift patient put out 180 mL of urine. Hemoglobin 6.8. Transfuse blood. 09/27/2022: Patient had bilateral double-J stent replaced today by Dr. Arriaza. Significant tumor burden encountered in the bladder. Discussed with the patient and this brother the bedside. Prognosis guarded. We'll see how urine output goes. Getting dialysis. Discussed the etiology about possibility of nephrostomy tube as the double-J stent placed today was also slowly but surely block after tubes. The nephrostomy tube may be palliative. I do not think patient is a good compliant candidate for dialysis. Discussed with Dr. Ny. Breathing a bit better. 09/28/2022: Bloody urine catheter. Some shortness of breath. Eating fair. Blood cultures positive for Rhonda. IV antifungal. 09/29/2022: Less bloody urine in the catheter. Hemodialysis today. No fluid being removed. Blood pressure running low. IV antifungal. Tolerating diet. Active Medications Albuterol Sulfate (Albuterol Hfa Inhaler) 2 puff INHALATION RT-Q4H [facility] Last Admin: 09/29/22 15:18 Dose: 2 puff Budesonide/Formoterol Fumarate (Symbicort 160-4.5 Mcg Inhaler) 2 puff INHALATION RT-BID [facility] Last Admin: 09/29/22 08:26 Dose: 2 puff Carvedilol (Carvedilol 12.5 Mg Tab) 12.5 mg PO AC-BID [facility] Last Admin: 09/29/22 10:59 Dose: 12.5 mg Clotrimazole (Clotrimazole 1% Cream 30 Gm Tube) 1 applic TOPICAL DAILY PRN PRN Reason: FEET Darbepoetin Brandon (Darbepoetin Brandon 40 Mcg/0.4 Ml Syringe) 40 mcg SQ Q7D [facility] Last Admin: 09/27/22 15:14 Dose: 40 mcg Heparin Sodium (Porcine) (Heparin Sodium,Porcine/Pf 5,000 Unit/0.5 Ml Syringe) 5,000 unit SQ Q8HR [facility] Last Admin: 09/29/22 08:41 Dose: 5,000 unit Anidulafungin 100 mg/ Sodium (Chloride) 130 mls @ 84 mls/hr IVPB DAILY@2000 [facility]; Protocol Last Admin: 09/28/22 21:34 Dose: 84 mls/hr Sodium Chloride (Saline 0.9%) 1,000 mls @ 50 mls/hr IV .Q20H [facility] Last Admin: 09/29/22 11:02 Dose: 50 mls/hr Insulin Aspart (Insulin Aspart (Novolog) 100 Unit/Ml Vial) 0 unit SQ ACHS [facility]; Protocol Last Admin: 09/29/22 12:48 Dose: 6 unit Insulin Aspart (Insulin Aspart (Novolog) 100 Unit/Ml Vial) 7 unit SQ AC-TID [facility] Last Admin: 09/29/22 12:48 Dose: 7 unit Insulin Detemir (Insulin Detemir (Levemir) 100 Unit/Ml Syr) 30 unit SQ [facility] Loperamide HCl (Loperamide 2 Mg Cap) 2 mg PO Q6H PRN PRN Reason: Loose Stool Miscellaneous Information (Pneumonia Protocol Utilized 1 Each Misc) 1 each PO ONCE PRN PRN Reason: Per Protocol Naloxone HCl (Naloxone 0.4 Mg/Ml 1 Ml Vial) 0.2 mg IV Q2M PRN PRN Reason: Opioid Reversal Pantoprazole Sodium (Pantoprazole 40 Mg Tablet) 40 mg PO AC-BID [facility] Last Admin: 09/29/22 06:34 Dose: 40 mg Pravastatin Sodium (Pravastatin Sodium 20 Mg Tab) 20 mg PO [facility] Last Admin: 09/28/22 21:35 Dose: 20 mg Prednisone (Prednisone 20 Mg Tab) 40 mg PO DAILY [facility] Last Admin: 09/29/22 08:41 Dose: 40 mg Pyridoxine HCl (Pyridoxine 50 Mg Tab) 100 mg PO DAILY [facility] Last Admin: 09/29/22 12:47 Dose: 100 mg Tamsulosin HCl (Tamsulosin 0.4 Mg Cap.Er.24h) 0.4 mg PO [facility] Last Admin: 09/28/22 21:35 Dose: 0.4 mg Theophylline (Theophylline 24 Hour 300 Mg Cap.Er.24h) 600 mg PO [facility] Last Admin: 09/28/22 21:35 Dose: 600 mg Tiotropium [place] (Tiotropium 2.5 Mcg Inhaler) 2 puff INHALATION RT-DAILY [facility] Last Admin: 09/29/22 08:26 Dose: 2 puff Past medical history to include: COPD, hypertension, hyperlipidemia, peripheral neuropathy, bladder cancer Social history: Long-standing smoker , currently 1 pack a day. girlfriend at home. Does use a electric wheelchair and a walker. Physical examination: VITAL SIGNS: 98.1, 96, 20, 1 36 x 68, 96% on 2 L GENERAL: Reclining, comfortable EYES: Pupils equal. Conjunctiva pale HEENT: External appearance of nose and ears normal, oral cavity grossly normal. NECK: JVD not raised; masses not palpable. HEART: First and second heart sounds are normal; no edema. LUNGS: Respiratory rate increased, decreased breath sounds ABDOMEN: Soft, nontender, liver spleen not palpable, no masses palpable. Woodward catheter PSYCH: Answering questions appropriately MUSCULOSKELETAL:No Clubbing/cyanosis;muscles-grossly intact. OA . INVESTIGATIONS, reviewed in the clinical context: 09/29/2022: Potassium 4.7 BUN 52 creatinine 4.5 09/28/2022: Potassium 5.2 BUN 45.5 creatinine 4.8 Blood cultures [September 24, September 26] Rhondaisaki 09/27/2022: White count 12.7 hemoglobin 9.2 White count 127 potassium 5.6 BUN [address] abdomen pelvis: Bilaterally after stents with tips in appropriate position. Persistent moderate hydronephrosis bilaterally. Scattered colonic diverticulosis. Cardiomegaly 09/26/2022: White count 12.2 hemoglobin 6.8 platelets 128 potassium 5.1 BUN 48.5 creatinine 5.3 CRP 9.6 Penis Doppler: Negative for DVT bilateral Chest x-ray film personally reviewed by me-hyperinflated. Right basilar infiltrate EKG tracing personally reviewed by me-sinus tachycardia. Nonspecific T-wave changes. 09/25/2022: White count 9.9 hemoglobin 8 platelets 160L5 0.3 BUN 68 creatinine 6.34 09/24/2022: White count 13.3 hemoglobin 8.7 platelets 219 potassium 7 BUN 94 creatinine 8.44 Previous labs 09/15/2022: Potassium 4.4 BUN 34 creatinine 3.02 Assessment and plan: -Acute severe COPD exacerbation in a current smoker Proventil 2 puffs every 4. [DuoNeb short ] Symbicort. IV Solu-Medrol 40 mg every 12. Theophylline 600 mg daily at bedtime -Right lower lobe pneumonia. Suspect gram-negative organism.: Improved Received IV Zosyn -Sepsis and blood cultures positive for Rhondaisaki IV Anidulafungin started September 26 -Acute hypoxic respiratory failure from pneumonia COPD exacerbation on presentation Initially requiring BiPAP. Now down to 3 L -Chronic hypoxic respiratory failure from underlying COPD 3 l oxygen at home -Bilateral double-J stent ureter, replaced 09/27/[address] Arriaza -Severe hyperkalemia secondary to renal failure: Better Insulin, bicarbonate, Ventolin, renal diet. Follow with nephrology -Acute severe kidney injury, obstructive ureter patient has bilateral J stent ureter.- recent manipulation. aggressive recurrent bladder tumor Placed bilateral J stent. Dr. Arriaza 09/27/2022. Hemodialysis started on 09/25/2022 -Normocytic anemia, likely from anemia of chronic disease, symptomatic, tired Received 1 unit PRBC -Urinary bladder and recurrent papillary tumor.: Recurrent progressive Increased bladder tumor burden seen on cystoscopy . -Diabetes mellitus type II, chronically on insulin, uncontrolled with hyperglycemia Increase Levemir 30 units subcu bedtime Follow Accu-Chek -Hyperlipidemia Pravachol -Essential hypertension Coreg -Chronic nicotine dependence, cigarette smoker Nicotine patch 21 -DO NOT RESUSCITATE hemodialysis. IV antifungal.. Continue other medications. Prognosis not good. Increase Levemir.
[2022-09-29 16:13] LABS: Glucose,Whole Blood 258 mg/dL (70-110)
--- NOTE | 2022-09-29 16:31 | P.PN ---
Progress Note - Text Progress Note Date: 09/29/22 Dr Sierra and I discussed the patients care today. His renal failureis not reversible from a urological standpoint. I dont think nephrostomy tubes would keep him off dialysis. Also he has recurrent aggresive but non invasive tcc that failed intravesical treatments. I spoke with Dr Andres and he doesnt feel there is anything else he can do. If the patient were interested in a tertiary care consult and care that would be the fianl step however it appears that given his renal failure not much will benefit him. He doesnt appear to want long tern dialysis.
[2022-09-29 20:24] LABS: Glucose,Whole Blood 352 mg/dL (70-110)
[2022-09-29] MEDS: PRAVASTATIN SODIUM 20 MG TAB PO SCH (20:44)
[2022-09-29] MEDS: TAMSULOSIN 0.4 MG CAP.ER.24H PO SCH (20:44)
[2022-09-29] MEDS: ANIDULAFUNGIN 100 MG in SODIUM CHLORIDE 0.9% 100 ML IVPB SCH (20:44)
[2022-09-29] MEDS: THEOPHYLLINE 24 HOUR 300 MG CAP.ER.24H PO SCH (20:45)
[2022-09-29] MEDS: INSULIN DETEMIR (LEVEMIR) 100 UNIT/ML SYR SQ SCH (20:45)
--- NOTE | 2022-09-29 22:11 | P.PN ---
Subjective Progress Note Date: 09/29/22 Principal diagnosis: Candidemia Patient is a 72-year old male with a past medical history significant for bladder cancer in this patient also have a history of COPD diabetes mellitus hypertension hyperlipidemia, did have a aggressive that her cancer with bilateral hydronephrosis requiring nephrostomy tubes and symptoms although subsequently removed and did have a antegrade ureteral stents which were exchanged at this facility on 09/03/2022 patient presented to hospital with worsening kidney function and also have a positive blood culture with yeast. Patient did have cystoscopy and exchange of bilateral ureteral catheter on 09/27/2022 On today's evaluation that is 09/29/2022, the patient continues to be afebrile, the patient is breathing comfortably on 3 L nasal cannula, the patient denies any chest pain shortness of breath or cough no abdominal pain no diarrhea, no new symptoms Objective - Vital Signs Vital signs: Vital Signs Temp 97.8 F 09/29/22 07:15 Pulse 68 09/29/22 07:15 Resp 18 09/29/22 07:15 BP 160/88 09/29/22 07:15 Pulse Ox 97 09/29/22 08:27 FiO2 40 09/27/22 04:52 Intake & Output 09/28/22 09/29/22 09/29/22 18:59 06:59 18:59 Output Total 500 Balance -500 Weight 87 kg Output: Urine 500 Other: Voiding Method Indwelling Catheter Indwelling Catheter Indwelling Catheter # Voids 600 # Bowel Movements 1 - Exam GENERAL DESCRIPTION: An elderly male lying in bed in no distress RESPIRATORY SYSTEM: Unlabored breathing , decreased breath sounds at bases HEART: S1 S2 regular rate and rhythm , ABDOMEN: Soft , no tenderness EXTREMITIES: No edema feet - Labs CBC & Chem 7: 09/27/22 08:00 09/29/22 08:18 Labs: Abnormal Lab Results - Last 24 Hours (Table) 09/28/22 09/28/22 09/28/22 Range/Units 07:37 11:35 17:06 Carbon Dioxide 29.2 H (20.0-27.5) mmol/L BUN 45.5 H (9.0-27.0) mg/dL Creatinine 4.8 H (0.6-1.5) mg/dL Est GFR (CKD-EPI)AfAm 13.0 L (60.0-200.0) Est GFR (CKD-EPI)NonAf 11.2 L (60.0-200.0) BUN/Creatinine Ratio 9.48 L (12.00-20.00) Ratio Glucose 181 H (70-110) mg/dL POC Glucose (mg/dL) 330 H 436 H (70-110) mg/dL Calcium 7.2 L (8.7-10.3) mg/dL 09/28/22 09/29/22 Range/Units 20:22 06:10 Carbon Dioxide (20.0-27.5) mmol/L BUN (9.0-27.0) mg/dL Creatinine (0.6-1.5) mg/dL Est GFR (CKD-EPI)AfAm (60.0-200.0) Est GFR (CKD-EPI)NonAf (60.0-200.0) BUN/Creatinine Ratio (12.00-20.00) Ratio Glucose (70-110) mg/dL POC Glucose (mg/dL) 466 H 350 H (70-110) mg/dL Calcium (8.7-10.3) mg/dL Microbiology - Last 24 Hours (Table) 09/26/22 06:35 Blood Culture Gram Stain - Preliminary Blood Blood Culture - Preliminary Rhonda guilliermondii Assessment and Plan (1) Candidemia Current Visit: Yes Status: Acute Code(s): B37.7 - CANDIDAL SEPSIS SNOMED Code(s): 500276316 (2) UTI (urinary tract infection) Current Visit: No Status: Acute Code(s): N39.0 - URINARY TRACT INFECTION, SITE NOT SPECIFIED SNOMED Code(s): 67304247 Plan: 1patient with a positive blood culture with yeast source is likely complicated UTI in this patient who did have history of bladder cancer bilateral hydronephrosis requiring nephrostomy tube which has been discontinued recent antegrade ureteral stent which were replaced on last admission at that point the patient did have a VRE UTI for which the patient has completed daptomycin therapy. 2blood culture , repeated on 09/26/2022 are positive as well. Repeat blood cultures as of 09/29/2019 so far negative 3patient is status post exchange of the ureteral stent completed on 09/27/2022 4patient to continue with Eraxis , micro-lab to check sensitivity on Rhonda and monitor his clinical course closely
[2022-09-30 05:54] LABS: Glucose,Whole Blood 210 mg/dL (70-110)
[2022-09-30] MEDS: carvediloL 12.5 MG TAB PO SCH ×2 (06:23→17:44)
[2022-09-30] MEDS: PANTOPRAZOLE 40 MG TABLET PO SCH ×2 (06:24→17:43)
[2022-09-30] MEDS: SODIUM CHLORIDE 0.9% 1,000 ML IV SCH (06:24)
[2022-09-30] MEDS: INSULIN ASPART (NovoLOG) 100 UNIT/ML VIAL SQ SCH ×7 (08:45→21:22)
[2022-09-30] MEDS: PYRIDOXINE 50 MG TAB PO SCH (08:46)
[2022-09-30] MEDS: HEPARIN SODIUM,PORCINE/PF 5,000 UNIT/0.5 ML SYRINGE SQ SCH ×3 (08:46→23:03)
[2022-09-30] MEDS: predniSONE 20 MG TAB PO SCH (08:46)
[2022-09-30] MEDS: ALBUTEROL HFA INHALER INHALATION SCH ×5 (08:58→19:24)
[2022-09-30] MEDS: TIOTROPIUM 2.5 MCG INHALER INHALATION SCH (08:58)
[2022-09-30] MEDS: SYMBICORT 160-4.5 MCG INHALER INHALATION SCH ×2 (08:58→19:24)
--- NOTE | 2022-09-30 10:14 | P.PN ---
Subjective Patient is seen in follow-up for acute kidney injury on chronic kidney disease. Started on hemodialysis 09/24/2022. S/p ureteral stent exchanges 09/27/2022. Denies chest pain or shortness of breath. Has a Woodward catheter. No problems with dialysis yesterday. Hemodynamically stable. Vital signs are stable. General: No acute distress. HEENT: Head exam is unremarkable. LUNGS: No rhonchi or wheezes. HEART: Rate and Rhythm are regular. ABDOMEN: Nontender and no distention. EXTREMITITES: No edema. Objective - Vital Signs Vital signs: Vital Signs Temp 97.4 F L 09/30/22 06:55 Pulse 66 09/30/22 06:55 Resp 18 09/30/22 06:55 BP 158/78 09/30/22 06:55 Pulse Ox 95 09/30/22 09:02 FiO2 40 09/27/22 04:52 Intake & Output 09/29/22 09/30/22 09/30/22 18:59 06:59 18:59 Intake Total 400 700 Output Total 1450 800 Balance -1050 -100 Weight 86 kg Intake: Intake, IV Titration 700 Amount Anidulafungin 100 mg In 100 Sodium Chloride 0.9% 100 ml @ 84 mls/hr IVPB DAILY @2000 [facility] Rx#:[id number] Sodium Chloride 0.9% 1, 600 000 ml @ 50 mls/hr IV . Q20H [facility] Rx#:[id number] Hemodialysis 400 Output: Urine 1050 800 Hemodialysis 400 Other: Voiding Method Indwelling Catheter Indwelling Catheter - Labs CBC & Chem 7: 09/27/22 08:00 09/29/22 08:18 Labs: Abnormal Lab Results - Last 24 Hours (Table) 09/29/22 09/29/22 09/29/22 Range/Units 08:18 11:10 16:11 BUN 52.2 H (9.0-27.0) mg/dL Creatinine 4.5 H (0.6-1.5) mg/dL Est GFR (CKD-EPI)AfAm 14.0 L (60.0-200.0) Est GFR (CKD-EPI)NonAf 12.1 L (60.0-200.0) BUN/Creatinine Ratio 11.52 L (12.00-20.00) Ratio Glucose 307 H (70-110) mg/dL POC Glucose (mg/dL) 285 H 258 H (70-110) mg/dL Calcium 7.1 L (8.7-10.3) mg/dL 09/29/22 09/30/22 Range/Units 20:22 05:52 BUN (9.0-27.0) mg/dL Creatinine (0.6-1.5) mg/dL Est GFR (CKD-EPI)AfAm (60.0-200.0) Est GFR (CKD-EPI)NonAf (60.0-200.0) BUN/Creatinine Ratio (12.00-20.00) Ratio Glucose (70-110) mg/dL POC Glucose (mg/dL) 352 H 210 H (70-110) mg/dL Calcium (8.7-10.3) mg/dL Microbiology - Last 24 Hours (Table) 09/26/22 06:35 Blood Culture Gram Stain - Final Blood Blood Culture - Final Rhonda guilliermondii 09/28/22 13:19 Blood Culture - Preliminary Blood No Growth after 24 hours Assessment and Plan Plan: Assessment: 1. Acute kidney injury secondary to ATN secondary to severe sepsis and obstructive uropathy. Creatinine 8.4 on admission. Started on hemodialysis 09/24/2022. Has right femoral catheter. Status post bilateral ureteral stent exchange on 09/27/2022. 2. Chronic kidney disease stage IV with baseline creatinine near 3. 3. Hyperkalemia secondary to acute kidney injury and metabolic acidosis. Improved postdialysis. 4. Fungemia maintained on antifungal. 5. Metabolic acidosis secondary to acute kidney injury. Improved with bicarbonate drip and dialysis. 6. Acute blood loss anemia status post blood transfusion this admission. No active bleeding. Improved. On Aranesp. 7. History of bladder cancer. Plan: Hemodialysis tomorrow. Monitor for renal function improvement post urologic intervention. Avoid nephrotoxins. Continue to monitor renal function and urine output. Maintain normal saline. Will need permacath prior to discharge if dialysis to be continued upon discharge. Phosphorus 4.1 dated 09/29/2022. Hospice has been discussed with the patient. Hasn't made up his mind yet.
[2022-09-30 10:56] VITALS: BMI 28.8
[2022-09-30 11:45] LABS: Glucose,Whole Blood 150 mg/dL (70-110)
--- NOTE | 2022-09-30 12:16 | P.PN ---
Subjective Progress Note Date: 09/30/22 Principal diagnosis: Candidemia Patient is a 72-year old male with a past medical history significant for bladder cancer in this patient also have a history of COPD diabetes mellitus hypertension hyperlipidemia, did have a aggressive that her cancer with bilateral hydronephrosis requiring nephrostomy tubes and symptoms although subsequently removed and did have a antegrade ureteral stents which were exchanged at this facility on 09/03/2022 patient presented to hospital with worsening kidney function and also have a positive blood culture with yeast. Patient did have cystoscopy and exchange of bilateral ureteral catheter on 09/27/2022 On today's evaluation that is 09/30/2022, the patient denies any fever or any chills, the patient is breathing comfortably on 3 L nasal cannula, the patient denies any chest pain shortness of breath or cough , but denies having any nausea no vomiting no abdominal pain no diarrhea has been reported Objective - Vital Signs Vital signs: Vital Signs Temp 97.4 F L 09/30/22 06:55 Pulse 66 09/30/22 06:55 Resp 18 09/30/22 06:55 BP 158/78 09/30/22 06:55 Pulse Ox 95 09/30/22 09:02 FiO2 40 09/27/22 04:52 Intake & Output 09/29/22 09/30/22 09/30/22 18:59 06:59 18:59 Intake Total 400 700 Output Total 1450 800 Balance -1050 -100 Weight 86 kg Intake: Intake, IV Titration 700 Amount Anidulafungin 100 mg In 100 Sodium Chloride 0.9% 100 ml @ 84 mls/hr IVPB DAILY @2000 [facility] Rx#:[id number] Sodium Chloride 0.9% 1, 600 000 ml @ 50 mls/hr IV . Q20H [facility] Rx#:[id number] Hemodialysis 400 Output: Urine 1050 800 Hemodialysis 400 Other: Voiding Method Indwelling Catheter Indwelling Catheter - Exam GENERAL DESCRIPTION: An elderly male lying in bed in no distress RESPIRATORY SYSTEM: Unlabored breathing , decreased breath sounds at bases HEART: S1 S2 regular rate and rhythm , ABDOMEN: Soft , no tenderness EXTREMITIES: No edema feet - Labs CBC & Chem 7: 09/27/22 08:00 09/29/22 08:18 Labs: Abnormal Lab Results - Last 24 Hours (Table) 09/29/22 09/29/22 09/29/22 Range/Units 08:18 11:10 16:11 BUN 52.2 H (9.0-27.0) mg/dL Creatinine 4.5 H (0.6-1.5) mg/dL Est GFR (CKD-EPI)AfAm 14.0 L (60.0-200.0) Est GFR (CKD-EPI)NonAf 12.1 L (60.0-200.0) BUN/Creatinine Ratio 11.52 L (12.00-20.00) Ratio Glucose 307 H (70-110) mg/dL POC Glucose (mg/dL) 285 H 258 H (70-110) mg/dL Calcium 7.1 L (8.7-10.3) mg/dL 09/29/22 09/30/22 Range/Units 20:22 05:52 BUN (9.0-27.0) mg/dL Creatinine (0.6-1.5) mg/dL Est GFR (CKD-EPI)AfAm (60.0-200.0) Est GFR (CKD-EPI)NonAf (60.0-200.0) BUN/Creatinine Ratio (12.00-20.00) Ratio Glucose (70-110) mg/dL POC Glucose (mg/dL) 352 H 210 H (70-110) mg/dL Calcium (8.7-10.3) mg/dL Microbiology - Last 24 Hours (Table) 09/26/22 06:35 Blood Culture Gram Stain - Final Blood Blood Culture - Final Rhonda guilliermondii 09/28/22 13:19 Blood Culture - Preliminary Blood No Growth after 24 hours Assessment and Plan (1) Candidemia Current Visit: Yes Status: Acute Code(s): B37.7 - CANDIDAL SEPSIS SNOMED Code(s): 753347488 (2) UTI (urinary tract infection) Current Visit: No Status: Acute Code(s): N39.0 - URINARY TRACT INFECTION, SITE NOT SPECIFIED SNOMED Code(s): 41467064 Plan: 1patient with a positive blood culture with yeast source is likely complicated UTI in this patient who did have history of bladder cancer bilateral hydronephro sis requiring nephrostomy tube which has been discontinued recent antegrade ureteral stent which were replaced on last admission at that point the patient did have a VRE UTI for which the patient has completed daptomycin therapy. 2blood culture , repeated on 09/26/2022 are positive as well. Repeat blood cultures as of 09/28/2022 as well as 09/29/2022 has been negative so far 3patient is status post exchange of the ureteral stent completed on 09/27/2022 4patient seemed to have some clinical improvement and will continue with Eraxis and monitor his clinical course closely Time with Patient: Less than 30
--- NOTE | 2022-09-30 12:20 | CDI ---
Documentation Clarification Form Date: 09/30/2022 11:24:36 AM From: Kyung Russell RN, CCDS Admit Date: 09/24/2022 5:11:00 PM Patient Name: Alberto Lopes Visit Number: [id number] Discharge Date: ATTENTION: The Clinical Documentation Specialists (CDI) and [facility] Coding Staff appreciate your assistance in clarifying documentation. Please respond to the clarification below the line at the bottom and electronically sign. The CDI & [facility] Coding staff will review the response and follow-up if needed. Please note: Queries are made part of the Legal Health Record. If you have any questions, please contact the author of this message via ITS. Dr. Manan Sierra The patient has documentation of sepsis in the progress note starting on 09/27. Based on this information and the findings below, is there an additional diagnosis that is clinically appropriate for this patient? 09/27 Nephrology progress note: Acute kidney injury secondary to ATN secondary to severe sepsis and obstructive uropathy, creatine 8.4 on admission 09/27 ID: Positive blood culture with yeast source is likely complicated UTI in this patient who did have history of bladder cancer bilateral hydronephrosis requiring nephrostomy tube. History of VRE UTI History/Risk Factors: Asthma, COPD, DM, HTN, Hyperlipidemia, current smoker Clinical Indicators: 71-year-old female present with worsening shortness of breath. 09/24 WBC 13.3, Potassium7.0, BUN 94, Cr 8.44, Lactic acid 0.8, Ua Large Leukocyte Esterase, Urine [id number] 09/24 Blood cultures: Rhonda Guilliermandii 09/24 Urine culture: No growth after 18 hours 09/26 Blood culture: Rhonda Guilliermodii 09/24 Vital signs: 155/88 130 28 98.7 96 % 4/L NC 09/24 CXR: Ongoing patchy right lower lung atelectasis versus infiltrate. Treatment: Anidulafungin 100 mg IVPB Daily 09/26-09/29 Azithromycin 500 MG IVPB Once 09/24 then IVPB X2 bags 09/25 Zosyn 3.375 MG IVPB Q8 HRS 09/24-09/25 .9 NS 1,000 ML IVPB Bolus X2 09/24 Is there an additional diagnosis that is clinically appropriate for this patient? [ + ] Sepsis, present on admission [ ] Sepsis, developed during stay, not present on admission [ ] Severe Sepsis with organ failure present on admission [ ] Other, please specify [ ] Unable to determine SIRS Criteria: 2 or more of the following may indicate SIRS Temperature < 96.8F (36C) or > 101.0F (38.3C) Heart Rate > 90 bpm Respiratory Rate > 20 breaths/min or PaCO2 < 32 mmHg White Blood Cell Count > 12,000 or < 4,000 cells/mm3 or > 10% bands (Template Last Reviewed: July 2022) MTDD
--- NOTE | 2022-09-30 15:22 | P.PN ---
Subjective Progress Note Date: 09/30/22 bladder cancer and renal failure s/p stent exchange Objective - Vital Signs Vital signs: Vital Signs Temp 98.2 F 09/30/22 13:24 Pulse 94 09/30/22 13:24 Resp 18 09/30/22 13:24 BP 156/80 09/30/22 13:24 Pulse Ox 97 09/30/22 13:24 FiO2 40 09/27/22 04:52 Intake & Output 09/29/22 09/30/22 09/30/22 18:59 06:59 18:59 Intake Total 400 700 Output Total 1450 800 Balance -1050 -100 Weight 86 kg 86 kg Intake: Intake, IV Titration 700 Amount Anidulafungin 100 mg In 100 Sodium Chloride 0.9% 100 ml @ 84 mls/hr IVPB DAILY @2000 FORMERLY [facility], [facility]–1983 Rx#:[id number] Sodium Chloride 0.9% 1, 600 000 ml @ 50 mls/hr IV . Q20H FORMERLY [facility], [facility]–1983 Rx#:[id number] Hemodialysis 400 Output: Urine 1050 800 Hemodialysis 400 Other: Voiding Method Indwelling Catheter Indwelling Catheter - Labs CBC & Chem 7: 09/27/22 08:00 09/29/22 08:18 Labs: Abnormal Lab Results - Last 24 Hours (Table) 09/29/22 09/29/22 09/30/22 Range/Units 16:11 20:22 05:52 POC Glucose (mg/dL) 258 H 352 H 210 H (70-110) mg/dL 09/30/22 Range/Units 11:44 POC Glucose (mg/dL) 150 H (70-110) mg/dL Microbiology - Last 24 Hours (Table) 09/29/22 08:18 Blood Culture - Preliminary Blood No Growth after 24 hours 09/26/22 06:35 Blood Culture Gram Stain - Final Blood Blood Culture - Final Rhonda guilliermondii 09/28/22 13:19 Blood Culture - Preliminary Blood No Growth after 24 hours Assessment and Plan Assessment: The patient is lying in bed getting ready to start dialysis. He is afebrile and his vitals are stable. He denies any pain. Todays' labs pending. 09/30/2022. The patient hasnt received any renal function benefit from the stent exchange. (1) Hydronephrosis Current Visit: No Status: Acute Code(s): N13.30 - UNSPECIFIED HYDRONEPHROSIS SNOMED Code(s): 59074179 Plan: The patient has dialysis dependent renal failure plus difficult probably incurable relentless bladder cancer. The patients options would be no treatment with hospice, , refer to a tertiary center with potential treatment. It is unlikely he will get any curative treatment.
[2022-09-30 17:05] LABS: Glucose,Whole Blood 196 mg/dL (70-110)
--- NOTE | 2022-09-30 17:19 | P.PN ---
Progress Note - Text Progress Note Date: 09/30/22 Chief Complaint: Short of breath his is a 72-year-old patient, follows with Dr.S Helm. Chronic stable medical conditions include COPD, hypertension, hyperlipidemia, peripheral neuropathy, does use walker/electric wheelchair. hx of HGT1 bladder cancer, had multiple recurrences, failed BCG therapy. on oxygen 3 L, not candidate for cystectomy. Underwent TURBT on 06/07/2022, there was significant amount of tumor within the bladder, and a complete resection could not be performed. Presented for a second stage TURBT. admit to the hospital and [place] for renal failure and bilateral hydronephrosis on 04/11/22, underwent bilateral nephrostomy tube placement at [place]. CT also showed evidence of bladder cancer recurrence. hsd bilateral nephrostomy tubes and stents. 08/10/2022: Was found to large papular tumor involving the entire bilateral lateral reyez domed anterior bladder neck and multiple satellite tumors throughout the posterior bladder wall. Both nephrostomy tubes are removed. Discharged with Woodward catheter. Patient then readmitted to the [facility] on September 02 and was discharged on September 09. Computed tomography scan showed abnormal placement of nephrostomy tubes. Patient was taken to the OR by Dr. Guerra from urology and bilateral ureter double-J stents were replaced. Unit come back for enterococcus. discharged on daptomycin Patient now presents increased shortness of breath. No cough. Appetite is good. No fever no chills. Patient continued to smoke about a pack a day. Living with his girlfriend. Tired rundown. Home oxygen 3 L. Renal function from a creatinine of 3.02 up to 8.44. Hyperkalemic. Last night dialysis c atheter was placed by Dr. Gallegos. Hemodialysis was done yesterday evening and 5 L was removed. Sodium bicarbonate drip. 09/26/2022: In bed. Short of breath. Tolerating diet. Discussed with Dr. Arriaza from urology. Concern for obstruction of double-J stents. He'll probably replace the same tomorrow. Last shift patient put out 180 mL of urine. Hemoglobin 6.8. Transfuse blood. 09/27/2022: Patient had bilateral double-J stent replaced today by Dr. Arriaza. Significant tumor burden encountered in the bladder. Discussed with the patient and this brother the bedside. Prognosis guarded. We'll see how urine output goes. Getting dialysis. Discussed the etiology about possibility of nephrostomy tube as the double-J stent placed today was also slowly but surely block after tubes. The nephrostomy tube may be palliative. I do not think patient is a good compliant candidate for dialysis. Discussed with Dr. Ny. Breathing a bit better. 09/28/2022: Bloody urine catheter. Some shortness of breath. Eating fair. Blood cultures positive for Rhonda. IV antifungal. 09/29/2022: Less bloody urine in the catheter. Hemodialysis today. No fluid being removed. Blood pressure running low. IV antifungal. Tolerating diet. 09/30/2022: Bloody urine. Tolerating diet. Again discussed with Dr. Ny from nephrology. Cancer is non-treatable. Hence dialysis will be futile. . Patient, his brother and his girlfriend. Lengthy discussion occurred. They finally decided to proceed with home with hospice. event operations manager involved. Patient to have dialysis tomorrow and then go home with hospice. Dialysis catheter to be removed. Active Medications Albuterol Sulfate (Albuterol Hfa Inhaler) 2 puff INHALATION RT-Q4H [facility] Last Admin: 09/30/22 15:53 Dose: 2 puff Budesonide/Formoterol Fumarate (Symbicort 160-4.5 Mcg Inhaler) 2 puff INHALATION RT-BID [facility] Last Admin: 09/30/22 08:58 Dose: 2 puff Carvedilol (Carvedilol 12.5 Mg Tab) 12.5 mg PO AC-BID [facility] Last Admin: 09/30/22 06:23 Dose: 12.5 mg Clotrimazole (Clotrimazole 1% Cream 30 Gm Tube) 1 applic TOPICAL DAILY PRN PRN Reason: FEET Darbepoetin Brandon (Darbepoetin Brandon 40 Mcg/0.4 Ml Syringe) 40 mcg SQ Q7D [facility] Last Admin: 09/27/22 15:14 Dose: 40 mcg Heparin Sodium (Porcine) (Heparin Sodium,Porcine/Pf 5,000 Unit/0.5 Ml Syringe) 5,000 unit SQ Q8HR [facility] Last Admin: 09/30/22 16:41 Dose: 5,000 unit Anidulafungin 100 mg/ Sodium (Chloride) 130 mls @ 84 mls/hr IVPB DAILY@2000 [facility]; Protocol Last Admin: 09/29/22 20:44 Dose: 84 mls/hr Sodium Chloride (Saline 0.9%) 1,000 mls @ 50 mls/hr IV .Q20H [facility] Last Admin: 09/30/22 06:24 Dose: 50 mls/hr Insulin Aspart (Insulin Aspart (Novolog) 100 Unit/Ml Vial) 0 unit SQ ACHS [facility]; Protocol Last Admin: 09/30/22 12:14 Dose: Not Given Insulin Aspart (Insulin Aspart (Novolog) 100 Unit/Ml Vial) 7 unit SQ AC-TID [facility] Last Admin: 09/30/22 12:15 Dose: 7 unit Insulin Detemir (Insulin Detemir (Levemir) 100 Unit/Ml Syr) 30 unit SQ [facility] Last Admin: 09/29/22 20:45 Dose: 30 unit Loperamide HCl (Loperamide 2 Mg Cap) 2 mg PO Q6H PRN PRN Reason: Loose Stool Miscellaneous Information (Pneumonia Protocol Utilized 1 Each Misc) 1 each PO ONCE PRN PRN Reason: Per Protocol Naloxone HCl (Naloxone 0.4 Mg/Ml 1 Ml Vial) 0.2 mg IV Q2M PRN PRN Reason: Opioid Reversal Pantoprazole Sodium (Pantoprazole 40 Mg Tablet) 40 mg PO AC-BID [facility] Last Admin: 09/30/22 06:24 Dose: 40 mg Pravastatin Sodium (Pravastatin Sodium 20 Mg Tab) 20 mg PO [facility] Last Admin: 09/29/22 20:44 Dose: 20 mg Prednisone (Prednisone 20 Mg Tab) 40 mg PO DAILY [facility] Last Admin: 09/30/22 08:46 Dose: 40 mg Pyridoxine HCl (Pyridoxine 50 Mg Tab) 100 mg PO DAILY [facility] Last Admin: 09/30/22 08:46 Dose: 100 mg Tamsulosin HCl (Tamsulosin 0.4 Mg Cap.Er.24h) 0.4 mg PO [facility] Last Admin: 09/29/22 20:44 Dose: 0.4 mg Theophylline (Theophylline 24 Hour 300 Mg Cap.Er.24h) 600 mg PO [facility] Last Admin: 09/29/22 20:45 Dose: 600 mg Tiotropium [place] (Tiotropium 2.5 Mcg Inhaler) 2 puff INHALATION RT-DAILY [facility] Last Admin: 09/30/22 08:58 Dose: 2 puff Past medical history to include: COPD, hypertension, hyperlipidemia, peripheral neuropathy, bladder cancer Social history: Long-standing smoker , currently 1 pack a day. girlfriend at home. Does use a electric wheelchair and a walker. Physical examination: VITAL SIGNS: 38.2, 94, 18, 156-80, 97% on 3 L GENERAL: Reclining, comfortable EYES: Pupils equal. Conjunctiva pale HEENT: External appearance of nose and ears normal, oral cavity grossly normal. NECK: JVD not raised; masses not palpable. HEART: First and second heart sounds are normal; no edema. LUNGS: Respiratory rate increased, decreased breath sounds ABDOMEN: Soft, nontender, liver spleen not palpable, no masses palpable. Woodward catheter PSYCH: Answering questions appropriately MUSCULOSKELETAL:No Clubbing/cyanosis;muscles-grossly intact. OA . INVESTIGATIONS, reviewed in the clinical context: 09/29/2022: Potassium 4.7 BUN 52 creatinine 4.5 09/28/2022: Potassium 5.2 BUN 45.5 creatinine 4.8 Blood cultures [September 24, September 26] Rhonda,guillemondi 09/27/2022: White count 12.7 hemoglobin 9.2 White count 127 potassium 5.6 BUN [address] abdomen pelvis: Bilaterally after stents with tips in appropriate position. Persistent moderate hydronephrosis bilaterally. Scattered colonic diverticulo sis. Cardiomegaly 09/26/2022: White count 12.2 hemoglobin 6.8 platelets 128 potassium 5.1 BUN 48.5 creatinine 5.3 CRP 9.6 Penis Doppler: Negative for DVT bilateral Chest x-ray film personally reviewed by me-hyperinflated. Right basilar infiltrate EKG tracing personally reviewed by me-sinus tachycardia. Nonspecific T-wave changes. 09/25/2022: White count 9.9 hemoglobin 8 platelets 160L5 0.3 BUN 68 creatinine 6.34 09/24/2022: White count 13.3 hemoglobin 8.7 platelets 219 potassium 7 BUN 94 creatinine 8.44 Previous labs 09/15/2022: Potassium 4.4 BUN 34 creatinine 3.02 Assessment and plan: -Acute severe COPD exacerbation in a current smoker Proventil 2 puffs every 4. [DuoNeb short ] Symbicort. Oral prednisone Theophylline 600 mg daily at bedtime -Right lower lobe pneumonia. Suspect gram-negative organism.: Improved Received IV Zosyn -Sepsis and blood cultures positive for Rhonda,guillemondi IV Anidulafungin started September 26 -Acute hypoxic respiratory failure from pneumonia COPD exacerbation on presentation Initially requiring BiPAP. Now down to 3 L -Chronic hypoxic respiratory failure from underlying COPD 3 l oxygen at home -Bilateral double-J stent ureter, replaced 09/27/[address] Arriaza -Severe hyperkalemia secondary to renal failure: Better Insulin, bicarbonate, Ventolin, renal diet. Follow with nephrology -Acute severe kidney injury, obstructive ureter patient has bilateral J stent ureter.- recent manipulation. aggressive recurrent bladder tumor Placed bilateral J stent. Dr. Arriaza 09/27/2022. Hemodialysis started on 09/25/2022 -Normocytic anemia, likely from anemia of chronic disease, symptomatic, tired Received 1 unit PRBC -Urinary bladder recurrent papillary tumor.: Recurrent progressive. Noncurable p- discussed with Dr. Castaneda, oriented and also discussed with Dr. ahuja Increased bladder tumor burden seen on cystoscopy . -Diabetes mellitus type II, chronically on insulin, uncontrolled with hyperglycemia Levemir 30 units subcu bedtime Follow Accu-Chek -Hyperlipidemia Pravachol -Essential hypertension Coreg -Chronic nicotine dependence, cigarette smoker Nicotine patch 21 -DO NOT RESUSCITATE Continue current treatment. Hemodialysis tomorrow. Then discontinue dialysis catheter. Patient will then be discharged home with hospice. community mental health social worker involved. Total time spent more than 50 minutes. Advance care planning: Discussed with the patient, his brother, his girlfriend, his close friend. Lengthy discussion occurred. They understand guarded prognosis. Incurable bladder cancer. Understand the futile nature of dialysis in this condition. They have decided to proceed with home with hospice. Case management involved. Dialysis tomorrow. Then dialysis catheter will be removed. Time spent for advance care planning 20 minutes
[2022-09-30 20:55] LABS: Glucose,Whole Blood 278 mg/dL (70-110)
[2022-09-30] MEDS: THEOPHYLLINE 24 HOUR 300 MG CAP.ER.24H PO SCH (21:22)
[2022-09-30] MEDS: INSULIN DETEMIR (LEVEMIR) 100 UNIT/ML SYR SQ SCH (21:22)
[2022-09-30] MEDS: TAMSULOSIN 0.4 MG CAP.ER.24H PO SCH (21:23)
[2022-09-30] MEDS: PRAVASTATIN SODIUM 20 MG TAB PO SCH (21:23)
[2022-09-30] MEDS: ANIDULAFUNGIN 100 MG in SODIUM CHLORIDE 0.9% 100 ML IVPB SCH (21:23)
[2022-10-01] MEDS: ALBUTEROL HFA INHALER INHALATION SCH ×5 (00:29→16:19)
[2022-10-01 06:06] LABS: Glucose,Whole Blood 190 mg/dL (70-110)
[2022-10-01] MEDS: INSULIN ASPART (NovoLOG) 100 UNIT/ML VIAL SQ SCH ×4 (06:26→13:30)
[2022-10-01] MEDS: PANTOPRAZOLE 40 MG TABLET PO SCH (06:26)
[2022-10-01] MEDS: carvediloL 12.5 MG TAB PO SCH (06:26)
[2022-10-01] MEDS: SODIUM CHLORIDE 0.9% 1,000 ML IV SCH (06:27)
[2022-10-01] MEDS: SYMBICORT 160-4.5 MCG INHALER INHALATION SCH (08:58)
[2022-10-01] MEDS: TIOTROPIUM 2.5 MCG INHALER INHALATION SCH (08:58)
--- NOTE | 2022-10-01 10:28 | P.PN ---
Subjective Patient is seen in follow-up for acute kidney injury on chronic kidney disease. Started on hemodialysis 09/24/2022. S/p ureteral stent exchanges 09/27/2022. Denies chest pain or shortness of breath. Has a Woodward catheter. Tolerating dialysis well. Plan is to go home on hospice today. Vital signs are stable. General: No acute distress. HEENT: Head exam is unremarkable. LUNGS: No rhonchi or wheezes. HEART: Rate and Rhythm are regular. ABDOMEN: Nontender and no distention. EXTREMITITES: No edema. Objective - Vital Signs Vital signs: Vital Signs Temp 97.9 F 10/01/22 06:55 Pulse 69 10/01/22 06:55 Resp 20 10/01/22 06:55 BP 170/80 10/01/22 06:55 Pulse Ox 97 10/01/22 08:58 FiO2 40 09/27/22 04:52 Intake & Output 09/30/22 10/01/22 10/01/22 18:59 06:59 18:59 Output Total 600 202 Balance -600 -202 Weight 86 kg 86 kg Output: Urine 600 200 Stool 2 Other: Voiding Method Indwelling Catheter Indwelling Catheter # Bowel Movements 1 - Labs CBC & Chem 7: 09/27/22 08:00 09/29/22 08:18 Labs: Abnormal Lab Results - Last 24 Hours (Table) 09/30/22 09/30/22 09/30/22 Range/Units 11:44 17:04 20:54 POC Glucose (mg/dL) 150 H 196 H 278 H (70-110) mg/dL 10/01/22 Range/Units 06:05 POC Glucose (mg/dL) 190 H (70-110) mg/dL Microbiology - Last 24 Hours (Table) 09/28/22 13:19 Blood Culture - Preliminary Blood No Growth after 48 hours 09/29/22 08:18 Blood Culture - Preliminary Blood No Growth after 24 hours Assessment and Plan Plan: Assessment: 1. Acute kidney injury secondary to ATN secondary to severe sepsis and obstructive uropathy. Creatinine 8.4 on admission. Started on hemodialysis 09/24/2022. Has right femoral catheter. Status post bilateral ureteral stent exchange on 09/27/2022. 2. Chronic kidney disease stage IV with baseline creatinine near 3. 3. Hyperkalemia secondary to acute kidney injury and metabolic acidosis. Improved postdialysis. 4. Fungemia maintained on antifungal. 5. Metabolic acidosis secondary to acute kidney injury. Improved with bicarbonate drip and dialysis. 6. Acute blood loss anemia status post blood transfusion this admission. No active bleeding. Improved. On Aranesp. 7. History of bladder cancer. Plan: Currently seen while undergoing hemodialysis. Dialysis catheter to be removed after treatment completed today. Plan is to go home on hospice today.
[2022-10-01 10:41] VITALS: RESP 18
[2022-10-01 11:24] LABS: Glucose,Whole Blood 125 mg/dL (70-110)
--- NOTE | 2022-10-01 13:15 | P.PN ---
Subjective Progress Note Date: 10/01/22 Principal diagnosis: Candidemia Patient is a 72-year old male with a past medical history significant for bladder cancer in this patient also have a history of COPD diabetes mellitus hypertension hyperlipidemia, did have a aggressive that her cancer with bilateral hydronephrosis requiring nephrostomy tubes and symptoms although subsequently removed and did have a antegrade ureteral stents which were exchanged at this facility on 09/03/2022 patient presented to hospital with worsening kidney function and also have a positive blood culture with yeast. Patient did have cystoscopy and exchange of bilateral ureteral catheter on 09/27/2022 On today's evaluation that is 10/01/2022, the patient remains to be afebrile, the patient is breathing comfortably on 3 L nasal cannula, the patient denies any chest pain shortness of breath or cough , the patient denies having any nausea no vomiting no abdominal pain no diarrhea has been reported by the nursing staff Objective - Vital Signs Vital signs: Vital Signs Temp 97.9 F 10/01/22 06:55 Pulse 69 10/01/22 06:55 Resp 18 10/01/22 08:18 BP 170/80 10/01/22 06:55 Pulse Ox 97 10/01/22 08:58 FiO2 40 09/27/22 04:52 Intake & Output 09/30/22 10/01/22 10/01/22 18:59 06:59 18:59 Output Total 600 202 Balance -600 -202 Weight 86 kg 86 kg Output: Urine 600 200 Stool 2 Other: Voiding Method Indwelling Catheter Indwelling Catheter Indwelling Catheter # Bowel Movements 1 - Exam GENERAL DESCRIPTION: An elderly male lying in bed in no distress RESPIRATORY SYSTEM: Unlabored breathing , decreased breath sounds at bases HEART: S1 S2 regular rate and rhythm , ABDOMEN: Soft , no tenderness EXTREMITIES: No edema feet - Labs CBC & Chem 7: 09/27/22 08:00 09/29/22 08:18 Labs: Abnormal Lab Results - Last 24 Hours (Table) 09/30/22 09/30/22 09/30/22 Range/Units 11:44 17:04 20:54 POC Glucose (mg/dL) 150 H 196 H 278 H (70-110) mg/dL 10/01/22 10/01/22 Range/Units 06:05 11:23 POC Glucose (mg/dL) 190 H 125 H (70-110) mg/dL Microbiology - Last 24 Hours (Table) 09/29/22 08:18 Blood Culture - Preliminary Blood No Growth after 48 hours 09/28/22 13:19 Blood Culture - Preliminary Blood No Growth after 48 hours Assessment and Plan (1) Candidemia Current Visit: Yes Status: Acute Code(s): B37.7 - CANDIDAL SEPSIS SNOMED Code(s): 816297647 Plan: 1patient with a positive blood culture with yeast source is likely complicated UTI in this patient who did have history of bladder cancer bilateral hydronephrosis requiring nephrostomy tube which has been discontinued recent antegrade ureteral stent which were replaced on last admission at that point the patient did have a VRE UTI for which the patient has completed daptomycin therapy. 2blood culture , repeated on 09/26/2022 are positive as well. Repeat blood cultures as of 09/28/2022 as well as 09/29/2022 has been negative so far 3patient is status post exchange of the ureteral stent completed on 09/27/2022 4patient seemed to have shown some clinical improvement however the plan is for possible hospice which may be appropriate for him, Eraxis can be safely discontinued once the patient is switched to hospice Time with Patient: Less than 30
[2022-10-01] MEDS: HEPARIN SODIUM,PORCINE/PF 5,000 UNIT/0.5 ML SYRINGE SQ SCH ×2 (13:30→16:37)
[2022-10-01] MEDS: predniSONE 20 MG TAB PO SCH (13:32)
[2022-10-01] MEDS: PYRIDOXINE 50 MG TAB PO SCH (13:33)
--- NOTE | 2022-10-01 15:11 | P.PCN ---
Description of Procedure: Preoperative diagnoses is acute chronic renal failure Posterior same Procedure removal of dialysis catheter and femoral approach this patient was seen in his room today Rama had a dialysis catheter placed on the right groin past which is going for hospice the right groin were prepped and the stitches removed from the catheter catheter was removed pressure was held pressure dressing applied patient tolerated the procedure well
[2022-10-01 15:20] VITALS: BP 160/80; PULSE 80; TEMP 97.9
--- NOTE | 2022-10-01 15:44 | P.DS ---
Providers Date of admission: 09/24/22 17:11 Expected date of discharge: 10/01/22 Attending physician: Manan Sierra Consults: 09/24/22 17:11 Consult Physician Routine Consulting Provider: Kd Mckeon Consult Reason/Comments: copd exacerbation, bipap, pneumonia Do you want consulting provider notified?: Yes, Notify in am Consult Physician Routine Consulting Provider: Armando Perdomo Consult Reason/Comments: acute renal failure, hyperkalemia Do you want consulting provider notified?: Already Contacted 09/24/22 20:54 Consult Physician Urgent Consulting Provider: Andrea Shell Consult Reason/Comments: emergency dialysis Do you want consulting provider notified?: Yes 09/25/22 14:04 Consult Physician Routine Consulting Provider: Pavel Castaneda Consult Reason/Comments: Bladder cancer, worsening renal function Do you want consulting provider notified?: Yes 09/25/22 19:22 Consult Physician Urgent Consulting Provider: Mulugeta Ospina Consult Reason/Comments: Positive blood cultures Do you want consulting provider notified?: Yes Primary care physician: Khadijah Helm [facility] Course: Chief Complaint: Short of breath his is a 72-year-old patient, follows with Dr.S Helm. Chronic stable medical conditions include COPD, hypertension, hyperlipidemia, peripheral neuropathy, does use walker/electric wheelchair. hx of HGT1 bladder cancer, had multiple recurrences, failed BCG therapy. on oxygen 3 L, not candidate for cystectomy. Underwent TURBT on 06/07/2022, there was significant amount of tumor within the bladder, and a complete resection could not be performed. Presented for a second stage TURBT. admit to the hospital and [facility] for renal failure and bilateral hydronephrosis on 04/11/22, underwent bilateral nephrostomy tube placement at [facility]. CT also showed evidence of bladder cancer recurrence. hsd bilateral nephrostomy tubes and stents. 08/10/2022: Was found to large papular tumor involving the entire bilateral lateral reyez domed anterior bladder neck and multiple satellite tumors throughout the posterior bladder wall. Both nephrostomy tubes are removed. Discharged with Woodward catheter. Patient then readmitted to the hospital on September 02 and was discharged on September 09. Computed tomography scan showed abnormal placement of nephrostomy tubes. Patient was taken to the OR by Dr. Guerra from urology and bilateral ureter double-J stents were replaced. Unit come back for enterococcus. discharged on daptomycin Patient now presents increased shortness of breath. No cough. Appetite is good. No fever no chills. Patient continued to smoke about a pack a day. Living with his girlfriend. Tired rundown. Home oxygen 3 L. Renal function from a creatinine of 3.02 up to 8.44. Hyperkalemic. Last night dialysis catheter was placed by Dr. Gallegos. Hemodialysis was done yesterday evening and 5 L was removed. Sodium bicarbonate drip. 09/26/2022: In bed. Short of breath. Tolerating diet. Discussed with Dr. Arriaza from urology. Concern for obstruction of double-J stents. He'll probably replace the same tomorrow. Last shift patient put out 180 mL of urine. Hemoglobin 6.8. Transfuse blood. 09/27/2022: Patient had bilateral double-J stent replaced today by Dr. Arriaza. Significant tumor burden encountered in the bladder. Discussed with the patient and this brother the bedside. Prognosis guarded. We'll see how urine output goes. Getting dialysis. Discussed the etiology about possibility of nephrostomy tube as the double-J stent placed today was also slowly but surely block after tubes. The nephrostomy tube may be palliative. I do not think patient is a good compliant candidate for dialysis. Discussed with Dr. Ny. Breathing a bit better. 09/28/2022: Bloody urine catheter. Some shortness of breath. Eating fair. Blood cultures positive for Rhonda. IV antifungal. 09/29/2022: Less bloody urine in the catheter. Hemodialysis today. No fluid being removed. Blood pressure running low. IV antifungal. Tolerating diet. 09/30/2022: Bloody urine. Tolerating diet. Again discussed with Dr. Ny from nephrology. Cancer is non-treatable. Hence dialysis will be futile. . Patient, his brother and his girlfriend. Lengthy discussion occurred. They finally decided to proceed with home with hospice. banquet manager involved. Patient to have dialysis tomorrow and then go home with hospice. Dialysis catheter to be removed. 10/01/2022: Persistent bloody urine in the Woodward catheter. Hemodialysis today. Communicated with hospice. Home with hospice today after dialysis. Dr. Shell pulled out. dialysis catheter. Questions answered for the patient. Home with [facility]. Discussion and discharge planning more than 35 minutes Past medical history to include: COPD, hypertension, hyperlipidemia, peripheral neuropathy, bladder cancer Social history: Long-standing smoker , currently 1 pack a day. girlfriend at home. Does use a electric wheelchair and a walker. Physical examination: VITAL SIGNS: 97.9, 80, 18, 1 56 x 61, 98% on 3 L GENERAL: Reclining, comfortable EYES: Pupils equal. Conjunctiva pale HEENT: External appearance of nose and ears normal, oral cavity grossly normal. NECK: JVD not raised; masses not palpable. HEART: First and second heart sounds are normal; no edema. LUNGS: Respiratory rate increased, decreased breath sounds ABDOMEN: Soft, nontender, liver spleen not palpable, no masses palpable. Woodward catheter PSYCH: Answering questions appropriately MUSCULOSKELETAL:No Clubbing/cyanosis;muscles-grossly intact. OA . INVESTIGATIONS, reviewed in the clinical context: 09/29/2022: Potassium 4.7 BUN 52 creatinine 4.5 09/28/2022: Potassium 5.2 BUN 45.5 creatinine 4.8 Blood cultures [September 24, September 26] Rhonda,guillemondi 09/27/2022: White count 12.7 hemoglobin 9.2 White count 127 potassium 5.6 BUN [address] abdomen pelvis: Bilaterally after stents with tips in appropriate position. Persistent moderate hydronephrosis bilaterally. Scattered colonic diverticulosis. Cardiomegaly 09/26/2022: White count 12.2 hemoglobin 6.8 platelets 128 potassium 5.1 BUN 48.5 creatinine 5.3 CRP 9.6 Penis Doppler: Negative for DVT bilateral Chest x-ray film personally reviewed by me-hyperinflated. Right basilar infiltrate EKG tracing personally reviewed by me-sinus tachycardia. Nonspecific T-wave changes. 09/25/2022: White count 9.9 hemoglobin 8 platelets 160L5 0.3 BUN 68 creatinine 6.34 09/24/2022: White count 13.3 hemoglobin 8.7 platelets 219 potassium 7 BUN 94 creatinine 8.44 Previous labs 09/15/2022: Potassium 4.4 BUN 34 creatinine 3.02 Assessment and plan: -Acute severe COPD exacerbation in a current smoker Proventil 2 puffs every 4. [DuoNeb short ] Symbicort. Oral prednisone Theophylline 600 mg daily at bedtime -Right lower lobe pneumonia. Suspect gram-negative organism.: Improved Received IV Zosyn -Sepsis and blood cultures positive for Rhonda,guillemondi IV Anidulafungin started September 26 -Acute hypoxic respiratory failure from pneumonia COPD exacerbation on presentation Initially requiring BiPAP. Now down to 3 L -Chronic hypoxic respiratory failure from underlying COPD 3 l oxygen at home -Bilateral double-J stent ureter, replaced 09/27/[address] Arriaza -Severe hyperkalemia secondary to renal failure: Better Insulin, bicarbonate, Ventolin, renal diet. Follow with nephrology -Acute severe kidney injury, obstructive ureter patient has bilateral J stent ureter.- recent manipulation. aggressive recurrent bladder tumor Placed bilateral J stent. Dr. Arriaza 09/27/2022. Hemodialysis started on 09/25/2022 -Normocytic anemia, likely from anemia of chronic disease, symptomatic, tired Received 1 unit PRBC -Urinary bladder recurrent papillary tumor.: Recurrent progressive. Noncurable p- discussed with Dr. Castaneda, oriented and also discussed with Dr. ahuja Increased bladder tumor burden seen on cystoscopy . -Diabetes mellitus type II, chronically on insulin, uncontrolled with hyperglycemia Levemir 30 units subcu bedtime Follow Accu-Chek -Hyperlipidemia Pravachol -Essential hypertension Coreg -Chronic nicotine dependence, cigarette smoker Nicotine patch 21 -DO NOT RESUSCITATE Disposition: Home with hospice Plan - Discharge Summary Discharge Rx Participant: Yes New Discharge Prescriptions: New predniSONE [Deltasone] 40 mg PO DAILY tab Continue Pravastatin Sodium [Pravachol] 20 mg PO HS carvediloL [Coreg] 12.5 mg PO BID Tamsulosin [Flomax] 0.4 mg PO HS Albuterol Sulfate [Albuterol Sulfate Hfa] 2 puff PO RT-Q4H PRN PRN Reason: Shortness Of Breath Or Wheezing Theophylline Anhydrous [Theophylline ER] 300 mg PO BID Ketoconazole 2% Cream [Nizoral 2%] 1 applic TOPICAL DAILY PRN PRN Reason: FEET polyethylene glycoL 3350 [Miralax] 17 gm PO DAILY PRN packet PRN Reason: Constipation Loperamide [Imodium] 2 mg PO Q6H PRN PRN Reason: Loose Stool Insulin Lispro [humaLOG Kwikpen] 5 unit SQ AC-TID Insulin Glargine,Hum.rec.anlog [Lantus Solostar Pen] 20 units SQ HS Pyridoxine HCl (Vitamin B6) [Vitamin B-6] 100 mg PO DAILY Ondansetron [Zofran] 4 mg PO Q8HR PRN PRN Reason: Nausea Ammonium Lactate Lotion [Lac-Hydrin 12% Lotion] 1 applic TOPICAL BID PRN PRN Reason: DRY FEET Pantoprazole Sodium [Protonix] 40 mg PO BID Fluticasone Propion/Salmeterol [Advair 500-50 Diskus] 1 puff INHALATION RT- BID Tiotropium 2.5 Mcg/Puff [Spiriva Respimat 2.5 Mcg] 2 puff INHALATION RT-DAILY PRN PRN Reason: COPD Discharge Medication List Pravastatin Sodium [Pravachol] 20 mg PO HS 10/11/17 [History] carvediloL [Coreg] 12.5 mg PO BID 10/11/17 [History] Tamsulosin [Flomax] 0.4 mg PO HS 05/14/19 [History] Albuterol Sulfate [Albuterol Sulfate Hfa] 2 puff PO RT-Q4H PRN 09/12/20 [History] Theophylline Anhydrous [Theophylline ER] 300 mg PO BID 07/15/22 [History] Ammonium Lactate Lotion [Lac-Hydrin 12% Lotion] 1 applic TOPICAL BID PRN 09/02/22 [History] Ketoconazole 2% Cream [Nizoral 2%] 1 applic TOPICAL DAILY PRN 09/02/22 [History] Ondansetron [Zofran] 4 mg PO Q8HR PRN 09/02/22 [History] polyethylene glycoL 3350 [Miralax] 17 gm PO DAILY PRN packet 09/15/22 [Rx] Fluticasone Propion/Salmeterol [Advair 500-50 Diskus] 1 puff INHALATION RT-BID 09/24/22 [History] Insulin Glargine,Hum.rec.anlog [Lantus Solostar Pen] 20 units SQ HS 09/24/22 [History] Insulin Lispro [humaLOG Kwikpen] 5 unit SQ AC-TID 09/24/22 [History] Loperamide [Imodium] 2 mg PO Q6H PRN 09/24/22 [History] Pantoprazole Sodium [Protonix] 40 mg PO BID 09/24/22 [History] Pyridoxine HCl (Vitamin B6) [Vitamin B-6] 100 mg PO DAILY 09/24/22 [History] Tiotropium 2.5 Mcg/Puff [Spiriva Respimat 2.5 Mcg] 2 puff INHALATION RT-DAILY PRN 09/24/22 [History] predniSONE [Deltasone] 40 mg PO DAILY tab 10/01/22 [Rx] Follow up Appointment(s)/Referral(s): Siddhartha,Wenceslao [NON-STAFF] - 1 Week Khadijah Helm MD [Primary Care Provider] - 1-2 days (Please call for appointment.)
[2022-10-01 16:35] LABS: Glucose,Whole Blood 184 mg/dL (70-110)
--- NOTE | 2022-10-05 12:08 | CDI ---
Documentation Clarification Form Date: 10/05/22 From: Lindsey Lees Phone: Admit Date: 09/24/2022 5:11:00 PM Patient Name: Alberto Lopes Visit Number: [id number] Discharge Date: 10/01/2022 7:14:00 PM ATTENTION: The Clinical Documentation Specialists (CDI) and [facility] Coding Staff appreciate your assistance in clarifying documentation. Please respond to the clarification below the line at the bottom and electronically sign. The CDI & [facility] Coding staff will review the response and follow-up if needed. Please note: Queries are made part of the Legal Health Record. If you have any questions, please contact the author of this message via ITS. Dr. Manan Sierra, Conflicting documentation has been found in the medical record. As attending physician, please provide clarification. Dr. Ospina states in his consult patient with apositive blood culturewith yeast sourceis likelycomplicated UTIin this patient who did havehistory of bladder cancer. There is no mention of a current UTI. History/Risk Factors: Bladder cancer, serena sepsis with severe sepsis, pneumonia acute and chronic hypoxic respiratory failure, ATN, COPD in exacerbation, ABLA, T2DM w CKD, neuropathy & hyperglycemia Clinical Indicators: Urine: protein 2+, blood large, leukocyte esterase large, RBC >182, WBC >182, WBC clumps many, urine culture negative Treatment: IV Anidulafungin, IV Zoysn Please clarify which diagnosis is most appropriate: [ + ] UTI due to serena and chronic Woodward catheter [ ] UTI due to chronic Woodward catheter [ ] UTI ruled out [ ] Other (please specify) [ ] Unable to determine MTDD
== END 2022-10-01 19:14 | disposition hospice, home (50) | DRG 659 ==
LOC: EC 13:43 → 3SCARD 17:11 → 2SICU 17:38 → 3SCARD 18:06 → 2SICU 21:25 → 4SSUR 09-25 18:28
PROVIDERS: ADMIT Hospitalist; ATTEND Hospitalist
PROC: 5A1D70Z Performance of Urinary Filtration, Intermittent, Less than 6 Hours Per Day (ICD-10-PCS; 2022-09-25)
PROC: 30233N1 Transfusion of Nonautologous Red Blood Cells into Peripheral Vein, Percutaneous Approach (ICD-10-PCS; 2022-09-26)
PROC: 06HY33Z Insertion of Infusion Device into Lower Vein, Percutaneous Approach (ICD-10-PCS; 2022-09-26)
PROC: 0TP98DZ Removal of Intraluminal Device from Ureter, Via Natural or Artificial Opening Endoscopic (ICD-10-PCS; principal; 2022-09-27 10:55)
PROC: 0T788DZ Dilation of Bilateral Ureters with Intraluminal Device, Via Natural or Artificial Opening Endoscopic (ICD-10-PCS; principal; 2022-09-27 10:55)
PROC: 05HC33Z Insertion of Infusion Device into Left Basilic Vein, Percutaneous Approach (ICD-10-PCS; 2022-09-30)
PROC: 06PYX3Z Removal of Infusion Device from Lower Vein, External Approach (ICD-10-PCS; 2022-10-01)
DX: T83.511A Infection and inflammatory reaction due to indwelling urethral catheter, initial encounter (principal); B37.7 Candidal sepsis; J18.9 Pneumonia, unspecified organism; J96.21 Acute and chronic respiratory failure with hypoxia; N17.0 Acute kidney failure with tubular necrosis; R65.20 Severe sepsis without septic shock; J44.0 Chronic obstructive pulmonary disease with (acute) lower respiratory infection; D62 Acute posthemorrhagic anemia; J44.1 Chronic obstructive pulmonary disease with (acute) exacerbation; N18.4 Chronic kidney disease, stage 4 (severe); B37.49 Other urogenital candidiasis; J98.11 Atelectasis; D63.1 Anemia in chronic kidney disease; C67.8 Malignant neoplasm of overlapping sites of bladder; E11.22 Type 2 diabetes mellitus with diabetic chronic kidney disease; E11.42 Type 2 diabetes mellitus with diabetic polyneuropathy; E11.65 Type 2 diabetes mellitus with hyperglycemia; Z79.4 Long term (current) use of insulin; Z99.2 Dependence on renal dialysis; Z66 Do not resuscitate; Z51.5 Encounter for palliative care; Z20.822 Contact with and (suspected) exposure to COVID-19; I12.9 Hypertensive chronic kidney disease with stage 1 through stage 4 chronic kidney disease, or unspecified chronic kidney disease; E87.5 Hyperkalemia; E86.0 Dehydration; E78.5 Hyperlipidemia, unspecified; R31.9 Hematuria, unspecified; F17.210 Nicotine dependence, cigarettes, uncomplicated; Z71.6 Tobacco abuse counseling; Z79.51 Long term (current) use of inhaled steroids; Z79.899 Other long term (current) drug therapy; Z87.01 Personal history of pneumonia (recurrent); Z86.16 Personal history of COVID-19; Z86.19 Personal history of other infectious and parasitic diseases; Z99.3 Dependence on wheelchair; Z99.81 Dependence on supplemental oxygen; Y84.6 Urinary catheterization as the cause of abnormal reaction of the patient, or of later complication, without mention of misadventure at the time of the procedure
CPT/HCPCS: 36410; 36415; 51702; 71045; 74176; 76770; 76937; 80048; 80053; 81001; 82803; 83605; 83735; 83880; 84100; 84484; 85025; 85379; 85610; 85730; 86140; 86706; 86850; 86900; 86901; 86920; 87040; 87086; 87340; 87636; 90935; 93005; 93970; 94640; 94660; 94760; 96361; 96365; 96367; 96375; 96376; 99291